=== PATIENT | female | born 1960 | race Caucasian/White ===

== ENCOUNTER 2020-07-10 06:33 | Outpatient (CLI) | payer BC, OTHER, SELFPAY ==
--- NOTE | ~2020-07-10 | XR_ITS ---
EXAMINATION: XR chest 2V EXAM DATE: 07/10/2020 06:50 INDICATION: Persistent cough, COPD. TECHNIQUE: Frontal and lateral projections of the chest obtained and reviewed. Comparison is made to prior examination from 07/09/2019. FINDINGS: The lungs are clear. There are no pleural effusions. The cardiomediastinal silhouette is upper limits of normal in size. There is no pneumothorax suspected. Old right rib fractures. There is mild hyperinflation. IMPRESSION: Mild hyperinflation. Reviewed, dictated and finalized at location A. IMPRESSION: Mild hyperinflation.
== END 2020-07-10 06:34 | disposition home or self-care (01) ==
LOC: ANHIMG 06:38
PROVIDERS: PCP Family Medicine; Visit Provider Physician Assistant Medical
DX: R05 Cough (principal); R91.8 Other nonspecific abnormal finding of lung field
CPT/HCPCS: 71046

== ENCOUNTER 2021-05-28 23:08 | Inpatient (IN) | payer BC, OTHER, SELFPAY ==
--- NOTE | ~2021-05-28 | XR_ITS ---
XR hip RT 2V w AP pelvis, XR hip LT 1V 05/29/2021 00:04 (accession [id number]), 05/29/2021 07:31 (accession [id number]) Indication: Right hip pain after fall Procedure: AP pelvis and 2 views right hip. Portable view of the left hip performed for comparison. Comparison: No prior studies for comparison. Findings: Pelvic rings are intact. Sacral foramen are symmetric. There is a displaced right femoral n dave fracture with varus angulation. Sacral foramen are symmetric. Impression: 1: Displaced right femoral neck fracture with varus angulation. Reviewed, dictated and finalized at location A. Impression: 1: Displaced right femoral neck fracture with varus angulation. Impression: 1: Displaced right femoral neck fracture with varus angulation.
--- NOTE | ~2021-05-28 | XR_ITS ---
EXAMINATION: XR chest 2V EXAM DATE: 06/03/2021 14:11 INDICATION: Hypoxia. TECHNIQUE: Frontal and lateral projections of the chest obtained and reviewed. Comparison is made to prior examination from 05/28/2021. FINDINGS: Interval development of small to moderate left, small right pleural effusions and left per ihilar edema or pneumonia. There is cardiomegaly. No pneumothorax. There are no osseous abnormalities identified. IMPRESSION: 1. Interval development of small to moderate left, small right pleural effusions. 2. Left perihilar edema or pneumonia. Reviewed, dictated and finalized at location A. IMPRESSION: 1. Interval development of small to moderate left, small right pleural effusio ns. 2. Left perihilar edema or pneumonia.
--- NOTE | ~2021-05-28 | XR_ITS ---
EXAMINATION: XR chest 1V portable 05/29/2021 00:04 INDICATION: Status post fall. PROCEDURE: AP portable chest COMPARISON: Comparison to multiple prior studies sequentially, with oldest reviewed study date2017. FINDINGS: The lungs are clear. The cardiomediastinal silhouette is within normal limits. There are no pleural effusions. There is no pneumothorax suspected. IMPRESSION: 1: NO ACUTE CARDIOPULMONARY DISEASE. Reviewed, dictated and finalized at location A.
--- NOTE | ~2021-05-28 | CT_ITS ---
EXAMINATION: CT cervical spine wo con DATE: 05/28/2021 23:53 INDICATION: Neck pain after fall TECHNIQUE: Computed tomography (CT) of the cervical spine was performed without intravenous contrast. The dose-length product was 296 mGy-cm. Automated exposure control and iterative reconstruction tech nique were employed. COMPARISON: None FINDINGS: There is emphysema. There is straightening of cervical lordosis. There is degenerative disc disease at C4-5 and C5-6. There is degenerative anterolisthesis at C3-4 and C4-5. Odontoid process w ithin normal limits. No evidence for perched facet. Craniovertebral junction within normal limits. Th ere are facet degenerative changes primarily at C3-4 and C4-5. There are mild uncinate degenerative c hanges. No acute fracture or traumatic malalignment. IMPRESSION: 1. No acute abnormality of the cervical spine. 2: Moderate cervical spondylosis. Reviewed, dictated and finalized at location A.
--- NOTE | ~2021-05-28 | XR_ITS ---
EXAMINATION: XR surgery orthopedic DATE: 05/29/2021 16:08 INDICATION: Intraoperative evaluation during right hip arthroplasty TECHNIQUE: Frontal view of the right hip was obtained. COMPARISON: None. FINDINGS: Intraoperative image during a right hip arthroplasty demonstrate initially placement of a femoral bro ach with a lucent head component centered within the right acetabular. Was subsequently exchanged for the femoral component of the right hip hemiarthroplasty, still with lucent compartment. Hemostats li maisha external to the patient project over the proximal right thigh. Left hip joint space is normal. N o fractures identified. IMPRESSION: 1. Expected appearance during a bipolar type right hip hemiarthroplasty. Reviewed, dictated and finalized at location A.
--- NOTE | ~2021-05-28 | CT_ITS ---
EXAMINATION: CT brain wo con DATE: 05/28/2021 23:53 INDICATION: Head injury. Headache. TECHNIQUE: Computed tomography (CT) of the head was performed without intravenous contrast. The dose- length product was 605.33 mGy-cm. Automated exposure control and iterative reconstruction technique w ere employed. COMPARISON: CT dated 01/16/2024 FINDINGS: There is mild right anterior scalp swelling. Generalized atrophy. No acute intracranial hem orrhage, infarction, mass or mass effect. No ventriculomegaly or midline shift. Basilar cisterns are patent. Normal bowens-white differentiation. There is intracranial atherosclerosis. There are scattered mild periventricular and subcortical white matter changes, most likely related to small vessel ische angel disease (microangiopathy). The Paranasal sinuses are unremarkable. Mastoids are pneumatized. Smal l right mastoid effusion. There is an empty sella. IMPRESSION: 1. No acute intracranial abnormality. Reviewed, dictated and finalized at location A.
--- NOTE | ~2021-05-28 | US_ITS ---
US abdomen limited DATE: 06/01/2021 09:56 INDICATION: Elevated liver enzymes. TECHNIQUE: Real-time imaging of liver, pancreas, gallbladder areas COMPARISON: 04/08/2016 Limited abdominal ultrasound examination; gallbladder sludge was reported. FINDINGS: Hepatic surface nodularity suggests cirrhosis. No hepatic space-occupying mass lesion is ev ident. Normal hepatopedal portal venous flow direction. The common bile duct measures 4.3 mm, normal. No gallstones or gallbladder wall thickening or pericholecystic fluid collection. Negative sonographi c Rodriguez's sign. The pancreas is not well demonstrated. IMPRESSION: Hepatic surface nodularity, suggesting cirrhosis The pancreas is not well demonstrated Reviewed, dictated and finalized at Location A. Reviewed, dictated and finalized at location A.
--- NOTE | ~2021-05-28 | XR_ITS ---
XR hip RT 1V w AP pelvis DATE: 05/29/2021 16:30 INDICATION: Right bipolar hip replacement for right subcapital femoral neck fracture TECHNIQUE: Portable AP pelvis. Portable AP right hip. COMPARISON: 05/28/2021 right hip FINDINGS: There is resection of the right femoral head there is surgical drain and mild subcutaneous emphysema at the right hip area. And placement of a bipolar hip prosthesis which appears normally sea afsaneh in the right acetabular fossa. The pubic symphysis and sacroiliac joints are intact. No pelvic fracture or bone destruction is evide nt. Radiopaque bowel sutures overlie the mid lower abdomen. IMPRESSION: Right bipolar hip replacement Reviewed, dictated and finalized at location A.
[2021-05-28 23:13] VITALS: BP 138/70; PULSE 64; RESP 16; TEMP 36.3; O2SAT 97
[2021-05-28] MEDS: HYDROmorphone HCL INJ (*CRX) 1 MG/ML SYR IV PUSH (23:34)
[2021-05-28] MEDS: ONDANSETRON INJ 4 MG/2 ML VIAL IV PUSH (23:34)
[2021-05-28] MEDS: SODIUM CHLORIDE 0.9% IV 1,000 ML 999 ML IV CONT (23:36)
[2021-05-29] VITALS (22 sets, daily range): BP systolic 101–177; BP diastolic 50–90; PULSE 59–89; RESP 13–22; TEMP 36.2–37.2; O2SAT 90–100; BMI 23.8
--- NOTE | 2021-05-29 | ECHO_ITS ---
Patient Info Name: Marialuisa Huggins Age: 60 years : 1960 Gender: Female Ht: 66 in Wt: 147 lbs BSA: 1.77 m2 HR: 62 bpm BP: 138 / 90 mmHg Heart Rhythm: Sinus Rhythm Technical Quality: Good Exam Date: 05/29/2021 12:20 PM Exam Location: [facility] Room: [facility] Patient Status: Inpatient Admit Date: 05/29/2021 Staff Ordering Physician: Maxim Feliciano MD [employer] Teacher: Jeni Benavidez RDCS Attending Provider: Sarah Houston PA-C Referring Physician: Jodie JACKSON; Exam Type: CA echo doppler color flow Study Info Indications - chf afib Complete two-dimensional, color flow and Doppler transthoracic echocardiogram is performed. Summary 1. Complete two-dimensional, color flow and Doppler transthoracic echocardiogram is performed. 2. Left ventricular chamber size, wall thickness, systolic are normal with no regional wall motion abnormalities with an estimated ejection fraction of 55-60%. Grade 2 diastolic dysfunction is present. 3. Left atrial chamber dimension is moderately enlarged. 4. There is mild mitral valve regurgitation. 5. There is mild tricuspid valve regurgitation. 6. Mild pulmonary hypertension, estimated pulmonary arterial systolic pressure is 41 mmHg. 7. Normal sinus rhythm. Left Ventricle Left ventricular chamber size, wall thickness, systolic are normal with no regional wall motion abnormalities with an estimated ejection fraction of 55-60%. Grade 2 diastolic dysfunction is present. Left ventricular systolic function is normal, estimated at 55-60%. The left ventricular diastolic function is grade II diastolic dysfunction. Left Atria Left atrial chamber dimension is moderately enlarged. Mitral Valve There is mild mitral valve regurgitation. Tricuspid Valve There is mild tricuspid valve regurgitation. Mild pulmonary hypertension, estimated pulmonary arterial systolic pressure is 41 mmHg. Left Ventricular Outflow Tract Name Value Normal LVOT 2D LVOT Diameter 2.0 cm LVOT Doppler LVOT Peak Gradient 5 mmHg LVOT Mean Gradient 3 mmHg LVOT VTI 24 cm LVOT VTI/AV VTI Ratio 0.8 LVOT Stroke Volume 79 ml LVOT CO 15.8 l/min LVOT CI 8.9 l/min/m2 Pulmonic Valve Name Value Normal PV Doppler PV Peak Gradient 2 mmHg Mitral Valve Name Value Normal MV Doppler MV Decel [place] 239 cm/s2 MV PHT 78 ms MV
--- NOTE | 2021-05-29 | ECG_ITS ---
Measurements Intervals [place] Rate: 59 P: 76 OK: 174 QRS: 62 QRSD: 105 T: 108 QT: 456 QTc: 455 Interpretive Statements SINUS BRADYCARDIA BORDERLINE ST-T WAVE ABNORMALITY- DIFFUSE LEADS BASELINE ARTIFACT- I, II, III, AVR, AVL, AVF, V1 BORDERLINE ECG Electronically Signed On 05-29-2021 6:32:33 CDT by Abdulaziz Anderson D.O.
[2021-05-29] MEDS: HYDROmorphone HCL INJ (*CRX) 1 MG/ML SYR IV PUSH ×5 (00:45→20:45)
[2021-05-29 01:52] LABS: Basophils Percent Auto 0.3 % (0.2-1.2); Eosinophils Percent Auto 0.1 % (0-4.4); Hematocrit 32.9 % (37.0-47.0); Hemoglobin 11.3 g/dL (12.0-15.0); Immature Granulocyte Absolute 0.04 K/mm3 (0.00-0.031); Immature Granulocyte Percent A 0.6 % (0-0.5); Lymphocytes Percent Auto 7.3 % (18.3-44.2); Mean Corpuscular HGB Conc 34.3 g/dl (32-36); Mean Corpuscular Hemoglobin 33.9 pg (26-34); Mean Corpuscular Volume 98.8 fl (80-100); Mean Platelet Volume 9.1 fl (7.4-10.4); Monocytes Absolute Auto 0.7 K/mm3 (0.1-0.6); Monocytes Percent Auto 9.5 % (2.6-8.5); Neutrophils Absolute Auto 5.6 K/mm3 (1.3-6.7); Neutrophils Percent Auto 82.2 % (45.5-73.1); Platelet Count Result 185 k/mm3 (150-375); Red Blood Count 3.33 M/mm3 (4.2-5.4); Red Cell Distribution Width 14.2 % (11.5-14.5); White Blood Count 6.9 K/mm3 (4.5-10.0)
[2021-05-29 01:57] LABS: INR 0.9; Prothrombin Time 12.4 Seconds (11.1-14.7)
[2021-05-29 01:57] LABS: Add Urine Microscopic? YES; Appearance Urine Cloudy (Clear); Bacteria Urine Trace /hpf; Bilirubin Urine Negative (Negative); Blood Urine Negative (Negative); Color Urine Yellow (Yellow); Glucose Urine UA Negative (Negative); Ketones Urine Negative (Negative); Leukocyte Esterase Ur 3+ LEU/UL (Negative); Mucus Urine Rare /lpf; Nitrate Urine Positive (Negative); Protein Urine Negative (Negative); RBC Urine 0-2 /hpf (0-2); Renal Epithelial Cells Urine Rare /hpf (None Seen); Specific Grav Ur 1.006 (1.001-1.035); Squamous Epithelial Cell Urine Rare /hpf (Few); Urobilinogen Urine Negative mg/dL (<2.0); WBC Urine >75 /hpf
[2021-05-29 01:58] LABS: Partial Thromboplastin Time 26.5 SECONDS (22.3-36.8)
[2021-05-29 02:00] LABS: Alanine Aminotransferase 28 U/L (4-35); Albumin Level 3.4 g/dL (3.5-5.1); Alkaline Phosphatase 161 U/L (38-126); Anion Gap 5 mmol/L (8-16); Aspartate Amino Transferase 60 U/L (14-36); Bilirubin,Total 0.9 mg/dL (0.2-1.3); Blood Urea Nitrogen 11 mg/dL (7-17); Calcium 8.6 mg/dL (8.4-10.2); Carbon Dioxide 28 mmol/L (22-30); Chloride 91 mmol/L (98-107); Estimated CRCL calculation 45 ml/min; Estimated Glomerular Filt Rate 51; Glucose 91 mg/dL (65-110); Sodium 124 mmol/L (137-145)
--- NOTE | 2021-05-29 02:10 | ED.GENADULT ---
HPI - General Adult General Chief complaint: Fall Stated complaint: rt hip pain Time Seen by Provider: 05/28/21 23:15 History of Present Illness HPI narrative: Patient 60-year-old female presents the emergency department with chief complaint of right hip pain. Patient reports she was walking on the carpet tripped and fell patient reports that her right leg is exquisitely painful in the hip area and reports that it shortened and externally rotated. Patient denies loss of consciousness reports that she did strike her head patient reports she has history of atrial fibrillation but is currently not on any blood thinners. Related Data Allergies Allergy/AdvReac Type Severity Reaction Status Date / Time codeine Allergy Unknown Unknown Verified 05/28/21 23:22 morphine Allergy Unknown Unknown Verified 05/28/21 23:22 guaifenesin AdvReac Mild SHAKY AND Verified 05/28/21 23:22 NAUSEOUS Review of Systems Review of Systems: A 10 system review of systems was completed on the patient and is negative except for what is stated in the HPI. Nursing and ancillary documentation was reviewed. PMFSH Family History Family History Other Hypertension Social History Social History Smoking status: Never smoker Alcohol intake: never Gender identity (if verbalized by the patient): Female Sexual Orientation (if Verbalized by the Patient): Straight or Heterosexual Exam Narrative: GENERAL: Well-appearing, well-nourished, and in no acute distress. HEAD: Normocephalic, atraumatic. EYES: PERRLA and EOMI. ENT: Nares clear, no rhinorrhea or epistaxis. Mucous membranes moist. NECK: Supple. CHEST: Clear to auscultation. No respiratory distress. HEART: Regular rate and rhythm. No murmur heard. Normal peripheral pulses. ABDOMEN: Soft, nontender, nondistended, normal active bowel sounds. EXTREMITIES: Normal range of motion. No edema. Right lower extremity is shortened and externally rotated there is tenderness to palpation in the right hip SKIN: Warm, dry, no rash. NEURO: No focal deficits. Alert and oriented x3. PSYCH: Normal mood and affect. Course Vital Signs Vital signs: Vital Signs Temperature 36.3 C L 05/28/21 23:13 Pulse Rate 64 05/28/21 23:13 Respiratory Rate 16 05/28/21 23:13 Blood Pressure 138/70 05/28/21 23:13 Pulse Oximetry 97 05/28/21 23:13 Temperature 36.3 C L 05/28/21 23:13 Pulse Rate 66 05/29/21 01:14 Respiratory Rate 16 05/29/21 01:14 Blood Pressure 135/72 05/29/21 01:14 Pulse Oximetry 100 05/29/21 01:14 Medical Decision Making Vital Signs Vital Signs: Vital Signs Temperature 36.3 C L 05/28/21 23:13 Pulse Rate 64 05/28/21 23:13 Respiratory Rate 16 05/28/21 23:13 Blood Pressure 138/70 05/28/21 23:13 Pulse Oximetry 97 05/28/21 23:13 Temperature 36.3 C L 05/28/21 23:13 Pulse Rate 66 05/29/21 01:14 Respiratory Rate 16 05/29/21 01:14 Blood Pressure 135/72 05/29/21 01:14 Pulse Oximetry 100 05/29/21 01:14 Lab Data Result diagrams: 05/29/21 01:40 05/29/21 01:40 Labs: Lab Results 05/29/21 05/29/21 05/29/21 Range/Units 01:39 01:40 01:40 WBC 6.9 (4.5-10.0) K/mm3 RBC 3.33 L (4.2-5.4) M/mm3 Hgb 11.3 L (12.0-15.0) g/dL Hct 32.9 L (37.0-47.0) % MCV 98.8 (80-100) fl MCH 33.9 (26-34) pg MCHC 34.3 (32-36) g/dl RDW 14.2 (11.5-14.5) % Plt Count 185 (150-375) k/mm3 MPV 9.1 (7.4-10.4) fl Immature Gran % (Auto) 0.6 H (0-0.5) % Neut % (Auto) 82.2 H (45.5-73.1) % Lymph % (Auto) 7.3 L (18.3-44.2) % [place] % (Auto) 9.5 H (2.6-8.5) % Eos % (Auto) 0.1 (0-4.4) % Baso % (Auto) 0.3 (0.2-1.2) % Lymph # (Auto) 0.50 L (0.9-3.2) K/mm3 [place] # (Auto) 0.7 H (0.1-0.6) K/mm3 Eos # (Auto) 0.0 (0-0.3) K/mm3 Baso # (Auto)
--- NOTE | 2021-05-29 02:34 | PM.IMHP ---
H&P: HPI History of Present Illness Date/Time: 05/29/21 02:34 Fall Chief Complaint: Fall Narrative: This is a 60-year-old female with past medical history significant for atrial fibrillation, COPD, hypothyroidism, remote history of tracheostomy and ventilator dependent respiratory failure. Patient comes in after she had a fall mechanical fall from her feet to the ground after tripping over carpet patient was unable to get up on her on she denies any loss of consciousness unable to bear weight on her right leg. Preliminary workup was significant for fracture of the right hip blood work was significant for sodium 124 a urinalysis was significant for 75 WBCs presenting urine. Patient states that she has been pretty much in her usual state of health she denies any nausea vomiting abdominal pain diarrhea cough sputum production fevers chills or rigors no leg swelling no PND or orthopnea. Review of Systems Review of Systems: Fall unable to bear weight on the right leg pain and limited range of motion Constitutional: Constitutional: Denies chills, Denies fever(s), Denies malaise and Denies weakness Eyes: Eyes: Denies change in vision ENT: Denies dysphagia, Denies vertigo, Denies dizziness, Denies nasal congestion, Denies nasal discharge, Denies nasal obstruction and Denies odynophagia Cardiovascular: Cardiovascular: Denies lightheadedness, Denies radiating jaw, neck or arm pain, Denies palpitations, Denies dyspnea and Denies orthopnea Respiratory: Respiratory: Denies cough and Denies dyspnea Gastrointestinal: Gastrointestinal: Denies abdominal pain, Denies diarrhea, Denies nausea and Denies vomiting Musculoskeletal: Musculoskeletal: Reports arthralgias Comments: Right lower extremity Integumentary/Breasts: Skin/Breast: Denies rash Neurologic: Denies focal weakness and Denies Sensory deficit (Neuro) Psychiatric: Psychiatric: Reports no additional psychiatric complaints Endocrine: Endocrine: Reports no additional endocrine complaints Hematologic/Lymphatic: Hematologic/Lymphatic: Reports no additional hematologic/lymphatic complaints Allergic/Immunologic: Allergic/Immunologic: Reports no additional allergic/immunologic complaints [facility] Family History Family History Other Hypertension Social History Social History Smoking status: Never smoker Alcohol intake: never Gender identity (if verbalized by the patient): Female Sexual Orientation (if Verbalized by the Patient): Straight or Heterosexual Meds Home Medications and Allergies Home Medications Medication Instructions Recorded Confirmed Type amiodarone 200 mg tablet 200 mg PO DAILY #60 tablet 05/14/20 05/14/20 Rx fluticasone propionate 50 2 spray INTRANASAL DAILY #48 gm 06/11/20 Rx mcg/actuation nasal spray,suspension ketoconazole 2 % topical cream 1 applic TOPICAL BID #15 gm 07/09/20 07/09/20 Rx benzonatate 100 mg capsule 100 mg PO TID PRN #30 cap 07/17/20 Rx budesonide-formoterol HFA 160 2 puff INHALATION Q12H #10.2 gm 08/17/20 Rx mcg-4.5 mcg/actuation aerosol inhaler azelastine 205.5 mcg (0.15 %) 1 spray NASAL BID #30 ml 01/02/21 Rx nasal spray levothyroxine 137 mcg tablet See Rx Instructions .ROUTE 03/14/21 Rx .COMPLEX #30 tablet albuterol sulfate 90 mcg/actuation 2 puff INHALATION Q4H PRN #18 g 04/03/21 Rx aerosol inhaler escitalopram oxalate 10 mg tablet See Rx Instructions .ROUTE 04/03/21 Rx .COMPLEX #90 tablet pravastatin 20 mg tablet 20 mg PO DAILY #90 tablet 04/03/21 Rx furosemide 20 mg tablet 20 mg PO QAM #90 tablet 04/12/21 Rx Allergies Allergy/AdvReac Type Severity Reaction Status Date / Time codeine Allergy Unknown Unknown Verified 05/28/21 23:22 morphine Allergy Unknown Unknown Verified 05/28/21 23:22 guaifenesin AdvReac Mild SHAKY AND Verified 05/28/21 23:22 NAUSEOUS Vi
[2021-05-29] MEDS: SODIUM CHLORIDE 0.9% IV 1,000 ML 125 ML IV CONT (05:35)
--- NOTE | 2021-05-29 05:43 | PC.NURSE ---
This patient, Marialuisa Huggins, was admitted to 3 [facility] Surg Room 302-01. Patient/family oriented to hospital policies and general routines including ID bracelet, bed and alarms, visiting hours, pain management, procedures, bathroom and other care routines, personal items, smoking policy, room service/diet, and visiting hours. Information on how to activate the Rapid Response Team has been discussed. Patient/Family are encouraged to report perceived risks to care and to ask questions if they do not understand what they are told or what they should do.
[2021-05-29] MEDS: LEVOTHYROXINE SODIUM 25 MCG TABLET PO (06:36)
[2021-05-29] MEDS: LEVOTHYROXINE SODIUM 112 MCG TABLET PO (06:36)
[2021-05-29] MEDS: PRAVASTATIN SODIUM 20 MG TABLET PO (08:05)
[2021-05-29] MEDS: AMIODARONE HCL 200 MG TABLET PO (08:06)
[2021-05-29] MEDS: ESCITALOPRAM OXALATE 10 MG TABLET BY MOUTH (08:06)
[2021-05-29] MEDS: AZELASTINE HCL NASAL 0.1% 137 MCG/SPR 30 ML BTL 1 SPRAY NASAL (08:08)
[2021-05-29] MEDS: FLUTICASONE PROPIONATE 0.05% NA SPR 16 GM BTL (*BKC) 2 SPRAY NASAL (08:08)
--- NOTE | 2021-05-29 08:40 | WPDANESEPPF ---
Anes - Initial Pre Proc Eval Procedure: Operation Date: 05/29/21 13:00 Proposed Procedures p Right Bipolar Hip Replacement(Right) - Maxim Feliciano MD Date/Time: 05/29/21 08:40 Surgeon: Sarah Houston PA-C Pre Op Diagnosis: R Femoral Neck Fracture Patient Data Age: 60 Gender: F Height: 1.68 m Weight: 66.9 kg Last Vital Signs Temp 36.6 C 05/29/21 05:58 Pulse 80 05/29/21 08:06 Resp 18 05/29/21 05:58 BP 138/90 05/29/21 05:58 Pulse Ox 91 05/29/21 08:12 Allergies Allergy/AdvReac Type Severity Reaction Status Date / Time codeine Allergy Unknown Unknown Verified 05/28/21 23:22 morphine Allergy Unknown Unknown Verified 05/28/21 23:22 guaifenesin AdvReac Mild SHAKY AND Verified 05/28/21 23:22 NAUSEOUS Home Medications Medication Instructions Recorded Confirmed Type amiodarone 200 mg tablet 200 mg PO DAILY #60 tablet 05/14/20 05/29/21 Rx fluticasone propionate 50 2 spray INTRANASAL DAILY #48 gm 06/11/20 05/29/21 Rx mcg/actuation nasal spray,suspension ketoconazole 2 % topical cream 1 applic TOPICAL BID #15 gm 07/09/20 07/09/20 Rx benzonatate 100 mg capsule 100 mg PO TID PRN #30 cap 07/17/20 Rx budesonide-formoterol HFA 160 2 puff INHALATION Q12H #10.2 gm 08/17/20 Rx mcg-4.5 mcg/actuation aerosol inhaler azelastine 205.5 mcg (0.15 %) 1 spray NASAL BID #30 ml 01/02/21 05/29/21 Rx nasal spray levothyroxine 137 mcg tablet See Rx Instructions .ROUTE 03/14/21 05/29/21 Rx .COMPLEX #30 tablet albuterol sulfate 90 mcg/actuation 2 puff INHALATION Q4H PRN #18 g 04/03/21 05/29/21 Rx aerosol inhaler escitalopram oxalate 10 mg tablet See Rx Instructions .ROUTE 04/03/21 05/29/21 Rx .COMPLEX #90 tablet pravastatin 20 mg tablet 20 mg PO DAILY #90 tablet 04/03/21 05/29/21 Rx furosemide 20 mg tablet 20 mg PO QAM #90 tablet 04/12/21 05/29/21 Rx Laboratory Tests 05/29/21 05/29/21 05/29/21 01:39 01:40 01:40 WBC 6.9 K/mm3 K/mm3 (4.5-10.0) RBC 3.33 M/mm3 L M/mm3 (4.2-5.4) Hgb 11.3 g/dL L g/dL (12.0-15.0) Hct 32.9 % L % (37.0-47.0) MCV 98.8 fl fl (80-100) MCH 33.9 pg pg (26-34) MCHC 34.3 g/dl g/dl (32-36) RDW 14.2 % % (11.5-14.5) Plt Count 185 k/mm3 k/mm3 (150-375) MPV 9.1 fl fl (7.4-10.4) Immature Gran % (Auto) 0.6 % H % (0-0.5) Neut % (Auto) 82.2 % H % (45.5-73.1) Lymph % (Auto) 7.3 % L % (18.3-44.2) [place] % (Auto) 9.5 % H % (2.6-8.5) Eos % (Auto) 0.1 % % (0-4.4) Baso % (Auto) 0.3 % % (0.2-1.2) Lymph # (Auto) 0.50 K/mm3 L K/mm3 (0.9-3.2) [place] # (Auto) 0.7 K/mm3 H K/mm3 (0.1-0.6) Eos # (Auto) 0.0 K/mm3 K/mm3 (0-0.3) Baso # (Auto) 0.0 K/mm3 K/mm3 (0.0-0.1) Abs Immat Gran (auto) 0.04 K/mm3 H K/mm3 (0.00-0.031) Absolute Neuts (auto) 5.6 K/mm3 K/mm3 (1.3-6.7) Absolute Nucleated RBC 0.0 K/mm3 K/mm3 (0.0-0.012) Nucleated RBC % 0.0 % % (0.0-0.2) PT 12.4 Seconds Seconds (11.1-14.7) INR 0.9 APTT 26.5 SECONDS SECONDS (22.3-36.8) Sodium Potassium Chloride Carbon Dioxide Anion Gap BUN Creatinine Estim Creat Clear Calc Estimated GFR Glucose Calcium Total Bilirubin AST ALT Alkaline Phosphatase Total Protein Albumin Vitamin D 25-Hydroxy Urine Color Yellow (Yellow) Urine Appearance Cloudy H (Clear) Urine pH 7.0 (5.0-9.0) Ur Specific [place] 1.006 (1.001-1.035) Urine Protein Negative mg/dL mg/dL (Negative) Urine Glucose (UA) Negative mg/dL mg/dL (Negative) Urine Ketones N
[2021-05-29 09:35] LABS: Vitamin D 25 Hydroxy 71.1 ng/mL
--- NOTE | 2021-05-29 09:42 | PM.CNCAR ---
Assessment and Plan Assessment and plan (1) Closed fracture of neck of right femur: Qualifiers: Encounter type: initial encounter Qualified Code(s): S72.001A - Fracture of unspecified part of neck of right femur, initial encounter for closed fracture Code(s): S72.001A - Fracture of unspecified part of neck of right femur, initial encounter for closed fracture Status: Acute Assessment and Plan: Cleared for OR with a low anticipated risk of cardiovascular complications. (2) Paroxysmal atrial fibrillation: Code(s): I48.0 - Paroxysmal atrial fibrillation Status: Acute Assessment and Plan: History of paroxysmal atrial fibrillation, quiescent on amiodarone, maintaining NSR. Not anticoagulated. Stable. (3) Essential hypertension: Code(s): I10 - Essential (primary) hypertension Status: Acute Assessment and Plan: Reasonably well controlled. (4) History of CHF (congestive heart failure): Code(s): Z86.79 - Personal history of other diseases of the circulatory system Status: Acute Assessment and Plan: Has had diastolic CHF in the past. Currently euvolemic, stable, no evidence of CHF or ischemic heart disease. (5) Alcohol use: Code(s): Z72.89 - Other problems related to lifestyle Status: Acute Assessment and Plan: History of heavy alcohol use, currently drinking 3 beers a day. Follow for any signs or symptoms of alcohol withdrawal (6) Hx of falling: Code(s): Z91.81 - History of falling Status: Acute Assessment and Plan: History of balance problems. ?This is not my 1st fall. History of Present Illness History of Present Illness Consult date/time: 05/29/21 09:42 Requesting physician: Maxim Feliciano MD Consult reason: Other (Preoperative evaluation) Reason For Visit: R Femoral Neck Fracture Narrative: Sondra Huggins is a 60-year-old white female whom I was asked to see at the request of Dr. Feliciano for my advice and opinion regarding her perioperative cardiovascular risk. She M had a mechanical fall and has a right hip fracture and may have a repair today. The patient is followed by Dr. Blas for her paroxysmal atrial fibrillation. She has been on amiodarone for the last couple years after failing sotalol and her AFib has been well controlled as of her last visit with him in May 2020. She has been doing well, with no recurrent atrial fibrillation at home. She has had no chest pain, shortness of breath or swelling. She does get dizzy after she takes her medications, and has had some balance problems with other falls. She does have a history of diastolic CHF, hypertension, hyperlipidemia, hyponatremia, heavy alcohol use (down to 3 beers per day), and chronic kidney disease. Review of Systems Constitutional: Constitutional: Denies weakness Eyes: Eyes: Denies blurry vision ENT: Denies epistaxis Cardiovascular: Cardiovascular: Denies chest pain, Denies pedal edema, Reports lightheadedness and Denies palpitations Comments: Dizzy after taking her medications in the morning Respiratory: Respiratory: Denies chest congestion, Denies cough, Denies dyspnea and Denies dyspnea on exertion Gastrointestinal: Gastrointestinal: Denies abdominal pain, Denies hematochezia and Denies constipation Genitourinary: Genitourinary: Denies hematuria Musculoskeletal: Musculoskeletal: Reports arthralgias Integumentary/Breasts: Skin/Breast: Denies rash Neurologic: Comments: Balance problems, history of falls Psychiatric: Psychiatric: Reports anxiety and Reports depression [facility] Past Medical History Medical History (Updated 05/29/21 @ 10:18 by Loly Dacosta MD) Acute congestive
[2021-05-29] MEDS: diphenhydrAMINE HCl INJ 50 MG/ML VIAL 25 MG IV PUSH ×3 (11:40→22:25)
--- NOTE | 2021-05-29 12:30 | PM.IMPN ---
Progress Note: A&P Assessment and Plan (1) Closed fracture of neck of right femur: Qualifiers: Encounter type: initial encounter Qualified Code(s): S72.001A - Fracture of unspecified part of neck of right femur, initial encounter for closed fracture Code(s): S72.001A - Fracture of unspecified part of neck of right femur, initial encounter for closed fracture Status: Acute Assessment and Plan: Plan for surgery later today -patient has been seen by Cardiology and myself. She is a low risk for surgery -continue pain medication, DVT prophylaxis and PT and OT per surgery -Miller catheter placed. Plan to discontinue in 1-2 days after surgery (2) Atrial fibrillation: Code(s): I48.91 - Unspecified atrial fibrillation Status: Acute Assessment and Plan: Rhythm and rate control -not anticoagulated. She sees Dr. Blas and he told her that she did not need any anticoagulation. Likely due to fall risk -continue amiodarone (3) Essential hypertension: Code(s): I10 - Essential (primary) hypertension Status: Acute Assessment and Plan: Patient's last blood pressure was 138/90 -could be elevated due to pain -I do not see any home medications for this, will verify (she is on 20 mg of Lasix daily) (4) Hypothyroidism: Code(s): E03.9 - Hypothyroidism, unspecified Status: Acute Assessment and Plan: Continue levothyroxine (5) Hyponatremia: Code(s): E87.1 - Hypo-osmolality and hyponatremia Status: Acute Assessment and Plan: Likely secondary to pain and furosemide -she is on lexapro as well -hold Lasix -will check urine sodium and creatinine. Depending on when her last dose of furosemide was, may need FeUrea (6) Other emphysema: Code(s): J43.8 - Other emphysema Status: Acute Assessment and Plan: Chronic and controlled -continue symbicort (7) Alcohol use: Code(s): Z72.89 - Other problems related to lifestyle Status: Acute Assessment and Plan: Drinks about 3 drinks a day -no signs of alcohol withdraw at this time -will monitor for withdraw symptoms (8) UTI (urinary tract infection): Code(s): N39.0 - Urinary tract infection, site not specified Status: Acute Assessment and Plan: UA suspicious for UTI -continue ceftriaxone and monitor culture Time Spent With Patient Time with patient: 25 - 35 minutes Subjective Date/time seen: 05/29/21 12:30 Interval history: Pt is a 60-year-old female here for hip fracture. Patient was seen today and states her pain is a 7/10 currently. She denies numbness or tingling to the area. She said the pain medication helps but does make her itchy a little bit. She usually takes Benadryl every day without issue. She denies nausea, vomiting, fevers, chills, chest pain or shortness of breath. She has no recent history of dyspnea on exertion or chest pain. She falls occasionally. Review of Systems Review of Systems: All systems reviewed & are unremarkable except as noted in HPI and below Exam Narrative: General: Well developed well nourished patient in NAD HEENT: normocephalic Neck: supple Neuro: Alert and oriented x4 CV:RRR Resp:CTA Abd: Soft, non distended. No pain to palpation. Positive bowel sounds. Well-healed scars on her abdomen. Extremities: No swelling, erythema, or pain to palpation. Objective Data Vital Signs Vital Signs: Vital Signs - 24 hr 05/28/21 23:13 05/29/21 00:02 05/29/21 00:15 Temperature 97.3 F L Pulse Rate 64 62 61 Respiratory Rate 16 22 H 14 Blood Pressure 138/70 Pulse Oximetry 97 05/29/21 00:30 05/29/21 00:45 05/29/21 01:00 Temperature Pulse Rate 59 L 62 60 Respiratory Rate 22 H 16 19 Blood Pressure Pulse Oximetry 05/29/21 01:14 05/29/21 05:58 05/29/21 08:06 Temperature 97.8 F Pulse Rate 66 69 80 Respiratory Rate 16 1
[2021-05-29] MEDS: LACTATED RINGERS 1,000 ML 30 ML IV CONT ×2 (12:42→16:14)
--- NOTE | 2021-05-29 12:45 | P.PNAN_ITS ---
Anes - Eval Final PreProcedure Day of Procedure 05/29/21 12:45 Patient weight: normal Heart: regular rate and rhythm Lungs: clear to auscultation Airway: Mallampati scale class III Neurological: alert and oriented Last oral intake: >/= 8 hours ASA classification: IV Emergent: no Anesthetic plan: proceed Anesthesia type and monitoring: general ETT and standard monitoring Informed Consent: The patient's anesthetic plan and its attendant risks and b enefits were discussed with the patient/family/POA. Questions were solicited and answers provided to the satisfaction of the patient/family/POA.
[2021-05-29] MEDS: TRANEXAMIC ACID 1,000MG/ISO100 1,000 MG/100 ML BAG 200 MG IVPB (12:55)
[2021-05-29 12:56] LABS: Creatinine Urine 80.5 mg/dL
[2021-05-29 12:57] LABS: Sodium Urine Random 19 meq/L
--- NOTE | 2021-05-29 12:57 | WPDHPUPDATE1 ---
History and Physical Update Update Date/Time: 05/29/21 12:57 History and Physical has been reviewed, including an updated exam of the patient. There are NO changes in the patient's condition. Risks, benefits, and alternatives have been discussed and questions answered. Patient agrees to proceed with procedure.
--- NOTE | 2021-05-29 13:00 | WPDHPUPDATE1 ---
History and Physical Update Update Date/Time: 05/29/21 13:00 History and Physical has been reviewed, including an updated exam of the patient. There are NO changes in the patient's condition. Risks, benefits, and alternatives have been discussed and questions answered. Patient agrees to proceed with procedure.
--- NOTE | 2021-05-29 13:01 | PM.IMHP ---
H&P: HPI History of Present Illness Date/Time: 05/29/21 13:01 Chief Complaint: I right femoral neck fracture displaced PMFSH Past Medical History Medical History (Updated 05/29/21 @ 12:46 by Sarah Houston PA-C) Acute congestive heart failure Alcohol use Anemia Anxiety Agoraphobia, rarely leaves the house. Depression and PTSD. Atrial fibrillation Closed fracture of neck of right femur COPD (chronic obstructive pulmonary disease) Essential hypertension History of CHF (congestive heart failure) Hx of falling Hyperlipidemia Hyponatremia Hypothyroidism Nerve plexus disorder Right-sided Other emphysema Paroxysmal atrial fibrillation Respiratory failure Admitted 2013 with respiratory failure, DTs, and acute renal failure requiring dialysis and tracheostomy. Surgical History Surgical History (Updated 05/29/21 @ 10:04 by Loly Dacosta MD) H/O tubal ligation H/O: hysterectomy History of tracheostomy 2013, for respiratory failure Hx of appendectomy Family History Family History (Updated 05/29/21 @ 10:07 by Loly Dacosta MD) Mother Patient killed Son No problems noted. Father Family estrangement Other Hypertension Social History Social History (Updated 05/29/21 @ 10:06 by Loly Dacosta MD) Social History: Lives with her . Her only son but she is close to her sister and nephew. History of heavy alcohol intake but now down to 3 beers a day. Smoking packs per day: 1.5 Smoking cigarettes per day: 30.0 Years smoked: 51 Smoking pack-years: 76.50 Smoking status: Current every day smoker Tobacco type: cigarettes and e-cigarettes/vaping Second hand tobacco smoke exposure: Yes Additional smoking assessment comments: Patient stopped smoking cigarrettes in 2010 and started to smoke e-cigarett Alcohol intake: current Drinks per week: 21 Substance use: never Gender identity (if verbalized by the patient): Female Sexual Orientation (if Verbalized by the Patient): Straight or Heterosexual Spiritual care concerns: No Meds Home Medications and Allergies Home Medications Medication Instructions Recorded Confirmed Type amiodarone 200 mg tablet 200 mg PO DAILY #60 tablet 05/14/20 05/29/21 Rx fluticasone propionate 50 2 spray INTRANASAL DAILY #48 gm 06/11/20 05/29/21 Rx mcg/actuation nasal spray,suspension ketoconazole 2 % topical cream 1 applic TOPICAL BID #15 gm 07/09/20 07/09/20 Rx benzonatate 100 mg capsule 100 mg PO TID PRN #30 cap 07/17/20 Rx budesonide-formoterol HFA 160 2 puff INHALATION Q12H #10.2 gm 08/17/20 Rx mcg-4.5 mcg/actuation aerosol inhaler azelastine 205.5 mcg (0.15 %) 1 spray NASAL BID #30 ml 01/02/21 05/29/21 Rx nasal spray levothyroxine 137 mcg tablet See Rx Instructions .ROUTE 03/14/21 05/29/21 Rx .COMPLEX #30 tablet albuterol sulfate 90 mcg/actuation 2 puff INHALATION Q4H PRN #18 g 04/03/21 05/29/21 Rx aerosol inhaler escitalopram oxalate 10 mg tablet See Rx Instructions .ROUTE 04/03/21 05/29/21 Rx .COMPLEX #90 tablet pravastatin 20 mg tablet 20 mg PO DAILY #90 tablet 04/03/21 05/29/21 Rx furosemide 20 mg tablet 20 mg PO QAM #90 tablet 04/12/21 05/29/21 Rx Allergies Allergy/AdvReac Type Severity Reaction Status Date / Time codeine Allergy Unknown Unknown Verified 05/28/21 23:22 morphine Allergy Unknown Unknown Verified 05/28/21 23:22 guaifenesin AdvReac Mild SHAKY AND Verified 05/28/21 23:22 NAUSEOUS Vital Signs Vital Signs - 24 hr 05/28/21 23:13 05/29/21 00:02 05/29/21 00:15 Temperature 36.3 C L Pulse Rate 64 62 61 Respiratory Rate 16 22 H 14 Blood Pressure 138/70 Pulse Oximetry 97 05/29/21 00:30 05/29/21 00:45 05/29/21 01:00 Temperature Pulse Rate 59 L 62 60 Respiratory Rate 22 H 16 19 Blood Pressure Pulse Oximetry 05/29/21 01:14 05/29/21 05:58 05/29/21 08:06 Temperature 36.6 C Pulse Rate 66 69 80 Respiratory R
[2021-05-29] MEDS: ceFAZolin SODIUM 1 GM VIAL 2 GM IV PUSH (13:06)
[2021-05-29] MEDS: ceFAZolin SODIUM 1 GM VIAL 3 GM IRRIGATION (14:05)
[2021-05-29] MEDS: ceFAZolin SODIUM 1 GM VIAL IV PUSH (15:03)
--- NOTE | 2021-05-29 15:55 | W.PM.PROC2 ---
Procedure Note - Detailed Date of Procedure 05/29/21 Pre-op Diagnosis R Femoral Neck Fracture Post-op Diagnosis same Procedure Performed In growth bipolar hemiarthroplasty right hip Surgeon Maxim Feliciano MD Records Management Associate Damaris Anesthesia general Indications Displaced femoral neck fracture Description of Procedure Patient was brought to the operating room general anesthesia was administered she was placed in the lateral decubitus position and hip carefully scrubbed with a chlorhexidine cloth. Hip rests were placed to maintain lateral decubitus position the arm secured well-padded by Anesthesia. The right hip was prepped draped usual fashion. She received 2 g of Ancef weight based vancomycin 1 g tranexamic acid preoperatively. A 6 in longitudinal incision was made over lateral aspect of the hip in the fascia incised along the incision. Anterior 50% gluteus medius and gluteus minimus were elevated off the greater trochanter. Capsule was incised superiorly and elevated off the anterior femur. Provisional femoral neck osteotomy made. The femoral head was removed without difficulty. It measured 43.5 mm in thickness in the 44 mm head was chosen. It fit well in the acetabulum. The femur was broached up to a size 3 which seemed appropriate size initially and we trialed and to the level of the broach we had equal leg lengths and there was appropriate stability intraoperative x-ray was obtained which confirmed equal leg lengths. Looking back at the broach we could see that there was some wiggle still in the 3 broach. I calcar planed I countersunk the broach another few mm with there was still rotational instability of the 3. We broached up to a size 4 which was a very tight fit. We could easily broach to about a mm above the calcar plane neck cut but it took extended gentle approach tapping to the get the broach to countersink 2 mm below the neck cut which was then calcar planed to compensate for the slightly increased offset and length of the 4 over the 3. With this accomplished we calcar planed again and the bone for the calcar was in good condition there were no cracks or chips from that. The size 4 Actis stem standard offset was placed and fully seated. We trialed and with again with a 1.5 mm neck trial we had appropriate stability range of motion and leg lengths appeared equal. The size 1.5 head was assembled to the 44 bipolar head and this was assembled to the knee and dried trunnion impacted securely the wound irrigated again with antibiotic solution thoroughly hip reduced stability reconfirmed. The capsule was repaired with 2. Ethibond the abductors repaired back to bone with 5. Ethibond 2. Ethibond. The fascia jessie closed with interrupted 2. Vicryl and running 1 unidirectional barbed Stratafix suture. Skin closed with 2 subcutaneous Vicryl over a drain deep in the subcu layer and 3-0 subcuticular Monocryl and glue. EBL was 200 cc. 3rd g Ancef given time of wound closure. There were no complications. I noted that the intramedullary a cancellous bone was very soft. We noted that the articular cartilage on the femoral head acetabulum look perfect as did the labrum. Implants [employer] Estimated Blood Loss 200 Drains Yes Packing No Pathology yes Complications No immediate complications Condition stable Disposition PACU
--- NOTE | 2021-05-29 16:59 | SUR.PHASEI ---
8600 sbar faxed floor notified
[2021-05-29] MEDS: SENNA/DOCUSATE SODIUM TABLET 2 TAB PO (17:59)
[2021-05-29] MEDS: SODIUM CHLORIDE 0.9% IV 1,000 ML 80 ML IV CONT (17:59)
[2021-05-30] VITALS (14 sets, daily range): BP systolic 86–111; BP diastolic 51–60; PULSE 68–82; RESP 18–22; TEMP 36.7–37.3; O2SAT 90–97
[2021-05-30] MEDS: SODIUM CHLORIDE 0.9% IV 1,000 ML 80 ML IV CONT (00:25)
[2021-05-30] MEDS: traMADol HCL (*CRX) 50 MG TABLET PO ×2 (01:16→05:27)
[2021-05-30] MEDS: ONDANSETRON INJ 4 MG/2 ML VIAL IV PUSH ×2 (03:13→09:11)
--- NOTE | 2021-05-30 04:33 | PC.NURSE ---
pt complained of extreme itching after receiving Dilaudid at 2100, gave Benadryl when I could, itching has since subsided, pt has no hives, redness, raised areas etc, just dry skin.. which I got lotion for.
[2021-05-30] MEDS: LEVOTHYROXINE SODIUM 112 MCG TABLET PO (05:28)
[2021-05-30] MEDS: LEVOTHYROXINE SODIUM 25 MCG TABLET PO (05:28)
[2021-05-30 07:14] LABS: Basophils Percent Auto 0.3 % (0.2-1.2); Eosinophils Percent Auto 0.1 % (0-4.4); Hematocrit 29.4 % (37.0-47.0); Hemoglobin 9.7 g/dL (12.0-15.0); Immature Granulocyte Absolute 0.04 K/mm3 (0.00-0.031); Immature Granulocyte Percent A 0.4 % (0-0.5); Lymphocytes Absolute Auto 0.19 K/mm3 (0.9-3.2); Mean Corpuscular Volume 103.2 fl (80-100); Mean Platelet Volume 9.8 fl (7.4-10.4); Monocytes Absolute Auto 0.6 K/mm3 (0.1-0.6); Monocytes Percent Auto 6.8 % (2.6-8.5); Neutrophils Absolute Auto 8.5 K/mm3 (1.3-6.7); Neutrophils Percent Auto 90.4 % (45.5-73.1); Platelet Count Result 170 k/mm3 (150-375); Red Blood Count 2.85 M/mm3 (4.2-5.4); Red Cell Distribution Width 14.6 % (11.5-14.5); White Blood Count 9.4 K/mm3 (4.5-10.0)
[2021-05-30 07:32] LABS: Alanine Aminotransferase 22 U/L (4-35); Albumin Level 2.9 g/dL (3.5-5.1); Alkaline Phosphatase 125 U/L (38-126); Anion Gap 4 mmol/L (8-16); Aspartate Amino Transferase 53 U/L (14-36); Bilirubin,Total 0.5 mg/dL (0.2-1.3); Blood Urea Nitrogen 8 mg/dL (7-17); Calcium 8.2 mg/dL (8.4-10.2); Carbon Dioxide 26 mmol/L (22-30); Chloride 90 mmol/L (98-107); Estimated CRCL calculation 49 ml/min; Estimated Glomerular Filt Rate 57; Glucose 101 mg/dL (65-110); Potassium 3.6 mmol/L (3.4-5.0); Sodium 120 mmol/L (137-145)
--- NOTE | 2021-05-30 07:36 | PM.PNORT ---
Progress Note: A&P Additional Plan Postop day 1 patient is alert. She is a very difficult time with pain control. The IV Dilaudid is not helping is also making her itch thoroughly and therefore has been stopped. Tramadol is not improving her pain. She is also very anxious. She is a heavy drinker and may be having a little bit anxiety due to no alcohol intake. She is also has not eaten since she has been here. I discussed with her her allergies to codeine and she says that it makes her nauseous, therefore we will try low-dose oxycodone I am also going to give her some Flexeril hopefully this will decrease her overall pain. I did talk with the hospitalist if her anxiety is still an issue after these measures tried they may want to utilize a low-dose benzo. Sodium was 120 this morning and the hospitalist is aware of that. When she was admitted her sodium was low. She is asymptomatic from this at this point. Her Miller will be removed this morning. Drain is out. Dressing is dry. We will see how the patient progresses over the next day or 2 she may need to go to a rehab facility if she continues to have problems with physical therapy and unable take care of herself. Subjective Subjective Date/Time Seen: 05/30/21 07:36 Objective Data Vital Signs Vital Signs: Vital Signs - 24 hr 05/29/21 08:06 05/29/21 08:12 05/29/21 12:49 Temperature 36.2 C L Pulse Rate 80 63 Respiratory Rate 20 Blood Pressure 125/69 Pulse Oximetry 91 94 05/29/21 16:20 05/29/21 16:40 05/29/21 16:55 Temperature 37.2 C Pulse Rate 73 66 73 Respiratory Rate 13 16 13 Blood Pressure 177/79 H 146/60 H 115/68 Pulse Oximetry 98 95 94 05/29/21 17:11 05/29/21 17:30 05/29/21 17:45 Temperature 36.6 C 36.7 C Pulse Rate 62 63 63 Respiratory Rate 20 16 16 Blood Pressure 122/64 131/64 124/77 Pulse Oximetry 93 91 91 05/29/21 18:15 05/29/21 19:15 05/29/21 20:00 Temperature 36.6 C 36.6 C Pulse Rate 63 66 64 Respiratory Rate 16 16 Blood Pressure 121/50 L 112/53 L Pulse Oximetry 94 96 05/29/21 20:03 05/29/21 20:04 05/29/21 23:06 Temperature 36.7 C Pulse Rate 89 89 64 Respiratory Rate 18 18 18 Blood Pressure 101/51 L Pulse Oximetry 93 94 05/30/21 00:00 05/30/21 03:09 05/30/21 04:00 Temperature 36.7 C Pulse Rate 68 73 73 Respiratory Rate 18 Blood Pressure 111/59 L Pulse Oximetry 94 Intake/Output Intake/Output: Intake & Output 05/27/21 05/28/21 05/29/21 05/30/21 23:59 23:59 23:59 23:59 Intake Total 3025 3530 Output Total 500 750 Balance 2528 9850 Meds/Results Medications: Active Medications Generic Name Dose Route Start Last Admin Trade Name Freq PRN Reason Stop Dose Admin Albuterol 2 puff 05/29/21 02:30 Albuterol Sulfate (*Sp) Aerosol 1 Puff INHALATION Q4H PRN shortness of breath or wheezing Amiodarone HCl 200 mg 05/29/21 08:00 05/29/21 08:06 Amiodarone Hcl 200 Mg Tablet PO 200 mg DAILY@0800 GIOVANNA Administration Apixaban 2.5 mg 05/30/21 09:00 Apixaban 2.5 Mg Tablet PO Q12HR [facility] Azelastine HCl 1 spray 05/29/21 09:00 05/29/21 18:03 Azelastine Hcl Nasal 0.1% 137 Mcg/Spr 30 Ml Btl NASAL Not Given BID [facility] Budesonide/Formoterol Fumarate 2 puff 05/29/21 08:00 05/29/21 20:03 Budesonide/Form 160-4.5 Mcg (*Sp) INHALATION 2 puff Q12HRT GIOVANNA Administration Diphenhydramine HCl 25 mg 05/29/21 10:30 05/29/21 22:25 Diphenhydramine Hcl Inj 50 Mg/Ml Vial IV PUSH 25 mg Q4H PRN Administration Itching Doxycycline Hyclate 100 mg 05/30/21 09:00 Doxycycline Hyclate 100 Mg Tablet PO 06/11/21 09:01 Q12HR [facility] Escitalopram Oxalate 10 mg 05/29/21 09:00 05/29/21 08:06 Escitalopram Oxalate 10 Mg Tablet BY MOUTH 10 mg DAILY GIOVANNA Administration Fluticasone Propionate 2 spray 05/29/21 09:00 05/29/21 08:08 Fluticasone Propionate 0.05% Na Spr 16 Gm Btl (*Bkc) NASAL 2 spray DAILY GIOVANNA Administration Furosemide 20 m
--- NOTE | 2021-05-30 07:39 | PCOTNOTE ---
Attempted OT evaluation, per RN hold for several hours. Will follow and attempt later this AM.
[2021-05-30] MEDS: oxyCODONE HCL (*CRX) 2.5 MG TAB IR PO ×4 (08:53→16:28)
[2021-05-30] MEDS: FLUTICASONE PROPIONATE 0.05% NA SPR 16 GM BTL (*BKC) 2 SPRAY NASAL (08:55)
[2021-05-30] MEDS: AZELASTINE HCL NASAL 0.1% 137 MCG/SPR 30 ML BTL 1 SPRAY NASAL (08:55)
[2021-05-30] MEDS: PRAVASTATIN SODIUM 20 MG TABLET PO (09:01)
[2021-05-30] MEDS: ESCITALOPRAM OXALATE 10 MG TABLET BY MOUTH (09:01)
[2021-05-30] MEDS: DOXYCYCLINE HYCLATE 100 MG TABLET PO ×2 (09:01→22:24)
[2021-05-30] MEDS: AMIODARONE HCL 200 MG TABLET PO (09:01)
[2021-05-30] MEDS: SENNA/DOCUSATE SODIUM TABLET 2 TAB PO ×2 (09:01→18:58)
[2021-05-30] MEDS: FUROSEMIDE 20 MG TABLET PO (09:01)
[2021-05-30] MEDS: APIXABAN 2.5 MG TABLET PO ×2 (09:01→22:24)
[2021-05-30] MEDS: polyethylene glycoL 3350 17 GM POWD.PACK PO (09:02)
[2021-05-30] MEDS: CYCLOBENZAPRINE HCL 10 MG TABLET PO (09:14)
--- NOTE | 2021-05-30 09:19 | WPDANESPN ---
Anes - Prog Note Post-Op Date/Time: 05/30/21 09:19 Cardiovascular status: normal Respiratory status: normal Airway patency: baseline Mental status: baseline Post-Op hydration status: normal Vital Signs: Last Vital Signs Temp 36.7 C 05/30/21 03:09 Pulse 76 05/30/21 09:01 Resp 18 05/30/21 03:09 BP 111/59 L 05/30/21 03:09 Pulse Ox 94 05/30/21 03:09 Pain Score (VAS): 4 I/O: Intake & Output 05/29/21 05/30/21 05/30/21 23:59 07:59 15:59 Intake Total 1525 3530 Output Total 500 750 Balance 1025 2780 Laboratory Tests 05/30/21 06:26 05/30/21 06:26 05/29/21 05/29/21 05/29/21 08:16 11:44 12:06 WBC RBC Hgb Hct MCV MCH MCHC RDW Plt Count MPV Immature Gran % (Auto) Neut % (Auto) Lymph % (Auto) [place] % (Auto) Eos % (Auto) Baso % (Auto) Lymph # (Auto) [place] # (Auto) Eos # (Auto) Baso # (Auto) Abs Immat Gran (auto) Absolute Neuts (auto) Absolute Nucleated RBC Nucleated RBC % Sodium Potassium Chloride Carbon Dioxide Anion Gap BUN Creatinine Estim Creat Clear Calc Estimated GFR Glucose Calcium Total Bilirubin Direct Bilirubin AST ALT Alkaline Phosphatase Total Protein Albumin Vitamin D 25-Hydroxy 71.1 Ur Random Sodium 19 Urine Creatinine 80.5 Blood Type O Positive Antibody Screen Negative 05/30/21 05/30/21 06:26 06:26 WBC 9.4 RBC 2.85 L Hgb 9.7 L Hct 29.4 L MCV 103.2 H MCH 34.0 MCHC 33.0 RDW 14.6 H Plt Count 170 MPV 9.8 Immature Gran % (Auto) 0.4 Neut % (Auto) 90.4 H Lymph % (Auto) 2.0 L [place] % (Auto) 6.8 Eos % (Auto) 0.1 Baso % (Auto) 0.3 Lymph # (Auto) 0.19 L [place] # (Auto) 0.6 Eos # (Auto) 0.0 Baso # (Auto) 0.0 Abs Immat Gran (auto) 0.04 H Absolute Neuts (auto) 8.5 H Absolute Nucleated RBC 0.0 Nucleated RBC % 0.0 Sodium 120 L Potassium 3.6 Chloride 90 L Carbon Dioxide 26 Anion Gap 4 L BUN 8 Creatinine 1.00 Estim Creat Clear Calc 49 Estimated GFR 57 L Glucose 101 Calcium 8.2 L Total Bilirubin 0.5 Direct Bilirubin 0.0 AST 53 H ALT 22 Alkaline Phosphatase 125 Total Protein 6.0 L Albumin 2.9 L Vitamin D 25-Hydroxy Ur Random Sodium Urine Creatinine Blood Type Antibody Screen Post-procedural complaints: none Patient Feedback: Patient satisfied with anesthetic care.
--- NOTE | 2021-05-30 12:04 | PM.IMPN ---
Progress Note: A&P Assessment and Plan (1) Closed fracture of neck of right femur: Qualifiers: Encounter type: initial encounter Qualified Code(s): S72.001A - Fracture of unspecified part of neck of right femur, initial encounter for closed fracture Code(s): S72.001A - Fracture of unspecified part of neck of right femur, initial encounter for closed fracture Status: Acute Assessment and Plan: Status post bipolar hemiarthroplasty to the right hip postop day 1 -patient is doing well although had some problems with uncontrolled pain earlier. Pain medications were adjusted per surgery -continue pain medication, DVT prophylaxis (Eliquis 2.5 b.i.d.) and PT and OT per surgery -Miller catheter placed. Plan to discontinue in 1-2 days after surgery once she is more mobile. (2) Atrial fibrillation: Code(s): I48.91 - Unspecified atrial fibrillation Status: Acute Assessment and Plan: Rhythm and rate control -not anticoagulated. She sees Dr. Blas and he told her that she did not need any anticoagulation. Likely due to fall risk -continue amiodarone -EKG shows inverted T-waves on the anterior septal leads which were not there in 2019. Spoke with Cardiology. Patient has absolutely no chest pain whatsoever. 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 no signs of heart failure. (3) Essential hypertension: Code(s): I10 - Essential (primary) hypertension Status: Acute Assessment and Plan: Patient's last blood pressure was 102/60 -I do not see any home medications for this, will verify (she is on 20 mg of Lasix daily) (4) Hypothyroidism: Code(s): E03.9 - Hypothyroidism, unspecified Status: Acute Assessment and Plan: Continue levothyroxine (5) Hyponatremia: Code(s): E87.1 - Hypo-osmolality and hyponatremia Status: Acute Assessment and Plan: Likey due to excessive h20 consumption as the patient states she drinks a lot of water and has been told in the past to not drink so much water -pain and furosemide likely worsening it -she is on a low dose of lexapro but states she really needs this medication, will keep that going for the time being. If her sodium does not improve, may need to adjust it -urine sodium low, stop fluids and start fluid restriction. 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 Patient was seen today and states her pain is uncontrolled 05/21. She says the pain radiates from her hip down to her knee. No numbness or tingling. We reviewed her alcohol consumption and she states she drinks 3 regular size lashonda lights a day and usually drinks 2-3 glasses of wine as well. She has had a history of alcohol withdrawal which include shakiness and anxiety but no seizures. She denies chest pain, dyspnea on exertion, or shortness of breath. She says that her mouth is dry and that she usually drinks a lot of water but was told in 2013 she shouldn't. Exam Narrative: General: Well developed well nourished patient in NAD HEENT: normocephalic Neck: supple Neuro: Alert and oriented x
[2021-05-30 13:24] LABS: Sodium 121 mmol/L (137-145)
--- NOTE | 2021-05-30 17:19 | WPDCN ---
Assessment and Plan Assessment and plan (1) UTI (urinary tract infection): Code(s): N39.0 - Urinary tract infection, site not specified Status: Acute Assessment and Plan: doxycycline (2) History of CHF (congestive heart failure): Code(s): Z86.79 - Personal history of other diseases of the circulatory system Status: Acute Assessment and Plan: lasix, monitor (3) Hx of falling: Code(s): Z91.81 - History of falling Status: Acute Assessment and Plan: PT OT Fall prevention program (4) Paroxysmal atrial fibrillation: Code(s): I48.0 - Paroxysmal atrial fibrillation Status: Acute Assessment and Plan: monitor had been on amiodorone (5) Alcohol use: Code(s): Z72.89 - Other problems related to lifestyle Status: Acute Assessment and Plan: Monitor for DTs (6) Anemia: Code(s): D64.9 - Anemia, unspecified Status: Acute Assessment and Plan: monitor (7) Hypothyroidism: Code(s): E03.9 - Hypothyroidism, unspecified Status: Acute Assessment and Plan: Synthroid 25mcg (8) Other emphysema: Code(s): J43.8 - Other emphysema Status: Acute Assessment and Plan: Monitor (9) Closed fracture of neck of right femur: Qualifiers: Encounter type: initial encounter Qualified Code(s): S72.001A - Fracture of unspecified part of neck of right femur, initial encounter for closed fracture Code(s): S72.001A - Fracture of unspecified part of neck of right femur, initial encounter for closed fracture Status: Acute Assessment and Plan: Dr. Maxim Feliciano placed a bipolar hemiarthroplasty . PWB PT OT needed (10) Trigger ring finger of left hand: Code(s): M65.342 - Trigger finger, left ring finger Status: Acute Assessment and Plan: monitor (11) Hyponatremia: Code(s): E87.1 - Hypo-osmolality and hyponatremia Status: Acute Assessment and Plan: fluid restriction Additional Plan REHAB: Patient was seen during physical therapy and occupational therapy. Patient is at moderate assistance of 2 with bed mobility. Patient took 4 steps with moderate assistance of 2. Patient required max verbal encouragement to actively participate. Patient was extremely fearful in any movement of the right lower extremity. Barriers: Anticipation of pain, severe anxiety, postop pain, hyponatremia, RUE weakness and sensory loss, endurance. Patient will require ongoing physical therapy and occupational therapy. is present to assist at home. From a medical standpoint, patient has significant hyponatremia and is on fluid restrictions, and ongoing monitoring for alcohol withdrawal noted. Patient will need to meet acute rehab criteria of 3 hours of therapy. I will continue to follow patient's progress to determine the next best level of care over the next few days.Thank you for allowing me to participate in the care of your patient. HPI Data of Consult Date/Time: 05/30/21 17:19 Requesting Physician: Sarah Houston PA-C Primary Care Provider: Rai Hillman MD Consult Narrative Narrative: Marialuisa Huggins is a 60 year old female who was admitted to [facility] after sustaining a right femoral neck fracture after tripping over carpeting. Patient did strike her right temporal area but denies any loss of consciousness. Bruising is noted. Hospital course: patient underwent a bipolar hemiarthroplasty by Dr. Maxim Feliciano on 05/29/2021. Patient is partial weight-bearing. Hospital course is significant for acute postop pain, anxiety, significant hyponatremia (120), with close monitoring of alcoholic withdrawal symptoms, UTI. Patient is currently not on anticoagulation per Cardiology(Wan) for A fib. Patient has a history of atrial fib on amiodarone . Patient is on Eliquis 2.5 mg Q 12 hours for DVT PPX Of note, patient was admitted in
--- NOTE | 2021-05-30 19:56 | PM.PNCARD ---
Progress Note: A&P Assessment and Plan (1) Paroxysmal atrial fibrillation: Code(s): I48.0 - Paroxysmal atrial fibrillation Status: Acute Assessment and Plan: STable, no a fib (2) Essential hypertension: Code(s): I10 - Essential (primary) hypertension Status: Acute Assessment and Plan: BP controlled (3) Closed fracture of neck of right femur: Qualifiers: Encounter type: initial encounter Qualified Code(s): S72.001A - Fracture of unspecified part of neck of right femur, initial encounter for closed fracture Code(s): S72.001A - Fracture of unspecified part of neck of right femur, initial encounter for closed fracture Status: Acute Assessment and Plan: Doing well. Additional Plan Will sign off, please call if further assistance needed. MARCOS w/ DR. Blas after recovery for ongoing cardiac care. Subjective Date/time seen: 05/30/21 19:56 Interval history: Follow-up for paroxysmal atrial fibrillation, hypertension. History of diastolic CHF in the past as well as heavy alcohol use. Date of service 05/30/2021: The patient underwent ORIF of her right hip fracture yesterday with no particular problems. Has had problems with pain control and anxiety postop, but now better. Walked w/ walker and up in chair earlier. Heart rate and blood pressure are controlled. Not requiring any supplemental oxygen. Review of Systems Constitutional: Constitutional: Reports difficulty sleeping Eyes: Eyes: Reports no additional eye complaints ENT: Denies epistaxis Cardiovascular: Cardiovascular: Denies chest pain, Denies leg edema, Denies lightheadedness and Denies palpitations Respiratory: Respiratory: Denies cough and Denies dyspnea Gastrointestinal: Gastrointestinal: Reports abdominal pain and Reports nausea (too many pills, empty stomach) Genitourinary: Genitourinary: Denies hematuria Musculoskeletal: Musculoskeletal: Reports arthralgias Integumentary/Breasts: Skin/Breast: Denies rash Neurologic: Denies headache(s) Psychiatric: Psychiatric: Denies confusion Objective Data Vital Signs Vital Signs: Vital Signs - 24 hr 05/29/21 20:00 05/29/21 20:03 05/29/21 20:04 Temperature Pulse Rate 64 89 89 Respiratory Rate 18 18 Blood Pressure Pulse Oximetry 93 05/29/21 23:06 05/30/21 00:00 05/30/21 03:09 Temperature 98.0 F 98.1 F Pulse Rate 64 68 73 Respiratory Rate 18 18 Blood Pressure 101/51 L 111/59 L Pulse Oximetry 94 94 05/30/21 04:00 05/30/21 07:09 05/30/21 08:00 Temperature 98.9 F Pulse Rate 73 78 76 Respiratory Rate 22 H Blood Pressure 102/60 Pulse Oximetry 95 05/30/21 09:01 05/30/21 11:09 05/30/21 15:09 Temperature 98.8 F 99.1 F Pulse Rate 76 82 77 Respiratory Rate 20 18 Blood Pressure 100/59 L 105/59 L Pulse Oximetry 97 95 Intake/Output Intake/Output: Intake & Output 05/27/21 05/28/21 05/29/21 05/30/21 23:59 23:59 23:59 23:59 Intake Total 3025 4660 Output Total 500 1900 Balance 2525 6370 Meds/Results Medications: Active Medications Generic Name Dose Route Start Last Admin Trade Name Freq PRN Reason Stop Dose Admin Albuterol 2 puff 05/29/21 02:30 Albuterol Sulfate (*Sp) Aerosol 1 Puff INHALATION Q4H PRN shortness of breath or wheezing Amiodarone HCl 200 mg 05/29/21 08:00 05/30/21 09:01 Amiodarone Hcl 200 Mg Tablet PO 200 mg DAILY@0800 GIOVANNA Administration Apixaban 2.5 mg 05/30/21 09:00 05/30/21 09:01 Apixaban 2.5 Mg Tablet PO 2.5 mg Q12HR GIOVANNA Administration Azelastine HCl 1 spray 05/29/21 09:00 05/30/21 17:44 Azelastine Hcl Nasal 0.1% 137 Mcg/Spr 30 Ml Btl NASAL Not Given BID GIOVANNA Budesonide/Formoterol Fumarate 2 puff 05/29/21 08:00 05/30/21 07:48 Budesonide/Form 160-4.5 Mcg (*Sp) INHALATION 2 puff Q12HRT GIOVANNA Administration Cyclobenzaprine HCl 10 mg 05/30/21 07:42 05/30/21 09:14 Cyclobenzaprine Hcl 10 Mg Tablet
[2021-05-30] MEDS: SODIUM CHLORIDE 0.9% IV 500 ML IV CONT (23:39)
[2021-05-31] VITALS (7 sets, daily range): BP systolic 95–112; BP diastolic 50–76; PULSE 77–92; RESP 18–20; TEMP 36.6–36.7; O2SAT 90–92
[2021-05-31] MEDS: LEVOTHYROXINE SODIUM 25 MCG TABLET PO (06:06)
[2021-05-31] MEDS: LEVOTHYROXINE SODIUM 112 MCG TABLET PO (06:06)
[2021-05-31 06:23] LABS: Hematocrit 26.4 % (37.0-47.0); Hemoglobin 8.7 g/dL (12.0-15.0); Mean Corpuscular Hemoglobin 33.7 pg (26-34); Mean Corpuscular Volume 102.3 fl (80-100); Platelet Count Result 158 k/mm3 (150-375); Red Blood Count 2.58 M/mm3 (4.2-5.4); Red Cell Distribution Width 14.6 % (11.5-14.5); White Blood Count 7.6 K/mm3 (4.5-10.0)
--- NOTE | 2021-05-31 06:26 | PC.NURSE ---
did not do Roxicodone q 4hr overnight or flexaril due to recommendation of Carrie Manjarrez after calling her about patients blood pressure. Patient has not once complained of pain, q6 tylenol was given as ordered.
--- NOTE | 2021-05-31 07:23 | PM.PNORT ---
Progress Note: A&P Additional Plan POD 2 alert avss, pt is doing much better today, pain is well controlled, now, much less anxious, dressing is dry, was up working with PT yesterday, SS working on rehab placement. hgb8.9, mild to mod thigh swelling, no LE swelling, Na-was 121 yesterday,morning BMP-pending, pt is asymtomatic from this, pt is ready to go to rehab when accepted <BRYCE Magallon - Last Filed: 05/31/21 07:26> Subjective Subjective Date/Time Seen: 05/31/21 07:23 <BRYCE Magallon - Last Filed: 05/31/21 07:26> Objective Data Vital Signs Vital Signs: Vital Signs - 24 hr 05/30/21 08:00 05/30/21 09:01 05/30/21 11:09 Temperature 37.1 C Pulse Rate 76 76 82 Pulse Rate [Right Pedal (Dorsalis Pedis)] Respiratory Rate 20 Blood Pressure 100/59 L Pulse Oximetry 97 05/30/21 12:00 05/30/21 15:09 05/30/21 16:00 Temperature 37.3 C Pulse Rate 77 77 76 Pulse Rate [Right Pedal (Dorsalis Pedis)] Respiratory Rate 18 Blood Pressure 105/59 L Pulse Oximetry 95 05/30/21 20:00 05/30/21 20:12 05/30/21 21:20 Temperature 36.9 C Pulse Rate 79 75 Pulse Rate [Right Pedal (Dorsalis Pedis)] 70 Respiratory Rate 18 18 Blood Pressure Pulse Oximetry 96 90 05/30/21 21:53 05/31/21 00:39 05/31/21 05:51 Temperature 36.6 C Pulse Rate 77 Pulse Rate [Right Pedal (Dorsalis Pedis)] Respiratory Rate 18 Blood Pressure 86/51 L 105/55 L 95/55 L Pulse Oximetry 90 <BRYCE Magallon Last Filed: 05/31/21 07:26> Intake/Output Intake/Output: Intake & Output 05/28/21 05/29/21 05/30/21 05/31/21 23:59 23:59 23:59 23:59 Intake Total 3025 4660 780 Output Total 500 2570 700 Balance 2525 9360 80 <BRYCE Magallon - Last Filed: 05/31/21 07:26> Meds/Results Medications: Active Medications Generic Name Dose Route Start Last Admin Trade Name Freq PRN Reason Stop Dose Admin Albuterol 2 puff 05/29/21 02:30 Albuterol Sulfate (*Sp) Aerosol 1 Puff INHALATION Q4H PRN shortness of breath or wheezing Amiodarone HCl 200 mg 05/29/21 08:00 05/30/21 09:01 Amiodarone Hcl 200 Mg Tablet PO 200 mg DAILY@0800 GIOVANNA Administration Apixaban 2.5 mg 05/30/21 09:00 05/30/21 22:24 Apixaban 2.5 Mg Tablet PO 2.5 mg Q12HR GIOVANNA Administration Azelastine HCl 1 spray 05/29/21 09:00 05/30/21 17:44 Azelastine Hcl Nasal 0.1% 137 Mcg/Spr 30 Ml Btl NASAL Not Given BID GIOVANNA Budesonide/Formoterol Fumarate 2 puff 05/29/21 08:00 05/30/21 20:08 Budesonide/Form 160-4.5 Mcg (*Sp) INHALATION 2 puff Q12HRT GIOVANNA Administration Cyclobenzaprine HCl 10 mg 05/30/21 07:42 05/30/21 09:14 Cyclobenzaprine Hcl 10 Mg Tablet PO 10 mg Q8H PRN Administration Muscle Spasm Diphenhydramine HCl 25 mg 05/29/21 10:30 05/29/21 22:25 Diphenhydramine Hcl Inj 50 Mg/Ml Vial IV PUSH 25 mg Q4H PRN Administration Itching Doxycycline Hyclate 100 mg 05/30/21 09:00 05/30/21 22:24 Doxycycline Hyclate 100 Mg Tablet PO 06/11/21 09:01 100 mg Q12HR GIOVANNA Administration Escitalopram Oxalate 10 mg 05/29/21 09:00 05/30/21 09:01 Escitalopram Oxalate 10 Mg Tablet BY MOUTH 10 mg DAILY GIOVANNA Administration Fluticasone Propionate 2 spray 05/29/21 09:00 05/30/21 08:55 Fluticasone Propionate 0.05% Na Spr 16 Gm Btl (*Bkc) NASAL 2 spray DAILY GIOVANNA Administration Furosemide 20 mg 05/30/21 09:00 05/30/21 09:01 Furosemide 20 Mg Tablet PO 20 mg QAM GIOVANNA Administration Ceftriaxone Sodium/Dextrose 1 gm in 50 mls @ 100 mls/hr 05/30/21 04:00 05/31/21 05:45 Rocephin 1 Gm/D5w 50 Ml IVPB Infused Q24H GIOVANNA Infusion Acetaminophen 650 mg in 65 mls @ 260 mls/hr 05/29/21 18:00 05/31/21 06:26 Ofirmev 650 Mg Ivpb IVPB 05/31/21 12:14 Infused Q6HR GIOVANNA Infusion Levothyroxine Sodium 112 mcg 05/29/21 06:30 05/31/21 06:06 Levothyroxine Sodium 112 Mcg Tablet PO 112 mcg DAILY@0630 [facility] Administra
[2021-05-31 08:37] LABS: Alanine Aminotransferase 23 U/L (4-35); Albumin Level 2.6 g/dL (3.5-5.1); Alkaline Phosphatase 120 U/L (38-126); Anion Gap 5 mmol/L (8-16); Aspartate Amino Transferase 78 U/L (14-36); Bilirubin,Total 0.6 mg/dL (0.2-1.3); Blood Urea Nitrogen 10 mg/dL (7-17); Calcium 8.5 mg/dL (8.4-10.2); Carbon Dioxide 24 mmol/L (22-30); Chloride 94 mmol/L (98-107); Estimated CRCL calculation 49 ml/min; Estimated Glomerular Filt Rate 57; Glucose 96 mg/dL (65-110); Potassium 3.5 mmol/L (3.4-5.0); Sodium 123 mmol/L (137-145)
--- NOTE | 2021-05-31 08:48 | PCPTNOTE ---
The patient treatment was not able to be completed on 05/30/2021 in [facility] Will plan to continue treatment per plan of care.
[2021-05-31] MEDS: PRAVASTATIN SODIUM 20 MG TABLET PO (09:46)
[2021-05-31] MEDS: AMIODARONE HCL 200 MG TABLET PO (09:46)
[2021-05-31] MEDS: APIXABAN 2.5 MG TABLET PO ×2 (09:46→20:58)
[2021-05-31] MEDS: DOXYCYCLINE HYCLATE 100 MG TABLET PO (09:46)
[2021-05-31] MEDS: AZELASTINE HCL NASAL 0.1% 137 MCG/SPR 30 ML BTL 1 SPRAY NASAL ×2 (09:47→18:03)
[2021-05-31] MEDS: FLUTICASONE PROPIONATE 0.05% NA SPR 16 GM BTL (*BKC) 2 SPRAY NASAL (09:48)
[2021-05-31] MEDS: ESCITALOPRAM OXALATE 10 MG TABLET BY MOUTH (09:48)
[2021-05-31] MEDS: SENNA/DOCUSATE SODIUM TABLET 2 TAB PO ×2 (09:48→18:03)
[2021-05-31] MEDS: SODIUM CHLORIDE 0.9% IV 1,000 ML 100 ML IV CONT ×2 (12:24→23:03)
--- NOTE | 2021-05-31 14:06 | WPDREHPN ---
Subjective Date/time seen: 05/31/21 14:06 Interval history: Follow-up for Rehab: 05/31/21 Patient admits to decreased pain. is available to assist once discharged from rehab. Transfers were at min assist. Patient able to perform 3 hours of therapy. Patient was at min assist. Anxiety was decreased. Patient's goal is to return home with assisting. REC REHAB. WILL SEEK AUTHORIZATION. Review of Systems Review of Systems: All systems reviewed & are unremarkable except as noted in HPI and below Exam Narrative: patient is highly anxious and anticipates pain during therapy session. Patient needed much encouragement to continue with therapy. Patient was able to participate in both OT and PT. Head is normocephalic. Bruising is noted to the right frontal area. Extraocular muscles are intact. Neck is supple. Speech is fluent. Cognition appears grossly intact. Heart rate and rhythm is regular. Lungs are clear. Abdomen is soft mild distention is noted with positive bowel sounds. Bilateral upper extremity strength are 4/5. Trigger finger noted to L hand. Left lower extremity strength is 4/5. Right lower extremity strength Proximal hip strength is 1/5 knee 2 of 5 ankle 3/5. Incision was covered with dressings. Transfers were min assistance Objective Data Vital Signs Vital Signs: Vital Signs - 24 hr 05/30/21 15:09 05/30/21 16:00 05/30/21 20:00 Temperature 37.3 C Pulse Rate 77 76 Pulse Rate [Right Pedal (Dorsalis Pedis)] 70 Respiratory Rate 18 Blood Pressure 105/59 L Pulse Oximetry 95 05/30/21 20:12 05/30/21 21:20 05/30/21 21:53 Temperature 36.9 C Pulse Rate 79 75 Pulse Rate [Right Pedal (Dorsalis Pedis)] Respiratory Rate 18 18 Blood Pressure 86/51 L Pulse Oximetry 96 90 05/31/21 00:39 05/31/21 05:51 05/31/21 08:39 Temperature 36.6 C Pulse Rate 77 Pulse Rate [Right Pedal (Dorsalis Pedis)] Respiratory Rate 18 Blood Pressure 105/55 L 95/55 L Pulse Oximetry 90 92 05/31/21 09:46 Temperature Pulse Rate 81 Pulse Rate [Right Pedal (Dorsalis Pedis)] Respiratory Rate Blood Pressure Pulse Oximetry Intake/Output Intake/Output: Intake & Output 05/28/21 05/29/21 05/30/21 05/31/21 23:59 23:59 23:59 23:59 Intake Total 3025 4660 900 Output Total 500 2570 700 Balance 2525 2090 200 Meds/Results Medications: Active Medications Generic Name Dose Route Start Last Admin Trade Name Freq PRN Reason Stop Dose Admin Albuterol 2 puff 05/29/21 02:30 Albuterol Sulfate (*Sp) Aerosol 1 Puff INHALATION Q4H PRN shortness of breath or wheezing Amiodarone HCl 200 mg 05/29/21 08:00 05/31/21 09:46 Amiodarone Hcl 200 Mg Tablet PO 200 mg DAILY@0800 GIOVANNA Administration Apixaban 2.5 mg 05/30/21 09:00 05/31/21 09:46 Apixaban 2.5 Mg Tablet PO 2.5 mg Q12HR GIOVANNA Administration Azelastine HCl 1 spray 05/29/21 09:00 05/31/21 09:47 Azelastine Hcl Nasal 0.1% 137 Mcg/Spr 30 Ml Btl NASAL 1 spray BID GIOVANNA Administration Budesonide/Formoterol Fumarate 2 puff 05/29/21 08:00 05/31/21 08:39 Budesonide/Form 160-4.5 Mcg (*Sp) INHALATION 2 puff Q12HRT GIOVANNA Administration Cyclobenzaprine HCl 10 mg 05/30/21 07:42 05/30/21 09:14 Cyclobenzaprine Hcl 10 Mg Tablet PO 10 mg Q8H PRN Administration Muscle Spasm Diphenhydramine HCl 25 mg 05/29/21 10:30 05/29/21 22:25 Diphenhydramine Hcl Inj 50 Mg/Ml Vial IV PUSH 25 mg Q4H PRN Administration Itching Doxycycline Hyclate 100 mg 05/30/21 09:00 05/31/21 09:46 Doxycycline Hyclate 100 Mg Tablet PO 06/11/21 09:01 100 mg Q12HR GIOVANNA Administration Escitalopram Oxalate 10 mg 05/29/21 09:00 05/31/21 09:48 Escitalopram Oxalate 10 Mg Tablet BY MOUTH 10 mg DAILY GIOVANNA Administration Fluticasone Propionate 2 spray 05/29/21 09:00 05/31/21 09:48 Fluticasone Propionate 0.05% Na Spr 16 Gm Btl (*Bkc) NASAL 2 spray DAILY GIOVANNA Administration Furose
--- NOTE | 2021-05-31 16:07 | PM.IMPN ---
Progress Note: A&P Assessment and Plan (1) Closed fracture of neck of right femur: Qualifiers: Encounter type: initial encounter Qualified Code(s): S72.001A - Fracture of unspecified part of neck of right femur, initial encounter for closed fracture Code(s): S72.001A - Fracture of unspecified part of neck of right femur, initial encounter for closed fracture Status: Acute Assessment and Plan: Status post bipolar hemiarthroplasty to the right hip postop day 2 -patient is doing well and pain is controlled -continue pain medication, DVT prophylaxis (Eliquis 2.5 b.i.d.) and PT and OT per surgery -Miller catheter removed (2) Atrial fibrillation: Code(s): I48.91 - Unspecified atrial fibrillation Status: Acute Assessment and Plan: Rhythm and rate control -not anticoagulated. She sees Dr. Blas and he told her that she did not need any anticoagulation. Likely due to fall risk -continue amiodarone -EKG shows inverted T-waves on the anterior septal leads which were not there in 2019. Spoke with Cardiology. Patient has absolutely no chest pain whatsoever. I would recommend following up routinely with her electric cell tender for additional monitoring for this. no signs of heart failure. (3) Essential hypertension: Code(s): I10 - Essential (primary) hypertension Status: Acute Assessment and Plan: Patient's last blood pressure was 112/76 was much lower earlier in the stay -continue IV fluids (4) Hypothyroidism: Code(s): E03.9 - Hypothyroidism, unspecified Status: Acute Assessment and Plan: Continue levothyroxine (5) Hyponatremia: Code(s): E87.1 - Hypo-osmolality and hyponatremia Status: Acute Assessment and Plan: Patient became hypotensive, could be due to dehydration although urine sodium is low -pain and furosemide likely worsening it -she is on a low dose of lexapro but states she really needs this medication, will keep that going for the time being. If her sodium does not improve, may need to adjust it -will get urine urea since patient has had furosemide. -IV fluids started this morning due to hypotension, will redraw sodium this afternoon (6) Other emphysema: Code(s): J43.8 - Other emphysema Status: Acute Assessment and Plan: Chronic and controlled -continue symbicort (7) Alcohol use: Code(s): Z72.89 - Other problems related to lifestyle Status: Acute Assessment and Plan: Drinks about 6 drinks a day on further questioning -She has a slight tremor on exam and has a hx of alcohol withdraw but no seizures -continue CIWA -monitor for withdraw symptoms -ativan PRN (8) UTI (urinary tract infection): Code(s): N39.0 - Urinary tract infection, site not specified Status: Acute Assessment and Plan: Urine culture growing greater than 100,000 E coli. Antibiotics changed to Keflex which will cover postop coverage as well per Subjective Date/time seen: 05/31/21 16:07 Interval history: Pt is a 60-year-old female here for hip fracture. Patient was seen today and states her pain is much better. She says she has minimal pain while at rest. She had some nausea and vomiting earlier today after physical therapy but doing okay. She has her normal tremors but denies hallucinations. She denies lightheadedness, dysuria, chest pain or shortness of breath. Exam Narrative: General: Well developed well nourished patient in NAD HEENT: normocephalic Neck: supple Neuro: Alert and oriented x4. Mild tremor on exam CV:RRR. Resp:CTA Abd: Soft, non distended. No pain to palpation. Positive bowel sounds. Well-healed scars on her abdomen. Extremities: Right hip with drain intact draining well. Bandage over the wound without any dehiscence, excessive bleeding or discharge. Pulses intact Objective Data Vital Signs Vital Signs: Jackie
[2021-05-31 19:04] LABS: Sodium 124 mmol/L (137-145)
[2021-05-31] MEDS: oxyCODONE HCL (*CRX) 2.5 MG TAB IR PO (20:58)
[2021-05-31] MEDS: CEPHALEXIN 500 MG CAPSULE PO (21:04)
[2021-05-31 22:55] LABS: Urea Random Urine 271 MG/DL
[2021-06-01] VITALS (8 sets, daily range): BP systolic 96–130; BP diastolic 54–74; PULSE 82–92; RESP 20; TEMP 36.7–36.9; O2SAT 74–97
[2021-06-01] MEDS: oxyCODONE HCL (*CRX) 2.5 MG TAB IR PO ×6 (02:53→22:02)
[2021-06-01] MEDS: LEVOTHYROXINE SODIUM 25 MCG TABLET PO (06:06)
[2021-06-01] MEDS: LEVOTHYROXINE SODIUM 112 MCG TABLET PO (06:07)
[2021-06-01 07:23] LABS: Hematocrit 25.9 % (37.0-47.0); Hemoglobin 8.3 g/dL (12.0-15.0)
[2021-06-01 07:33] LABS: Alanine Aminotransferase 21 U/L (4-35); Albumin Level 2.5 g/dL (3.5-5.1); Alkaline Phosphatase 143 U/L (38-126); Anion Gap 5 mmol/L (8-16); Aspartate Amino Transferase 58 U/L (14-36); Bilirubin,Total 0.8 mg/dL (0.2-1.3); Blood Urea Nitrogen 9 mg/dL (7-17); Calcium 8.2 mg/dL (8.4-10.2); Carbon Dioxide 24 mmol/L (22-30); Chloride 98 mmol/L (98-107); Estimated CRCL calculation 49 ml/min; Estimated Glomerular Filt Rate 57; Glucose 104 mg/dL (65-110); Potassium 3.2 mmol/L (3.4-5.0); Sodium 127 mmol/L (137-145)
--- NOTE | 2021-06-01 08:14 | PM.IMPN ---
Progress Note: A&P Assessment and Plan (1) Closed fracture of neck of right femur: Qualifiers: Encounter type: initial encounter Qualified Code(s): S72.001A - Fracture of unspecified part of neck of right femur, initial encounter for closed fracture Code(s): S72.001A - Fracture of unspecified part of neck of right femur, initial encounter for closed fracture Status: Acute Assessment and Plan: Status post bipolar hemiarthroplasty to the right hip postop day 3 -patient is doing well and pain is controlled -continue pain medication, DVT prophylaxis (Eliquis 2.5 b.i.d.) and PT and OT per surgery -Miller catheter removed -plan for SNF or Acute rehab in the next 1-2 days (2) Atrial fibrillation: Code(s): I48.91 - Unspecified atrial fibrillation Status: Acute Assessment and Plan: Rhythm and rate control -not anticoagulated. She sees Dr. Blas and he told her that she did not need any anticoagulation. Likely due to fall risk -continue amiodarone (obtain RUQ u/s due to increased liver enzymes) -EKG shows inverted T-waves on the anterior septal leads which were not there in 2019. Spoke with Cardiology. Patient has absolutely no chest pain whatsoever. I would recommend following up routinely with her combustion engineer for additional monitoring for this. no signs of heart failure. (3) Essential hypertension: Code(s): I10 - Essential (primary) hypertension Status: Acute Assessment and Plan: Patient's last blood pressure was 96/54 -pt appears to run low with no symptoms of low bp or signs of infection -hgb stable -continue IV fluids (4) Hypothyroidism: Code(s): E03.9 - Hypothyroidism, unspecified Status: Acute Assessment and Plan: Continue levothyroxine (5) Hyponatremia: Code(s): E87.1 - Hypo-osmolality and hyponatremia Status: Acute Assessment and Plan: Last sodium 127, improved from 120 -continue IV fluids -pain and furosemide likely worsening it -pt has a hx of alcohol abuse -she is on a low dose of lexapro but states she really needs this medication, will keep that going for the time being. If her sodium does not improve, may need to adjust it (6) Other emphysema: Code(s): J43.8 - Other emphysema Status: Acute Assessment and Plan: Chronic and controlled -continue symbicort (7) Alcohol use: Code(s): Z72.89 - Other problems related to lifestyle Status: Acute Assessment and Plan: Drinks about 6 drinks a day on further questioning -She has a slight tremor on exam and has a hx of alcohol withdraw but no seizures -CIWA has been okay -monitor for withdraw symptoms -ativan PRN (8) UTI (urinary tract infection): Code(s): N39.0 - Urinary tract infection, site not specified Status: Acute Assessment and Plan: Urine culture growing greater than 100,000 E coli. Antibiotics changed to Keflex which will cover postop coverage as well per Subjective Date/time seen: 06/01/21 08:14 Interval history: Pt is a 60-year-old female here for hip fracture. Patient was seen today and states her pain is controlled at rest and is currently a 4/10 but when she gets up and moves it is around a 7/10. She has been up to the commode and had a bowel movement today. She is eating and drinking well. She has no lightheadedness, dizziness, chest pain or shortness of breath. She says her mouth still feels dry. She denies hallucinations or etoh withdraw Exam Narrative: General: Well developed well nourished patient in NAD HEENT: normocephalic Neck: supple Neuro: Alert and oriented x4. No tremor on exam today CV:RRR. Resp:CTA Abd: Soft, non distended. No pain to palpation. Positive bowel sounds. Well-healed scars on her abdomen. Extremities: Right hip with bandage over the wound without any dehiscence, excessive bleeding or discharge. P
[2021-06-01 08:39] LABS: Folic Acid 3.3 ng/mL (2.76->20)
--- NOTE | 2021-06-01 09:53 | PM.PNORT ---
Progress Note: A&P Additional Plan Patient is postop day number 3 after bipolar hemiarthroplasty right hip. She does not feel that she has an appetite. She is NPO and just had a abdominal ultrasound performed to assess for cirrhosis. She has admitted that she drinks 6 alcoholic beverages every day. Her hemoglobin is 8.3 down from 8.7 yesterday. Her preop hemoglobin was in the 11 range and I would say she has the expected acute blood loss anemia following partial hip replacement. Her wound is dry the dressing looks fine. There is no blood on the dressing she has no swelling in the hip her thigh or leg. Her blood pressure has been running low intermittently. I would like to have the fisher spear see her again and review her heart medications and verify that there is nothing that needs to be changed. Her sodium was up to 127. Platelets are normal at 158,000 hundred fifty eight thousand. White count is normal at 7.6 1000. Her albumin is very low at 2.5. I have ordered a nutritional supplement Ensure compact every 8 hours to hopefully help with that. Subjective Subjective Date/Time Seen: 06/01/21 09:53 Objective Data Vital Signs Vital Signs: Vital Signs - 24 hr 05/31/21 14:00 05/31/21 20:00 05/31/21 22:00 Temperature 36.7 C 36.6 C Pulse Rate 92 88 Pulse Rate [Right Pedal (Dorsalis Pedis)] 88 Respiratory Rate 18 20 Blood Pressure 112/76 109/50 L Pulse Oximetry 90 90 06/01/21 00:00 06/01/21 06:00 Temperature 36.7 C Pulse Rate 87 Pulse Rate [Right Pedal (Dorsalis Pedis)] 82 Respiratory Rate 20 Blood Pressure 96/54 L Pulse Oximetry 90 Intake/Output Intake/Output: Intake & Output 05/29/21 05/30/21 05/31/21 06/01/21 23:59 23:59 23:59 23:59 Intake Total 3025 4660 2445 350 Output Total 500 2570 700 300 Balance 2525 2090 1745 50 Meds/Results Medications: Active Medications Generic Name Dose Route Start Last Admin Trade Name Freq PRN Reason Stop Dose Admin Acetaminophen 650 mg 05/31/21 18:56 Acetaminophen 325 Mg Tablet PO Q6H PRN Mild Pain (1-3) or Fever Albuterol 2 puff 05/29/21 02:30 Albuterol Sulfate (*Sp) Aerosol 1 Puff INHALATION Q4H PRN shortness of breath or wheezing Amiodarone HCl 200 mg 05/29/21 08:00 05/31/21 09:46 Amiodarone Hcl 200 Mg Tablet PO 200 mg DAILY@0800 GIOVANNA Administration Apixaban 2.5 mg 05/30/21 09:00 05/31/21 20:58 Apixaban 2.5 Mg Tablet PO 2.5 mg Q12HR GIOVANNA Administration Azelastine HCl 1 spray 05/29/21 09:00 05/31/21 18:03 Azelastine Hcl Nasal 0.1% 137 Mcg/Spr 30 Ml Btl NASAL 1 spray BID GIOVANNA Administration Budesonide/Formoterol Fumarate 2 puff 05/29/21 08:00 06/01/21 08:13 Budesonide/Form 160-4.5 Mcg (*Sp) INHALATION Not Given Q12HRT GIOVANNA Cephalexin HCl 500 mg 05/31/21 21:00 05/31/21 21:04 Cephalexin 500 Mg Capsule PO 500 mg Q12HR GIOVANNA Administration Cyclobenzaprine HCl 10 mg 05/30/21 07:42 05/30/21 09:14 Cyclobenzaprine Hcl 10 Mg Tablet PO 10 mg Q8H PRN Administration Muscle Spasm Escitalopram Oxalate 10 mg 05/29/21 09:00 05/31/21 09:48 Escitalopram Oxalate 10 Mg Tablet BY MOUTH 10 mg DAILY GIOVANNA Administration Fluticasone Propionate 2 spray 05/29/21 09:00 05/31/21 09:48 Fluticasone Propionate 0.05% Na Spr 16 Gm Btl (*Bkc) NASAL 2 spray DAILY GIOVANNA Administration Furosemide 20 mg 05/30/21 09:00 05/30/21 09:01 Furosemide 20 Mg Tablet PO 20 mg QAM GIOVANNA Administration Sodium Chloride 1,000 mls @ 100 mls/hr 05/31/21 11:35 05/31/21 23:03 Normal Saline Iv IV CONT 100 mls/hr .Q10H GIOVANNA Administration Levothyroxine Sodium 112 mcg 05/29/21 06:30 06/01/21 06:07 Levothyroxine Sodium 112 Mcg Tablet PO 112 mcg DAILY@0630 GIOVANNA Administration Levothyroxine Sodium 25 mcg 05/29/21 06:30 06/01/21 06:06 Levothyroxine Sodium 25 Mcg Tablet PO 25 mcg DAILY@0630 GIOVANNA Administration Lorazepam 0.5 mg 05/30/21 11:57 L
[2021-06-01] MEDS: PRAVASTATIN SODIUM 20 MG TABLET PO (10:14)
[2021-06-01] MEDS: POTASSIUM CHLORIDE 20 MEQ TABLET 40 MEQ PO (10:14)
[2021-06-01] MEDS: AZELASTINE HCL NASAL 0.1% 137 MCG/SPR 30 ML BTL 1 SPRAY NASAL (10:15)
[2021-06-01] MEDS: AMIODARONE HCL 200 MG TABLET PO (10:15)
[2021-06-01] MEDS: APIXABAN 2.5 MG TABLET PO ×2 (10:15→22:02)
[2021-06-01] MEDS: FLUTICASONE PROPIONATE 0.05% NA SPR 16 GM BTL (*BKC) 2 SPRAY NASAL (10:15)
[2021-06-01] MEDS: polyethylene glycoL 3350 17 GM POWD.PACK PO (10:15)
[2021-06-01] MEDS: SENNA/DOCUSATE SODIUM TABLET 2 TAB PO (10:16)
[2021-06-01] MEDS: CEPHALEXIN 500 MG CAPSULE PO ×2 (10:17→22:02)
[2021-06-01] MEDS: ESCITALOPRAM OXALATE 10 MG TABLET BY MOUTH (10:18)
[2021-06-01] MEDS: SODIUM CHLORIDE 0.9% IV 1,000 ML 100 ML IV CONT ×2 (10:25→22:02)
--- NOTE | 2021-06-01 13:10 | PCOTNOTE ---
Attempted to see pt 2x today. At first attempt in the morning pt was eating breakfast, at 2nd attempt during the PM pt refused therapy stating frustration, not feeling good, and recently throwing up. Will continue per POC duration and frequency tomorrow.
[2021-06-02] MEDS: oxyCODONE HCL (*CRX) 2.5 MG TAB IR PO ×5 (01:00→17:16)
[2021-06-02] MEDS: LEVOTHYROXINE SODIUM 112 MCG TABLET PO (05:47)
[2021-06-02] MEDS: LEVOTHYROXINE SODIUM 25 MCG TABLET PO (05:47)
[2021-06-02 06:00] VITALS: BP 131/75; PULSE 74; RESP 20; TEMP 36.8; O2SAT 100
[2021-06-02 07:43] LABS: Hematocrit 23.7 % (37.0-47.0); Hemoglobin 7.9 g/dL (12.0-15.0)
[2021-06-02 08:00] VITALS: PULSE 72; RESP 20; O2SAT 93
[2021-06-02] MEDS: PRAVASTATIN SODIUM 20 MG TABLET PO (08:39)
[2021-06-02 08:40] VITALS: PULSE 72
[2021-06-02] MEDS: ESCITALOPRAM OXALATE 10 MG TABLET BY MOUTH (08:40)
[2021-06-02] MEDS: CEPHALEXIN 500 MG CAPSULE PO ×2 (08:40→21:48)
[2021-06-02] MEDS: APIXABAN 2.5 MG TABLET PO ×2 (08:40→21:48)
[2021-06-02] MEDS: AMIODARONE HCL 200 MG TABLET PO (08:40)
[2021-06-02] MEDS: SODIUM CHLORIDE 0.9% IV 1,000 ML 100 ML IV CONT ×2 (08:41→23:31)
[2021-06-02 08:57] VITALS: O2SAT 93
[2021-06-02 09:21] LABS: Anion Gap 3 mmol/L (8-16); Blood Urea Nitrogen 11 mg/dL (7-17); Calcium 8.4 mg/dL (8.4-10.2); Carbon Dioxide 22 mmol/L (22-30); Chloride 104 mmol/L (98-107); Estimated CRCL calculation 45 ml/min; Estimated Glomerular Filt Rate 51; Glucose 92 mg/dL (65-110); Potassium 4.7 mmol/L (3.4-5.0); Sodium 129 mmol/L (137-145)
--- NOTE | 2021-06-02 12:32 | PM.PNORT ---
Progress Note: A&P Time Spent With Patient Time: Postop day 4. After bipolar hemiarthroplasty right hip. Wound looks fine dry no drainage on the dressing. No swelling to the hip. Hemoglobin has creeped down a little more to 7.9. Platelets 333158 white count 7.6. Her BMP is stable. Creatinine 1.1. Creatinine clearance 48. Sodium 129. Abdominal ultrasound showed nodularity of the liver consistent with cirrhosis which we suspected clinically. She states she sat in a chair 3 hours today and is somewhat exhausted. She feels her hip is doing well but she is fatigued is and that is the chief complaint. Her oxygen saturations have been fairly stable at sub for 1 decreased saturation last evening. Today it is ranging 91 100%. Her blood pressure has been stable last 24 hours. Continue present care. Subjective Subjective Date/Time Seen: 06/02/21 12:32 Objective Data Vital Signs Vital Signs: Vital Signs - 24 hr 06/01/21 14:00 06/01/21 21:42 06/01/21 21:43 Temperature 36.9 C Pulse Rate 91 Respiratory Rate 20 Blood Pressure 121/66 Pulse Oximetry 91 74 L 90 06/01/21 22:00 06/02/21 06:00 06/02/21 08:00 Temperature 36.8 C 36.8 C Pulse Rate 86 74 72 Respiratory Rate 20 20 20 Blood Pressure 130/74 131/75 Pulse Oximetry 97 100 93 06/02/21 08:40 06/02/21 08:57 Temperature Pulse Rate 72 Respiratory Rate Blood Pressure Pulse Oximetry 93 Intake/Output Intake/Output: Intake & Output 05/30/21 05/31/21 06/01/21 06/02/21 23:59 23:59 23:59 23:59 Intake Total 4660 2445 3070 1690 Output Total 2570 700 300 Balance 2090 1745 2770 1690 Meds/Results Medications: Active Medications Generic Name Dose Route Start Last Admin Trade Name Freq PRN Reason Stop Dose Admin Acetaminophen 650 mg 05/31/21 18:56 Acetaminophen 325 Mg Tablet PO Q6H PRN Mild Pain (1-3) or Fever Albuterol 2 puff 05/29/21 02:30 Albuterol Sulfate (*Sp) Aerosol 1 Puff INHALATION Q4H PRN shortness of breath or wheezing Amiodarone HCl 200 mg 05/29/21 08:00 06/02/21 08:40 Amiodarone Hcl 200 Mg Tablet PO 200 mg DAILY@0800 GIOVANNA Administration Apixaban 2.5 mg 05/30/21 09:00 06/02/21 08:40 Apixaban 2.5 Mg Tablet PO 2.5 mg Q12HR GIOVANNA Administration Azelastine HCl 1 spray 05/29/21 09:00 06/02/21 08:41 Azelastine Hcl Nasal 0.1% 137 Mcg/Spr 30 Ml Btl NASAL Not Given BID [facility] Budesonide/Formoterol Fumarate 2 puff 05/29/21 08:00 06/02/21 08:58 Budesonide/Form 160-4.5 Mcg (*Sp) INHALATION Not Given Q12HRT [facility] Cephalexin HCl 500 mg 05/31/21 21:00 06/02/21 08:40 Cephalexin 500 Mg Capsule PO 500 mg Q12HR GIOVANNA Administration Cyclobenzaprine HCl 10 mg 05/30/21 07:42 05/30/21 09:14 Cyclobenzaprine Hcl 10 Mg Tablet PO 10 mg Q8H PRN Administration Muscle Spasm Escitalopram Oxalate 10 mg 05/29/21 09:00 06/02/21 08:40 Escitalopram Oxalate 10 Mg Tablet BY MOUTH 10 mg DAILY GIOVANNA Administration Fluticasone Propionate 2 spray 05/29/21 09:00 06/02/21 08:42 Fluticasone Propionate 0.05% Na Spr 16 Gm Btl (*Bkc) NASAL Not Given DAILY [facility] Furosemide 20 mg 05/30/21 09:00 05/30/21 09:01 Furosemide 20 Mg Tablet PO 20 mg QAM GIOVANNA Administration Sodium Chloride 1,000 mls @ 100 mls/hr 05/31/21 11:35 06/02/21 08:41 Normal Saline Iv IV CONT 100 mls/hr .Q10H GIOVANNA Administration Levothyroxine Sodium 112 mcg 05/29/21 06:30 06/02/21 05:47 Levothyroxine Sodium 112 Mcg Tablet PO 112 mcg DAILY@0630 GIOVANNA Administration Levothyroxine Sodium 25 mcg 05/29/21 06:30 06/02/21 05:47 Levothyroxine Sodium 25 Mcg Tablet PO 25 mcg DAILY@0630 GIOVANNA Administration Lorazepam 0.5 mg 05/30/21 11:57 Lorazepam Inj (*Crx) 2 Mg/Ml Vial IV PUSH Q6H PRN CIWA >8 Naloxone HCl 0.1 mg 05/29/21 17:24 Naloxone Hcl 0.4 Mg/Ml Vial IV PUSH Q2M PRN Opiate Reversal Ondansetron HCl 4 mg 05/29/21 02:11 0
--- NOTE | 2021-06-02 13:11 | PM.IMPN ---
Progress Note: A&P Assessment and Plan (1) Closed fracture of neck of right femur: Qualifiers: Encounter type: initial encounter Qualified Code(s): S72.001A - Fracture of unspecified part of neck of right femur, initial encounter for closed fracture Code(s): S72.001A - Fracture of unspecified part of neck of right femur, initial encounter for closed fracture Status: Acute Assessment and Plan: Status post bipolar hemiarthroplasty to the right hip postop day 4 -patient is doing well and pain is controlled -continue pain medication, DVT prophylaxis (Eliquis 2.5 b.i.d.) and PT and OT per surgery -Miller catheter removed -plan for SNF or Acute rehab in the next 1-2 days (2) Atrial fibrillation: Code(s): I48.91 - Unspecified atrial fibrillation Status: Acute Assessment and Plan: Rhythm and rate control -not anticoagulated. She sees Dr. Blas and he told her that she did not need any anticoagulation. Likely due to fall risk -continue amiodarone -EKG shows inverted T-waves on the anterior septal leads which were not there in 2019. Spoke with Cardiology. Patient has absolutely no chest pain whatsoever. 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 no signs of heart failure. (3) Essential hypertension: Code(s): I10 - Essential (primary) hypertension Status: Acute Assessment and Plan: Patient's last blood pressure was 131/75 -pt appears to run low with no symptoms of low bp or signs of infection -continue IV fluids (4) Hypothyroidism: Code(s): E03.9 - Hypothyroidism, unspecified Status: Acute Assessment and Plan: Continue levothyroxine (5) Hyponatremia: Code(s): E87.1 - Hypo-osmolality and hyponatremia Status: Acute Assessment and Plan: Last sodium 129, improved from 120 -continue IV fluids -Likely due to pain and furosemide likely worsening it -pt has a hx of alcohol abuse -she is on a low dose of lexapro but states she really needs this medication, will keep that going for the time being. If her sodium does not improve, may need to adjust it -baseline 128-132 (6) Other emphysema: Code(s): J43.8 - Other emphysema Status: Acute Assessment and Plan: Chronic and controlled -continue symbicort (7) Alcohol use: Code(s): Z72.89 - Other problems related to lifestyle Status: Acute Assessment and Plan: Drinks about 6 drinks a day on further questioning -She has a slight tremor on exam and has a hx of alcohol withdraw but no seizures -no signs of withdraw -monitor for withdraw symptoms -ativan PRN (8) UTI (urinary tract infection): Code(s): N39.0 - Urinary tract infection, site not specified Status: Acute Assessment and Plan: Urine culture growing greater than 100,000 E coli. Antibiotics changed to Keflex which will cover postop coverage as well per Subjective Date/time seen: 06/02/21 13:11 Interval history: Pt is a 60-year-old female here for hip fracture. Patient was seen today and states her pain is better controlled today. She had some nausea earlier but that has resolved and she is eating and drinking fine. She has had bms today that are brown in color. She denies lightheadedness, CP, SOB or dizziness. She denies hallucinations or etoh withdraw. She says her last colonoscopy was in 2009 which showed diverticulosis. Exam Narrative: General: Well developed well nourished patient in NAD HEENT: normocephalic Neck: supple Neuro: Alert and oriented x4. No tremor on exam today CV:RRR. Resp:CTA Abd: Soft, non distended. No pain to palpation. Positive bowel sounds. Well-healed scars on her abdomen. Extremities: Right hip with bandage over the wound without any dehiscence, excessive bleeding or discharge. Some bruising to the hip to be expected. Pulses intac
--- NOTE | 2021-06-02 13:48 | WPDREHPN ---
Subjective Date/time seen: 06/02/21 13:48 Interval history: 06/02/21 Awaiting insurance authorization for acute rehab. Patient is less anxious. She is participating in all therapies. Pain is less. Patient is at min assist with transfers and gait. Review of Systems Review of Systems: All systems reviewed & are unremarkable except as noted in HPI and below Exam Narrative: Patient was able to participate in both OT and PT. Head is normocephalic. Bruising is noted to the right frontal area. Extraocular muscles are intact. Neck is supple. Speech is fluent. Heart rate and rhythm is regular. Lungs are clear. Bilateral upper extremity strength are 4/5. Trigger finger noted to L hand. Left lower extremity strength is 4/5. Right lower extremity strength Proximal hip strength is 2/5 knee 3 of 5 ankle 4/5. Incision was covered with dressings. Transfers were min assistance. Gait min assist 15 feet. Objective Data Vital Signs Vital Signs: Vital Signs - 24 hr 06/01/21 14:00 06/01/21 21:42 06/01/21 21:43 Temperature 36.9 C Pulse Rate 91 Respiratory Rate 20 Blood Pressure 121/66 Pulse Oximetry 91 74 L 90 06/01/21 22:00 06/02/21 06:00 06/02/21 08:00 Temperature 36.8 C 36.8 C Pulse Rate 86 74 72 Respiratory Rate 20 20 20 Blood Pressure 130/74 131/75 Pulse Oximetry 97 100 93 06/02/21 08:40 06/02/21 08:57 Temperature Pulse Rate 72 Respiratory Rate Blood Pressure Pulse Oximetry 93 Intake/Output Intake/Output: Intake & Output 05/30/21 05/31/21 06/01/21 06/02/21 23:59 23:59 23:59 23:59 Intake Total 4660 2445 3070 1690 Output Total 2570 700 300 Balance 2090 4335 2770 1690 Meds/Results Medications: Active Medications Generic Name Dose Route Start Last Admin Trade Name Freq PRN Reason Stop Dose Admin Acetaminophen 650 mg 05/31/21 18:56 Acetaminophen 325 Mg Tablet PO Q6H PRN Mild Pain (1-3) or Fever Albuterol 2 puff 05/29/21 02:30 Albuterol Sulfate (*Sp) Aerosol 1 Puff INHALATION Q4H PRN shortness of breath or wheezing Amiodarone HCl 200 mg 05/29/21 08:00 06/02/21 08:40 Amiodarone Hcl 200 Mg Tablet PO 200 mg DAILY@0800 GIOVANNA Administration Apixaban 2.5 mg 05/30/21 09:00 06/02/21 08:40 Apixaban 2.5 Mg Tablet PO 2.5 mg Q12HR GIOVANNA Administration Azelastine HCl 1 spray 05/29/21 09:00 06/02/21 08:41 Azelastine Hcl Nasal 0.1% 137 Mcg/Spr 30 Ml Btl NASAL Not Given BID [facility] Budesonide/Formoterol Fumarate 2 puff 05/29/21 08:00 06/02/21 08:58 Budesonide/Form 160-4.5 Mcg (*Sp) INHALATION Not Given Q12HRT [facility] Cephalexin HCl 500 mg 05/31/21 21:00 06/02/21 08:40 Cephalexin 500 Mg Capsule PO 500 mg Q12HR GIOVANNA Administration Cyclobenzaprine HCl 10 mg 05/30/21 07:42 05/30/21 09:14 Cyclobenzaprine Hcl 10 Mg Tablet PO 10 mg Q8H PRN Administration Muscle Spasm Escitalopram Oxalate 10 mg 05/29/21 09:00 06/02/21 08:40 Escitalopram Oxalate 10 Mg Tablet BY MOUTH 10 mg DAILY GIOVANNA Administration Fluticasone Propionate 2 spray 05/29/21 09:00 06/02/21 08:42 Fluticasone Propionate 0.05% Na Spr 16 Gm Btl (*Bkc) NASAL Not Given DAILY [facility] Furosemide 20 mg 05/30/21 09:00 05/30/21 09:01 Furosemide 20 Mg Tablet PO 20 mg QAM GIOVANNA Administration Sodium Chloride 1,000 mls @ 75 mls/hr 05/31/21 11:35 06/02/21 08:41 Normal Saline Iv IV CONT 100 mls/hr .[id number] GIOVANNA Administration Levothyroxine Sodium 112 mcg 05/29/21 06:30 06/02/21 05:47 Levothyroxine Sodium 112 Mcg Tablet PO 112 mcg DAILY@0630 GIOVANNA Administration Levothyroxine Sodium 25 mcg 05/29/21 06:30 06/02/21 05:47 Levothyroxine Sodium 25 Mcg Tablet PO 25 mcg DAILY@0630 GIOVANNA Administration Lorazepam 0.5 mg 05/30/21 11:57 Lorazepam Inj (*Crx) 2 Mg/Ml Vial IV PUSH Q6H PRN CIWA >8 Naloxone HCl 0.1 mg 05/29/21 17:24 Naloxone Hcl 0.4 Mg/Ml Vial IV PUSH Q2M PRN Opiate R
[2021-06-02 14:00] VITALS: BP 109/60; PULSE 88; RESP 18; TEMP 36.9; O2SAT 96
[2021-06-02 14:13] LABS: Hematocrit 27.4 % (37.0-47.0); Hemoglobin 8.8 g/dL (12.0-15.0)
[2021-06-02] MEDS: PANTOPRAZOLE SODIUM IV 40 MG VIAL IV PUSH ×2 (15:00→21:48)
[2021-06-02 21:47] VITALS: BP 109/75; PULSE 91; RESP 18; TEMP 36.6; O2SAT 94
[2021-06-03] VITALS (11 sets, daily range): BP systolic 109–129; BP diastolic 63–81; PULSE 76–83; RESP 16–19; TEMP 36.1–37.3; O2SAT 80–100
[2021-06-03] MEDS: LEVOTHYROXINE SODIUM 25 MCG TABLET PO (06:19)
[2021-06-03] MEDS: LEVOTHYROXINE SODIUM 112 MCG TABLET PO (06:19)
[2021-06-03 07:01] LABS: Hematocrit 23.5 % (37.0-47.0); Hemoglobin 7.5 g/dL (12.0-15.0)
[2021-06-03 07:15] LABS: Anion Gap 6 mmol/L (8-16); Blood Urea Nitrogen 12 mg/dL (7-17); Calcium 8.4 mg/dL (8.4-10.2); Carbon Dioxide 21 mmol/L (22-30); Chloride 100 mmol/L (98-107); Estimated CRCL calculation 42 ml/min; Estimated Glomerular Filt Rate 46; Glucose 93 mg/dL (65-110); Sodium 127 mmol/L (137-145)
[2021-06-03] MEDS: APIXABAN 2.5 MG TABLET PO ×2 (08:48→21:18)
[2021-06-03] MEDS: oxyCODONE HCL (*CRX) 2.5 MG TAB IR PO ×3 (08:48→17:32)
[2021-06-03] MEDS: PRAVASTATIN SODIUM 20 MG TABLET PO (08:48)
[2021-06-03] MEDS: AMIODARONE HCL 200 MG TABLET PO (08:48)
[2021-06-03] MEDS: SENNA/DOCUSATE SODIUM TABLET 2 TAB PO (08:49)
[2021-06-03] MEDS: CEPHALEXIN 500 MG CAPSULE PO ×2 (08:49→21:18)
[2021-06-03] MEDS: PANTOPRAZOLE SODIUM IV 40 MG VIAL IV PUSH ×2 (08:50→21:19)
--- NOTE | 2021-06-03 10:01 | PM.IMPN ---
Progress Note: A&P Assessment and Plan (1) Anemia: Code(s): D64.9 - Anemia, unspecified Status: Acute Assessment and Plan: Hemoglobin 7.5, down from 11.3 on admission -it has been slowly trending down which was thought to be due to surgery but continues to worsen which is worrisome -patient has a history of cirrhosis with alcohol use. Ppi has been started and GI has been consulted. May consider EGD if Ifob is positive -ortho has ordered 1 unit of PRBC -she continues to be on Eliquis, may consider stopping this. Will await recommendations from Ortho -anemia labs ordered (2) Closed fracture of neck of right femur: Qualifiers: Encounter type: initial encounter Qualified Code(s): S72.001A - Fracture of unspecified part of neck of right femur, initial encounter for closed fracture Code(s): S72.001A - Fracture of unspecified part of neck of right femur, initial encounter for closed fracture Status: Acute Assessment and Plan: Status post bipolar hemiarthroplasty to the right hip postop day 5 -patient is doing well and pain is controlled -continue pain medication, DVT prophylaxis (Eliquis 2.5 b.i.d.) and PT and OT per surgery -plan for SNF or Acute rehab in the next 1-2 days (3) Atrial fibrillation: Code(s): I48.91 - Unspecified atrial fibrillation Status: Acute Assessment and Plan: Rhythm and rate control -not fully anticoagulated for AFib. She sees Dr. Blas and he told her that she did not need any anticoagulation. Likely due to fall risk -continue amiodarone -EKG shows inverted T-waves on the anterior septal leads which were not there in 2019. Spoke with Cardiology. Patient has absolutely no chest pain whatsoever. 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 no signs of heart failure. (4) Essential hypertension: Code(s): I10 - Essential (primary) hypertension Status: Acute Assessment and Plan: Patient's last blood pressure was 112/68 -monitor (5) Hypothyroidism: Code(s): E03.9 - Hypothyroidism, unspecified Status: Acute Assessment and Plan: Continue levothyroxine (6) Hyponatremia: Code(s): E87.1 - Hypo-osmolality and hyponatremia Status: Acute Assessment and Plan: Last sodium 127, improved from 120 but worsened yesterday -stop IV fluids, continue fluid restriction -repeat urine sodium and creatinine and calculate FeNa -pt has a hx of alcohol abuse -hold Lexapro -baseline 128-132 (7) Other emphysema: Code(s): J43.8 - Other emphysema Status: Acute Assessment and Plan: Chronic and controlled -continue symbicort (8) Alcohol use: Code(s): Z72.89 - Other problems related to lifestyle Status: Acute Assessment and Plan: Drinks about 6 drinks a day on further questioning -She has a slight tremor on exam and has a hx of alcohol withdraw but no seizures -no signs of withdraw -monitor for withdraw symptoms -ativan PRN (9) UTI (urinary tract infection): Code(s): N39.0 - Urinary tract infection, site not specified Status: Acute Assessment and Plan: Urine culture growing greater than 100,000 E coli. Antibiotics changed to Keflex which will cover postop coverage as well per (10) Acute respiratory failure with hypoxia: Code(s): J96.01 - Acute respiratory failure with hypoxia Status: Acute Assessment and Plan: Patient started requiring oxygen this morning when she was found to be hypoxic. She feels slightly short of breath but has no cough -obtain chest x-ray -wean oxygen as tolerated -no wheezing, no suspicion for COPD exacerbation Subjective Date/time seen: 06/03/21 10:01 Interval history: Pt is a 60-year-old female here for hip fracture. Patient was seen today and not feeling very great. She has had
[2021-06-03 10:45] LABS: Magnesium 1.5 mg/dL (1.6-2.3)
[2021-06-03 10:53] LABS: Transferrin 89 mg/dL (206-381)
[2021-06-03 11:06] LABS: Iron 22 ug/dL (37-170)
[2021-06-03 11:16] LABS: Percent Iron Saturation 16 % (20-50)
[2021-06-03] MEDS: SODIUM CHLORIDE 0.9% IV 250 ML 30 ML IV CONT (11:30)
--- NOTE | 2021-06-03 12:59 | PM.PNORT ---
Subjective Subjective Date/Time Seen: 06/03/21 12:59 POD 5 Hgb done this am, 1 unit of blood ordered ,pt was feeling dizzy and very fatigued,BP was soft this am, wd-dry, would not recommend stopping eliquis, i think pt is at high risk for DVT due to inactivity, if GI bleed is found than may need to hold eliquis, will wait on GI eval and testing, pain overall is controlled, CBC in am, SS is working on rehab placement Objective Data Vital Signs Vital Signs: Vital Signs - 24 hr 06/02/21 14:00 06/02/21 21:47 06/03/21 05:42 Temperature 36.9 C 36.6 C 36.1 C L Pulse Rate 88 91 79 Respiratory Rate 18 18 18 Blood Pressure 109/60 109/75 112/68 Pulse Oximetry 96 94 93 06/03/21 08:00 06/03/21 08:48 06/03/21 09:03 Temperature Pulse Rate 82 82 Respiratory Rate 18 Blood Pressure Pulse Oximetry 98 80 L 06/03/21 09:05 06/03/21 10:43 06/03/21 11:01 Temperature 36.6 C 36.7 C Pulse Rate 78 78 Respiratory Rate 18 16 Blood Pressure 129/71 109/69 Pulse Oximetry 98 100 100 Intake/Output Intake/Output: Intake & Output 05/31/21 06/01/21 06/02/21 06/03/21 23:59 23:59 23:59 23:59 Intake Total 2445 3070 3530 420 Output Total 700 300 600 Balance 1745 2770 3530 -180 Meds/Results Medications: Active Medications Generic Name Dose Route Start Last Admin Trade Name Freq PRN Reason Stop Dose Admin Acetaminophen 650 mg 05/31/21 18:56 Acetaminophen 325 Mg Tablet PO Q6H PRN Mild Pain (1-3) or Fever Albuterol 2 puff 05/29/21 02:30 Albuterol Sulfate (*Sp) Aerosol 1 Puff INHALATION Q4H PRN shortness of breath or wheezing Amiodarone HCl 200 mg 05/29/21 08:00 06/03/21 08:48 Amiodarone Hcl 200 Mg Tablet PO 200 mg DAILY@0800 GIOVANNA Administration Apixaban 2.5 mg 05/30/21 09:00 06/03/21 08:48 Apixaban 2.5 Mg Tablet PO 2.5 mg Q12HR GIOVANNA Administration Azelastine HCl 1 spray 05/29/21 09:00 06/03/21 08:49 Azelastine Hcl Nasal 0.1% 137 Mcg/Spr 30 Ml Btl NASAL Not Given BID GIOVANNA Budesonide/Formoterol Fumarate 2 puff 05/29/21 08:00 06/03/21 09:00 Budesonide/Form 160-4.5 Mcg (*Sp) INHALATION 2 puff Q12HRT GIOVANNA Administration Cephalexin HCl 500 mg 05/31/21 21:00 06/03/21 08:49 Cephalexin 500 Mg Capsule PO 500 mg Q12HR GIOVANNA Administration Cyclobenzaprine HCl 10 mg 05/30/21 07:42 05/30/21 09:14 Cyclobenzaprine Hcl 10 Mg Tablet PO 10 mg Q8H PRN Administration Muscle Spasm Fluticasone Propionate 2 spray 05/29/21 09:00 06/03/21 08:49 Fluticasone Propionate 0.05% Na Spr 16 Gm Btl (*Bkc) NASAL Not Given DAILY GIOVANNA Furosemide 20 mg 05/30/21 09:00 05/30/21 09:01 Furosemide 20 Mg Tablet PO 20 mg QAM GIOVANNA Administration Sodium Chloride 250 mls @ 30 mls/hr 06/03/21 07:51 Normal Saline Iv IV CONT 06/03/21 16:10 .Q8H20M STA Levothyroxine Sodium 112 mcg 05/29/21 06:30 06/03/21 06:19 Levothyroxine Sodium 112 Mcg Tablet PO 112 mcg DAILY@0630 GIOVANNA Administration Levothyroxine Sodium 25 mcg 05/29/21 06:30 06/03/21 06:19 Levothyroxine Sodium 25 Mcg Tablet PO 25 mcg DAILY@0630 GIOVANNA Administration Lorazepam 0.5 mg 05/30/21 11:57 Lorazepam Inj (*Crx) 2 Mg/Ml Vial IV PUSH Q6H PRN CIWA >8 Naloxone HCl 0.1 mg 05/29/21 17:24 Naloxone Hcl 0.4 Mg/Ml Vial IV PUSH Q2M PRN Opiate Reversal Ondansetron HCl 4 mg 05/29/21 02:11 05/30/21 09:11 Ondansetron Inj 4 Mg/2 Ml Vial IV PUSH 4 mg Q4H PRN Administration Nausea Oxycodone HCl 2.5 mg 05/30/21 08:00 06/03/21 08:48 Oxycodone Hcl (*Crx) 2.5 Mg Tab Ir PO 2.5 mg Q4H GIOVANNA Administration Oxycodone HCl 2.5 mg 05/30/21 07:42 05/30/21 14:08 Oxycodone Hcl (*Crx) 2.5 Mg Tab Ir PO 2.5 mg Q4H PRN Administration Pain Rated 7-10 Pantoprazole Sodium 40 mg 06/02/21 13:15 06/03/21 08:50 Pantoprazole Sodium Iv 40 Mg Vial IV PUSH 40 mg Q12HR GIOVANNA Administration Polyethylene Glycol 17 gm
--- NOTE | 2021-06-03 13:06 | WPDREHPN ---
Subjective Date/time seen: 06/03/21 13:06 Interval history: 06/02/21 Awaiting insurance authorization for acute rehab. Patient is less anxious. She is participating in all therapies. Pain is less. Patient is at min assist with transfers and gait. 06/03/21 Patient is participating and progressing well. Anxiety is less. Authorization for insurance is pending for [facility]. This process may be prolonged. CM is aware of this and may need to seek out other options. Review of Systems Review of Systems: All systems reviewed & are unremarkable except as noted in HPI and below Exam Narrative: Patient was able to participate in both OT and PT. Head is normocephalic. Bruising is noted to the right frontal area. Extraocular muscles are intact. Neck is supple. Speech is fluent. Heart rate and rhythm is regular. Lungs are clear. Bilateral upper extremity strength are 4/5. Trigger finger noted to L hand. Left lower extremity strength is 4/5. Right lower extremity strength Proximal hip strength is 3/5 knee and ankle 4/5. Incision was covered with dressings. Transfers were min assistance. Gait min assist 15 feet. Endurance is improving. BM positive Objective Data Vital Signs Vital Signs: Vital Signs - 24 hr 06/02/21 14:00 06/02/21 21:47 06/03/21 05:42 Temperature 36.9 C 36.6 C 36.1 C L Pulse Rate 88 91 79 Respiratory Rate 18 18 18 Blood Pressure 109/60 109/75 112/68 Pulse Oximetry 96 94 93 06/03/21 08:00 06/03/21 08:48 06/03/21 09:03 Temperature Pulse Rate 82 82 Respiratory Rate 18 Blood Pressure Pulse Oximetry 98 80 L 06/03/21 09:05 06/03/21 10:43 06/03/21 11:01 Temperature 36.6 C 36.7 C Pulse Rate 78 78 Respiratory Rate 18 16 Blood Pressure 129/71 109/69 Pulse Oximetry 98 100 100 06/03/21 12:01 Temperature 37.0 C Pulse Rate 79 Respiratory Rate 19 Blood Pressure 110/70 Pulse Oximetry 92 Intake/Output Intake/Output: Intake & Output 05/31/21 06/01/21 06/02/21 06/03/21 23:59 23:59 23:59 23:59 Intake Total 2445 3070 3530 420 Output Total 700 300 600 Balance 1745 2770 3530 -180 Meds/Results Medications: Active Medications Generic Name Dose Route Start Last Admin Trade Name Freq PRN Reason Stop Dose Admin Acetaminophen 650 mg 05/31/21 18:56 Acetaminophen 325 Mg Tablet PO Q6H PRN Mild Pain (1-3) or Fever Albuterol 2 puff 05/29/21 02:30 Albuterol Sulfate (*Sp) Aerosol 1 Puff INHALATION Q4H PRN shortness of breath or wheezing Amiodarone HCl 200 mg 05/29/21 08:00 06/03/21 08:48 Amiodarone Hcl 200 Mg Tablet PO 200 mg DAILY@0800 GIOVANNA Administration Apixaban 2.5 mg 05/30/21 09:00 06/03/21 08:48 Apixaban 2.5 Mg Tablet PO 2.5 mg Q12HR GIOVANNA Administration Azelastine HCl 1 spray 05/29/21 09:00 06/03/21 08:49 Azelastine Hcl Nasal 0.1% 137 Mcg/Spr 30 Ml Btl NASAL Not Given BID GIOVANNA Budesonide/Formoterol Fumarate 2 puff 05/29/21 08:00 06/03/21 09:00 Budesonide/Form 160-4.5 Mcg (*Sp) INHALATION 2 puff Q12HRT GIOVANNA Administration Cephalexin HCl 500 mg 05/31/21 21:00 06/03/21 08:49 Cephalexin 500 Mg Capsule PO 500 mg Q12HR GIOVANNA Administration Cyclobenzaprine HCl 10 mg 05/30/21 07:42 05/30/21 09:14 Cyclobenzaprine Hcl 10 Mg Tablet PO 10 mg Q8H PRN Administration Muscle Spasm Fluticasone Propionate 2 spray 05/29/21 09:00 06/03/21 08:49 Fluticasone Propionate 0.05% Na Spr 16 Gm Btl (*Bkc) NASAL Not Given DAILY GIOVANNA Furosemide 20 mg 05/30/21 09:00 05/30/21 09:01 Furosemide 20 Mg Tablet PO 20 mg QAM GIOVANNA Administration Sodium Chloride 250 mls @ 30 mls/hr 06/03/21 07:51 Normal Saline Iv IV CONT 06/03/21 16:10 .Q8H20M STA Levothyroxine Sodium 112 mcg 05/29/21 06:30 06/03/21 06:19 Levothyroxine Sodium 112 Mcg Tablet PO 112 mcg DAILY@0630 GIOVANNA Administration Levothyroxine Sodium 25 mcg 05/29/21 06:30 06/03/21 06:19 Levothyroxine Sodium 25
--- NOTE | 2021-06-03 15:58 | WPDGICN ---
Assessment and Plan Assessment and plan (1) Cirrhosis, alcoholic: Code(s): K70.30 - Alcoholic cirrhosis of liver without ascites Status: Acute Assessment and Plan: new diagnosis, most likely alcohol related, we can check also for chronic hepatitis she will need to stop drinking because history of cirrhosis she will need to have EGD to check for varices, PHG, etc (we can do it inpatient is + FOBT) or outpatient if hb stable and no signs of gib (2) Acute on chronic blood loss anemia: Code(s): D62 - Acute posthemorrhagic anemia Status: Acute Assessment and Plan: most likely related to recent surgery continue to monitor if obvious GIB then we can do EGD while she is here but denies melena and her hb was at baseline prior her surgery (3) Hip fracture: Code(s): S72.009A - Fracture of unspecified part of neck of unspecified femur, initial encounter for closed fracture Status: Acute Assessment and Plan: s/p surgery, getting therapy (4) Alcohol abuse: Code(s): F10.10 - Alcohol abuse, uncomplicated Status: Acute Assessment and Plan: thiamine, mvi stop drinking (5) Hyponatremia: Code(s): E87.1 - Hypo-osmolality and hyponatremia Status: Acute (6) Paroxysmal atrial fibrillation: Code(s): I48.0 - Paroxysmal atrial fibrillation Status: Acute (7) Colon cancer screening: Code(s): Z12.11 - Encounter for screening for malignant neoplasm of colon Status: Acute Assessment and Plan: she is due to have a colonoscopy, we can schedule in 3 months or so after fully recovered from recent surgery GI Consult Note Consult date/time: 06/03/21 15:58 Reason for consult: cirrhosis HPI: Marialuisa Huggins is a 60 year old female with history of paroxysmal atrial fibrillation on amiodarone after failing sotalol (seeing cardiology), diastolic CHF, hypertension, hyponatremia and heavy alcohol for years currently drinking 3 beers and 3 glasses of wine per day (she was told in the past that had liver disease but never cirrhosis). Also remote history of tracheostomy and ventilator dependent respiratory failure in 2013 after severe viral infection. She was admitted to the hospital few days ago after she fell from her feet to the ground after tripping over carpet. Hb on admission prior surgery was 11.3 (near baseline from 1 year ago). XR reviewed and showed right Femoral Neck Fracture, underwent in growth bipolar hemiarthroplasty right hip. Patient denies melena or GIB, never had EGD. Abdominal ultrasound also showed cirrhosis, hb trending down to 7.5. She had colonoscopy 10 years ago when had diverticulitis and required partial colectomy. Review of Systems Constitutional: Constitutional: Denies lethargy Eyes: Eyes: Denies blurry vision ENT: Reports Normal hearing present Cardiovascular: Cardiovascular: Denies chest pain Respiratory: Respiratory: Denies dyspnea Gastrointestinal: Gastrointestinal: Denies abdominal pain and Denies nausea Genitourinary: Genitourinary: Denies hematuria Musculoskeletal: Musculoskeletal: Reports arthralgias Integumentary/Breasts: Skin/Breast: Denies dry skin Neurologic: Reports system reviewed and no additional complaints, except as documented Psychiatric: Psychiatric: Reports no additional psychiatric complaints [facility] Past Medical History Medical History (Updated 06/03/21 @ 16:06 by Jose Pitt MD) Acute congestive heart failure Acute on chronic blood loss anemia Alcohol abuse Alcohol use Anemia Anxiety Agoraphobia, rarely leaves the house. Depression and PTSD. Atrial fibrillation Cirrhosis, alcoholic Closed fracture of neck of right femur Colon cancer screening COPD (chronic obstructive pulmonary disease) Essential hypertension History of CHF (congestive heart failure) Hx of falling Hyperlipidemia Hyponatremia Hypothyroidism Nerve plexus disorder Right-sided Other emphysema Paro
[2021-06-03 16:14] LABS: Hematocrit 27.5 % (37.0-47.0); Hemoglobin 9.2 g/dL (12.0-15.0)
[2021-06-03] MEDS: MAGNESIUM OXIDE 200 MG TABLET PO ×2 (17:32→21:19)
[2021-06-03] MEDS: DIPHENHYDRAMINE 1%/ZINC 0.1% CREAM 30 GM TUBE 1 APPLIC TOPICAL (17:35)
[2021-06-03] MEDS: FUROSEMIDE INJ 40 MG/4 ML VIAL 20 MG IV PUSH (17:35)
[2021-06-04 05:29] VITALS: BP 120/69; PULSE 84; RESP 18; TEMP 36.6; O2SAT 91
[2021-06-04] MEDS: LEVOTHYROXINE SODIUM 25 MCG TABLET PO (05:43)
[2021-06-04] MEDS: LEVOTHYROXINE SODIUM 112 MCG TABLET PO (05:43)
[2021-06-04 06:47] LABS: Hematocrit 27.2 % (37.0-47.0); Hemoglobin 8.9 g/dL (12.0-15.0); Mean Corpuscular HGB Conc 32.7 g/dl (32-36); Mean Corpuscular Hemoglobin 33.6 pg (26-34); Mean Corpuscular Volume 102.6 fl (80-100); Mean Platelet Volume 9.6 fl (7.4-10.4); Platelet Count Result 158 k/mm3 (150-375); Red Blood Count 2.65 M/mm3 (4.2-5.4); Red Cell Distribution Width 16.1 % (11.5-14.5)
--- NOTE | 2021-06-04 06:48 | PM.PNORT ---
Subjective Subjective Date/Time Seen: 06/04/21 06:48POD6 avss GI saw pt yesterday upper endoscopy needed , hgb-9.2 today pain continues to be well controlled, will cont to follow .wd-dry Objective Data Vital Signs Vital Signs: Vital Signs - 24 hr 06/03/21 08:00 06/03/21 08:48 06/03/21 09:03 Temperature Pulse Rate 82 82 Respiratory Rate 18 Blood Pressure Pulse Oximetry 98 80 L 06/03/21 09:05 06/03/21 10:43 06/03/21 11:01 Temperature 36.6 C 36.7 C Pulse Rate 78 78 Respiratory Rate 18 16 Blood Pressure 129/71 109/69 Pulse Oximetry 98 100 100 06/03/21 12:01 06/03/21 13:01 06/03/21 14:00 Temperature 37.0 C 37.3 C 36.7 C Pulse Rate 79 76 78 Respiratory Rate 19 16 18 Blood Pressure 110/70 110/63 115/81 Pulse Oximetry 92 95 96 06/03/21 21:56 06/04/21 05:29 Temperature 36.8 C 36.6 C Pulse Rate 83 84 Respiratory Rate 18 18 Blood Pressure 109/69 120/69 Pulse Oximetry 91 91 Intake/Output Intake/Output: Intake & Output 06/01/21 06/02/21 06/03/21 06/04/21 23:59 23:59 23:59 23:59 Intake Total 3070 3530 1370 Output Total 300 600 Balance 2770 3530 770 Meds/Results Medications: Active Medications Generic Name Dose Route Start Last Admin Trade Name Freq PRN Reason Stop Dose Admin Acetaminophen 650 mg 05/31/21 18:56 Acetaminophen 325 Mg Tablet PO Q6H PRN Mild Pain (1-3) or Fever Albuterol 2 puff 05/29/21 02:30 Albuterol Sulfate (*Sp) Aerosol 1 Puff INHALATION Q4H PRN shortness of breath or wheezing Amiodarone HCl 200 mg 05/29/21 08:00 06/03/21 08:48 Amiodarone Hcl 200 Mg Tablet PO 200 mg DAILY@0800 GIOVANNA Administration Apixaban 2.5 mg 05/30/21 09:00 06/03/21 21:18 Apixaban 2.5 Mg Tablet PO 2.5 mg Q12HR GIOVANNA Administration Azelastine HCl 1 spray 05/29/21 09:00 06/03/21 17:32 Azelastine Hcl Nasal 0.1% 137 Mcg/Spr 30 Ml Btl NASAL Not Given BID GIOVANNA Budesonide/Formoterol Fumarate 2 puff 05/29/21 08:00 06/03/21 21:56 Budesonide/Form 160-4.5 Mcg (*Sp) INHALATION 2 puff Q12HRT GIOVANNA Administration Cephalexin HCl 500 mg 05/31/21 21:00 06/03/21 21:18 Cephalexin 500 Mg Capsule PO 500 mg Q12HR GIOVANNA Administration Cyclobenzaprine HCl 10 mg 05/30/21 07:42 05/30/21 09:14 Cyclobenzaprine Hcl 10 Mg Tablet PO 10 mg Q8H PRN Administration Muscle Spasm Fluticasone Propionate 2 spray 05/29/21 09:00 06/03/21 08:49 Fluticasone Propionate 0.05% Na Spr 16 Gm Btl (*Bkc) NASAL Not Given DAILY GIOVANNA Furosemide 20 mg 05/30/21 09:00 05/30/21 09:01 Furosemide 20 Mg Tablet PO 20 mg QAM GIOVANNA Administration Levothyroxine Sodium 112 mcg 05/29/21 06:30 06/04/21 05:43 Levothyroxine Sodium 112 Mcg Tablet PO 112 mcg DAILY@0630 GIOVANNA Administration Levothyroxine Sodium 25 mcg 05/29/21 06:30 06/04/21 05:43 Levothyroxine Sodium 25 Mcg Tablet PO 25 mcg DAILY@0630 GIOVANNA Administration Lorazepam 0.5 mg 05/30/21 11:57 Lorazepam Inj (*Crx) 2 Mg/Ml Vial IV PUSH Q6H PRN CIWA >8 Magnesium Oxide 200 mg 06/03/21 13:30 06/03/21 21:19 Magnesium Oxide 200 Mg Tablet PO 200 mg Q12HR GIOVANNA Administration Naloxone HCl 0.1 mg 05/29/21 17:24 Naloxone Hcl 0.4 Mg/Ml Vial IV PUSH Q2M PRN Opiate Reversal Ondansetron HCl 4 mg 05/29/21 02:11 05/30/21 09:11 Ondansetron Inj 4 Mg/2 Ml Vial IV PUSH 4 mg Q4H PRN Administration Nausea Oxycodone HCl 2.5 mg 05/30/21 08:00 06/04/21 04:12 Oxycodone Hcl (*Crx) 2.5 Mg Tab Ir PO Not Given Q4H GIOVANNA Oxycodone HCl 2.5 mg 05/30/21 07:42 05/30/21 14:08 Oxycodone Hcl (*Crx) 2.5 Mg Tab Ir PO 2.5 mg Q4H PRN Administration Pain Rated 7-10 Pantoprazole Sodium 40 mg 06/02/21 13:15 06/03/21 21:19 Pantoprazole Sodium Iv 40 Mg Vial IV PUSH 40 mg Q12HR GIOVANNA Administration Polyethylene Glycol 17 gm 05/30/21 09:00 06/03/21 08:49 Polyethylene Glycol 3350 17 Gm Powd.Pack PO Not Gi
[2021-06-04 07:07] LABS: Alanine Aminotransferase 20 U/L (4-35); Albumin Level 2.6 g/dL (3.5-5.1); Alkaline Phosphatase 204 U/L (38-126); Anion Gap 4 mmol/L (8-16); Aspartate Amino Transferase 45 U/L (14-36); Bilirubin,Total 0.8 mg/dL (0.2-1.3); Blood Urea Nitrogen 10 mg/dL (7-17); Calcium 8.8 mg/dL (8.4-10.2); Carbon Dioxide 27 mmol/L (22-30); Chloride 98 mmol/L (98-107); Estimated CRCL calculation 42 ml/min; Estimated Glomerular Filt Rate 46; Glucose 93 mg/dL (65-110); Magnesium 1.7 mg/dL (1.6-2.3); Potassium 3.4 mmol/L (3.4-5.0); Sodium 129 mmol/L (137-145)
[2021-06-04 07:46] LABS: Hepatitis B Surface Antigen Negative (Negative)
[2021-06-04 07:52] LABS: HAV RESULT Negative (Negative); Hepatitis B Core IgM Result Negative (Negative)
[2021-06-04 08:04] LABS: Hepatitis C Virus Antibody Negative (Negative)
[2021-06-04 08:59] VITALS: PULSE 84
[2021-06-04] MEDS: AMIODARONE HCL 200 MG TABLET PO (08:59)
[2021-06-04] MEDS: CEPHALEXIN 500 MG CAPSULE PO ×2 (09:00→21:10)
[2021-06-04] MEDS: AZELASTINE HCL NASAL 0.1% 137 MCG/SPR 30 ML BTL 1 SPRAY NASAL ×2 (09:00→16:40)
[2021-06-04] MEDS: FLUTICASONE PROPIONATE 0.05% NA SPR 16 GM BTL (*BKC) 2 SPRAY NASAL (09:00)
[2021-06-04] MEDS: APIXABAN 2.5 MG TABLET PO ×2 (09:00→21:10)
[2021-06-04] MEDS: PRAVASTATIN SODIUM 20 MG TABLET PO (09:00)
[2021-06-04] MEDS: oxyCODONE HCL (*CRX) 2.5 MG TAB IR PO ×3 (09:00→16:40)
[2021-06-04] MEDS: PANTOPRAZOLE SODIUM IV 40 MG VIAL IV PUSH ×2 (09:01→21:10)
--- NOTE | 2021-06-04 09:26 | PM.IMPN ---
Progress Note: A&P Assessment and Plan (1) Cirrhosis, alcoholic: Code(s): K70.30 - Alcoholic cirrhosis of liver without ascites Status: Acute Assessment and Plan: new diagnosis, most likely alcohol related, we can check also for chronic hepatitis (-) she will need to stop drinking because history of cirrhosis she will need to have EGD to check for varices, PHG, etc (we can do it inpatient is + FOBT)on an outpatient basis if hb stable and no signs of gib (2) Acute on chronic blood loss anemia: Code(s): D62 - Acute posthemorrhagic anemia Status: Acute Assessment and Plan: most likely related to recent surgery continue to monitor GI feels she can have EGD outpatient as H/H stable since transfusion occult stool pending a BM. (3) Hip fracture: Code(s): S72.009A - Fracture of unspecified part of neck of unspecified femur, initial encounter for closed fracture Status: Acute Assessment and Plan: s/p surgery, incision without redness, some swelling and firmness remain, encourage patient to use ice pack but stated that she didn't like them. getting PT/OT therapy (4) Alcohol abuse: Code(s): F10.10 - Alcohol abuse, uncomplicated Status: Acute Assessment and Plan: thiamine, multivitamin stop drinking (5) Hyponatremia: Code(s): E87.1 - Hypo-osmolality and hyponatremia Status: Acute Assessment and Plan: Sodium improved today from 127 to 129. continue to encourage better oral intake (6) Paroxysmal atrial fibrillation: Code(s): I48.0 - Paroxysmal atrial fibrillation Status: Acute Assessment and Plan: no concerns at this time, no palpitations, no chest pain or pressure or SOB. continue AMIOdarone (7) Colon cancer screening: Code(s): Z12.11 - Encounter for screening for malignant neoplasm of colon Status: Acute Assessment and Plan: she is due to have a colonoscopy, ordered occult blood of stool if she has a BM. schedule colonoscopy in 3 months (8) UTI (urinary tract infection): Code(s): N39.0 - Urinary tract infection, site not specified Status: Acute Assessment and Plan: Incontinent of Urine today. needs bladder training and more PT/OT. 05/29 Urine culture + for E.Coli UTI. On 05/31 started on Keflex oral. needs PT/OT Additional Plan Barriers: Anticipation of pain, severe anxiety, postop pain, hyponatremia, RUE weakness and sensory loss, endurance. Subjective Date/time seen: 06/04/21 09:26 Interval history: 06/02/21 Postop day 5 and awaiting insurance authorization for acute rehab after right hip surgery/fracture repair. Patient is less anxious. She is participating in all therapies. Pain is less. Patient is at min assist with transfers and gait. Hgb/Hct = 7.9/23.9 06/03/21 Patient is participating and progressing well. Anxiety is less. Authorization for insurance is pending for [facility]. This process may be prolonged. Care management is aware of this and may need to seek out other options.Received RBC transfusion. GI wants to do EGD, and a Colonoscopy in 3 months. 06/04/2021 Marialuisa is up in a chair when I went to see her today. Patient is able to stand with walker, and transfer with hands on 1 person assist. Her anemia is improving, continue her daily Iron BID as her iron panel was still low. Hgb/Hct now 8.9/27.2. Low sodium levels (from alcohol abuse/cirrhosis) improved from 127 to 129 today. GI recommending anemia most likely alcohol related, checked hepatitis panel (negative), encouraged her to stop drinking alcohol, because history of cirrhosis she will need to have EGD to check for varices, GI decided EGD can be done outpatient if H/H stable. No s/s of withdrawal at this time. Will see if tolerating oral meals well. Incontinent of Urine today. 05/29 Urine culture + for E.Coli UTI. On 05/31 started on Keflex oral. Review of Systems Review of Syste
[2021-06-04] MEDS: MAGNESIUM OXIDE 200 MG TABLET PO ×2 (12:04→21:10)
[2021-06-04 14:00] VITALS: BP 103/61; PULSE 71; RESP 12; TEMP 36.8; O2SAT 96
[2021-06-04] MEDS: POLYSACCHARIDE IRON COMPLEX 150 MG CAPSULE PO (16:40)
[2021-06-04 17:10] LABS: Creatinine Urine 123.4 mg/dL; Sodium Urine Random 17 meq/L
--- NOTE | 2021-06-04 17:40 | WPDGIPROGNO ---
Progress Note: A&P Assessment and Plan (1) Cirrhosis, alcoholic: Code(s): K70.30 - Alcoholic cirrhosis of liver without ascites Status: Acute Assessment and Plan: new diagnosis, stable we can do EGD as outpatient to assess for varices, phg, etc [place], call if questions (2) Acute on chronic blood loss anemia: Code(s): D62 - Acute posthemorrhagic anemia Status: Acute Assessment and Plan: hb low but stable, probably related to recent hip surgery denies overt gib (3) Alcohol abuse: Code(s): F10.10 - Alcohol abuse, uncomplicated Status: Acute (4) Hip fracture: Code(s): S72.009A - Fracture of unspecified part of neck of unspecified femur, initial encounter for closed fracture Status: Acute Assessment and Plan: s/p surgery, stable (5) Colon cancer screening: Code(s): Z12.11 - Encounter for screening for malignant neoplasm of colon Status: Acute Assessment and Plan: due to have another colonoscopy will schedule after fully recovered in ~ 3 months (6) Atrial fibrillation: Code(s): I48.91 - Unspecified atrial fibrillation Status: Acute Subjective Date/time seen: 06/04/21 17:40 Interval history: no new issues, denies gib Review of Systems Review of Systems: All systems reviewed & are unremarkable except as noted in HPI and below Exam Const: General: comfortable and no acute distress HENMT: General nose exam: Normal nares present Eyes: Sclera: sclerae normal Neck: Neck: supple Resp: Auscultation: clear to auscultation bilaterally Cardio: Rate: regular rate GI: GI Palp: Yes Soft to palpation, No Tenderness to palpation present (GI) and No Guarding due to palpation present (GI) Auscultation: normal bowel sounds Skin: General skin exam: normal color Neuro: Speech: normal speech Motor exam (neuro): Normal motor muscle tone present throughout Extrem: Other: s/p rt hip surgery Psych: Affect: normal affect Objective Data Vital Signs Vital Signs: Vital Signs - 24 hr 06/03/21 21:56 06/04/21 05:29 06/04/21 08:59 Temperature 98.3 F 97.8 F Pulse Rate 83 84 84 Respiratory Rate 18 18 Blood Pressure 109/69 120/69 Pulse Oximetry 91 91 06/04/21 14:00 Temperature 98.2 F Pulse Rate 71 Respiratory Rate 12 Blood Pressure 103/61 Pulse Oximetry 96 Intake/Output Intake/Output: Intake & Output 06/01/21 06/02/21 06/03/21 06/04/21 23:59 23:59 23:59 23:59 Intake Total 3070 3530 1370 462 Output Total 300 600 Balance 2770 3530 770 462 Meds/Results Medications: Active Medications Generic Name Dose Route Start Last Admin Trade Name Freq PRN Reason Stop Dose Admin Acetaminophen 650 mg 05/31/21 18:56 Acetaminophen 325 Mg Tablet PO Q6H PRN Mild Pain (1-3) or Fever Albuterol 2 puff 05/29/21 02:30 Albuterol Sulfate (*Sp) Aerosol 1 Puff INHALATION Q4H PRN shortness of breath or wheezing Amiodarone HCl 200 mg 05/29/21 08:00 06/04/21 08:59 Amiodarone Hcl 200 Mg Tablet PO 200 mg DAILY@0800 GIOVANNA Administration Apixaban 2.5 mg 05/30/21 09:00 06/04/21 09:00 Apixaban 2.5 Mg Tablet PO 2.5 mg Q12HR GIOVANNA Administration Azelastine HCl 1 spray 05/29/21 09:00 06/04/21 16:40 Azelastine Hcl Nasal 0.1% 137 Mcg/Spr 30 Ml Btl NASAL 1 spray BID GIOVANNA Administration Budesonide/Formoterol Fumarate 2 puff 05/29/21 08:00 06/04/21 08:27 Budesonide/Form 160-4.5 Mcg (*Sp) INHALATION 2 puff Q12HRT GIOVANNA Administration Cephalexin HCl 500 mg 05/31/21 21:00 06/04/21 09:00 Cephalexin 500 Mg Capsule PO 500 mg Q12HR GIOVANNA Administration Cyclobenzaprine HCl 10 mg 05/30/21 07:42 05/30/21 09:14 Cyclobenzaprine Hcl 10 Mg Tablet PO 10 mg Q8H PRN Administration Muscle Spasm Fluticasone Propionate 2 spray 05/29/21 09:00 06/04/21 09:00 Fluticasone Propionate 0.05% Na Spr 16 Gm Btl (*Bkc) NASAL 2 spray AYALA
[2021-06-04 19:41] VITALS: PULSE 72
[2021-06-04 19:45] VITALS: PULSE 72; O2SAT 91
[2021-06-04 22:00] VITALS: BP 97/58; PULSE 75; RESP 18; TEMP 36.7; O2SAT 90
[2021-06-05] MEDS: LEVOTHYROXINE SODIUM 112 MCG TABLET PO (05:26)
[2021-06-05] MEDS: LEVOTHYROXINE SODIUM 25 MCG TABLET PO (05:26)
[2021-06-05 06:00] VITALS: BP 144/72; PULSE 69; RESP 18; TEMP 36.4; O2SAT 92
[2021-06-05] MEDS: oxyCODONE HCL (*CRX) 2.5 MG TAB IR PO ×4 (07:57→21:14)
[2021-06-05] MEDS: POLYSACCHARIDE IRON COMPLEX 150 MG CAPSULE PO ×2 (07:57→16:49)
[2021-06-05 07:58] VITALS: PULSE 84
[2021-06-05] MEDS: CEPHALEXIN 500 MG CAPSULE PO ×2 (07:58→21:14)
[2021-06-05] MEDS: MAGNESIUM OXIDE 200 MG TABLET PO ×2 (07:58→21:14)
[2021-06-05] MEDS: PRAVASTATIN SODIUM 20 MG TABLET PO (07:58)
[2021-06-05] MEDS: AMIODARONE HCL 200 MG TABLET PO (07:58)
[2021-06-05] MEDS: FLUTICASONE PROPIONATE 0.05% NA SPR 16 GM BTL (*BKC) 2 SPRAY NASAL (07:59)
[2021-06-05] MEDS: APIXABAN 2.5 MG TABLET PO ×2 (07:59→21:14)
[2021-06-05] MEDS: AZELASTINE HCL NASAL 0.1% 137 MCG/SPR 30 ML BTL 1 SPRAY NASAL ×2 (07:59→16:49)
[2021-06-05] MEDS: PANTOPRAZOLE SODIUM IV 40 MG VIAL IV PUSH ×2 (08:00→21:14)
[2021-06-05 08:40] LABS: Hematocrit 28.6 % (37.0-47.0); Hemoglobin 9.4 g/dL (12.0-15.0); Mean Corpuscular HGB Conc 32.9 g/dl (32-36); Mean Corpuscular Hemoglobin 33.8 pg (26-34); Mean Corpuscular Volume 102.9 fl (80-100); Mean Platelet Volume 9.4 fl (7.4-10.4); Platelet Count Result 193 k/mm3 (150-375); Red Blood Count 2.78 M/mm3 (4.2-5.4); Red Cell Distribution Width 16.5 % (11.5-14.5); White Blood Count 5.3 K/mm3 (4.5-10.0)
[2021-06-05 08:42] LABS: Anion Gap 3 mmol/L (8-16); Blood Urea Nitrogen 8 mg/dL (7-17); Calcium 8.5 mg/dL (8.4-10.2); Carbon Dioxide 27 mmol/L (22-30); Chloride 102 mmol/L (98-107); Estimated CRCL calculation 49 ml/min; Estimated Glomerular Filt Rate 57; Glucose 118 mg/dL (65-110); Potassium 3.3 mmol/L (3.4-5.0); Sodium 132 mmol/L (137-145)
[2021-06-05] MEDS: POTASSIUM CHLORIDE 20 MEQ TABLET 40 MEQ PO (10:16)
--- NOTE | 2021-06-05 11:05 | PCNWS ---
Weekly nutritional screen. Patient is tolerating current diet with adequate intake. No weight loss reported. No nutritional needs at this time.
[2021-06-05 14:00] VITALS: BP 120/68; PULSE 69; RESP 18; TEMP 37; O2SAT 95
--- NOTE | 2021-06-05 16:17 | PM.IMPN ---
Progress Note: A&P Assessment and Plan (1) Discharge planning issues: Code(s): Z02.9 - Encounter for administrative examinations, unspecified Status: Acute Assessment and Plan: Awaiting SNF authorization (2) Anemia: Code(s): D64.9 - Anemia, unspecified Status: Acute Assessment and Plan: Hgb 9.4 but was down to 7.5 -Transfused 1PRBC 06/03 and has remained stable -it has been slowly trending down which was thought to be due to surgery -patient has a history of cirrhosis with alcohol use. Ppi has been started and GI has been consulted. EGD and colonoscopy recommended outpt -she continues to be on Eliquis, may consider stopping this. Will await recommendations from Ortho -anemia labs ordered (3) Closed fracture of neck of right femur: Qualifiers: Encounter type: initial encounter Qualified Code(s): S72.001A - Fracture of unspecified part of neck of right femur, initial encounter for closed fracture Code(s): S72.001A - Fracture of unspecified part of neck of right femur, initial encounter for closed fracture Status: Acute Assessment and Plan: Status post bipolar hemiarthroplasty to the right hip postop day 7 -patient is doing well and pain is controlled -continue pain medication, DVT prophylaxis (Eliquis 2.5 b.i.d.) and PT and OT per surgery -plan for SNF tomorrow (4) Atrial fibrillation: Code(s): I48.91 - Unspecified atrial fibrillation Status: Acute Assessment and Plan: Rhythm and rate control -not fully anticoagulated for AFib. She sees Dr. Blas and he told her that she did not need any anticoagulation. Likely due to fall risk -continue amiodarone -EKG shows inverted T-waves on the anterior septal leads which were not there in 2019. Spoke with Cardiology. Patient has absolutely no chest pain whatsoever. 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 no signs of heart failure. (5) Essential hypertension: Code(s): I10 - Essential (primary) hypertension Status: Acute Assessment and Plan: Patient's last blood pressure was 120/68 -monitor (6) Hypothyroidism: Code(s): E03.9 - Hypothyroidism, unspecified Status: Acute Assessment and Plan: Continue levothyroxine (7) Hyponatremia: Code(s): E87.1 - Hypo-osmolality and hyponatremia Status: Acute Assessment and Plan: Last sodium 132, improved from 120 -pt has a hx of alcohol abuse -hold Lexapro -baseline 128-132 (8) Other emphysema: Code(s): J43.8 - Other emphysema Status: Acute Assessment and Plan: Chronic and controlled -continue symbicort (9) Alcohol use: Code(s): Z72.89 - Other problems related to lifestyle Status: Acute Assessment and Plan: Drinks about 6 drinks a day on further questioning -She has a slight tremor on exam and has a hx of alcohol withdraw but no seizures -no signs of withdraw -monitor for withdraw symptoms -ativan PRN (10) UTI (urinary tract infection): Code(s): N39.0 - Urinary tract infection, site not specified Status: Acute Assessment and Plan: Urine culture growing greater than 100,000 E coli. Antibiotics changed to Keflex which will cover postop coverage as well per (11) Acute respiratory failure with hypoxia: Code(s): J96.01 - Acute respiratory failure with hypoxia Status: Acute Assessment and Plan: Resolved -could have been due to anemia or slight fluid overload -back to baseline (12) Cirrhosis, alcoholic: Code(s): K70.30 - Alcoholic cirrhosis of liver without ascites Status: Acute Assessment and Plan: f/u with GI outpt -explained the importance of avoiding Etoh. She agrees. Subjective Date/time seen: 06/05/21 16:17 Interval history: Patient is a 60-year-old f
--- NOTE | 2021-06-05 17:44 | PM.PNORT ---
Subjective Subjective Date/Time Seen: 06/05/21 17:44 POD 6 alert hgb-stable dressing is dry , GI will follow up outpt, pain is well controlled, pt is on iron supplement, social work is working on d/c plans Objective Data Vital Signs Vital Signs: Vital Signs - 24 hr 06/04/21 19:41 06/04/21 19:45 06/04/21 22:00 Temperature 36.7 C Pulse Rate 72 72 75 Respiratory Rate 18 Blood Pressure 97/58 L Pulse Oximetry 91 90 06/05/21 06:00 06/05/21 07:58 06/05/21 14:00 Temperature 36.4 C 37.0 C Pulse Rate 69 84 69 Respiratory Rate 18 18 Blood Pressure 144/72 H 120/68 Pulse Oximetry 92 95 Intake/Output Intake/Output: Intake & Output 06/02/21 06/03/21 06/04/21 06/05/21 23:59 23:59 23:59 23:59 Intake Total 3530 3543 155 2549 Output Total 600 200 Balance 3530 157 768 7924 Meds/Results Medications: Active Medications Generic Name Dose Route Start Last Admin Trade Name Freq PRN Reason Stop Dose Admin Acetaminophen 650 mg 05/31/21 18:56 Acetaminophen 325 Mg Tablet PO Q6H PRN Mild Pain (1-3) or Fever Albuterol 2 puff 05/29/21 02:30 Albuterol Sulfate (*Sp) Aerosol 1 Puff INHALATION Q4H PRN shortness of breath or wheezing Amiodarone HCl 200 mg 05/29/21 08:00 06/05/21 07:58 Amiodarone Hcl 200 Mg Tablet PO 200 mg DAILY@0800 GIOVANNA Administration Apixaban 2.5 mg 05/30/21 09:00 06/05/21 07:59 Apixaban 2.5 Mg Tablet PO 2.5 mg Q12HR GIOVANNA Administration Azelastine HCl 1 spray 05/29/21 09:00 06/05/21 16:49 Azelastine Hcl Nasal 0.1% 137 Mcg/Spr 30 Ml Btl NASAL 1 spray BID GIOAVNNA Administration Budesonide/Formoterol Fumarate 2 puff 05/29/21 08:00 06/05/21 09:45 Budesonide/Form 160-4.5 Mcg (*Sp) INHALATION 2 puff Q12HRT GIOVANNA Administration Cephalexin HCl 500 mg 05/31/21 21:00 06/05/21 07:58 Cephalexin 500 Mg Capsule PO 500 mg Q12HR GIOVANNA Administration Cyclobenzaprine HCl 10 mg 05/30/21 07:42 05/30/21 09:14 Cyclobenzaprine Hcl 10 Mg Tablet PO 10 mg Q8H PRN Administration Muscle Spasm Fluticasone Propionate 2 spray 05/29/21 09:00 06/05/21 07:59 Fluticasone Propionate 0.05% Na Spr 16 Gm Btl (*Bkc) NASAL 2 spray DAILY GIOVANNA Administration Furosemide 20 mg 05/30/21 09:00 05/30/21 09:01 Furosemide 20 Mg Tablet PO 20 mg QAM GIOVANNA Administration Levothyroxine Sodium 112 mcg 05/29/21 06:30 06/05/21 05:26 Levothyroxine Sodium 112 Mcg Tablet PO 112 mcg DAILY@0630 GIOVANNA Administration Levothyroxine Sodium 25 mcg 05/29/21 06:30 06/05/21 05:26 Levothyroxine Sodium 25 Mcg Tablet PO 25 mcg DAILY@0630 GIOVANNA Administration Lorazepam 0.5 mg 05/30/21 11:57 Lorazepam Inj (*Crx) 2 Mg/Ml Vial IV PUSH Q6H PRN CIWA >8 Magnesium Oxide 200 mg 06/03/21 13:30 06/05/21 07:58 Magnesium Oxide 200 Mg Tablet PO 200 mg Q12HR GIOVANNA Administration Naloxone HCl 0.1 mg 05/29/21 17:24 Naloxone Hcl 0.4 Mg/Ml Vial IV PUSH Q2M PRN Opiate Reversal Ondansetron HCl 4 mg 05/29/21 02:11 05/30/21 09:11 Ondansetron Inj 4 Mg/2 Ml Vial IV PUSH 4 mg Q4H PRN Administration Nausea Oxycodone HCl 2.5 mg 05/30/21 08:00 06/05/21 15:53 Oxycodone Hcl (*Crx) 2.5 Mg Tab Ir PO 2.5 mg Q4H GIOVANNA Administration Oxycodone HCl 2.5 mg 05/30/21 07:42 05/30/21 14:08 Oxycodone Hcl (*Crx) 2.5 Mg Tab Ir PO 2.5 mg Q4H PRN Administration Pain Rated 7-10 Pantoprazole Sodium 40 mg 06/02/21 13:15 06/05/21 08:00 Pantoprazole Sodium Iv 40 Mg Vial IV PUSH 40 mg Q12HR GIOVANNA Administration Polyethylene Glycol 17 gm 05/30/21 09:00 06/05/21 08:00 Polyethylene Glycol 3350 17 Gm Powd.Pack PO Not Given QAM GIOVANNA Polysaccharide Iron Complex 150 mg 06/04/21 17:00 06/05/21 16:49 Polysaccharide Iron Complex 150 Mg Capsule PO 150 mg BIDWM GIOVANNA Administration Pravastatin Sodium 20 mg 05/29/21 09:00 06/05/21 07:58 Pravastatin Sodium 20 Mg Tablet PO 20 m
[2021-06-05 21:54] VITALS: BP 107/64; PULSE 69; RESP 18; TEMP 36.6; O2SAT 93
[2021-06-06 05:35] VITALS: BP 122/70; PULSE 62; RESP 18; TEMP 36.9; O2SAT 94
[2021-06-06] MEDS: LEVOTHYROXINE SODIUM 25 MCG TABLET PO (05:42)
[2021-06-06] MEDS: LEVOTHYROXINE SODIUM 112 MCG TABLET PO (05:42)
[2021-06-06 06:39] LABS: Anion Gap 3 mmol/L (8-16); Blood Urea Nitrogen 8 mg/dL (7-17); Calcium 8.5 mg/dL (8.4-10.2); Carbon Dioxide 28 mmol/L (22-30); Chloride 99 mmol/L (98-107); Estimated CRCL calculation 49 ml/min; Estimated Glomerular Filt Rate 57; Glucose 85 mg/dL (65-110); Magnesium 1.7 mg/dL (1.6-2.3); Potassium 3.7 mmol/L (3.4-5.0); Sodium 130 mmol/L (137-145)
[2021-06-06] MEDS: oxyCODONE HCL (*CRX) 2.5 MG TAB IR PO ×2 (09:43→15:56)
[2021-06-06] MEDS: SENNA/DOCUSATE SODIUM TABLET 2 TAB PO (09:43)
[2021-06-06 09:44] VITALS: PULSE 64
[2021-06-06] MEDS: AMIODARONE HCL 200 MG TABLET PO (09:44)
[2021-06-06] MEDS: FLUTICASONE PROPIONATE 0.05% NA SPR 16 GM BTL (*BKC) 2 SPRAY NASAL (09:44)
[2021-06-06] MEDS: APIXABAN 2.5 MG TABLET PO (09:44)
[2021-06-06] MEDS: MAGNESIUM OXIDE 200 MG TABLET PO (09:44)
[2021-06-06] MEDS: PRAVASTATIN SODIUM 20 MG TABLET PO (09:44)
[2021-06-06] MEDS: POLYSACCHARIDE IRON COMPLEX 150 MG CAPSULE PO (09:45)
[2021-06-06] MEDS: AZELASTINE HCL NASAL 0.1% 137 MCG/SPR 30 ML BTL 1 SPRAY NASAL (09:45)
[2021-06-06] MEDS: CEPHALEXIN 500 MG CAPSULE PO (09:45)
[2021-06-06] MEDS: PANTOPRAZOLE SODIUM IV 40 MG VIAL IV PUSH (09:47)
--- NOTE | 2021-06-06 12:46 | PM.DS ---
DS: Admitting Diagnosis Admitting Diagnosis Hip fracture DS: Discharge Diagnosis Discharge Diagnosis (1) Anemia: Code(s): D64.9 - Anemia, unspecified Status: Acute Assessment and Plan: Hgb 9.4 but was down to 7.5 at one point but 9.4 at d/c -Transfused 1PRBC 06/03 and has remained stable -it has been slowly trending down which was thought to be due to surgery -patient has a history of cirrhosis with alcohol use. Ppi has been started and GI has been consulted. EGD and colonoscopy recommended outpt (2) Closed fracture of neck of right femur: Qualifiers: Encounter type: initial encounter Qualified Code(s): S72.001A - Fracture of unspecified part of neck of right femur, initial encounter for closed fracture Code(s): S72.001A - Fracture of unspecified part of neck of right femur, initial encounter for closed fracture Status: Acute Assessment and Plan: Status post bipolar hemiarthroplasty to the right hip and doing well -patient is doing well and pain is controlled -continue pain medication, DVT prophylaxis (Eliquis 2.5 b.i.d.) and PT and OT at SNF (3) Atrial fibrillation: Code(s): I48.91 - Unspecified atrial fibrillation Status: Acute Assessment and Plan: Rhythm and rate control -not fully anticoagulated for AFib. She sees Dr. Blas and he told her that she did not need any anticoagulation. Likely due to fall risk -continue amiodarone -EKG shows inverted T-waves on the anterior septal leads which were not there in 2019. Spoke with Cardiology. Patient has absolutely no chest pain whatsoever. 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 no signs of heart failure. (4) Essential hypertension: Code(s): I10 - Essential (primary) hypertension Status: Acute Assessment and Plan: Patient's last blood pressure was 127/74 (5) Hypothyroidism: Code(s): E03.9 - Hypothyroidism, unspecified Status: Acute Assessment and Plan: Continue levothyroxine (6) Hyponatremia: Code(s): E87.1 - Hypo-osmolality and hyponatremia Status: Acute Assessment and Plan: Last sodium 130, improved from 120 -pt has a hx of alcohol abuse -baseline 128-132 (7) Other emphysema: Code(s): J43.8 - Other emphysema Status: Acute Assessment and Plan: Chronic and controlled -continue symbicort (8) Alcohol use: Code(s): Z72.89 - Other problems related to lifestyle Status: Acute Assessment and Plan: Drinks about 6 drinks a day on further questioning -no etoh withdraw while hospitalized (9) UTI (urinary tract infection): Code(s): N39.0 - Urinary tract infection, site not specified Status: Acute Assessment and Plan: Urine culture growing greater than 100,000 E coli. Antibiotics changed to Keflex which will cover postop coverage as well per (10) Acute respiratory failure with hypoxia: Code(s): J96.01 - Acute respiratory failure with hypoxia Status: Acute Assessment and Plan: Resolved -could have been due to anemia or slight fluid overload -back to baseline (11) Cirrhosis, alcoholic: Code(s): K70.30 - Alcoholic cirrhosis of liver without ascites Status: Acute Assessment and Plan: f/u with GI outpt -explained the importance of avoiding Etoh. She agrees. DS: Summary Hospital Course Hospital Course: Date of service June 06, 2021 Patient is a 60-year-old female who presented emergency room on May 29, 2021 for a fall with right hip pain found have a right hip fracture. Vitals in the ER were stable. Initial sodium 120, hemoglobin 11.3, hematocrit 32.9. Hip x-ray showed displaced right femoral neck fracture with varus angulation. Head CT and cervical spine CT did not show any acute pathology. Patient was admit
[2021-06-06 14:00] VITALS: BP 127/74; PULSE 71; RESP 18; TEMP 37.1; O2SAT 96
[2021-06-06 15:24] LABS: EDCOVIDSCREEN Negative (Negative)
== END 2021-06-06 16:45 | DRG 521 ==
LOC: ANHED 05-29 02:11 → ANH3MEDSUR 05-29 06:33
PROVIDERS: Internal Medicine Gastroenterology; Orthopaedic Surgery; Physician Assistant; Admitting Provider Internal Medicine; Emergency Provider Emergency Medicine; PCP Family Medicine; Visit Provider Internal Medicine
PROC: 0SRR0JZ Replacement of Right Hip Joint, Femoral Surface with Synthetic Substitute, Open Approach (ICD-10-PCS; CPT 27125; principal; 2021-05-29 13:00)
DX: S72.011A Unspecified intracapsular fracture of right femur, initial encounter for closed fracture (principal); J96.01 Acute respiratory failure with hypoxia; E87.1 Hypo-osmolality and hyponatremia; N39.0 Urinary tract infection, site not specified; I50.32 Chronic diastolic (congestive) heart failure; D64.9 Anemia, unspecified; I11.0 Hypertensive heart disease with heart failure; B96.20 Unspecified Escherichia coli [E. coli] as the cause of diseases classified elsewhere; I48.91 Unspecified atrial fibrillation; J43.8 Other emphysema; Z20.822 Contact with and (suspected) exposure to COVID-19; W01.0XXA Fall on same level from slipping, tripping and stumbling without subsequent striking against object, initial encounter; K70.30 Alcoholic cirrhosis of liver without ascites; F10.10 Alcohol abuse, uncomplicated; F17.290 Nicotine dependence, other tobacco product, uncomplicated; M65.342 Trigger finger, left ring finger; E03.9 Hypothyroidism, unspecified; E78.5 Hyperlipidemia, unspecified; F40.00 Agoraphobia, unspecified; F32.9 Major depressive disorder, single episode, unspecified; F43.10 Post-traumatic stress disorder, unspecified; Z79.899 Other long term (current) drug therapy; Z91.81 History of falling
CPT/HCPCS: 36415; 36430; 70450; 71045; 71046; 72125; 73501; 73502; 76705; 80048; 80053; 80074; 80076; 81001; 82306; 82570; 82607; 82728; 82746; 83540; 83550; 83735; 84295; 84300; 84466; 84540; 85014; 85018; 85025; 85027; 85610; 85730; 86850; 86900; 86901; 86920; 87077; 87086; 87088; 87186; 87426; 88307; 88311; 93005; 93306; 94640; 96361; 96374; 96375; 97110; 97116; 97161; 97165; 97530; 97535; 99285; A9270; C9113; C9803; J0131; J0171; J0690; J0696; J1100; J1170; J1200; J1940; J2405; J2704; J2795; J3010; J3370; J7030; J7040; J7050; J7120; P9016

== ENCOUNTER 2021-07-26 06:36 | Outpatient (CLI) | payer BC, OTHER, SELFPAY ==
[2021-07-26 07:17] LABS: Basophils Absolute Auto 0.1 K/mm3 (0.0-0.1); Basophils Percent Auto 0.7 % (0.2-1.2); Eosinophils Percent Auto 0.5 % (0-4.4); Hematocrit 35.9 % (37.0-47.0); Hemoglobin 12.4 g/dL (12.0-15.0); Immature Granulocyte Absolute 0.05 K/mm3 (0.00-0.031); Immature Granulocyte Percent A 0.6 % (0-0.5); Lymphocytes Absolute Auto 1.13 K/mm3 (0.9-3.2); Lymphocytes Percent Auto 13.1 % (18.3-44.2); Mean Corpuscular HGB Conc 34.5 g/dl (32-36); Mean Corpuscular Hemoglobin 34.5 pg (26-34); Mean Platelet Volume 8.6 fl (7.4-10.4); Monocytes Absolute Auto 0.9 K/mm3 (0.1-0.6); Monocytes Percent Auto 9.8 % (2.6-8.5); Neutrophils Absolute Auto 6.5 K/mm3 (1.3-6.7); Neutrophils Percent Auto 75.3 % (45.5-73.1); Platelet Count Result 368 k/mm3 (150-375); Red Blood Count 3.59 M/mm3 (4.2-5.4); Red Cell Distribution Width 14.2 % (11.5-14.5); White Blood Count 8.7 K/mm3 (4.5-10.0)
[2021-07-26 07:31] LABS: Ammonia < 9 umol/L (9-30)
[2021-07-26 07:35] LABS: Alanine Aminotransferase 42 U/L (4-35); Albumin Level 3.9 g/dL (3.5-5.1); Alkaline Phosphatase 151 U/L (38-126); Anion Gap 5 mmol/L (8-16); Aspartate Amino Transferase 91 U/L (14-36); Bilirubin,Total 0.6 mg/dL (0.2-1.3); Blood Urea Nitrogen 14 mg/dL (7-17); Calcium 9.3 mg/dL (8.4-10.2); Carbon Dioxide 33 mmol/L (22-30); Chloride 91 mmol/L (98-107); Cholesterol 182 mg/dL (0-200); Estimated Glomerular Filt Rate 46; Glucose 96 mg/dL (65-110); HDL Direct 100 mg/dL; Potassium 3.9 mmol/L (3.4-5.0); Sodium 129 mmol/L (137-145); Triglycerides 64 mg/dL (<150)
[2021-07-26 07:46] LABS: LDL Cholesterol Direct 63 mg/dL
[2021-07-26 08:31] LABS: Iron 69 ug/dL (37-170)
[2021-07-26 08:40] LABS: Percent Iron Saturation 37 % (20-50)
[2021-07-26 08:48] LABS: Free T4 Free Thyroxine 2.95 ng/mL (0.78-2.19)
[2021-07-29 19:40] LABS: GGT 25 U/L (3-65)
== END 2021-07-26 06:37 | disposition home or self-care (01) ==
PROVIDERS: PCP Family Medicine; Visit Provider Family Medicine
DX: K70.30 Alcoholic cirrhosis of liver without ascites (principal); D64.9 Anemia, unspecified; I10 Essential (primary) hypertension; E03.9 Hypothyroidism, unspecified; E78.2 Mixed hyperlipidemia; Z13.220 Encounter for screening for lipoid disorders
CPT/HCPCS: 36415; 80048; 80061; 80076; 82140; 82977; 83540; 83550; 84439; 84443; 85025

== ENCOUNTER 2022-02-11 11:04 | Emergency (ER) | payer BC, OTHER, SELFPAY ==
--- NOTE | ~2022-02-11 | CT_ITS ---
EXAMINATION: CT abdomen pelvis w con INDICATION: Lower abdominal pain TECHNIQUE: Computed tomographic images of the abdomen and pelvis were obtained after the administrati on of 100 cc of Omnipaque 350 intravenous contrast. The dose-length product (DLP) was 298.31 mGy-cm. Automated exposure control and iterative reconstruction technique were employed. COMPARISON: None available FINDINGS: The lung bases are clear. The heart size is normal. The liver, spleen, pancreas, gallbladde r, and adrenal glands are normal. The kidneys are unremarkable. No pathologically enlarged abdominal or pelvic lymph nodes are identified. There are multiple dilated loops of small bowel in the midabdom en which appear to continue to the level of a transition in the right pelvis. No free intraperitoneal gas is identified. There is a surgical anastomosis at the rectosigmoid junction. There was liquid st ool in the proximal colon. Right hip hemiarthroplasty are noted. There is severe lumbar spondylosis. IMPRESSION: 1. Small bowel obstruction possible transition point in the right pelvis. Reviewed, dictated and finalized at location A.
[2022-02-11 11:10] VITALS: BP 122/74; PULSE 86; RESP 16; TEMP 36.3; O2SAT 99
[2022-02-11 11:33] LABS: Basophils Absolute Auto 0.1 K/mm3 (0.0-0.1); Basophils Percent Auto 0.6 % (0.2-1.2); Eosinophils Percent Auto 0.1 % (0-4.4); Hematocrit 35.6 % (37.0-47.0); Hemoglobin 12.7 g/dL (12.0-15.0); Immature Granulocyte Absolute 0.02 K/mm3 (0.00-0.031); Immature Granulocyte Percent A 0.2 % (0-0.5); Lymphocytes Absolute Auto 1.27 K/mm3 (0.9-3.2); Lymphocytes Percent Auto 14.1 % (18.3-44.2); Mean Corpuscular HGB Conc 35.7 g/dl (32-36); Mean Corpuscular Hemoglobin 33.9 pg (26-34); Mean Corpuscular Volume 94.9 fl (80-100); Monocytes Percent Auto 11.1 % (2.6-8.5); Neutrophils Absolute Auto 6.6 K/mm3 (1.3-6.7); Neutrophils Percent Auto 73.9 % (45.5-73.1); Platelet Count Result 297 k/mm3 (150-375); Red Blood Count 3.75 M/mm3 (4.2-5.4); Red Cell Distribution Width 13.5 % (11.5-14.5)
[2022-02-11 11:42] LABS: Alanine Aminotransferase 63 U/L (4-35); Albumin Level 3.8 g/dL (3.5-5.1); Alkaline Phosphatase 239 U/L (38-126); Anion Gap 7 mmol/L (8-16); Aspartate Amino Transferase 149 U/L (14-36); Bilirubin,Total 0.7 mg/dL (0.2-1.3); Blood Urea Nitrogen 10 mg/dL (7-17); Calcium 8.9 mg/dL (8.4-10.2); Carbon Dioxide 26 mmol/L (22-30); Chloride 92 mmol/L (98-107); Estimated CRCL calculation 37 ml/min; Estimated Glomerular Filt Rate 42; Glucose 137 mg/dL (65-110); Lipase 47 U/L (23-300); Potassium 3.8 mmol/L (3.4-5.0); Sodium 125 mmol/L (137-145)
--- NOTE | 2022-02-11 12:01 | PC.NURSE ---
Pt asked to provide urine sample. Pt states she is unable to void at this time and is unwilling to try.
[2022-02-11] MEDS: SODIUM CHLORIDE 0.9% IV 1,000 ML 999 ML IV CONT (12:12)
--- NOTE | 2022-02-11 12:14 | PC.NURSE ---
Pt refused zofran and states she is not nauseated. Pt requesting pain medication.
--- NOTE | 2022-02-11 12:16 | PC.NURSE ---
Patient unable to provide urine sample. engarfield tech
--- NOTE | 2022-02-11 12:21 | PC.NURSE ---
Dr. Sánchez at bedside for pt assessment.
[2022-02-11] MEDS: KETOROLAC 15 MG/ML VIAL (*BKC) IV PUSH (12:25)
--- NOTE | 2022-02-11 12:31 | ED.ABDPAIN ---
HPI - Abdominal Pain General Chief Complaint: Abdominal Pain Stated Complaint: abdominal pain Time Seen by Provider: 02/11/22 11:58 Source: patient History of Present Illness HPI narrative: Patient presents with lower abdominal pain. For she has had pain that started this morning is achy, constant, worse with laying on her back localizes to her lower abdomen, pain does not radiate. Denies any nausea vomiting or diarrhea she denies any urinary symptoms or vaginal discharge. Patient does report a history of diverticulitis hemicolectomy appendectomy. Denies any fevers. Related Data Allergies Allergy/AdvReac Type Severity Reaction Status Date / Time nitrofurantoin Allergy Intermediate GI upset Verified 02/11/22 11:13 [From Macrobid] codeine Allergy Unknown Unknown Verified 02/11/22 11:13 morphine Allergy Unknown Unknown Verified 02/11/22 12:16 guaifenesin AdvReac Mild SHAKY AND Verified 02/11/22 11:13 NAUSEOUS Review of Systems Review of Systems: CONSTITUTIONAL: Denies fever, chills, or sweats. EYES: Denies visual changes, redness, or discharge. ENT: Denies rhinorrhea, congestion, sore throat, or otalgia. CARDIOVASCULAR: Denies chest pain, palpitations, or edema. RESPIRATORY: Denies cough or dyspnea. GASTROINTESTINAL: Denies nausea, vomiting, or diarrhea. GENITOURINARY: Denies dysuria or hematuria. SKIN: Denies rash or itching. MUSCULOSKELETAL: Denies back pain, joint pain, or myalgia. NEUROLOGIC: Denies headache, numbness, dizziness, or weakness. PSYCHIATRIC: Denies anxiety or depression. All systems reviewed & are unremarkable except as noted in HPI and below PMFSH Past Medical History Medical History Acute congestive heart failure Acute on chronic blood loss anemia Alcohol abuse Alcohol use Anemia Anxiety Agoraphobia, rarely leaves the house. Depression and PTSD. Atrial fibrillation Cirrhosis, alcoholic Closed fracture of neck of right femur Colon cancer screening COPD (chronic obstructive pulmonary disease) Essential hypertension History of CHF (congestive heart failure) Hx of falling Hyperlipidemia Hyponatremia Hypothyroidism Nerve plexus disorder Right-sided Other emphysema Paroxysmal atrial fibrillation Respiratory failure Admitted 2013 with respiratory failure, DTs, and acute renal failure requiring dialysis and tracheostomy. Surgical History Surgical History H/O tubal ligation H/O: hysterectomy History of tracheostomy 2013, for respiratory failure Hx of appendectomy Family History Family History Mother Patient killed Son No problems noted. Father Family estrangement Other Hypertension Social History Social History Social History: Lives with her . Her only son but she is close to her sister and nephew. History of heavy alcohol intake but now down to 3 beers a day. Smoking packs per day: 1.5 Smoking cigarettes per day: 30.0 Years smoked: 51 Smoking pack-years: 76.50 Tobacco type: cigarettes and e-cigarettes/vaping Second hand tobacco smoke exposure: Yes Additional smoking assessment comments: Patient stopped smoking cigarrettes in 2010 and started to smoke e-cigarett Alcohol intake: current Drinks per week: 21 Substance use: never Gender identity (if verbalized by the patient): Female Sexual Orientation (if Verbalized by the Patient): Straight or Heterosexual Spiritual care concerns: No Exam Narrative: GENERAL: Well-appearing, well-nourished, and in no acute distress. HEAD: Normocephalic, atraumatic. EYES: PERRLA and EOMI. ENT: Nares clear, no rhinorrhea or epistaxis. Mucous membranes moist. NECK: Supple. No masses. No JVD CHEST: Clear to auscultation. No respiratory distress. No wheez
--- NOTE | 2022-02-11 12:48 | PC.NURSE ---
Pt to CT.
--- NOTE | 2022-02-11 12:50 | PC.NURSE ---
Pt states toradol did not help her pain and requesting something else. ERP made aware.
[2022-02-11] MEDS: DICYCLOMINE HCL 10 MG CAPSULE 20 MG PO (13:21)
--- NOTE | 2022-02-11 13:26 | PC.NURSE ---
Pt ambulatory to restroom to provide urine sample. Pt reports abdominal pain has resolved completely.
--- NOTE | 2022-02-11 14:57 | PC.NURSE ---
Pt resting on stretcher. Spouse at bedside. Awaiting further orders or disposition.
--- NOTE | 2022-02-11 15:20 | PC.NURSE ---
Dr. Sánchez at bedside for assessment.
[2022-02-11 15:41] VITALS: BP 125/98; PULSE 63; RESP 16; O2SAT 100
== END 2022-02-11 15:42 | disposition home or self-care (01) ==
PROVIDERS: Emergency Medicine; Emergency Provider Emergency Medicine; PCP Family Medicine
DX: K56.609 Unspecified intestinal obstruction, unspecified as to partial versus complete obstruction (principal); I11.0 Hypertensive heart disease with heart failure; I50.9 Heart failure, unspecified; J43.9 Emphysema, unspecified; D64.9 Anemia, unspecified; I48.0 Paroxysmal atrial fibrillation; E78.5 Hyperlipidemia, unspecified; E03.9 Hypothyroidism, unspecified; F10.10 Alcohol abuse, uncomplicated; K70.30 Alcoholic cirrhosis of liver without ascites; F32.A Depression, unspecified; F40.00 Agoraphobia, unspecified; F43.10 Post-traumatic stress disorder, unspecified; Z90.49 Acquired absence of other specified parts of digestive tract; Z87.19 Personal history of other diseases of the digestive system; F17.210 Nicotine dependence, cigarettes, uncomplicated; F17.290 Nicotine dependence, other tobacco product, uncomplicated
CPT/HCPCS: 36415; 74177; 80053; 83690; 85025; 96361; 96374; 99284; A9270; J1885; J7030; Q9967

== ENCOUNTER 2022-04-09 07:52 | Emergency (ER) | payer BC, OTHER, SELFPAY ==
--- NOTE | ~2022-04-09 | CT_ITS ---
EXAMINATION: CT brain wo con DATE: 04/09/2022 08:11 INDICATION: Generalized headache and posterior head pain post fall TECHNIQUE: Computed tomography (CT) of the head was performed without intravenous contrast. Sagittal and coronal reconstructions were performed. The mA was adjusted according to patient size. Iterative reconstruction technique was employed. The dose-length product was 605.33 mGy-cm. COMPARISON: head CT dated 05/28/2021 FINDINGS: Posterior left parietal scalp hematoma. No fracture. There are small subarachnoid hematomas in the ri ght ambient cistern and smaller focus measuring approximately 6 mm maximal diameter at the left sylvi an fissure. There is mild scattered white matter hypoattenuation consistent with chronic small vessel ischemic disease. No acute infarction. Symmetric prominence of the sulci consistent with mild age-a ppropriate diffuse cerebral volume loss. Ventricles are normal and symmetric. No midline shift or mas s/mass effect. Tiny right mastoid effusion. The orbitsand paranasal sinuses are normal. IMPRESSION: 1. Small subarachnoid hemorrhages at the right ambient cistern and left sylvian fissure. Dr. Li discussed these findings with Dr. Sánchez at 8:19 AM. Reviewed, dictated and finalized at location A.
--- NOTE | ~2022-04-09 | XR_ITS ---
XR knee LT 3V 04/09/2022 08:19 Indication: Left knee pain after fall Procedure: 3 views left knee Comparison: No prior studies for comparison. Findings: Osteopenia. No fracture, subluxation or dislocation. Moderate joint effusion. No foreign jose dy. Impression: 1: No acute fracture. 2: Moderate joint effusion. Reviewed, dictated and finalized at location A. Impression: 1: No acute fracture. 2: Moderate joint effusion.
[2022-04-09 07:53] VITALS: BP 125/85; PULSE 64; RESP 19; TEMP 36.6; O2SAT 100
--- NOTE | 2022-04-09 07:57 | ECG_ITS ---
Measurements Intervals [facility] Rate: 64 P: 73 NC: 168 QRS: 60 QRSD: 92 T: 91 QT: 430 QTc: 444 Interpretive Statements SINUS RHYTHM ST DEVIATION AND MODERATE T-WAVE ABNORMALITY, CONSIDER ANTEROLATERAL ISCHEMIA [-0.1+ mV T WAVE IN V3-V6], NO CHANGE COMPARED TO THE PRIOR TRACING COMPARED TO ECG 05/29/2021 00:19:36 THE PATIENT IS NO LONGER BRADYCARDIC. Electronically Signed On 04-09-2022 12:43:14 CDT by Loly Dacosta M.D.
--- NOTE | 2022-04-09 07:58 | ED.FALL ---
HPI - Fall General Chief Complaint: Fall Stated Complaint: Left Knee Pain Time Seen by Provider: 04/09/22 07:56 Source: patient History of Present Illness HPI Narrative: Patient presents with left knee pain. Patient reports she fell yesterday she is unsure the area surrounding circumstances. Reports she was walking in the kitchen and then collapsed. She is unsure if she tripped on anything she is unsure if she had any lightheadedness dizziness chest pain shortness prior to the event. Reports her sister was with her and said she was unconscious. Patient reports she remembers the event. She wanted to monitor her symptoms at home however this morning she was unable to get out of bed due to left knee pain. Her pain is achy, constant, worse with bending the knee or putting pressure on the knee. Reports 5 out of pain at baseline 10 out of 10 when attempting to walk. She also reports a mild headache. Denies any blurry vision or changes in vision she denies any focal numbness or weakness denies any active chest pain shortness of breath lightheadedness dizziness. Been feeling well recently denies any fevers, congestion, nausea, vomiting. Related Data Home Medications Medication Instructions Recorded Confirmed amiodarone 200 mg tablet tablet 04/09/22 Allergies Allergy/AdvReac Type Severity Reaction Status Date / Time nitrofurantoin Allergy Intermediate GI upset Verified 04/09/22 08:34 [From Macrobid] codeine Allergy Unknown Unknown Verified 04/09/22 08:34 morphine Allergy Unknown Unknown Verified 04/09/22 08:34 guaifenesin AdvReac Mild SHAKY AND Verified 04/09/22 08:34 NAUSEOUS Review of Systems Review of Systems: CONSTITUTIONAL: Denies fever, chills, or sweats. EYES: Denies visual changes, redness, or discharge. ENT: Denies rhinorrhea, congestion, sore throat, or otalgia. CARDIOVASCULAR: Denies chest pain, palpitations, or edema. RESPIRATORY: Denies cough or dyspnea. GASTROINTESTINAL: Denies abdominal pain, nausea, vomiting, or diarrhea. GENITOURINARY: Denies dysuria or hematuria. SKIN: Denies rash or itching. MUSCULOSKELETAL: Denies back pain, or myalgia. NEUROLOGIC: Denies numbness, dizziness, or weakness. PSYCHIATRIC: Denies anxiety or depression. All systems reviewed & are unremarkable except as noted in HPI and below PMFSH Past Medical History Medical History Acute congestive heart failure Acute on chronic blood loss anemia Alcohol abuse Alcohol use Anemia Anxiety Agoraphobia, rarely leaves the house. Depression and PTSD. Atrial fibrillation Cirrhosis, alcoholic Closed fracture of neck of right femur Colon cancer screening COPD (chronic obstructive pulmonary disease) Essential hypertension History of CHF (congestive heart failure) Hx of falling Hyperlipidemia Hyponatremia Hypothyroidism Nerve plexus disorder Right-sided Other emphysema Paroxysmal atrial fibrillation Respiratory failure Admitted 2013 with respiratory failure, DTs, and acute renal failure requiring dialysis and tracheostomy. Surgical History Surgical History H/O tubal ligation H/O: hysterectomy History of tracheostomy 2013, for respiratory failure Hx of appendectomy Family History Family History Mother Patient killed Son No problems noted. Father Family estrangement Other Hypertension Social History Social History Social History: Lives with her . Her only son but she is close to her sister and nephew. History of heavy alcohol intake but now down to 3 beers a day. Smoking packs per day: 1.5 Smoking cigarettes per day: 30.0 Years smoked: 51 Smoking pack-years: 76.50 Tobacco type: cigarettes and e-cigarettes/vaping Second hand tobacco smoke exposur
[2022-04-09] MEDS: ACETAMINOPHEN 500 MG TABLET 1000 MG PO (08:21)
[2022-04-09] MEDS: SODIUM CHLORIDE 0.9% IV 500 ML 999 ML IV CONT (08:23)
[2022-04-09 08:36] LABS: Basophils Percent Auto 0.2 % (0.2-1.2); Hematocrit 33.4 % (37.0-47.0); Hemoglobin 11.7 g/dL (12.0-15.0); Immature Granulocyte Absolute 0.02 K/mm3 (0.00-0.031); Immature Granulocyte Percent A 0.3 % (0-0.5); Lymphocytes Absolute Auto 0.55 K/mm3 (0.9-3.2); Lymphocytes Percent Auto 9.6 % (18.3-44.2); Mean Corpuscular Hemoglobin 33.6 pg (26-34); Mean Platelet Volume 9.5 fl (7.4-10.4); Monocytes Absolute Auto 0.6 K/mm3 (0.1-0.6); Monocytes Percent Auto 10.3 % (2.6-8.5); Neutrophils Absolute Auto 4.6 K/mm3 (1.3-6.7); Neutrophils Percent Auto 79.6 % (45.5-73.1); Platelet Count Result 160 k/mm3 (150-375); Red Blood Count 3.48 M/mm3 (4.2-5.4); Red Cell Distribution Width 13.2 % (11.5-14.5); White Blood Count 5.8 K/mm3 (4.5-10.0)
[2022-04-09 08:44] LABS: Glucose Point of Care 77 mg/dl (65-105)
[2022-04-09 08:47] LABS: Partial Thromboplastin Time 28.2 SECONDS (22.3-36.8); Prothrombin Time 12.9 Seconds (11.1-14.7)
--- NOTE | 2022-04-09 08:50 | PC.NURSE ---
report given to liane Denise
[2022-04-09 08:51] LABS: Appearance Urine Slightly Cloudy (Clear); Bilirubin Urine Negative (Negative); Blood Urine Trace-lysed (Negative); Color Urine Yellow (Yellow); Glucose Urine UA Negative (Negative); Ketones Urine Negative (Negative); Leukocyte Esterase Ur 3+ LEU/UL (Negative); Nitrate Urine Positive (Negative); Protein Urine 1+ mg/dL (Negative); Urobilinogen Urine 0.2 mg/dL (<2.0)
[2022-04-09 08:53] LABS: Alanine Aminotransferase 72 U/L (6-35); Albumin Level 3.2 g/dL (3.5-5.1); Alkaline Phosphatase 202 U/L (38-126); Anion Gap 4 mmol/L (8-16); Aspartate Amino Transferase 149 U/L (14-36); Bilirubin,Total 0.8 mg/dL (0.2-1.3); Blood Urea Nitrogen 7 mg/dL (7-17); Calcium 8.4 mg/dL (8.4-10.2); Carbon Dioxide 29 mmol/L (22-30); Chloride 93 mmol/L (98-107); Estimated CRCL calculation 48 ml/min; Estimated Glomerular Filt Rate 56; Glucose 98 mg/dL (65-110); Potassium 3.8 mmol/L (3.4-5.0); Sodium 126 mmol/L (137-145)
[2022-04-09 08:58] LABS: Bacteria Urine 4+ /hpf; Squamous Epithelial Cell Urine Rare /hpf (Few); WBC Clumps Urine Present /HPF; WBC Urine >75 /hpf
[2022-04-09 09:00] LABS: Add Urine Microscopic? YES
[2022-04-09 09:08] VITALS: BP 138/77; PULSE 69; RESP 22; O2SAT 100
[2022-04-09 09:36] VITALS: BP 138/78; PULSE 69; RESP 18; O2SAT 100
== END 2022-04-09 09:36 | disposition short-term general hospital (02) ==
PROVIDERS: Emergency Provider Emergency Medicine; PCP Family Medicine
DX: I60.9 Nontraumatic subarachnoid hemorrhage, unspecified (principal); N39.0 Urinary tract infection, site not specified; R51.9 Headache, unspecified; M25.462 Effusion, left knee; W19.XXXA Unspecified fall, initial encounter; I11.0 Hypertensive heart disease with heart failure; I50.9 Heart failure, unspecified; D62 Acute posthemorrhagic anemia; F41.9 Anxiety disorder, unspecified; I48.91 Unspecified atrial fibrillation; J44.9 Chronic obstructive pulmonary disease, unspecified; E78.5 Hyperlipidemia, unspecified; E03.9 Hypothyroidism, unspecified
CPT/HCPCS: 36415; 51701; 70450; 73562; 80053; 81001; 82948; 85025; 85610; 85730; 87077; 87086; 87186; 93005; 96361; 96374; 99285; A9270; J0696; J7040

== ENCOUNTER 2022-05-19 06:34 | Outpatient (CLI) | payer BC, OTHER, SELFPAY ==
[2022-05-19 07:23] LABS: Basophils Percent Auto 0.4 % (0.2-1.2); Eosinophils Percent Auto 0.2 % (0-4.4); Hematocrit 33.7 % (37.0-47.0); Hemoglobin 11.4 g/dL (12.0-15.0); Immature Granulocyte Absolute 0.02 K/mm3 (0.00-0.031); Immature Granulocyte Percent A 0.4 % (0-0.5); Lymphocytes Absolute Auto 0.63 K/mm3 (0.9-3.2); Lymphocytes Percent Auto 13.3 % (18.3-44.2); Mean Corpuscular HGB Conc 33.8 g/dl (32-36); Mean Corpuscular Hemoglobin 32.9 pg (26-34); Mean Corpuscular Volume 97.1 fl (80-100); Monocytes Absolute Auto 0.6 K/mm3 (0.1-0.6); Monocytes Percent Auto 11.8 % (2.6-8.5); Neutrophils Absolute Auto 3.5 K/mm3 (1.3-6.7); Neutrophils Percent Auto 73.9 % (45.5-73.1); Platelet Count Result 230 k/mm3 (150-375); Red Blood Count 3.47 M/mm3 (4.2-5.4); Red Cell Distribution Width 13.6 % (11.5-14.5); White Blood Count 4.8 K/mm3 (4.5-10.0)
[2022-05-19 07:39] LABS: Alanine Aminotransferase 57 U/L (6-35); Albumin Level 3.4 g/dL (3.5-5.1); Alkaline Phosphatase 201 U/L (38-126); Anion Gap 7 mmol/L (8-16); Aspartate Amino Transferase 126 U/L (14-36); Bilirubin,Total 0.6 mg/dL (0.2-1.3); Blood Urea Nitrogen 7 mg/dL (7-17); Calcium 8.7 mg/dL (8.4-10.2); Carbon Dioxide 29 mmol/L (22-30); Chloride 88 mmol/L (98-107); Estimated Glomerular Filt Rate 50; Glucose 95 mg/dL (65-110); Sodium 124 mmol/L (137-145)
[2022-05-19 08:09] LABS: Thyroid Stimulating Hormone < 0.015 uIU/mL (0.465-4.680)
[2022-05-19 12:09] LABS: Appearance Urine Slightly Cloudy (Clear); Bilirubin Urine Negative (Negative); Blood Urine Trace-lysed (Negative); Color Urine Yellow (Yellow); Glucose Urine UA Negative (Negative); Ketones Urine Negative (Negative); Leukocyte Esterase Ur 3+ LEU/UL (NEGATIVE); Nitrate Urine Negative (Negative); Protein Urine Negative (Negative); Specific Grav Ur <= 1.005 (1.001-1.035); Urobilinogen Urine 0.2 mg/dL (<2.0); pH Urine 5.5 (5.0-9.0)
[2022-05-19 12:13] LABS: Mucus Urine Rare /lpf; RBC Urine 0-2 /hpf (0-2); Squamous Epithelial Cell Urine Rare /hpf (Few); WBC Clumps Urine Present /HPF; WBC Urine 21-30 /hpf (0-3)
[2022-05-19 12:15] LABS: Add Urine Microscopic? YES
== END 2022-05-19 06:35 | disposition home or self-care (01) ==
LOC: ANHLAB 06:38
PROVIDERS: PCP Family Medicine; Visit Provider Physician Assistant Medical
DX: N39.0 Urinary tract infection, site not specified (principal); E03.9 Hypothyroidism, unspecified; R79.89 Other specified abnormal findings of blood chemistry; K70.30 Alcoholic cirrhosis of liver without ascites; D64.9 Anemia, unspecified
CPT/HCPCS: 36415; 80053; 81001; 84443; 85025

== ENCOUNTER 2022-09-17 13:41 | Emergency (ER) | payer BC, OTHER, SELFPAY ==
[2022-09-17] VITALS (19 sets, daily range): BP systolic 93–145; BP diastolic 47–96; PULSE 69–84; RESP 14–26; TEMP 36.4–36.7; O2SAT 95–100
--- NOTE | ~2022-09-17 | XR_ITS ---
EXAM: XR shoulder LT min 2V DATE: 09/17/2022 14:34 HISTORY: fall with shoulder pain . COMPARISON: None available. FINDINGS: Normal mineralization. Oblique nondisplaced left posterior third rib fracture. Comminuted fracture of the distal left clavicle. Slight elevation of the distal left clavicle with respect to th e acromion. Cortical irregularity along the mid acromion, scapular body, and region of the coracoid. No lytic or blastic lesion. Joint spaces are maintained. No erosion or periosteal change. Soft tissue s within normal limits. IMPRESSION: Nondisplaced left third posterior rib fracture. Mildly comminuted and displaced distal le ft clavicle fracture. Possible low-grade acromioclavicular joint injury. Possible mid scapular fractu re, consider dedicated scapular radiographs for further evaluation. Reviewed, dictated and finalized at [facility] K. TENDER IMPRESSION: Nondisplaced left third posterior rib fracture. Mildly comminuted a nd displaced distal left clavicle fracture. Possible low-grade acromioclavicula r joint injury. Possible mid scapular fracture, consider dedicated scapular rad iographs for further evaluation.
--- NOTE | ~2022-09-17 | CT_ITS ---
EXAMINATION: CT brain wo con DATE: 09/17/2022 16:36 INDICATION: Head injury. TECHNIQUE: Computed tomography (CT) of the head was performed without intravenous contrast. The dose- length product was 605.33 mGy-cm. Automated exposure control and iterative reconstruction technique w ere employed. COMPARISON: CT dated 04/09/2022 FINDINGS: There is a small subdural hemorrhage along the anterior hemispheric fissure on the right me asuring 3 mm thickness. No significant mass effect. Generalized atrophy. There are scattered mild per iventricular and subcortical white matter changes, most likely related to small vessel ischemic disea se (microangiopathy). Paranasal sinuses and mastoids are pneumatized. No depressed skull fractures. M idline sagittal images demonstrate a normal corpus callosum and craniovertebral junction. Interval re solution of subarachnoid hemorrhage of the right ambient and left sylvian fissure. IMPRESSION: 1. Small subdural hemorrhage along the right side of the interhemispheric fissure measuring [address] Zeferino Acosta discussed with Dr. Niki Lee at 09/17/2022 16:44 RESP THERAPIST. Reviewed, dictated and finalized at location A. THERAPIST IMPRESSION: 1. Small subdural hemorrhage along the right side of the interhemispheric fissu re measuring [address] Zeferino Acosta discussed with Dr. Niki Lee at 09/17/2022 16:44 RESP THERAPIST.
--- NOTE | ~2022-09-17 | XR_ITS ---
XR pelvis 1-2V DATE: 09/17/2022 17:41 INDICATION: Fall. Pelvic injury. TECHNIQUE: AP pelvis COMPARISON: None FINDINGS: Prominent degenerative disc disease at L3-4, L4-5 and L5-S1. Normal alignment at the pubic symphysis and sacroiliac joints. No pelvic fracture or bone destruction is evident. Status post bipolar right hip replacement. No fracture or dislocation of either hip is noted. Radiopaque bowel sutures overlie the pelvis. IMPRESSION: Multilevel degenerative disc disease of lumbar and lumbosacral spine Status post right bipolar hip replacement No pelvic fracture or fracture or dislocation is evident Reviewed, dictated and finalized at location B. LEY CAR MECHANIC IMPRESSION: Multilevel degenerative disc disease of lumbar and lumbosacral spin e Status post right bipolar hip replacement No pelvic fracture or fracture or dislocation is evident
--- NOTE | ~2022-09-17 | CT_ITS ---
EXAMINATION: CT cervical spine wo con DATE: 09/17/2022 16:39 INDICATION: Head injury after fall yesterday TECHNIQUE: Computed tomography (CT) of the cervical spine was performed without intravenous contrast. Automated exposure control and iterative reconstruction technique were employed. Exam dose: 296.04 mGy-cm total exam DLP. COMPARISON: 05/28/2021 CT cervical spine FINDINGS: There is reversal cervical curvature which may be due to positioning and/or muscle spasm. C1 and C2 are normally aligned and the odontoid process is intact. There is fusion of the apophyseal joints on the right at C3-4 and degenerative change at the remainin g apophyseal joints, especially on the left at C2-3 and C3-4. There is minimal anterolisthesis at C3-4 and C4-5. Mild degenerative disc disease at C3-4. Moderately severe degenerative disc disease at C4-5 and C5-6. Moderate degenerative disc disease at C 6-7. Uncovertebral joint degenerative spurring, most prominent at C5-6 and on the left at C4-5. No fracture or dislocation or locked facet or prevertebral soft tissue swelling is detected. Noble this changes are noted in the upper lung zones. IMPRESSION: Reversal cervical curvature which may be due to muscle spasm Cervical spondylosis No fracture or dislocation or locked facet Reviewed, dictated and finalized at Location [facility]. Reviewed, dictated and finalized at location B. PROGRAMMER ANALYST
--- NOTE | ~2022-09-17 | XR_ITS ---
XR chest 1V portable DATE: 09/17/2022 17:41 INDICATION: Fall. TECHNIQUE: Portable supine AP chest on 09/17/2022 at 1730 hours COMPARISON: 06/03/2021 AP and lateral chest FINDINGS: Heart size appears normal. No hilar or mediastinal enlargement. No pulmonary infiltrate or consolidation, pleural effusion or pulmonary vascular congestion or pneumothorax. Osteopenia. Old posterior right fourth and fifth rib fractures. Probable old healed anterolateral right fifth rib fracture. IMPRESSION: No active cardiac pulmonary disease Old healed right rib fractures Osteopenia Reviewed, dictated and finalized at location B. ROUGHER
--- NOTE | 2022-09-17 16:21 | ECG_ITS ---
Measurements Intervals [place] Rate: 75 P: 86 MD: 181 QRS: 55 QRSD: 107 T: 120 QT: 425 QTc: 476 Interpretive Statements SINUS RHYTHM BASELINE ARTIFACT ST DEVIATION AND MODERATE T-WAVE ABNORMALITY, CONSIDER ANTEROLATERAL ISCHEMIA ABNORMAL ECG COMPARED TO ECG 04/09/2022 08:27:09 NO SIGNIFICANT CHANGES Electronically Signed On 09-17-2022 17:43:42 FREIGHT MANAGER by Yon Gutierres M.D.
--- NOTE | 2022-09-17 16:22 | WC.ED.TRAUMA ---
HPI - Trauma General Chief Complaint: Extremity Injury, Upper <LORNA Villafuerte Last Filed: 09/17/22 19:24> Stated Complaint: fall, left shoulder pain <LORNA Villafuerte Last Filed: 09/17/22 19:24> Time Seen by Provider: 09/17/22 15:49 <LORNA Villafuerte Last Filed: 09/17/22 19:24> Source: patient <LORNA Villafuerte Last Filed: 09/17/22 19:24> Mode of arrival: ambulatory <LORNA Villafuerte Last Filed: 09/17/22 19:24> Limitations: no limitations <LORNA Villafuerte Last Filed: 09/17/22 19:24> History of Present Illness HPI narrative: This is a 62-year-old female that presents to the emergency department after a ground-level fall yesterday with left shoulder injury. Reports she gets dizzy at times and falls. Reports she did hit her head yesterday. She did not lose consciousness. Reports she landed on her left shoulder. Reports she has had difficulty walking due to the pain in her left shoulder. She has history of alcohol abuse, her last drink was this morning. Does report some nausea and vomiting. Denies vision changes, chest pain, shortness of breath, palpitations, or abdominal pain. <LORNA Villafuerte Last Filed: 09/17/22 19:24> Related Data Home Medications: Home Medications Medication Instructions Recorded Confirmed amiodarone 200 mg tablet tablet 04/09/22 06/04/22 <LORNA Villafuerte Last Filed: 09/17/22 19:24> Allergies/Adverse Reactions: Allergies Allergy/AdvReac Type Severity Reaction Status Date / Time nitrofurantoin Allergy Intermediate GI upset Verified 09/17/22 15:52 [From Macrobid] codeine Allergy Unknown Unknown Verified 09/17/22 15:52 morphine Allergy Unknown Unknown Verified 09/17/22 15:52 guaifenesin AdvReac Mild SHAKY AND Verified 09/17/22 15:52 NAUSEOUS <LORNA Villafuerte Last Filed: 09/17/22 19:24> Review of Systems Review of Systems: CONSTITUTIONAL: Denies fever EYES: Denies visual changes CARDIOVASCULAR: Denies chest pain, palpitations, or edema. RESPIRATORY: Denies dyspnea. GASTROINTESTINAL: Reports nausea and vomiting. Denies abdominal pain MUSCULOSKELETAL: Reports joint pain and myalgia. Denies back pain NEUROLOGIC: Denies numbness, or weakness. <Niki Lee PA-C - Last Filed: 09/17/22 19:24> All systems reviewed & are unremarkable except as noted in HPI and below <Niki Lee PA-C - Last Filed: 09/17/22 19:24> [facility] Past Medical History Medical History: Medical History Acute congestive heart failure Acute on chronic blood loss anemia Alcohol abuse Alcohol use Anemia Anxiety Agoraphobia, rarely leaves the house. Depression and PTSD. Atrial fibrillation BMI 20.0-20.9, adult Cirrhosis, alcoholic Closed fracture of neck of right femur Colon cancer screening COPD (chronic obstructive pulmonary disease) Essential hypertension History of CHF (congestive heart failure) Hx of falling Hyperlipidemia Hyponatremia Hypothyroidism Nerve plexus disorder Right-sided Other emphysema Paroxysmal atrial fibrillation Respiratory failure Admitted 2013 with respiratory failure, DTs, and acute renal failure requiring dialysis and tracheostomy. <Niki Lee PA-C - Last Filed: 09/17/22 19:24> Surgical History Surgical History: Surgical History H/O tubal ligation H/O: hysterectomy History of hip replacement History of tracheostomy 2013, for respiratory failure Hx of appendectomy <LORNA Villafuerte Last Filed: 09/17/22 19:24> Family History Family History: Family History Mother Patient killed Alcoholic Son No problems noted. Father Family estrangement Sibling No problems noted. Other Hypertension <Niki Danielson
[2022-09-17 17:26] LABS: Basophils Percent Auto 0.3 % (0.2-1.2); Hemoglobin 11.1 g/dL (12.0-15.0); Immature Granulocyte Absolute 0.02 K/mm3 (0.00-0.031); Immature Granulocyte Percent A 0.3 % (0-0.5); Lymphocytes Absolute Auto 0.73 K/mm3 (0.9-3.2); Mean Corpuscular HGB Conc 35.8 g/dl (32-36); Mean Corpuscular Volume 89.3 fl (80-100); Mean Platelet Volume 8.6 fl (7.4-10.4); Monocytes Absolute Auto 0.7 K/mm3 (0.1-0.6); Monocytes Percent Auto 9.5 % (2.6-8.5); Neutrophils Absolute Auto 5.9 K/mm3 (1.3-6.7); Neutrophils Percent Auto 79.9 % (45.5-73.1); Platelet Count Result 212 k/mm3 (150-375); Red Blood Count 3.47 M/mm3 (4.2-5.4); Red Cell Distribution Width 13.5 % (11.5-14.5); White Blood Count 7.3 K/mm3 (4.5-10.0)
--- NOTE | 2022-09-17 17:38 | PC.NURSE ---
[facility] accepted als transfer to [facility] er eta 20min trip# [id number]
[2022-09-17 17:39] LABS: Ethanol 29 mg/dL (<10)
--- NOTE | 2022-09-17 17:44 | PC.NURSE ---
Report called to MARYLU Cassidy at [facility] ER
[2022-09-17 17:47] LABS: Alanine Aminotransferase 60 U/L (6-35); Albumin Level 3.1 g/dL (3.5-5.1); Alkaline Phosphatase 171 U/L (38-126); Anion Gap 12 mmol/L (8-16); Aspartate Amino Transferase 128 U/L (14-36); Blood Urea Nitrogen 6 mg/dL (7-17); Carbon Dioxide 21 mmol/L (22-30); Chloride 84 mmol/L (98-107); Estimated CRCL calculation 43 ml/min; Estimated Glomerular Filt Rate 56; Glucose 70 mg/dL (65-110); Potassium 4.4 mmol/L (3.4-5.0); Sodium 117 mmol/L (137-145)
[2022-09-17 17:52] LABS: Prothrombin Time 12.7 Seconds (11.1-14.7)
[2022-09-17 17:53] LABS: Partial Thromboplastin Time 30.2 SECONDS (22.3-36.8)
[2022-09-17] MEDS: SODIUM CHLORIDE 0.9% IV 500 ML 999 ML IV CONT (18:00)
--- NOTE | 2022-09-17 18:06 | PC.NURSE ---
Called and spoke with , Jorge Luis, with the permission of the patient ([phone]). Gave update that patient will be transferred to [facility] ER for brain bleed and broken bones. Pts to call sister in law, ham, who also called for update.
--- NOTE | 2022-09-17 18:09 | PC.NURSE ---
Pt admits to 4 beers this morning at 7 AM. BRYCE Prince aware.
--- NOTE | 2022-09-17 18:48 | PC.NURSE ---
updated eta for lights / sirens to [facility] er 191 trip [phone]
--- NOTE | 2022-09-17 19:26 | PC.NURSE ---
EMS at bedside. Pt now states she has to urinate.
== END 2022-09-17 19:35 | disposition short-term general hospital (02) ==
PROVIDERS: Physician Assistant; Emergency Provider Emergency Medicine; PCP Family Medicine
DX: S06.5X0A Traumatic subdural hemorrhage without loss of consciousness, initial encounter (principal); S22.32XA Fracture of one rib, left side, initial encounter for closed fracture; S42.032A Displaced fracture of lateral end of left clavicle, initial encounter for closed fracture; S43.102A Unspecified dislocation of left acromioclavicular joint, initial encounter; E87.1 Hypo-osmolality and hyponatremia; F10.10 Alcohol abuse, uncomplicated; I50.9 Heart failure, unspecified; I11.0 Hypertensive heart disease with heart failure; I48.0 Paroxysmal atrial fibrillation; E78.5 Hyperlipidemia, unspecified; E03.9 Hypothyroidism, unspecified; J43.8 Other emphysema; K74.60 Unspecified cirrhosis of liver; D50.0 Iron deficiency anemia secondary to blood loss (chronic); G54.9 Nerve root and plexus disorder, unspecified; Y90.1 Blood alcohol level of 20-39 mg/100 ml; Z90.710 Acquired absence of both cervix and uterus; F17.290 Nicotine dependence, other tobacco product, uncomplicated; Z96.641 Presence of right artificial hip joint; M51.36 Other intervertebral disc degeneration, lumbar region; M51.37 Other intervertebral disc degeneration, lumbosacral region; M47.812 Spondylosis without myelopathy or radiculopathy, cervical region; M85.88 Other specified disorders of bone density and structure, other site; R94.31 Abnormal electrocardiogram [ECG] [EKG]; F41.9 Anxiety disorder, unspecified; F32.A Depression, unspecified; F43.10 Post-traumatic stress disorder, unspecified; F40.00 Agoraphobia, unspecified; W18.30XA Fall on same level, unspecified, initial encounter
CPT/HCPCS: 36415; 70450; 71045; 72125; 72170; 73030; 80053; 80307; 85025; 85610; 85730; 93005; 96361; 96374; 99285; A4565; J0131; J7040

== ENCOUNTER 2023-02-02 08:32 | Emergency (ER) | payer BC, OTHER, SELFPAY ==
--- NOTE | ~2023-02-02 | XR_ITS ---
EXAMINATION: XR shoulder LT min 2V, XR humerus LT DATE: 02/02/2023 09:14 INDICATION: Bruising and limited range of motion at the left shoulder post trauma TECHNIQUE: 1. AP internally and externally rotated and transscapular Y views of the left shoulder were obtained. 2. AP and lateral views of the left humerus were obtained. COMPARISON: None FINDINGS: Acute mildly comminuted proximal left humeral fracture. This includes an oblique fracture across the surgical neck with approximately 30 degree medial angulation and 2 cm proximal migration. There is al so a minimally displaced fracture plane involving the greater tuberosity. Interval healing of a mildl y displaced fracture of the posterior left third and fourth ribs. Increased callus formation surround ing a healing fracture of the lateral left clavicle which remains in near-anatomic alignment. There i s residual lucency along the fracture plane suggesting this may remain ununited. Normal alignment of the acromioclavicular and glenohumeral joints. Soft tissue swelling about the left shoulder. Visualiz ed portions of the lungs are clear. IMPRESSION: 1. Acute comminuted two-part fracture the proximal left humerus. 2. Healing fractures of the left second and third ribs and of the lateral left clavicle, the latter w hich may still be ununited. Reviewed, dictated and finalized at location A. IMPRESSION: 1. Acute comminuted two-part fracture the proximal left humerus. 2. Healing fractures of the left second and third ribs and of the lateral left clavicle, the latter which may still be ununited.
[2023-02-02 08:39] VITALS: BP 114/68; PULSE 78; RESP 18; TEMP 36.4; O2SAT 98
[2023-02-02] MEDS: HYDROcodone/acetaminophen (*CRX) 5-325 MG TABLET 1 TAB PO (08:54)
--- NOTE | 2023-02-02 09:36 | ED.UPPEXIN ---
HPI - Extremity Injury (Upper) General Chief Complaint: Extremity Injury, Upper Stated Complaint: fell 2 days ago - left arm pain Time Seen by Provider: 02/02/23 08:36 History of Present Illness HPI narrative: Patient is a 62-year-old female who presents to the ER with left shoulder pain. Patient 2 days ago was walking when she tripped over a dog bone falling on her left side. She struck her shoulder on the ground. She did not hit her head or lose consciousness. She is not on any blood thinners. She has been unable to perform range of motion at the shoulder since falling due to pain. She has contusion over the entirety of the humerus until the elbow. She has no numbness or tingling. No fevers or chills or sweats. No additional concerns Related Data Home Medications Medication Instructions Recorded Confirmed amiodarone 200 mg tablet tablet 04/09/22 01/20/23 cholecalciferol (vitamin D3) 50 50 mcg PO DAILY 01/20/23 01/20/23 mcg (2,000 unit) capsule Allergies Allergy/AdvReac Type Severity Reaction Status Date / Time nitrofurantoin Allergy Intermediate GI upset Verified 02/02/23 08:47 [From Macrobid] codeine Allergy Unknown Unknown Verified 02/02/23 08:47 morphine Allergy Unknown Unknown Verified 02/02/23 08:47 guaifenesin AdvReac Mild SHAKY AND Verified 02/02/23 08:47 NAUSEOUS Review of Systems Review of Systems: All systems reviewed & are unremarkable except as noted in HPI and below Constitutional: Constitutional: Denies chills, Denies fatigue and Denies fever(s) ENT: Denies nasal congestion and Denies sore throat Cardiovascular: Cardiovascular: Denies chest pain, Denies radiating jaw, neck or arm pain and Denies slow heart rate Gastrointestinal: Gastrointestinal: Denies abdominal pain, Denies nausea and Denies vomiting Musculoskeletal: Musculoskeletal: Denies myalgias, Reports arthralgias and Reports joint swelling Integumentary/Breasts: Skin/Breast: Denies erythema and Denies rash Comments: Left arm bruising Neurologic: Denies syncope, Denies headache(s), Denies focal weakness and Denies numbness PMFSH Past Medical History Medical History (Updated 02/02/23 @ 09:54 by Juan Antonio Lira MD) Acute congestive heart failure Acute on chronic blood loss anemia Alcohol abuse Alcohol use Anemia Anxiety Agoraphobia, rarely leaves the house. Depression and PTSD. Atrial fibrillation BMI 20.0-20.9, adult Cirrhosis, alcoholic Closed fracture of neck of right femur Colon cancer screening COPD (chronic obstructive pulmonary disease) Essential hypertension History of CHF (congestive heart failure) Hx of falling Hyperlipidemia Hyponatremia Hypothyroidism Irritation of right eye Nerve plexus disorder Right-sided Other emphysema Paroxysmal atrial fibrillation Respiratory failure Admitted 2013 with respiratory failure, DTs, and acute renal failure requiring dialysis and tracheostomy. Surgical History Surgical History H/O tubal ligation H/O: hysterectomy History of hip replacement History of tracheostomy 2013, for respiratory failure Hx of appendectomy Family History Family History Mother Patient killed Alcoholic Son No problems noted. Father Family estrangement Sibling No problems noted. Other Hypertension Social History Social History Social History: Lives with her . Her only son but she is close to her sister and nephew. History of heavy alcohol intake but now down to 3 beers a day. Smoking packs per day: 1.5 Smoking cigarettes per day: 30.0 Years smoked: 51 Smoking pack-years: 76.50 Smoking status: Former smoker Tobacco type: cigarettes and e-cigarettes/vaping Second hand tobacco smoke exposure: Yes Additional smoking assessment comments: Wendi
[2023-02-02 10:16] VITALS: BP 125/73; PULSE 75; RESP 18; O2SAT 100
== END 2023-02-02 10:24 | disposition home or self-care (01) ==
PROVIDERS: Emergency Provider Emergency Medicine; PCP Family Medicine
DX: S42.202A Unspecified fracture of upper end of left humerus, initial encounter for closed fracture (principal); I11.0 Hypertensive heart disease with heart failure; I50.9 Heart failure, unspecified; I48.91 Unspecified atrial fibrillation; J44.9 Chronic obstructive pulmonary disease, unspecified; E03.9 Hypothyroidism, unspecified; E78.5 Hyperlipidemia, unspecified; W01.0XXA Fall on same level from slipping, tripping and stumbling without subsequent striking against object, initial encounter
CPT/HCPCS: 73030; 73060; 99284; A4565; A9270

== ENCOUNTER 2023-03-26 18:20 | Observation (INO) | payer BC, OTHER, SELFPAY ==
[2023-03-26] VITALS (8 sets, daily range): BP systolic 99–142; BP diastolic 39–78; PULSE 76–87; RESP 16–20; TEMP 36.6–36.7; O2SAT 94–100; BMI 20.5
--- NOTE | ~2023-03-26 | CT_ITS ---
EXAMINATION: CT brain wo con INDICATION: Left frontal subarachnoid hemorrhage follow-up COMPARISON: 03/26/2023 TECHNIQUE: Standard unenhanced head CT. The dose-length product (DLP) was 1816.00 mGy-cm. The mA was adjusted according to patient size. Iterative reconstruction technique was employed. FINDINGS: There is a left frontal scalp hematoma. Punctate hyperdense foci in the underlying left fro ntal lobe are unchanged. No evidence of mass lesion. No evidence of acute infarction. There are small chronic bifrontal infarcts. There is mild periventricular and subcortical hypodensity probably relat ed to small vessel ischemic disease. There is mild prominence of the sulci and ventricles related to cerebral atrophy. Intracranial calcified cerebral atherosclerosis is noted. There are no extra-axial collections. There is no mass effect or midline shift. The orbits and soft tissues are unremarkable. The visualized sinuses and mastoid air cells are well aerated. IMPRESSION: 1. Stable punctate hyperdense foci in the left frontal lobe with an adjacent left frontal scalp hemat prisca, likely stable punctate subarachnoid hemorrhage. 2. Age related findings. Reviewed, dictated and finalized at location A. IMPRESSION: 1. Stable punctate hyperdense foci in the left frontal lobe with an adjacent le ft frontal scalp hematoma, likely stable punctate subarachnoid hemorrhage. 2. Age related findings.
--- NOTE | ~2023-03-26 | CT_ITS ---
EXAMINATION: CT cervical spine wo con DATE: 03/26/2023 19:26 INDICATION: fall TECHNIQUE: Computed tomography (CT) of the cervical spine was performed without intravenous contrast. Automated exposure control and iterative reconstruction technique were employed. The dose-length pro duct was 178.21 mGy-cm. COMPARISON: 09/17/2022. FINDINGS: Vertebral Body Alignment: Intact. Stable grade 1 listheses at multiple levels. Stable reversal of the normal cervical lordosis, as can occur with muscle spasm and positioning. Craniocervical and atlantoaxial alignment: Moderate degenerative change. Alignment intact. Osseous structures/fracture: No evidence of a lytic or blastic process in the visualized spine. No e vidence of acute fracture. . Cervical soft tissues: The paraspinal soft tissues planes are maintained. Emphysematous changes in th e lungs. Degenerative changes: Degenerative changes, without severe neural foraminal or central canal narrowin g. IMPRESSION: No acute fracture or traumatic malalignment in the cervical spine. Reviewed, dictated and finalized at location K.
--- NOTE | ~2023-03-26 | CT_ITS ---
EXAMINATION: CT brain wo con DATE: 03/26/2023 19:26 INDICATION: fall . TECHNIQUE: Computed tomography (CT) of the head was performed without intravenous contrast. The mA wa s adjusted according to patient size. Iterative reconstruction technique was employed. The dose-lengt h product was 681.00 mGy-cm. COMPARISON: 09/17/2022. FINDINGS: Multifocal punctate hyperdensities overlying the left frontal lobe gyri likely representing small vol ume subarachnoid hemorrhage. No hydrocephalus, mass, or herniation. No acute ischemic infarct. Unremarkable dural venous sinus attenuation. No acute osseous abnormality. Left frontal scalp contusion. Trace right mastoid fluid, the remaining aerated spaces are clear. Moderate atrophy and chronic white matter change. Atherosclerotic intracranial calcification. Bilater al lens replacements. Focal encephalomalacia in the left medial frontal lobe. IMPRESSION: Very small volume subarachnoid hemorrhage overlying several left frontal lobe gyri. No other acute in tracranial process detected. Results reported telephonically to Dr. Lr by Dr. Ricardo at 7:32 PM on 03/26/2023. Reviewed, dictated and finalized at location K. IMPRESSION: Very small volume subarachnoid hemorrhage overlying several left frontal lobe g yri. No other acute intracranial process detected. Results reported telephonically to Dr. Lr by Dr. Ricardo at 7:32 PM on 2022.
--- NOTE | 2023-03-26 19:05 | ECG_ITS ---
Measurements Intervals [place] Rate: 74 P: 82 MI: 185 QRS: 52 QRSD: 106 T: 62 QT: 393 QTc: 439 Interpretive Statements SINUS RHYTHM NONSPECIFIC T-WAVE ABNORMALITY ABNORMAL ECG COMPARED TO ECG 09/17/2022 17:08:14 ST SEGMENT DEPRESSION IS IMPROVED Electronically Signed On 03-27-2023 13:17:53 CDT by Sukhdev Blas M.D.
--- NOTE | 2023-03-26 19:50 | PC.NURSE ---
Pt observed to be slurring her words. This RN asked pt if she's been drinking today. Pt admits to drinking 6 beers and two cups of 's. Pt states she drinks this every day. Dr. Lr notified.
--- NOTE | 2023-03-26 20:00 | PC.NURSE ---
Attempted to contact pt's but the number is disconnected. Attempted to contact pt's sister Paulette but there was no answer and unable to leave a message.
[2023-03-26 20:12] LABS: Basophils Absolute Auto 0.1 K/mm3 (0.0-0.1); Eosinophils Absolute Auto 0.1 K/mm3 (0-0.3); Eosinophils Percent Auto 1.5 % (0-4.4); Hemoglobin 10.3 g/dL (12.0-15.0); Immature Granulocyte Absolute 0.03 K/mm3 (0.00-0.031); Immature Granulocyte Percent A 0.5 % (0-0.5); Lymphocytes Absolute Auto 1.49 K/mm3 (0.9-3.2); Lymphocytes Percent Auto 24.3 % (18.3-44.2); Mean Corpuscular HGB Conc 33.2 g/dl (32-36); Mean Corpuscular Hemoglobin 32.7 pg (26-34); Mean Corpuscular Volume 98.4 fl (80-100); Mean Platelet Volume 8.4 fl (7.4-10.4); Monocytes Absolute Auto 0.7 K/mm3 (0.1-0.6); Monocytes Percent Auto 10.6 % (2.6-8.5); Neutrophils Absolute Auto 3.8 K/mm3 (1.3-6.7); Neutrophils Percent Auto 62.1 % (45.5-73.1); Platelet Count Result 216 k/mm3 (150-375); Red Blood Count 3.15 M/mm3 (4.2-5.4); Red Cell Distribution Width 14.6 % (11.5-14.5); White Blood Count 6.1 K/mm3 (4.5-10.0)
[2023-03-26 20:19] LABS: Alanine Aminotransferase 15 U/L (6-35); Albumin Level 3.1 g/dL (3.5-5.1); Alkaline Phosphatase 299 U/L (38-126); Anion Gap 8 mmol/L (8-16); Aspartate Amino Transferase 38 U/L (14-36); Bilirubin,Total 0.3 mg/dL (0.2-1.3); Blood Urea Nitrogen 8 mg/dL (7-17); Calcium 7.6 mg/dL (8.4-10.2); Carbon Dioxide 25 mmol/L (22-30); Chloride 92 mmol/L (98-107); Estimated CRCL calculation 59 ml/min; Estimated Glomerular Filt Rate > 60; Glucose 90 mg/dL (65-110); Potassium 3.7 mmol/L (3.4-5.0); Prothrombin Time 13.7 Seconds (11.1-14.7); Sodium 125 mmol/L (137-145)
[2023-03-26 20:20] LABS: Partial Thromboplastin Time 29.3 SECONDS (22.3-36.8)
--- NOTE | 2023-03-26 20:20 | PM.IMHP ---
H&P: HPI History of Present Illness Date/Time: 03/26/23 20:20 Chief Complaint: Fall Narrative: This is a 62-year-old female with past medical history significant for alcohol dependence patient drinks 6 beers a daily along with to 's drinks, hyponatremia, hepatic cirrhosis, COPD, atrial fibrillation, generalized anxiety disorder, hypertension, congestive heart failure. Patient presents to the emergency room after she had a fall at ground level with no loss of consciousness with a blunt trauma to the face and hematoma. Preliminary workup was significant for CT of the brain that showed subarachnoid hemorrhage. Patient also found to have a sodium of 126. No need for intervention at this time according to discussion with neurosurgeon. Patient is being placed in observation. EXAMINATION: CT brain wo con DATE: 03/26/2023 19:26 INDICATION: fall . TECHNIQUE: Computed tomography (CT) of the head was performed without intravenous contrast. The mA was adjusted according to patient size. Iterative reconstruction technique was employed. The dose-length product was 681.00 mGy-cm. COMPARISON: 09/17/2022. FINDINGS: Multifocal punctate hyperdensities overlying the left frontal lobe gyri likely representing small volume subarachnoid hemorrhage. No hydrocephalus, mass, or herniation. No acute ischemic infarct. Unremarkable dural venous sinus attenuation. No acute osseous abnormality. Left frontal scalp contusion. Trace right mastoid fluid, the remaining aerated spaces are clear. Moderate atrophy and chronic white matter change. Atherosclerotic intracranial calcification. Bilateral lens replacements. Focal encephalomalacia in the left medial frontal lobe. IMPRESSION:? Very small volume subarachnoid hemorrhage overlying several left frontal lobe gyri. No other acute intracranial process detected. EXAMINATION: CT cervical spine wo con DATE: 03/26/2023 19:26 INDICATION: fall TECHNIQUE: Computed tomography (CT) of the cervical spine was performed without intravenous contrast. Automated exposure control and iterative reconstruction technique were employed. The dose-length product was 178.21 mGy-cm. COMPARISON: 09/17/2022. FINDINGS: Vertebral Body Alignment: Intact. Stable grade 1 listheses at multiple levels. Stable reversal of the normal cervical lordosis, as can occur with muscle spasm and positioning. Craniocervical and atlantoaxial alignment: Moderate degenerative change. Alignment intact. Osseous structures/fracture: No evidence of a lytic or blastic process in the visualized spine.? No evidence of acute fracture. . Cervical soft tissues: The paraspinal soft tissues planes are maintained. Emphysematous changes in the lungs. Degenerative changes: Degenerative changes, without severe neural foraminal or central canal narrowing. IMPRESSION:? No acute fracture or traumatic malalignment in the cervical spine. Review of Systems Review of Systems: Fall, forehead hematoma. Constitutional: Constitutional: Denies chills, Denies fatigue, Denies fever(s), Denies malaise and Denies weakness Eyes: Eyes: Denies change in vision ENT: Denies dysphagia, Denies vertigo, Denies dizziness and Denies odynophagia Cardiovascular: Cardiovascular: Denies chest pain, Denies leg edema, Denies radiating jaw, neck or arm pain and Denies palpitations Respiratory: Respiratory: Denies chest congestion, Denies cough, Denies excessive phlegm production, Denies pain on inspiration and Denies dyspnea Gastrointestinal: Gastrointestinal: Denies abdominal pain, Denies dyspepsia, Denies heartburn, Denies diarrhea, Denies nausea and Denies vomiting Genitourinary: Genitourinary: Denies dysuria and Denies flank pain Musculoskeletal: Musculoskeletal: Denies myalgias, Denies deformity, Denies arthralgias, Denies joint swelling and Denies limited range of motion Integumentary/Breasts: Skin/Breast: Denies rash Neurologic: Denies abnormal
--- NOTE | 2023-03-26 21:10 | ADMGEN ---
This patient, Marialuisa Huggins, was admitted to IMU Room 232-01. Patient/family oriented to hospital policies and general routines including ID bracelet, bed and alarms, visiting hours, pain management, procedures, bathroom and other care routines, personal items, smoking policy, room service/diet, and visiting hours. Information on how to activate the Rapid Response Team has been discussed. Patient/Family are encouraged to report perceived risks to care and to ask questions if they do not understand what they are told or what they should do.
[2023-03-26 21:17] LABS: Ethanol 152 mg/dL (<10)
--- NOTE | 2023-03-26 22:28 | ED.FALL ---
HPI - Fall General Chief Complaint: Fall Stated Complaint: GLF struck head Time Seen by Provider: 03/26/23 18:48 History of Present Illness HPI Narrative: Patient is a 62-year-old female with a history of prior traumatic subdural hematoma, alcohol use disorder presenting after a fall. Patient states that she has been drinking today and she tripped while walking to her kitchen. She struck the left side of her head. She denies any complaints at this time. Denies headache or neck pain. No vision changes or speech changes, no numbness or weakness. Denies further complaints. Related Data Home Medications Medication Instructions Recorded Confirmed amiodarone 200 mg tablet 200 tablet PO DAILY 04/09/22 03/26/23 cholecalciferol (vitamin D3) 50 50 mcg PO DAILY 01/20/23 03/26/23 mcg (2,000 unit) capsule escitalopram oxalate 10 mg tablet 10 mg PO DAILY 03/26/23 03/26/23 levothyroxine 137 mcg tablet 137 mcg PO DAILY 03/26/23 03/26/23 Allergies Allergy/AdvReac Type Severity Reaction Status Date / Time nitrofurantoin Allergy Intermediate GI upset Verified 02/02/23 08:47 [From Macrobid] codeine Allergy Unknown Unknown Verified 02/02/23 08:47 morphine Allergy Unknown Unknown Verified 02/02/23 08:47 guaifenesin AdvReac Mild SHAKY AND Verified 02/02/23 08:47 NAUSEOUS Review of Systems Review of Systems: All systems reviewed & are unremarkable except as noted in HPI and below PMFSH Past Medical History Medical History Acute congestive heart failure Acute on chronic blood loss anemia Alcohol abuse Alcohol use Anemia Anxiety Agoraphobia, rarely leaves the house. Depression and PTSD. Atrial fibrillation BMI 20.0-20.9, adult Cirrhosis, alcoholic Closed fracture of neck of right femur Colon cancer screening COPD (chronic obstructive pulmonary disease) Essential hypertension History of CHF (congestive heart failure) Hx of falling Hyperlipidemia Hyponatremia Hypothyroidism Irritation of right eye Nerve plexus disorder Right-sided Other emphysema Paroxysmal atrial fibrillation Respiratory failure Admitted 2013 with respiratory failure, DTs, and acute renal failure requiring dialysis and tracheostomy. Surgical History Surgical History H/O tubal ligation H/O: hysterectomy History of hip replacement History of tracheostomy 2013, for respiratory failure Hx of appendectomy Family History Family History Mother Patient killed Alcoholic Son No problems noted. Father Family estrangement Sibling No problems noted. Other Hypertension Social History Social History Social History: Lives with her . Her only son but she is close to her sister and nephew. History of heavy alcohol intake but now down to 3 beers a day. Smoking packs per day: 2 Smoking cigarettes per day: 40.0 Years smoked: 51 Smoking pack-years: 102.00 Smoking status: Current every day smoker Tobacco type: e-cigarettes/vaping Second hand tobacco smoke exposure: Yes Additional smoking assessment comments: Quit smoking cigarettes in 2011. 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
[2023-03-26] MEDS: ACETAMINOPHEN 500 MG TABLET 1000 MG PO (23:59)
[2023-03-27] VITALS (8 sets, daily range): BP systolic 115–140; BP diastolic 65–82; PULSE 66–85; RESP 16–20; TEMP 36.3–36.5; O2SAT 93–99
[2023-03-27] MEDS: LIDOCAINE 5% PATCH 1 PATCH TRANSDERM
[2023-03-27 04:58] LABS: Anion Gap 2 mmol/L (8-16); Blood Urea Nitrogen 8 mg/dL (7-17); Calcium 8.2 mg/dL (8.4-10.2); Carbon Dioxide 30 mmol/L (22-30); Chloride 96 mmol/L (98-107); Estimated CRCL calculation 58 ml/min; Estimated Glomerular Filt Rate > 60; Glucose 90 mg/dL (65-110); Potassium 4.3 mmol/L (3.4-5.0); Sodium 128 mmol/L (137-145)
[2023-03-27] MEDS: LEVOTHYROXINE SODIUM 25 MCG TABLET PO (06:01)
[2023-03-27] MEDS: ACETAMINOPHEN 500 MG TABLET 1000 MG PO (06:01)
[2023-03-27] MEDS: LEVOTHYROXINE SODIUM 112 MCG TABLET PO (06:01)
--- NOTE | 2023-03-27 08:32 | WPDNEUROSGCN ---
Assessment and Plan Assessment and plan (1) Subarachnoid bleed: Code(s): I60.9 - Nontraumatic subarachnoid hemorrhage, unspecified Status: Inactive Plan Mrs. Marialuisa Huggins is 62 y/o F with EtOH abuse with fall and evidence of small left frontal traumatic punctate SAH - CT Head shows stable very small traumatic punctate SAH - Please inform patient to stay off ASA, ibuprofen, aleve for the next 2-3 weeks - Tylenol only for pain - THe patient may have postconcussive symptoms like HERRERA, nausea, irritability, difficultly concentrating - Ok for D/c per Neurosurgery as look at Gen Med is ok - No surgical intervention indicated - No f/u needed due to very small SAH in the setting of trauma Consult date: 03/27/23 Reason for consult: Left Punctate SAH after fall HPI: Marialuisa Huggins is a 62 year old female with history of EtOH abuse who presented to the ED last night after falling after drinking. Patient had similar episode back in September 2022 where she had small interhemispheric SDH. The patient had a left forehead contusion, but neurologically intact. She is on no blood thinners. CT Head on 03/26/2023 showed evidence of a very small, tiny left frontal punctate SAH bleed most likely traumatic in nature. I talked to the ED physician last night and reviewed the CT scan. The bleed was so tiny, but to be safe, she was admitted for overnight observation and a repeat scan this AM. CT Head this AM again shows very small, punctate traumatic SAH that is very small and stable in size. Per the notes, the patient remains stable and neurologically intact. [facility] Past Medical History Medical History Acute congestive heart failure Acute on chronic blood loss anemia Alcohol abuse Alcohol use Anemia Anxiety Agoraphobia, rarely leaves the house. Depression and PTSD. Atrial fibrillation BMI 20.0-20.9, adult Cirrhosis, alcoholic Closed fracture of neck of right femur Colon cancer screening COPD (chronic obstructive pulmonary disease) Essential hypertension History of CHF (congestive heart failure) Hx of falling Hyperlipidemia Hyponatremia Hypothyroidism Irritation of right eye Nerve plexus disorder Right-sided Other emphysema Paroxysmal atrial fibrillation Respiratory failure Admitted 2013 with respiratory failure, DTs, and acute renal failure requiring dialysis and tracheostomy. Surgical History Surgical History H/O tubal ligation H/O: hysterectomy History of hip replacement History of tracheostomy 2013, for respiratory failure Hx of appendectomy Family History Family History Mother Patient killed Alcoholic Son No problems noted. Father Family estrangement Sibling No problems noted. Other Hypertension Social History Social History Social History: Lives with her . Her only son but she is close to her sister and nephew. History of heavy alcohol intake but now down to 3 beers a day. Smoking packs per day: 2 Smoking cigarettes per day: 40.0 Years smoked: 51 Smoking pack-years: 102.00 Smoking status: Current every day smoker Tobacco type: e-cigarettes/vaping Second hand tobacco smoke exposure: Yes Additional smoking assessment comments: Quit smoking cigarettes in 2011. Now uses an e-cigarette Alcohol intake: current Drinks per week: 56 Substance use: never Substance use type: does not use Lack of Transportation: No Lack of Food: Sometimes True Current Housing: I Have Housing Concerned About Future Housing: No Difficulty Paying Gas/Electric Bills: No Difficulty Paying for Meds: No Currently Unemployed: No Education: Decline to Answer Difficulty w/ Childcare or Family Care: No Living arrangem
[2023-03-27] MEDS: CHOLECALCIFEROL 1,000 UNITS TABLET 2000 UNITS PO (08:54)
[2023-03-27] MEDS: PRAVASTATIN SODIUM 20 MG TABLET PO (08:54)
[2023-03-27] MEDS: AMIODARONE HCL 200 MG TABLET PO (08:54)
--- NOTE | 2023-03-27 13:29 | PM.DS ---
DS: Admitting Diagnosis Discharge Date 03/27/2023 Admitting Diagnosis Fall DS: Discharge Diagnosis Discharge Diagnosis (1) Subarachnoid bleed: Code(s): I60.9 - Nontraumatic subarachnoid hemorrhage, unspecified Status: Inactive (2) Cirrhosis, alcoholic: Qualifiers: Ascites presence: without ascites Qualified Code(s): K70.30 - Alcoholic cirrhosis of liver without ascites Code(s): K70.30 - Alcoholic cirrhosis of liver without ascites Status: Acute (3) Atrial fibrillation: Code(s): I48.91 - Unspecified atrial fibrillation Status: Acute (4) Alcohol dependence: Code(s): F10.20 - Alcohol dependence, uncomplicated Status: Acute (5) Hyponatremia: Code(s): E87.1 - Hypo-osmolality and hyponatremia Status: Acute DS: Summary Hospital Course Hospital Course: Is a 62-year-old female with history of prior traumatic subdural hematoma alcohol use disorder presents after a fall. Patient has been drinking and she tripped while walking to her kitchen struck her left side of the head. No loss of consciousness vision changes or speech changes. She was evaluated in the ED for this mechanical fall. She had left forehead hematoma and ecchymosis. CT head was done which showed very small volume subarachnoid hemorrhage in the left frontal gyri. Neurosurgery was consulted. Requested [address] head in the morning to ensure no interval worsening. She takes antiplatelet aspirin for atrial fibrillation which was discontinued. No NSAIDs such as ibuprofen or naproxen suggested. Repeat CT head was done in the morning which showed evidence of very small punctated traumatic SAH which is very small in stable in size. Neurologically intact ambulating well. She is cleared by Neurosurgery to discharge. Discussed alcohol use and suggested/recommended abstinence from alcohol. No NSAIDs aspirin Tylenol only for pain. Her vitals remained stable throughout the hospital stay. She had mild hyponatremia which remains stable and does have history of chronic hyponatremia likely secondary to beer potomania. Time Spent with Patient Time attestation: Total time spent providing and/or coordinating discharge services: 30 minutes Exam Narrative: GENERAL: lying in bed in no acute distress HEAD: Normocephalic, hematoma and ecchymosis left forehead EYES: PERRLA and EOMI. ENT: Nares clear, no rhinorrhea or epistaxis.? Mucous membranes moist. NECK: Supple.? No midline tenderness CHEST: Clear to auscultation.? No respiratory distress. HEART: Regular rate and rhythm.? No murmur heard.? Normal peripheral pulses. ABDOMEN: Soft, nontender, nondistended EXTREMITIES: Normal range of motion.? No edema. SKIN: Warm, dry, no rash. NEURO: No focal deficits.? Alert and oriented x3.? Neurologically intact PSYCH: Normal mood and affect. DS: Data Data Completed and Pending Labs on day of discharge: Labs from last 24 hours 03/27/23 03/26/23 03/26/23 04:44 20:02 19:47 WBC 6.1 RBC 3.15 L Hgb 10.3 L Hct 31.0 L MCV 98.4 MCH 32.7 MCHC 33.2 RDW 14.6 H Plt Count 216 MPV 8.4 Immature Gran % (Auto) 0.5 Neut % (Auto) 62.1 Lymph % (Auto) 24.3 Grady % (Auto) 10.6 H Eos % (Auto) 1.5 Baso % (Auto) 1.0 Lymph # (Auto) 1.49 Grady # (Auto) 0.7 H Eos # (Auto) 0.1 Baso # (Auto) 0.1 Abs Immat Gran (auto) 0.03 Absolute Neuts (auto) 3.8 Absolute Nucleated RBC 0.0 Nucleated RBC % 0.0 PT 13.7 INR 1.0 APTT 29.3 Sodium 128 L 125 L Potassium 4.3 3.7 Chloride 96 L 92 L Carbon Dioxide 30 25 Anion Gap 2 L 8 BUN 8 8 Creatinine 0.80 0.80 Estim Creat Clear Calc 58 59 Estimated GFR > 60 > 60 Glucose 90 90 Calcium 8.2 L 7.6 L Total Bilirubin 0.3 AST 38 H ALT 15 Alkaline Phosphatase 299 H Total Protein 7.0 Albumin 3.1 L Ethyl Alcohol 152 Imaging Radiolog
== END 2023-03-27 14:33 | disposition home or self-care (01) ==
LOC: ANHED 18:54 → ANHIMU 21:01
PROVIDERS: Admitting Provider Internal Medicine; Emergency Provider Emergency Medicine; PCP Family Medicine; Visit Provider Internal Medicine
DX: S06.6X9A Traumatic subarachnoid hemorrhage with loss of consciousness of unspecified duration, initial encounter (principal); S00.03XA Contusion of scalp, initial encounter; W18.30XA Fall on same level, unspecified, initial encounter; R29.6 Repeated falls; Z91.81 History of falling; K70.30 Alcoholic cirrhosis of liver without ascites; I48.91 Unspecified atrial fibrillation; F10.20 Alcohol dependence, uncomplicated; Y90.6 Blood alcohol level of 120-199 mg/100 ml; F41.9 Anxiety disorder, unspecified; F40.00 Agoraphobia, unspecified; F32.A Depression, unspecified; F43.10 Post-traumatic stress disorder, unspecified; J44.9 Chronic obstructive pulmonary disease, unspecified; E87.1 Hypo-osmolality and hyponatremia; I11.0 Hypertensive heart disease with heart failure; I50.9 Heart failure, unspecified; E78.5 Hyperlipidemia, unspecified; E03.9 Hypothyroidism, unspecified; G58.8 Other specified mononeuropathies; R94.31 Abnormal electrocardiogram [ECG] [EKG]; J96.90 Respiratory failure, unspecified, unspecified whether with hypoxia or hypercapnia; F17.290 Nicotine dependence, other tobacco product, uncomplicated; Z79.82 Long term (current) use of aspirin; Z79.899 Other long term (current) drug therapy
CPT/HCPCS: 36415; 70450; 72125; 80048; 80053; 80307; 85025; 85610; 85730; 93005; 96374; 99285; A9270; G0378; J3411; J3475; J7030

== ENCOUNTER 2023-06-25 11:52 | Inpatient (IN) | payer BC, OTHER, SELFPAY ==
[2023-06-25] VITALS (35 sets, daily range): BP systolic 50–110; BP diastolic 31–91; PULSE 56–77; RESP 12–28; TEMP 36.1–36.8; O2SAT 91–100; BMI 22.7
--- NOTE | ~2023-06-25 | XR_ITS ---
EXAMINATION: XR chest ET placement INDICATION: Endotracheal tube placement TECHNIQUE: Portable AP chest at 0803 hours COMPARISON: 0521 hours FINDINGS: The endotracheal tube ends approximately 4.7 cm above the dariusz. The nasogastric tube is i n the stomach. There are small pleural effusions. Diffuse interstitial opacities persist without sign ificant change. The cardiomediastinal silhouette is stable. There is chronic deformity of the proxima l left humerus due to prior fracture. IMPRESSION: 1. Endotracheal tube approximately 4.7 cm above the dariusz. 2. Diffuse lung disease, consistent with pulmonary edema versus pneumonia. 3. Small pleural effusions. Reviewed, dictated and finalized at location B.
--- NOTE | ~2023-06-25 | XR_ITS ---
XR chest 1V portable DATE: 06/27/2023 05:45 INDICATION: Respiratory failure TECHNIQUE: Portable AP chest on 06/27/2023 at 0532 hours COMPARISON: 06/26/2023 portable AP chest at 1124 hours FINDINGS: ET and NG tubes in satisfactory position. No central lines. Cardiomegaly. Small right pleural effusion. Mild infiltrate or atelectasis in the lower lung zones, r ight greater than left. IMPRESSION: No significant change since 06/26/2023 Reviewed, dictated and finalized at location A.
--- NOTE | ~2023-06-25 | XR_ITS ---
Portable chest x-ray Comparison: 06/29/2023 Clinical History: Respiratory failure Findings: Small bilateral pleural effusions are present with probable moderate pulmonary edema ila rajan. Endotracheal tube and NG tube are in satisfactory positions. Cardiomediastinal silhouette is sta ble. Bones and soft tissues are unremarkable. Impression: Moderate presumed pulmonary edema pattern with small bilateral pleural effusions. Correlate clinicall y for pneumonia. Support tubes, as above. Reviewed, dictated and finalized at location M. Impression: Moderate presumed pulmonary edema pattern with small bilateral pleural effusion s. Correlate clinically for pneumonia. Support tubes, as above.
--- NOTE | ~2023-06-25 | XR_ITS ---
XR chest 1V portable DATE: 06/28/2023 06:17 INDICATION: Respiratory failure TECHNIQUE: Portable AP chest on 06/28/2023 at 0556 hours COMPARISON: 06/27/2022 portable AP chest at 0532 hours FINDINGS: ET tube in satisfactory position 3.6 cm above dariusz. NG tube in upper body of stomach, the proximal side port situated at the diaphragmatic hiatus. Advancement is recommended. There is mild elevation of the left leaf of the diaphragm. There is pulmonary vascular congestion and redistribution and prominence of the minor fissure, consis tent with congestive changes including subpleural edema. Stas B-lines are noted consistent with pul monary interstitial edema as well. Mild infiltrate or atelectasis in the lower lung zones. IMPRESSION: Congestive changes since 06/27/2023 Persistent infiltrate or atelectasis in the lower lung zones Recommend advancement of the NG tube Reviewed, dictated and finalized at location A.
--- NOTE | ~2023-06-25 | CT_ITS ---
EXAMINATION: CT brain wo con INDICATION: Altered mental status COMPARISON: Head CT from today TECHNIQUE: Standard unenhanced head CT. The dose-length product (DLP) was 1210.67 mGy-cm. The mA was adjusted according to patient size. Iterative reconstruction technique was employed. FINDINGS: Motion artifact limits the examination. No acute intraparenchymal hemorrhage. No evidence o f mass lesion. No evidence of acute infarction. Chronic bifrontal infarcts are noted. There is mild p eriventricular and subcortical hypodensity probably related to small vessel ischemic disease. There i s mild prominence of the sulci and ventricles related to cerebral atrophy. Intracranial calcified cer ebral atherosclerosis is noted. No extra-axial collections. No mass effect or midline shift. The orbi ts and soft tissues are unremarkable. The visualized sinuses and mastoid air cells are well aerated. IMPRESSION: 1. Areas of prior infarction without acute intracranial abnormality. 2. Age related findings. Reviewed, dictated and finalized at location F.
--- NOTE | ~2023-06-25 | XR_ITS ---
Portable chest x-ray Comparison: 06/28/2023 Clinical History: Respiratory failure Findings: Endotracheal tube and NG tube are in satisfactory positions. Extensive hazy pulmonary dise ase is present bilaterally. Small right pleural effusion present. Cardiomediastinal silhouette is st able. Fracture of the proximal left humerus is unchanged. Impression: Mild to moderate probable pulmonary edema pattern with small right pleural effusion. Correlate clinic ally for pneumonia. Support tubes, as above. Reviewed, dictated and finalized at location . Impression: Mild to moderate probable pulmonary edema pattern with small right pleural effu hawa. Correlate clinically for pneumonia. Support tubes, as above.
--- NOTE | ~2023-06-25 | XR_ITS ---
XR_[id number]_CR INDICATION: Evaluate NG tube position. TECHNIQUE: Limited KUB perform for evaluating NG tube . COMPARISON: No prior studies for comparison. FINDINGS: NG tube tip in the stomach. Visualized bowel gas pattern is unremarkable. IMPRESSION: 1: NG tube tip in the stomach. Reviewed, dictated and finalized at location B.
--- NOTE | ~2023-06-25 | XR_ITS ---
Portable chest x-ray Comparison: 06/30/2023 Clinical History: Respiratory failure Findings: Endotracheal tube and NG tube are in satisfactory positions. Small bilateral pleural effus ions are present. There is hazy and interstitial pulmonary disease. Cardiomediastinal silhouette is stable. Bones and soft tissues are unremarkable. Impression: Small bilateral pleural effusions. Hazy and interstitial pulmonary disease. Correlate for pulmonary edema, infection, and/or chronic int erstitial disease. Support tubes, as above. Reviewed, dictated and finalized at location . Impression: Small bilateral pleural effusions. Hazy and interstitial pulmonary disease. Correlate for pulmonary edema, infecti on, and/or chronic interstitial disease. Support tubes, as above.
--- NOTE | ~2023-06-25 | XR_ITS ---
XR abdomen/kub 1V DATE: 06/28/2023 09:03 INDICATION: Orogastric tube advancement/placement TECHNIQUE: Single anteroposterior exposure of the abdomen on 06/28/2023 at 0857 hours COMPARISON: None FINDINGS: A nasogastric tube is present with the distal tip overlying the gastric antrum. Gaseous distention of some small bowel loops overlie the midabdomen. Right femoral catheter is noted, the distal tip overlying the right common iliac vessels. IMPRESSION: NG tube in satisfactory position, distal tip overlying gastric antrum Reviewed, dictated and finalized at Location A. Reviewed, dictated and finalized at location A. IMPRESSION: NG tube in satisfactory position, distal tip overlying gastric antr um
--- NOTE | ~2023-06-25 | XR_ITS ---
Portable chest x-ray Comparison: 07/01/2023 Clinical History: Respiratory failure Findings: Endotracheal tube and NG tube are in satisfactory positions. There are small bilateral ple ural effusions with moderate pulmonary edema pattern. Cardiomediastinal silhouette is stable. Bones and soft tissues are unremarkable. Impression: Small bilateral pleural effusions with moderate pulmonary edema. Correlate clinically for infection. Support tubes, as above. Reviewed, dictated and finalized at location . Impression: Small bilateral pleural effusions with moderate pulmonary edema. Correlate clin ically for infection. Support tubes, as above.
--- NOTE | ~2023-06-25 | CT_ITS ---
EXAMINATION: CT chest abdomen pelvis wo con DATE: 06/25/2023 17:48 INDICATION: Sepsis TECHNIQUE: Transaxial computed tomographic images of the chest, abdomen, and pelvis were obtained wit hout intravenous contrast. The dose-length product (DLP) was 672.18 mGy-cm. Automated exposure contro l and iterative reconstruction technique were employed. COMPARISON: 02/11/2022 FINDINGS: CHEST CT: There are small pleural effusions. No pneumothorax. Cardiomegaly is noted. There is mild emphysema. T here are areas of smooth interlobular septal thickening. Patchy airspace opacities are present in the right upper lobe and lingula. There are no pathologically enlarged thoracic lymph nodes. An endotrac heal tube is 3.3 cm above the dariusz. There is moderate thoracic spondylosis. There is a compression fracture of T5. There is a fracture of the proximal left humerus with nonunion. ABDOMEN/PELVIS CT: The nasogastric tube ends with this tip at the gastroesophageal junction. The liver, spleen, pancreas , and adrenal glands are normal. There is hyperattenuating material in the gallbladder of unclear abbie ology. There appears to be mild wall thickening of the gallbladder. No pathologically enlarged abdomi nal or pelvic lymph nodes are identified. No free intraperitoneal gas or evidence of bowel obstructio n. There is calcified atherosclerosis of the aorta and many of the other arteries. There are changes of right hip arthroplasty. Severe lumbar spondylosis is noted. The bladder is decompressed by Miller c atheter. There is a left lower quadrant spigelian hernia containing fat. IMPRESSION: 1. Cardiomegaly with mild pulmonary edema. 2. Patchy airspace opacities in the right upper lobe and lingula are consistent with mild pulmonary e hernán versus pneumonia. 3. Endotracheal tube with its tip at the gastroesophageal junction. Recommend advancing 4 to 5 cm. 4. Mild wall thickening of the gallbladder of unclear significance. Reviewed, dictated and finalized at location F. IMPRESSION: 1. Cardiomegaly with mild pulmonary edema. 2. Patchy airspace opacities in the right upper lobe and lingula are consistent with mild pulmonary edema versus pneumonia. 3. Endotracheal tube with its tip at the gastroesophageal junction. Recommend a dvancing 4 to 5 cm. 4. Mild wall thickening of the gallbladder of unclear significance.
--- NOTE | ~2023-06-25 | CT_ITS ---
EXAMINATION: CT brain wo con DATE: 06/25/2023 13:10 INDICATION: Altered mental status. TECHNIQUE: Computed tomography (CT) of the head was performed without intravenous contrast. The mA wa s adjusted according to patient size. Iterative reconstruction technique was employed. The dose-lengt h product was 1362.00 mGy-cm. COMPARISON: Head CT 03/27/2023 FINDINGS: Motion artifact is noted. There are scattered areas of low attenuation in the cerebral whit e matter. There are old infarcts in the frontal lobes. There is no intracranial hemorrhage, acute inf arction, or abnormal intracranial mass lesion. The ventricles are normal in size. The paranasal sinus es are clear. The orbits are normal. There is a small right mastoid effusion. IMPRESSION: 1. Old infarcts in the frontal lobes. 2. Stable moderate nonspecific cerebral white matter disease, which likely represents chronic small v essel ischemic disease. Reviewed, dictated and finalized at location A. IMPRESSION: 1. Old infarcts in the frontal lobes. 2. Stable moderate nonspecific cerebral white matter disease, which likely repr esents chronic small vessel ischemic disease.
--- NOTE | ~2023-06-25 | XR_ITS ---
XR chest 1V 06/25/2023 13:15 Indication: Transient alteration of awareness Procedure: AP view of the chest Comparison: Comparison to multiple prior studies sequentially, with oldest reviewed study dated 07/10. Findings: There is prominence of the left hilar soft tissues, suspicious for lymphadenopathy. There i s an old healed left clavicular fracture distally. Cardiomegaly. No focal pneumonia, edema, pleural e ffusion or pneumothorax. Impression: 1: Prominent left hilum, suspicious for lymphadenopathy. Correlation with contrast-enhanced CT chest recommended. Reviewed, dictated and finalized at location L. Impression: 1: Prominent left hilum, suspicious for lymphadenopathy. Correlation with contr ast-enhanced CT chest recommended.
--- NOTE | ~2023-06-25 | XR_ITS ---
Portable chest x-ray Comparison: 06/25/2023 Clinical History: Respiratory failure Findings: Endotracheal tube and NG tube are in satisfactory positions. Small right pleural effusion present. There is minimal bibasilar haziness. Cardiomediastinal silhouette is stable. Fracture of th e proximal left humerus again noted. Impression: Small right pleural effusion with probable minimal bibasilar pulmonary edema. Support tubes, as above. Fracture of the surgical neck of the left humerus, somewhat age indeterminate, but new since 2. Fracture is probably comminuted. Consider orthopedic consultation and/or dedicated imaging of the shoulder. Reviewed, dictated and finalized at location . Impression: Small right pleural effusion with probable minimal bibasilar pulmonary edema. Support tubes, as above. Fracture of the surgical neck of the left humerus, somewhat age indeterminate, but new since 09/17/2022. Fracture is probably comminuted. Consider orthopedic c onsultation and/or dedicated imaging of the shoulder.
--- NOTE | ~2023-06-25 | XR_ITS ---
EXAMINATION: XR abdomen obstructive series DATE: 06/30/2023 08:47 INDICATION: Abdominal distention TECHNIQUE: Frontal supine and upright views of the abdomen were obtained. COMPARISON: None. FINDINGS: Nasogastric tube tip in proximal side port in the body of the stomach. Nonspecific nonobstructive bow el gas pattern. No free intraperitoneal gas. Right femoral vein central venous catheter with distal tip at the right common iliac vein. Elevation the left hemidiaphragm. Small right pleural effusion. IMPRESSION: 1. Nonspecific bowel gas pattern with no free intraperitoneal gas or dilated gas-filled loops of otoniel l to suggest obstruction. 2. Small right pleural effusion. Reviewed, dictated and finalized at location A. IMPRESSION: 1. Nonspecific bowel gas pattern with no free intraperitoneal gas or dilated ga s-filled loops of bowel to suggest obstruction. 2. Small right pleural effusion.
--- NOTE | 2023-06-25 11:59 | ECG_ITS ---
Measurements Intervals Thelma Rate: 76 P: -84 ID: 150 QRS: 93 QRSD: 125 T: 104 QT: 462 QTc: 521 Interpretive Statements SINUS RHYTHM RIGHT AXIS DEVIATION INTRAVENTRICULAR CONDUCTION DELAY ST-T WAVE ABNORMALITY IN LATERAL LEADS- CONSIDER ISCHEMIA BASELINE ARTIFACT- I, II, III, AVL, AVF ABNORMAL ECG COMPARED TO ECG 03/26/2023 19:11:20 INTRAVENTRICULAR CONDUCTION DELAY NOW PRESENT ST-T WAVE ABNORMALITY NOW PRESENT Electronically Signed On 06-25-2023 12:59:26 CDT by Abdulaziz Anderson D.O.
[2023-06-25] MEDS: DEXTROSE 50% 25 GM/50 ML SYRINGE IV PUSH (12:05)
[2023-06-25 12:31] LABS: Glucose Point of Care < 20 mg/dl (65-105)
[2023-06-25 12:31] LABS: Glucose Point of Care 82 mg/dl (65-105)
[2023-06-25 12:31] LABS: Glucose Point of Care 84 mg/dl (65-105)
[2023-06-25 13:37] LABS: Glucose Point of Care 109 mg/dl (65-105)
--- NOTE | 2023-06-25 13:40 | ED.GENADULT ---
HPI - General Adult General Chief complaint: Recheck/Abnormal Lab/Rx Stated complaint: low blood sugar Time Seen by Provider: 06/25/23 11:53 History of Present Illness HPI narrative: Patient is a 62-year-old female who presents ER with altered mental status. Patient found poorly responsive at home. Accu-Chek less than 20. Received IM glucagon and oral glucagon. Patient oriented x1 upon arrival here. Once IV established patient given D50. Patient has no complaints however she is too altered to provide any sort of history. Chart review shows she was seen by her PCP yesterday and only had a cough. Related Data Home Medications Medication Instructions Recorded Confirmed amiodarone 200 mg tablet 200 tablet PO DAILY 04/09/22 06/24/23 cholecalciferol (vitamin D3) 50 50 mcg PO DAILY 01/20/23 06/24/23 mcg (2,000 unit) capsule escitalopram oxalate 10 mg tablet 10 mg PO DAILY 03/26/23 06/24/23 levothyroxine 137 mcg tablet 137 mcg PO DAILY 03/26/23 06/24/23 Allergies Allergy/AdvReac Type Severity Reaction Status Date / Time nitrofurantoin Allergy Intermediate GI upset Verified 06/24/23 08:47 [From Macrobid] codeine Allergy Unknown Unknown Verified 06/24/23 08:47 morphine Allergy Unknown Unknown Verified 06/24/23 08:47 guaifenesin AdvReac Mild SHAKY AND Verified 06/24/23 08:47 NAUSEOUS Review of Systems Review of Systems: ROS unobtainable: Yes unobtainable due to mental status PMFSH Past Medical History Medical History Acute congestive heart failure Acute on chronic blood loss anemia Alcohol abuse Alcohol use Anemia Anxiety Agoraphobia, rarely leaves the house. Depression and PTSD. Atrial fibrillation Cirrhosis, alcoholic Closed fracture of neck of right femur Colon cancer screening COPD (chronic obstructive pulmonary disease) Essential hypertension Hip fracture History of CHF (congestive heart failure) Hx of falling Hyperlipidemia Hyponatremia Hypothyroidism Irritation of right eye Nerve plexus disorder Right-sided Other emphysema Paroxysmal atrial fibrillation Respiratory failure Admitted 2013 with respiratory failure, DTs, and acute renal failure requiring dialysis and tracheostomy. Surgical History Surgical History H/O tubal ligation H/O: hysterectomy History of hip replacement History of tracheostomy 2013, for respiratory failure Hx of appendectomy Family History Family History Mother Patient killed Alcoholic Son No problems noted. Father Family estrangement Sibling No problems noted. Other Hypertension Social History Social History Social History: Lives with her . Her only son but she is close to her sister and nephew. History of heavy alcohol intake but now down to 3 beers a day. Smoking packs per day: 2 Smoking cigarettes per day: 40.0 Years smoked: 51 Smoking pack-years: 102.00 Smoking status: Current every day smoker Tobacco type: e-cigarettes/vaping Second hand tobacco smoke exposure: Yes Additional smoking assessment comments: Quit smoking cigarettes in 2011. 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
[2023-06-25 14:40] LABS: Basophils Percent Auto 0.2 % (0.2-1.2); Eosinophils Percent Auto 0.1 % (0-4.4); Hematocrit 33.7 % (37.0-47.0); Hemoglobin 11.6 g/dL (12.0-15.0); Immature Granulocyte Absolute 0.12 K/mm3 (0.00-0.031); Lymphocytes Absolute Auto 1.85 K/mm3 (0.9-3.2); Mean Corpuscular HGB Conc 34.4 g/dl (32-36); Mean Corpuscular Hemoglobin 34.6 pg (26-34); Mean Corpuscular Volume 100.6 fl (80-100); Mean Platelet Volume 9.5 fl (7.4-10.4); Monocytes Absolute Auto 0.4 K/mm3 (0.1-0.6); Monocytes Percent Auto 3.3 % (2.6-8.5); Neutrophils Absolute Auto 9.9 K/mm3 (1.3-6.7); Neutrophils Percent Auto 80.4 % (45.5-73.1); Nucleated Red Blood Cells Perc 0.2 % (0.0-0.2); Platelet Count Result 318 k/mm3 (150-375); Red Blood Count 3.35 M/mm3 (4.2-5.4); Red Cell Distribution Width 13.8 % (11.5-14.5); White Blood Count 12.3 K/mm3 (4.5-10.0)
[2023-06-25 15:02] LABS: Troponin I 0.021 ng/mL (0.000-0.034)
[2023-06-25 15:20] LABS: Alanine Aminotransferase 60 U/L (6-35); Alkaline Phosphatase 113 U/L (38-126); Anion Gap 18 mmol/L (8-16); Aspartate Amino Transferase 228 U/L (14-36); Bilirubin,Total 2.2 mg/dL (0.2-1.3); Blood Urea Nitrogen 12 mg/dL (7-17); Calcium 7.9 mg/dL (8.4-10.2); Carbon Dioxide 12 mmol/L (22-30); Chloride 84 mmol/L (98-107); Estimated CRCL calculation 25 ml/min; Estimated Glomerular Filt Rate 27; Glucose 106 mg/dL (65-110); Sodium 114 mmol/L (137-145)
[2023-06-25] MEDS: ETOMIDATE 20 MG/10 ML AMPUL 30 MG IV PUSH (15:43)
[2023-06-25] MEDS: SUCCINYLCHOLINE CHLORIDE 20 MG/ML 10 ML VIAL 100 MG IV PUSH (15:44)
[2023-06-25 16:02] LABS: Glucose Point of Care 77 mg/dl (65-105)
[2023-06-25] MEDS: NOREPINEPHRINE 8 MG/D5W 250 ML 8 MG/250 ML BAG 9.38 MG IV CONT (16:14)
--- NOTE | 2023-06-25 16:15 | PC.NURSE ---
Norepi started, ERP at bedside placing femoral line
--- NOTE | 2023-06-25 16:16 | PC.NURSE ---
Pt has been responsive then ERP walked into room and found pt not responding. Crash cart brought to room and pt intubated by ERP. ETT 7.5 placed and 24 at lip. OG placed 50 at the lip.
[2023-06-25 17:08] LABS: Lactic Acid Reflex 11.4 mmol/L (0.7-2.0)
[2023-06-25 17:10] LABS: INR 2.4; Prothrombin Time 27.5 Seconds (11.1-14.7)
[2023-06-25 17:11] LABS: Partial Thromboplastin Time 42.1 SECONDS (22.3-36.8)
[2023-06-25 17:12] LABS: Alveolar/Arterial O2 Gradient 254.2 mmHg; Base Excess ABG -20.5 mEq/l (+/-2.0); Carboxyhemoglobin 0.3 % THb (0-2.0); Fractional Inspired Oxygen 100 %; HCO3 ABG 7.2 mEq/l (22.0-26.0); Methemoglobin ABG 0.4 %THb (0-1.5); Oxygen Content ABG 18.2 %vol (16.0-22.0); Oxygen Saturation ABG 99.8 % (95.0-100.0); Oxyhemoglobin 98.7 % THb (90.0-100.0); PO2 ABG 435.8 mmHg (80.0-100.0); PO2 FiO2 Ratio Arterial Blood 4.36 %; Reduced Hemoglobin 0.6 %THb (0-5.0); Total Hemoglobin 12.3 g/dL (12.0-18.0)
[2023-06-25 17:14] LABS: pH ABG 7.116 (7.350-7.450)
[2023-06-25 17:15] LABS: Device VENTILATOR; Site Drawn RIGHT BRACHIAL
[2023-06-25 17:16] LABS: Arterial Blood Gas PEEP 5 cmH2O; Arterial Blood Gas Tidal Volume 400 ml; Arterial Blood Gas Vent Mode CMV; Arterial Blood Gas Ventilator rate 16 /MIN
[2023-06-25 17:28] LABS: Appearance Urine Clear (Clear); Bacteria Urine None Seen /hpf; Bilirubin Urine Negative (Negative); Blood Urine Negative (Negative); Color Urine Dark Yellow (Yellow); Glucose Urine UA Negative (Negative); Ketones Urine Negative (Negative); Leukocyte Esterase Ur Trace LEU/UL (Negative); Need Manual Microscopic Reviewed; Nitrate Urine Negative (Negative); Non Pathogenic Casts 0-2; Protein Urine Negative (Negative); RBC Urine 0-2 /hpf (0-2); Specific Grav Ur 1.014 (1.001-1.035); Squamous Epithelial Cell Urine None seen /hpf (Few); WBC Urine 0-5 /hpf; pH Urine 5.5 (5.0-9.0)
[2023-06-25 17:32] LABS: Amphetamine Screen Urine Negative (Negative); Barbiturate Screen Urine Negative (Negative); Benzodiazepines Screen Urine Negative (Negative); Cannabinoid Screen Urine Negative (Negative); Cocaine Screen Urine Negative (Negative); Methadone Screen Urine Negative (Negative); Opiate Screen Urine Negative (Negative); Phencyclidine Screen Urine Negative (Negative)
[2023-06-25 17:32] LABS: Add Urine Microscopic? YES
[2023-06-25] MEDS: FENTANYL 2,500MCG/NS250ML(*CRX 2,500 MCG/250 ML BAG IV CONT ×2 (18:00→20:09)
[2023-06-25] MEDS: CEFEPIME 1 GM/NS 50 ML 1 GM/50 ML BAG IVPB ×2 (18:56→22:07)
--- NOTE | 2023-06-25 19:28 | PC.NURSE ---
WAN inserted 5cm into stomach per Dr. jj
[2023-06-25 19:51] LABS: Reflex Lactic Acid Yes or No Add Lactic
[2023-06-25] MEDS: MIDAZOLAM 100MG/NS 100ML(*CRX) 100 MG/100 ML BAG IV CONT (20:09)
--- NOTE | 2023-06-25 21:10 | ADMGEN ---
This patient, Marialuisa Huggins, was admitted to Intensive Care Unit-9. Patient/family oriented to hospital policies and general routines including ID bracelet, bed and alarms, visiting hours, pain management, procedures, bathroom and other care routines, personal items, smoking policy, room service/diet, and visiting hours. Information on how to activate the Rapid Response Team has been discussed. Patient/Family are encouraged to report perceived risks to care and to ask questions if they do not understand what they are told or what they should do.
[2023-06-25 22:13] LABS: Ammonia 11 umol/L (9-30)
[2023-06-25 22:20] LABS: Albumin Level 2.6 g/dL (3.5-5.1); Alkaline Phosphatase 107 U/L (38-126); Anion Gap 22 mmol/L (8-16); Bilirubin,Total 2.9 mg/dL (0.2-1.3); Blood Urea Nitrogen 14 mg/dL (7-17); Calcium 7.5 mg/dL (8.4-10.2); Carbon Dioxide 10 mmol/L (22-30); Chloride 86 mmol/L (98-107); Estimated CRCL calculation 21 ml/min; Estimated Glomerular Filt Rate 20; Glucose 135 mg/dL (65-110); Potassium 4.2 mmol/L (3.4-5.0); Sodium 118 mmol/L (137-145)
[2023-06-25 22:22] LABS: Lactic Acid Reflex 9.9 mmol/L (0.7-2.0)
[2023-06-25 22:27] LABS: Alanine Aminotransferase 90 U/L (6-35); Aspartate Amino Transferase 593 U/L (14-36)
[2023-06-25 23:05] LABS: Alveolar/Arterial O2 Gradient 205.7 mmHg; Base Excess ABG -14.6 mEq/l (+/-2.0); HCO3 ABG 11.9 mEq/l (22.0-26.0); Oxygen Saturation ABG 97.6 % (95.0-100.0); PO2 ABG 117.1 mmHg (80.0-100.0); Total Hemoglobin 11.3 g/dL (12.0-18.0); pH ABG 7.216 (7.350-7.450)
[2023-06-25 23:06] LABS: Device VENTILATOR; Fractional Inspired Oxygen 50 %; Modified Allen's Test Pass; Oxygen Content ABG 15.4 %vol (16.0-22.0); PO2 FiO2 Ratio Arterial Blood 2.34 %; Site Drawn RIGHT RADIAL
[2023-06-25] MEDS: MINERAL OIL/WHITE PETROLATUM OINTMENT 1 APPLIC EACH EYE (23:06)
[2023-06-25 23:07] LABS: Arterial Blood Gas PEEP 5 cmH2O; Arterial Blood Gas Tidal Volume 400 ml; Arterial Blood Gas Vent Mode CMV; Arterial Blood Gas Ventilator rate 16 /MIN
[2023-06-25 23:32] LABS: Glucose Point of Care 208 mg/dl (65-105)
[2023-06-26] VITALS (37 sets, daily range): BP systolic 76–127; BP diastolic 40–106; PULSE 72–94; RESP 13–27; TEMP 36.7–37.4; O2SAT 80–100; BMI 22.8
--- NOTE | 2023-06-26 | ECHO_ITS ---
Patient Info Name: Marialuisa Huggins Age: 62 years : 1960 Gender: Female Ht: 66 in Wt: 141 lbs BSA: 1.73 m2 HR: 87 bpm BP: 81 / 40 mmHg Heart Rhythm: Sinus Rhythm Technical Quality: Poor Exam Date: 06/26/2023 10:44 AM Exam Location: [facility] Pulmonary Exam Room: ICU9 Patient Status: Inpatient Admit Date: 06/25/2023 Staff Ordering Physician: Jimmie Lawson MD Instrumental Teacher: Jeni Benavidez RDCS Attending Provider: Shawn Quintana MD Exam Type: CA echo dop color flow w con Study Info Indications - SHOCK Complete two-dimensional, color flow and Doppler transthoracic echocardiogram is performed with contrast to opacify the left ventricle and to improve the deliniation of the left ventricle endocardial borders. Contrast/Agitated Saline Contrast/Ag. Saline: Definity Amount: 1.00 ml Administered By: Jeni Benavidez [facility] Existing IV Access: Yes IV Access Condition: patent with no signs of infiltration Reason for Poor Study: patient body habitus Summary 1. Mild LV enlargement with mildly depressed systolic function ejection fraction 40-45%. 2. RV enlargement with RV systolic dysfunction. 3. Moderate biatrial enlargement. 4. Mild mitral and tricuspid valve regurgitation. Left Ventricle Left ventricular chamber dimension is mildly enlarged. Left ventricular systolic function is mildly reduced, estimated at 40-45%. Right Ventricle Right ventricular chamber dimension is mildly enlarged. Right ventricular systolic function is reduced. Left Atria Left atrial chamber dimension is moderately enlarged. Right Atria Right atrial chamber dimension is moderately enlarged. Aortic Valve The aortic valve is trileaflet. There is mild aortic valve sclerosis. Pulmonic Valve The pulmonic valve is not well visualized. Mitral Valve The mitral valve has normal leaflets. There is mild mitral valve regurgitation. Tricuspid Valve The tricuspid valve leaflets are normal. There is mild tricuspid valve regurgitation. Mild pulmonary hypertension, estimated pulmonary arterial systolic pressure is 45 mmHg. Pericardium/Pleural The pericardium appears normal. Aorta The aortic root size at the sinus of Valsalva is normal. Left Ventricular Outflow Tract Name Value Normal LVOT 2D LVOT Diameter 2.04 cm LVOT Doppler LVOT Peak Gradient 5 mmHg LVOT Mean Gradient 3 mmHg LVOT VTI 18.40 cm LVOT VTI/AV VTI Ratio 0.82 LVOT Stroke Volume 59.89 ml LVOT CO 17.01 l/min LVOT CI 9.84 L/min/m2 Pulmonic Valve Name Value Normal PV Doppler PV Peak Gradient 2 mmHg Mitral Valve Name Value Normal
--- NOTE | 2023-06-26 00:27 | PM.IMHP ---
H&P: HPI History of Present Illness Date/Time: 06/26/23 00:27 Chief Complaint: AMS Narrative: 62 y/o F presents here with AMS, found to have glucose of 21 at EMS arrival with PMH of CHF, ETOH abuse, anxiety, anemia, a-fib, cirrhosis, COPD, HTN, HLD, hyponatremia, hypothyroidism,and respiratory failure (Admitted 2013 with respiratory failure, DTs, and acute renal failure requiring dialysis and tracheostomy). patient presented here with acute altered mental status. Found poorly responsive at home, initial blood sugar was 20. Given glucagon IM and orally. Arrived A&Ox1 - limited history given by patient and now currently intubated. Per chart review, patient seen at PCP yesterday for cough. initial concern for sepsis, 2 L of NS given. Shortly after, patient decompensated and became unarousable to sternal rub. Currently responding to sound and can track with eyes briefly. [facility] Past Medical History Medical History Acute congestive heart failure Acute on chronic blood loss anemia Alcohol abuse Alcohol use Anemia Anxiety Agoraphobia, rarely leaves the house. Depression and PTSD. Atrial fibrillation Cirrhosis, alcoholic Closed fracture of neck of right femur Colon cancer screening COPD (chronic obstructive pulmonary disease) Essential hypertension Hip fracture History of CHF (congestive heart failure) Hx of falling Hyperlipidemia Hyponatremia Hypothyroidism Irritation of right eye Nerve plexus disorder Right-sided Other emphysema Paroxysmal atrial fibrillation Respiratory failure Admitted 2013 with respiratory failure, DTs, and acute renal failure requiring dialysis and tracheostomy. Surgical History Surgical History H/O tubal ligation H/O: hysterectomy History of hip replacement History of tracheostomy 2013, for respiratory failure Hx of appendectomy Family History Family History Mother Patient killed Alcoholic Son No problems noted. Father Family estrangement Sibling No problems noted. Other Hypertension Social History Social History Social History: Lives with her . Her only son but she is close to her sister and nephew. History of heavy alcohol intake but now down to 3 beers a day. Smoking packs per day: 2 Smoking cigarettes per day: 40.0 Years smoked: 51 Smoking pack-years: 102.00 Smoking status: Current every day smoker Tobacco type: e-cigarettes/vaping Second hand tobacco smoke exposure: Yes Additional smoking assessment comments: Quit smoking cigarettes in 2011. 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
[2023-06-26] MEDS: THIAMINE 500 MG/NS 100 ML 500 MG/100 ML BAG 200 MG IVPB (01:05)
[2023-06-26 05:31] LABS: Hematocrit 30.1 % (37.0-47.0); Hemoglobin 10.7 g/dL (12.0-15.0); Mean Corpuscular HGB Conc 35.5 g/dl (32-36); Mean Corpuscular Hemoglobin 34.7 pg (26-34); Mean Corpuscular Volume 97.7 fl (80-100); Mean Platelet Volume 9.3 fl (7.4-10.4); Platelet Count Result 239 k/mm3 (150-375); Red Blood Count 3.08 M/mm3 (4.2-5.4); Red Cell Distribution Width 13.6 % (11.5-14.5); White Blood Count 9.9 K/mm3 (4.5-10.0)
[2023-06-26 05:50] LABS: Alanine Aminotransferase 221 U/L (6-35); Albumin Level 2.3 g/dL (3.5-5.1); Alkaline Phosphatase 106 U/L (38-126); Anion Gap 6 mmol/L (8-16); Bilirubin,Total 2.2 mg/dL (0.2-1.3); Blood Urea Nitrogen 19 mg/dL (7-17); Calcium 6.8 mg/dL (8.4-10.2); Carbon Dioxide 21 mmol/L (22-30); Chloride 88 mmol/L (98-107); Estimated CRCL calculation 23 ml/min; Estimated Glomerular Filt Rate 23; Glucose 112 mg/dL (65-110); Magnesium 1.5 mg/dL (1.6-2.3); Potassium 2.9 mmol/L (3.4-5.0); Sodium 115 mmol/L (137-145)
[2023-06-26 05:53] LABS: Aspartate Amino Transferase 1405 U/L (14-36)
--- NOTE | 2023-06-26 06:14 | PCRCNOTE ---
RT was unable to obtain abg
[2023-06-26] MEDS: CALCIUM GLUC 2,000 MG/NS 100ML 2,000 MG/100 ML BAG 100 MG IVPB (06:18)
[2023-06-26] MEDS: ALBUMIN HUMAN 5% 250 ML IV CONT (06:20)
[2023-06-26] MEDS: LEVOTHYROXINE SODIUM 112 MCG TABLET PO (06:22)
[2023-06-26] MEDS: LEVOTHYROXINE SODIUM 25 MCG TABLET PO (06:22)
[2023-06-26 06:52] LABS: Folic Acid 5.9 ng/mL (2.76->20)
[2023-06-26] MEDS: SODIUM BICARBONATE 8.4% 50 MEQ/50 ML SYRINGE IV PUSH (06:55)
[2023-06-26] MEDS: NOREPINEPHRINE 8 MG/D5W 250 ML 8 MG/250 ML BAG 35.63 MG IV CONT (06:57)
[2023-06-26] MEDS: HYDROCORTISONE SODIUM SUCCINATE 100 MG/2 ML VIAL IV PUSH ×3 (06:58→21:15)
[2023-06-26] MEDS: KCL 20 MEQ/SW 100 ML 100 ML 50 MEQ IVPB (07:02)
[2023-06-26] MEDS: VASOPRESSIN INJ 100 UNITS in DEXTROSE 5% 95 ML IV CONT (07:02)
[2023-06-26] MEDS: MAGNESIUM SULF 2 GM/WATER 50ML 2 GM/50 ML BAG IVPB (09:14)
[2023-06-26] MEDS: AMIODARONE HCL 200 MG TABLET PO (09:14)
[2023-06-26] MEDS: MINERAL OIL/WHITE PETROLATUM OINTMENT 1 APPLIC EACH EYE ×2 (09:15→20:48)
[2023-06-26] MEDS: PANTOPRAZOLE SODIUM IV 40 MG VIAL IV PUSH (09:15)
[2023-06-26] MEDS: CHOLECALCIFEROL 1,000 UNITS TABLET 2000 UNITS PO (09:15)
[2023-06-26] MEDS: PHYTONADIONE ADULT INJ 10 MG in DEXTROSE 5% IN WATER 50 ML 100 MG IVPB (09:15)
[2023-06-26] MEDS: MEROPENEM 500 MG in SODIUM CHLORIDE 0.9% IV 100 ML 200 ML IVPB ×2 (09:15→21:15)
--- NOTE | 2023-06-26 09:27 | PM.IMPN ---
Progress Note: A&P Assessment and Plan (1) Severe sepsis: Code(s): A41.9 - Sepsis, unspecified organism; R65.20 - Severe sepsis without septic shock Status: Acute Assessment and Plan: Patient found down at home with severe hypoglycemia. Patient initially had improvement with correction of her hypoglycemia but acutely decompensated in the ED requiring intubation. CT concerning for patchy airspace opacity to the right upper lobe, consistent with mild pulmonary edema versus pneumonia. Cardiomegaly with mild pulmonary edema seen. Mild wall thickening of gallbladder, unclear significance. UA not consistent with UTI elevated white count - 12.3 lactate 11.4, now 9.9 currently intubated due to decompensation in ED - midazolam and fentanyl for sedation on hold Trend ABGs Hypotensive in ED so NE started -- currently on 21mcg/min and ARCHITECT MANAGER 0.04. Solu-Cortef also added. Antibiotic started 06/25; continue vancomycin, cefepime BCx pending. MRSA screening Wean NE as tolerated (2) Acute respiratory failure: Code(s): J96.00 - Acute respiratory failure, unspecified whether with hypoxia or hypercapnia Status: Acute Assessment and Plan: As above. Last ABG 7./117 on MV yesterday. Mostly metabolic acidosis. Related to being down. Total CK elevated so has rhabdomyolysis. Continue mechanical ventilation support. Monitor mental status. Wean off Levophed as tolerated. Discussed with search director. She will need diuresis given her fluid overload. (3) Shock: Code(s): R57.9 - Shock, unspecified Status: Acute Assessment and Plan: As above. Wean Levophed for pressure tolerates. (4) Acute hyponatremia: Code(s): E87.1 - Hypo-osmolality and hyponatremia Status: Acute Assessment and Plan: Baseline hyponatremia, 128 on 03/2023. Initial 114. Continue D5 with bicarb. Monitor sodium closely with serial sodium checks. TSH is pending. Nephrology has been consulted. (5) Hypoglycemia: Code(s): E16.2 - Hypoglycemia, unspecified Status: Acute Assessment and Plan: Patient found to have glucose of less than 20 in the field. She was treated appropriately. Glucose improved with some initial improvement of her mental status. Continue serial glucose checks. Continue dextrose. Hypoglycemia protocol in place (6) Pneumonia: Code(s): J18.9 - Pneumonia, unspecified organism Status: Acute Assessment and Plan: CT as mentioned above. Cultures have been collected. Continue IV antibiotics. (7) MOHAN (acute kidney injury): Code(s): N17.9 - Acute kidney failure, unspecified Status: Acute Assessment and Plan: Most recent Cr baseline 0.8 - 1.0. Initially 1.0, repeat 2.4. Possibly related to rhabdomyolysis. Nephrology consulted. Creatinine slightly better today. Continue to follow-up (8) Elevated liver function tests: Code(s): R79.89 - Other specified abnormal findings of blood chemistry Status: Acute Assessment and Plan: AST and ALT elevated and trending upward. Baseline variable. She does have underlying cirrhosis. His elevated liver enzymes also related to rhabdomyolysis. Follow. (9) Alcohol dependence: Code(s): F10.20 - Alcohol dependence, uncomplicated Status: Acute Assessment and Plan: As above. Add thiamine and folate. (10) Metabolic acidosis: Code(s): E87.20 - Acidosis, unspecified Status: Acute Assessment and Plan: Related to lactic acid. As above (11) Rhabdomyolysis: Code(s): M62.82 - Rhabdomyolysis Status: Acute Assessment and Plan: Related to being down. Also on statin. As above Plan Diet - NPO Code status - Full Code Subjective Date/time seen: 06/26/23 09:27 Interval history: 62yo female with CHF, alcoholism, COPD, AFib, and cirrhosis here for being found unresponsive with h
--- NOTE | 2023-06-26 09:45 | P.CONNP_ITS ---
Assessment and Plan Assessment and plan (1) MOHAN (acute kidney injury): Code(s): N17.9 - Acute kidney failure, unspecified Status: Acute Assessment and Plan: * suspect ATN with multifactorial etiology * hemodynamic instability/shock * rhabdomyolysis * infection/sepsis * prerenal factors (less likely since appears volume overloaded now) * CPK mildly elevated -- follow trend * CT scan without evidence of obstruction * follow-up on urine studies * remains at risk for NEWS PRODUCTION SUPERVISOR/dialysis * follow trend of repeat labs and UOP (2) Hyponatremia: Code(s): E87.1 - Hypo-osmolality and hyponatremia Status: Acute Assessment and Plan: * acute on chronic * baseline sodium runs 124 - 130mmol/L since 2019 * risk factors for low sodium: * history of CHF * history of liver disease * thyroid disease * COPD * SSRI use (lexapro) * suspect MOHAN/ARF in conjunction with volume overload to blame for acute decline in sodium * ok to continue current IVFs for now at low dose * follow-up TSH, cortisol, SPEP, UPEP, and serum/urine osmolality * start normal saline tube flushes * given her need for multiple IV drips/medications...suspect some difficulty controling sodium level * would try to avoid 3% saline if possible (since fluid overloaded) * consider diuresis but hemodynamics not likely to tolerated * follow trend of repeat sodium levels (3) Septic shock: Code(s): A41.9 - Sepsis, unspecified organism; R65.21 - Severe sepsis with septic shock Status: Acute Assessment and Plan: * source not clear * follow culture data * empiric antibiotics * vasopressor therapy to maitain MAP * stress dose steroids added * follow-up on echo (4) Acute respiratory failure: Code(s): J96.00 - Acute respiratory failure, unspecified whether with hypoxia or hypercapnia Status: Acute Assessment and Plan: * due to altered mental status, low blood sugar, septic shock, and pulmonary edema * intubated and on mechanical ventilation * agree with diuresis when better hemodynamics -- suspect this intervention will help hyponatremia as well * continue supportive care. (5) Metabolic acidosis: Code(s): E87.20 - Acidosis, unspecified Status: Acute Assessment and Plan: * secondary to septic shock and acute kidney injury * on IV fluids with bicarb and acidosis improving * follow ABGs and CO2 levels (6) Congestive heart failure: Code(s): I50.9 - Heart failure, unspecified Status: Acute Assessment and Plan: * limiting IVFs as tolerated * BNP as well as imaging c/w this/volume overload * follow-up on echo (7) Rhabdomyolysis: Code(s): M62.82 - Rhabdomyolysis Status: Acute Assessment and Plan: * possibly contributing to MOHAN/ARF * follow trend of CPK levels * on gentle IVFs with bicarbonate Discussed case with Dr. Lawson. Greater than 20 minutes was spent in detailed review of her electronic medical records, discussion with the ER physician yesterday evening, as well as discussion with the physicians and nurses involved in his care at the current time. The patient remains critically ill and his requiring 2 vasopressor agents to maintain her mean arterial pressure. Given the trend of her renal function, there is a possibility that she may require renal replacement therapy/dialysis as well. I will continue to follow patient with you while she remains hospitalized and make further recommendations as needed. Thank
--- NOTE | 2023-06-26 09:45 | PM.CNNEP ---
Assessment and Plan Assessment and plan (1) MOHAN (acute kidney injury): Code(s): N17.9 - Acute kidney failure, unspecified Status: Acute Assessment and Plan: suspect ATN with multifactorial etiology hemodynamic instability/shock rhabdomyolysis infection/sepsis prerenal factors (less likely since appears volume overloaded now) CPK mildly elevated -- follow trend CT scan without evidence of obstruction follow-up on urine studies remains at risk for SYSTEMS ADMIN/dialysis follow trend of repeat labs and UOP (2) Hyponatremia: Code(s): E87.1 - Hypo-osmolality and hyponatremia Status: Acute Assessment and Plan: acute on chronic baseline sodium runs 124 - 130mmol/L since 2019 risk factors for low sodium: history of CHF history of liver disease thyroid disease COPD SSRI use (lexapro) suspect MOHAN/ARF in conjunction with volume overload to blame for acute decline in sodium ok to continue current IVFs for now at low dose follow-up TSH, cortisol, SPEP, UPEP, and serum/urine osmolality start normal saline tube flushes given her need for multiple IV drips/medications...suspect some difficulty controling sodium level would try to avoid 3% saline if possible (since fluid overloaded) consider diuresis but hemodynamics not likely to tolerated follow trend of repeat sodium levels (3) Septic shock: Code(s): A41.9 - Sepsis, unspecified organism; R65.21 - Severe sepsis with septic shock Status: Acute Assessment and Plan: source not clear follow culture data empiric antibiotics vasopressor therapy to maitain MAP stress dose steroids added follow-up on echo (4) Acute respiratory failure: Code(s): J96.00 - Acute respiratory failure, unspecified whether with hypoxia or hypercapnia Status: Acute Assessment and Plan: due to altered mental status, low blood sugar, septic shock, and pulmonary edema intubated and on mechanical ventilation agree with diuresis when better hemodynamics -- suspect this intervention will help hyponatremia as well continue supportive care. (5) Metabolic acidosis: Code(s): E87.20 - Acidosis, unspecified Status: Acute Assessment and Plan: secondary to septic shock and acute kidney injury on IV fluids with bicarb and acidosis improving follow ABGs and CO2 levels (6) Congestive heart failure: Code(s): I50.9 - Heart failure, unspecified Status: Acute Assessment and Plan: limiting IVFs as tolerated BNP as well as imaging c/w this/volume overload follow-up on echo (7) Rhabdomyolysis: Code(s): M62.82 - Rhabdomyolysis Status: Acute Assessment and Plan: possibly contributing to MOHAN/ARF follow trend of CPK levels on gentle IVFs with bicarbonate Discussed case with Dr. Lawson. Greater than 20 minutes was spent in detailed review of her electronic medical records, discussion with the ER physician yesterday evening, as well as discussion with the physicians and nurses involved in his care at the current time. The patient remains critically ill and his requiring 2 vasopressor agents to maintain her mean arterial pressure. Given the trend of her renal function, there is a possibility that she may require renal replacement therapy/dialysis as well. I will continue to follow patient with you while she remains hospitalized and make further recommendations as needed. Thank you for allowing me to participate in care of this patient. History of Present Illness Reason for Consult Consult date: 06/26/23 Reason for consult: acute renal failure and hyponatremia Chief Complaint Chief complaint: severe sepsis,mohan,ams,hyponatremia History of Present Illness Narrative: All the information I have obtained is from review of the electronic medical record as well as discussion with the physician/nurses involved in the patient's care as she is unable to provi
[2023-06-26 09:47] LABS: Fibrinogen 192 mg/dl (215-510)
[2023-06-26 09:49] LABS: Lactic Acid Reflex 2.2 mmol/L (0.7-2.0)
[2023-06-26 09:52] LABS: Anion Gap 6 mmol/L (8-16); Blood Urea Nitrogen 20 mg/dL (7-17); Calcium 7.3 mg/dL (8.4-10.2); Carbon Dioxide 23 mmol/L (22-30); Chloride 89 mmol/L (98-107); Estimated CRCL calculation 23 ml/min; Estimated Glomerular Filt Rate 23; Glucose 112 mg/dL (65-110); Potassium 3.5 mmol/L (3.4-5.0); Sodium 118 mmol/L (137-145)
[2023-06-26 09:59] LABS: NT Pro B Type Natriuretic Pept > 30000 pg/mL (19.9-100)
[2023-06-26 10:00] LABS: Creatine Kinase 2809 U/L (30-135)
[2023-06-26] MEDS: FOLIC ACID 1 MG/0.2 ML INJ IV PUSH (10:22)
[2023-06-26] MEDS: THIAMINE HCL 200 MG/2 ML VIAL 100 MG IV PUSH (10:23)
--- NOTE | 2023-06-26 10:59 | WPDCNINT ---
Assessment and Plan Assessment and plan (1) Acute respiratory failure: Code(s): J96.00 - Acute respiratory failure, unspecified whether with hypoxia or hypercapnia Status: Acute Assessment and Plan: Acute Respiratory failure secondary to encephalopathy hypoglycemia sepsis shock pneumonia and pulmonary edema Continue full mechanical ventilation support to prevent hypoxemia/hypercarbia and end organ damage. ABG and PCXR reviewed Currently on 5 of PEEP and 45% FiO2. Increase PEEP to 5 8 Will start diuresis once hemodynamics improved Low tidal volume ventilation strategy to prevent volutrauma Bronchodilators (2) Severe sepsis: Code(s): A41.9 - Sepsis, unspecified organism; R65.20 - Severe sepsis without septic shock Status: Acute Assessment and Plan: No obvious source of infection at this time She is afebrile UA not suggestive of UTI CT scan does show patchy airspace disease which could be edema pneumonia or combination Continue vancomycin. Change cefepime to meropenem as patient has a history of ESBL E coli in her urine Check procalcitonin (3) Shock: Code(s): R57.9 - Shock, unspecified Status: Acute Assessment and Plan: Multifactorial shock due to sepsis, with possible cardiogenic comfort Continue Levophed and vasopressin infusion Continue stress dose hydrocortisone Patient has received adequate amount IV fluids and appears to be volume overloaded now hence IV fluids have been decreased 25% albumin added Check echo (4) Hyponatremia: Code(s): E87.1 - Hypo-osmolality and hyponatremia Status: Acute Assessment and Plan: Patient has history of chronic hyponatremia with highest level 128 seen in March. Presented with sodium level of 114 Improved to 118 this morning. Nephrology following. Continue current IV fluids at 50 mL/hour and monitor sodium levels as per recommendation Further workup and management as per Nephrology Nephrology (5) MOHAN (acute kidney injury): Code(s): N17.9 - Acute kidney failure, unspecified Status: Acute Assessment and Plan: Presented with acute kidney injury which is likely multifactorial secondary to shock and rhabdomyolysis CT scan does not show any obstruction or hydronephrosis Nephrology consulted and following IV fluids Monitor CK level Check urine electrolytes (6) Rhabdomyolysis: Code(s): M62.82 - Rhabdomyolysis Status: Acute Assessment and Plan: CK level elevated at 2809 Continue gentle hydration due to hypoglycemia and acidosis. Limited IV fluids as patient is overall volume overloaded Monitor CK level (7) Metabolic acidosis: Code(s): E87.20 - Acidosis, unspecified Status: Acute Assessment and Plan: Secondary to sepsis and acute kidney injury Currently on IV fluids with bicarb and acidosis improving Monitor (8) Hypoglycemia: Code(s): E16.2 - Hypoglycemia, unspecified Status: Acute Assessment and Plan: Improved with D5 infusion. Will start tube feeds the trickle rate and wean off dextrose if possible (9) Electrolyte abnormality: Code(s): E87.8 - Other disorders of electrolyte and fluid balance, not elsewhere classified Status: Acute Assessment and Plan: Potassium replacement ordered (10) Congestive heart failure: Code(s): I50.9 - Heart failure, unspecified Status: Acute Assessment and Plan: Patient has BNP of more than 30,000. CT scan suggest congestive heart failure Patient also is in shock IV fluids have been decreased Echo is pending Plan DVT prophylaxis -Lovenox Stress ulcer prophylaxis -PPI Nutrition -start Tube Feeds Code Status - Full Code Total Critical Care Time -45 minutes Due to a high probability of clinically significant, life threatening deterioration, the patient required my highest level of preparedness to intervene emergently and I personally spent this critical care time d
[2023-06-26 11:12] LABS: Glucose Point of Care 100 mg/dl (65-105)
[2023-06-26] MEDS: KCL 40 MEQ/WATER 100 ML 100 ML 25 ML IVPB (11:14)
[2023-06-26] MEDS: ALBUMIN HUMAN 25% 25 GM/100 ML 100 ML IVPB ×2 (11:14→17:04)
[2023-06-26] MEDS: PERFLUTREN LIPID MICROSPHERES 1.5 ML VIAL DILUTED TO 10 ML TOTAL VOLUME IV PUSH (11:15)
[2023-06-26 11:30] LABS: Cortisol Random > 123.00 ug/dL
[2023-06-26 11:31] LABS: Free T4 Free Thyroxine Reflex 4.46 ng/dL (0.78-2.19)
[2023-06-26 12:31] LABS: Reflex Lactic Acid Yes or No Add Lactic
[2023-06-26 12:42] LABS: Procalcitonin 5.4 ng/mL
--- NOTE | 2023-06-26 13:13 | IVDEFINITY ---
Prior to administration of IV Definity the patient was educated on the risks and benefits of the imaging enhancing agent including potential adverse side effects. The patient verbalized understanding. Allergies were verified. No exclusion criteria were identified and at least one of the following inclusion criteria were met: 1) physician request, 2) patient technically difficult to image (per the [place] [employer] guidelines of two or more segments not discernable within the apical view), or 3) questionable left ventricular function. ?
[2023-06-26] MEDS: NOREPINEPHRINE 8 MG/D5W 250 ML 8 MG/250 ML BAG 22.5 MG IV CONT (13:15)
[2023-06-26] MEDS: CENTRAL LINE FLUSH 10 ML IV PUSH ×3 (13:17→21:16)
[2023-06-26 13:59] LABS: Creatinine Urine 134.4 mg/dL
[2023-06-26 14:00] LABS: Lactic Acid 2.1 mmol/L (0.7-2.0)
[2023-06-26 14:10] LABS: Sodium Urine Random 19 meq/L
[2023-06-26 17:12] LABS: Glucose Point of Care 108 mg/dl (65-105)
[2023-06-26 17:16] LABS: Anion Gap 9 mmol/L (8-16); Blood Urea Nitrogen 21 mg/dL (7-17); Calcium 7.1 mg/dL (8.4-10.2); Carbon Dioxide 19 mmol/L (22-30); Chloride 90 mmol/L (98-107); Estimated CRCL calculation 24 ml/min; Estimated Glomerular Filt Rate 24; Glucose 126 mg/dL (65-110); Potassium 4.3 mmol/L (3.4-5.0); Sodium 118 mmol/L (137-145)
[2023-06-26] MEDS: SODIUM CHLORIDE 3% 180 ML 60 ML IVPB (18:42)
[2023-06-26 18:45] LABS: Eosinophil Urine None Seen % (None Seen); Urine Eos QC 2nd Tech Confirmed
[2023-06-26 22:49] LABS: Anion Gap 10 mmol/L (8-16); Blood Urea Nitrogen 21 mg/dL (7-17); Calcium 7.2 mg/dL (8.4-10.2); Carbon Dioxide 20 mmol/L (22-30); Chloride 93 mmol/L (98-107); Estimated CRCL calculation 23 ml/min; Estimated Glomerular Filt Rate 23; Glucose 133 mg/dL (65-110); Potassium 4.2 mmol/L (3.4-5.0); Sodium 123 mmol/L (137-145)
[2023-06-27] VITALS (31 sets, daily range): BP systolic 90–120; BP diastolic 56–83; PULSE 74–89; RESP 16–20; TEMP 36.4–37.4; O2SAT 95–100
[2023-06-27] MEDS: ALBUMIN HUMAN 25% 25 GM/100 ML 100 ML IVPB ×4 (00:15→17:15)
[2023-06-27 00:33] LABS: Glucose Point of Care 146 mg/dl (65-105)
[2023-06-27 01:18] LABS: Hematocrit 26.8 % (37.0-47.0); Hemoglobin 9.5 g/dL (12.0-15.0); Mean Corpuscular HGB Conc 35.4 g/dl (32-36); Mean Corpuscular Hemoglobin 34.5 pg (26-34); Mean Corpuscular Volume 97.5 fl (80-100); Platelet Count Result 150 k/mm3 (150-375); Red Blood Count 2.75 M/mm3 (4.2-5.4); Red Cell Distribution Width 13.9 % (11.5-14.5); White Blood Count 13.2 K/mm3 (4.5-10.0)
[2023-06-27 05:11] LABS: Alveolar/Arterial O2 Gradient 85.9 mmHg; Base Excess ABG -5.2 mEq/l (+/-2.0); Fractional Inspired Oxygen 30 %; HCO3 ABG 18.6 mEq/l (22.0-26.0); Oxygen Content ABG 13.5 %vol (16.0-22.0); Oxygen Saturation ABG 97.2 % (95.0-100.0); Oxyhemoglobin 95.3 % THb (90.0-100.0); PCO2 ABG 30.2 mmHg (35.0-45.0); PO2 ABG 92.5 mmHg (80.0-100.0); PO2 FiO2 Ratio Arterial Blood 3.08 %; pH ABG 7.408 (7.350-7.450)
[2023-06-27 05:12] LABS: Arterial Blood Gas PEEP 8 cmH2O; Arterial Blood Gas Vent Mode CMV; Arterial Blood Gas Ventilator rate 16 /MIN; Device VENTILATOR; Site Drawn RIGHT BRACHIAL
[2023-06-27 05:13] LABS: Arterial Blood Gas Tidal Volume 400 ml
[2023-06-27] MEDS: LEVOTHYROXINE SODIUM 25 MCG TABLET PO (06:12)
[2023-06-27] MEDS: HYDROCORTISONE SODIUM SUCCINATE 100 MG/2 ML VIAL IV PUSH ×3 (06:12→21:45)
[2023-06-27] MEDS: VANCOMYCIN 1,000 MG/NS 250 ML 1,000 MG/250 ML BAG 250 MG IVPB (06:12)
[2023-06-27] MEDS: LEVOTHYROXINE SODIUM 112 MCG TABLET PO (06:12)
[2023-06-27] MEDS: CENTRAL LINE FLUSH 10 ML IV PUSH ×4 (06:13→20:25)
[2023-06-27 06:15] LABS: Hematocrit 24.5 % (37.0-47.0); Hemoglobin 8.8 g/dL (12.0-15.0); Mean Corpuscular HGB Conc 35.9 g/dl (32-36); Mean Corpuscular Hemoglobin 35.2 pg (26-34); Mean Platelet Volume 10.1 fl (7.4-10.4); Platelet Count Result 121 k/mm3 (150-375); Red Cell Distribution Width 14.1 % (11.5-14.5); White Blood Count 10.5 K/mm3 (4.5-10.0)
[2023-06-27 06:32] LABS: Alanine Aminotransferase 289 U/L (6-35); Alkaline Phosphatase 71 U/L (38-126); Anion Gap 9 mmol/L (8-16); Bilirubin,Total 2.4 mg/dL (0.2-1.3); Blood Urea Nitrogen 21 mg/dL (7-17); Calcium 7.3 mg/dL (8.4-10.2); Carbon Dioxide 21 mmol/L (22-30); Chloride 94 mmol/L (98-107); Estimated CRCL calculation 25 ml/min; Estimated Glomerular Filt Rate 25; Glucose 150 mg/dL (65-110); Potassium 3.9 mmol/L (3.4-5.0); Sodium 124 mmol/L (137-145)
[2023-06-27 06:33] LABS: Aspartate Amino Transferase 1398 U/L (14-36)
[2023-06-27 07:44] LABS: Band Neutrophils Percent 29 % (0-6); Eosinophils Percent Manual 1 % (0-4); Lymphocytes Absolute Manual 0.31 K/mm3 (1.1-4.5); Metamyelocytes Percent 2 %; Monocytes Percent Manual 1 % (3-9); Neutrophils Absolute Manual 9.76 K/mm3 (1.7-7.2); Neutrophils Percent Manual 64 % (46-73); Nucleated Red Blood Cells 3 %; Total Cells Counted 100
[2023-06-27 07:46] LABS: Schistocytes None Seen (NORMAL)
[2023-06-27 07:47] LABS: Burr Cells 2+ (NORMAL)
[2023-06-27] MEDS: THIAMINE HCL 200 MG/2 ML VIAL 100 MG IV PUSH (08:42)
[2023-06-27] MEDS: NOREPINEPHRINE 8 MG/D5W 250 ML 8 MG/250 ML BAG 7.5 MG IV CONT (08:42)
[2023-06-27] MEDS: CHOLECALCIFEROL 1,000 UNITS TABLET 2000 UNITS PO (08:42)
[2023-06-27] MEDS: PANTOPRAZOLE SODIUM IV 40 MG VIAL IV PUSH (08:43)
[2023-06-27] MEDS: AMIODARONE HCL 200 MG TABLET PO (08:43)
[2023-06-27] MEDS: MINERAL OIL/WHITE PETROLATUM OINTMENT 1 APPLIC EACH EYE ×2 (08:43→20:25)
[2023-06-27] MEDS: MEROPENEM 500 MG in SODIUM CHLORIDE 0.9% IV 100 ML 200 ML IVPB ×2 (08:45→20:28)
[2023-06-27] MEDS: FOLIC ACID 1 MG/0.2 ML INJ IV PUSH (08:45)
--- NOTE | 2023-06-27 09:55 | WPDINTPN ---
Progress Note: A&P Assessment and Plan (1) Acute respiratory failure: Code(s): J96.00 - Acute respiratory failure, unspecified whether with hypoxia or hypercapnia Status: Acute Assessment and Plan: Acute Respiratory failure secondary to encephalopathy hypoglycemia sepsis shock pneumonia and pulmonary edema Continue full mechanical ventilation support to prevent hypoxemia/hypercarbia and end organ damage. ABG and PCXR reviewed Currently on 5 of PEEP and 30 % FiO2. Will perform sedation holiday and evaluate for weaning trial Low tidal volume ventilation strategy to prevent volutrauma Bronchodilators (2) Severe sepsis: Code(s): A41.9 - Sepsis, unspecified organism; R65.20 - Severe sepsis without septic shock Status: Acute Assessment and Plan: She is now afebrile. WBC improved UA not suggestive of UTI CT scan does show patchy airspace disease which could be edema pneumonia or combination Continue vancomycin and meropenem as patient has a history of ESBL E coli in her urine procalcitonin elevated at 5.4 (3) Shock: Code(s): R57.9 - Shock, unspecified Status: Acute Assessment and Plan: Multifactorial shock due to sepsis and cardiogenic Continue Levophed and vasopressin infusion Continue stress dose hydrocortisone Patient has received adequate amount IV fluids and appears to be volume overloaded now hence IV fluids have been decreased Will hold further 25% albumin dosing Echo 06/26 (4) Hyponatremia: Code(s): E87.1 - Hypo-osmolality and hyponatremia Status: Acute Assessment and Plan: Patient has history of chronic hyponatremia with highest level 128 seen in March. Presented with sodium level of 114 Improved to 124 this morning. Nephrology following. Sodium is improving and is close to patient's baseline will now Hold further IV fluids Further workup and management as per Nephrology Nephrology (5) MOHAN (acute kidney injury): Code(s): N17.9 - Acute kidney failure, unspecified Status: Acute Assessment and Plan: Presented with acute kidney injury which is likely multifactorial secondary to shock and rhabdomyolysis CT scan does not show any obstruction or hydronephrosis Nephrology consulted and following Creatinine improved to 2.0 today Monitor CK level Check urine electrolytes (6) Rhabdomyolysis: Code(s): M62.82 - Rhabdomyolysis Status: Acute Assessment and Plan: CK level elevated at 2809 Patient has been receiving IV fluids Limited IV fluids as patient is overall volume overloaded Monitor CK level (7) Metabolic acidosis: Code(s): E87.20 - Acidosis, unspecified Status: Acute Assessment and Plan: Secondary to sepsis and acute kidney injury Improved with iV fluids with bicarb and acidosis improving Monitor (8) Hypoglycemia: Code(s): E16.2 - Hypoglycemia, unspecified Status: Acute Assessment and Plan: Improved. BC dextrose infusion. advance tube feeds (9) Electrolyte abnormality: Code(s): E87.8 - Other disorders of electrolyte and fluid balance, not elsewhere classified Status: Acute Assessment and Plan: Potassium improved after placement (10) Congestive heart failure: Code(s): I50.9 - Heart failure, unspecified Status: Acute Assessment and Plan: Patient has BNP of more than 30,000. CT scan suggest congestive heart failure Patient also is in shock IV fluids have been discontinue Echo 06/26 Summary ? 1. Mild LV enlargement with mildly depressed systolic function ejection fraction 40-45%. ? 2. RV enlargement with RV systolic dysfunction. ? 3. Moderate biatrial enlargement. ? 4. Mild mitral and tricuspid valve regurgitation. Plan DVT prophylaxis -Lovenox Stress ulcer prophylaxis -PPI Nutrition -Continue Tube Feeds Code Status - Full Code I spoke to patient's in detail about patient's current status including respiratory devin
--- NOTE | 2023-06-27 10:06 | PM.IMPN ---
Progress Note: A&P Assessment and Plan (1) Severe sepsis: Code(s): A41.9 - Sepsis, unspecified organism; R65.20 - Severe sepsis without septic shock Status: Acute Assessment and Plan: Patient found down at home with severe hypoglycemia. Patient initially had improvement with correction of her hypoglycemia but acutely decompensated in the ED requiring intubation. CT concerning for patchy airspace opacity to the right upper lobe, consistent with mild pulmonary edema versus pneumonia. Cardiomegaly. Mild wall thickening of gallbladder, unclear significance. UA not consistent with UTI elevated white count - 12.3 lactate 11.4, now 2.1 currently intubated due to decompensation in ED; on sedation Trend ABGs Hypotensive in ED so NE started -- CONFIGURATION SPECIALIST off. currently on 4mcg/min. Continue Solu-Cortef. Antibiotic started 06/25; continue vancomycin, meropenem BCx NGTD MRSA screening pending Wean NE as tolerated (2) Acute respiratory failure: Code(s): J96.00 - Acute respiratory failure, unspecified whether with hypoxia or hypercapnia Status: Acute Assessment and Plan: As above. ABG on admisison [id number]/03/[id number] on MV. Mostly metabolic acidosis. Related to being down for prolonged period. Total CK elevated so has rhabdomyolysis. Continue mechanical ventilation support. Monitor mental status. Wean off Levophed as tolerated. Discussed with robotic welder. (3) Shock: Code(s): R57.9 - Shock, unspecified Status: Acute Assessment and Plan: As above. Wean Levophed as blood pressure tolerates. (4) Acute hyponatremia: Code(s): E87.1 - Hypo-osmolality and hyponatremia Status: Acute Assessment and Plan: Baseline hyponatremia, 128 on 03/2023. Initial 114. Treated with IV fluids. 3% given with improvement. Monitor sodium closely with serial sodium checks. TSH 0.36 with elevated FT4. Cortisol >123 but on Solu-Cortef. Nephrology following and appreciate their input. Plan to repeat TSH and Cortisol once off steroids and more stable. (5) Hypoglycemia: Code(s): E16.2 - Hypoglycemia, unspecified Status: Acute Assessment and Plan: Patient found to have glucose of less than 20 in the field. She was treated appropriately. Glucose improved with some initial improvement of her mental status. Continue serial glucose checks. Hypoglycemia protocol in place (6) Pneumonia: Code(s): J18.9 - Pneumonia, unspecified organism Status: Acute Assessment and Plan: CT as mentioned above. Cultures have been collected. Continue IV antibiotics. (7) MOHAN (acute kidney injury): Code(s): N17.9 - Acute kidney failure, unspecified Status: Acute Assessment and Plan: Most recent Cr baseline 0.8 - 1.0. Creatinine 2.4. Possibly related to rhabdomyolysis. Nephrology consulted. Creatinine better today at 2 Continue to monitor (8) Elevated liver function tests: Code(s): R79.89 - Other specified abnormal findings of blood chemistry Status: Acute Assessment and Plan: AST and ALT markedly elevated. Baseline variable. She does have underlying cirrhosis. probably shock liver and relate to rhabdomyolysis. Levels better/stable Follow. (9) Alcohol dependence: Code(s): F10.20 - Alcohol dependence, uncomplicated Status: Acute Assessment and Plan: As above. Continue thiamine and folate. (10) Metabolic acidosis: Code(s): E87.20 - Acidosis, unspecified Status: Acute Assessment and Plan: Related to lactic acid. Acidosis better and AG closed As above (11) Rhabdomyolysis: Code(s): M62.82 - Rhabdomyolysis Status: Acute Assessment and Plan: Related to being down. Also on statin. Trend TCK As above Plan Diet - NPO Code status - Full Code Subjective Date/time seen: 06/27/23 10:06 Interval history: 62yo female
[2023-06-27 10:50] LABS: Creatine Kinase 1502 U/L (30-135)
--- NOTE | 2023-06-27 11:21 | P.PNNP_ITS ---
Progress Note: A&P Assessment and Plan (1) MOHAN (acute kidney injury): Code(s): N17.9 - Acute kidney failure, unspecified Status: Acute Assessment and Plan: * Acute kidney injury * CT scan shows no obstruction * Urine electrolytes are pre renal * Urinalysis is bland * CK is moderately high at 1502. this is better. Not likely to affect the kidneys but will recheck the level tomorrow. * suspect ATN with multifactorial etiology * hemodynamic instability/shock * rhabdomyolysis * infection/sepsis * prerenal factors (less likely since appears volume overloaded now). * follow-up on urine studies * remains at risk for ENVIRONMENTAL JOURNALIST/dialysis * follow trend of repeat labs and UOP (2) Hyponatremia: Code(s): E87.1 - Hypo-osmolality and hyponatremia Status: Acute Assessment and Plan: * acute on chronic * baseline sodium runs 124 - 130mmol/L since 2019 * risk factors for low sodium: * history of CHF * history of liver disease * thyroid disease * COPD * SSRI use (lexapro) * suspect MOHAN/ARF in conjunction with volume overload to blame for acute decline in sodium * Cortisol level okay. * TSH level is a little high but the free T4 is a little high as well. * SPEP is pending * Her sodium level was low and stay low so a little bit of 3% saline was given. * Today the sodium level sue a tiny bit too quickly. * Will give D5W to get the sodium level down. * She is not making a lot of urine so I do not think she is auto correcting. * Will check another sodium level in a few hours (3) Septic shock: Code(s): A41.9 - Sepsis, unspecified organism; R65.21 - Severe sepsis with septic shock Status: Acute Assessment and Plan: * source not clear * follow culture data * empiric antibiotics * On norepi and vasopressin. * stress dose steroids added * follow-up on echo (4) Acute respiratory failure: Code(s): J96.00 - Acute respiratory failure, unspecified whether with hypoxia or hypercapnia Status: Acute Assessment and Plan: * due to altered mental status, low blood sugar, septic shock, and pulmonary edema * intubated and on mechanical ventilation * agree with diuresis when better hemodynamics -- suspect this intervention will help hyponatremia as well * continue supportive care. (5) Metabolic acidosis: Code(s): E87.20 - Acidosis, unspecified Status: Acute Assessment and Plan: * secondary to septic shock and acute kidney injury * on IV fluids with bicarb and acidosis improving * Bicarbonate level up to 21 today. (6) Congestive heart failure: Code(s): I50.9 - Heart failure, unspecified Status: Acute Assessment and Plan: * limiting IVFs as tolerated * BNP as well as imaging c/w this/volume overload * follow-up on echo (7) Rhabdomyolysis: Code(s): M62.82 - Rhabdomyolysis Status: Acute Assessment and Plan: * possibly contributing to MOHAN/ARF * follow trend of CPK levels Discussed case with Dr. Lawson. Subjective Date/time seen: 06/27/23 11:21 Interval history: Patient is sedated. She cannot give a history. She is on the ventilator. Exam Narrative: WDWN female on the ventilator in NAD skin no rash head ncat lungs coarse bilaterally cor reg no rub abd BS+ nontender and soft ext no edema. Objective Data Vital Signs Vital Signs:
--- NOTE | 2023-06-27 11:21 | PM.PNNEP ---
Progress Note: A&P Assessment and Plan (1) MOHAN (acute kidney injury): Code(s): N17.9 - Acute kidney failure, unspecified Status: Acute Assessment and Plan: Acute kidney injury CT scan shows no obstruction Urine electrolytes are pre renal Urinalysis is bland CK is moderately high at 1502. this is better. Not likely to affect the kidneys but will recheck the level tomorrow. suspect ATN with multifactorial etiology hemodynamic instability/shock rhabdomyolysis infection/sepsis prerenal factors (less likely since appears volume overloaded now). follow-up on urine studies remains at risk for EXTRUSION OPERATOR/dialysis follow trend of repeat labs and UOP (2) Hyponatremia: Code(s): E87.1 - Hypo-osmolality and hyponatremia Status: Acute Assessment and Plan: acute on chronic baseline sodium runs 124 - 130mmol/L since 2019 risk factors for low sodium: history of CHF history of liver disease thyroid disease COPD SSRI use (lexapro) suspect MOHAN/ARF in conjunction with volume overload to blame for acute decline in sodium Cortisol level okay. TSH level is a little high but the free T4 is a little high as well. SPEP is pending Her sodium level was low and stay low so a little bit of 3% saline was given. Today the sodium level sue a tiny bit too quickly. Will give D5W to get the sodium level down. She is not making a lot of urine so I do not think she is auto correcting. Will check another sodium level in a few hours (3) Septic shock: Code(s): A41.9 - Sepsis, unspecified organism; R65.21 - Severe sepsis with septic shock Status: Acute Assessment and Plan: source not clear follow culture data empiric antibiotics On norepi and vasopressin. stress dose steroids added follow-up on echo (4) Acute respiratory failure: Code(s): J96.00 - Acute respiratory failure, unspecified whether with hypoxia or hypercapnia Status: Acute Assessment and Plan: due to altered mental status, low blood sugar, septic shock, and pulmonary edema intubated and on mechanical ventilation agree with diuresis when better hemodynamics -- suspect this intervention will help hyponatremia as well continue supportive care. (5) Metabolic acidosis: Code(s): E87.20 - Acidosis, unspecified Status: Acute Assessment and Plan: secondary to septic shock and acute kidney injury on IV fluids with bicarb and acidosis improving Bicarbonate level up to 21 today. (6) Congestive heart failure: Code(s): I50.9 - Heart failure, unspecified Status: Acute Assessment and Plan: limiting IVFs as tolerated BNP as well as imaging c/w this/volume overload follow-up on echo (7) Rhabdomyolysis: Code(s): M62.82 - Rhabdomyolysis Status: Acute Assessment and Plan: possibly contributing to MOHAN/ARF follow trend of CPK levels Discussed case with Dr. Lawson. Subjective Date/time seen: 06/27/23 11:21 Interval history: Patient is sedated. She cannot give a history. She is on the ventilator. Exam Narrative: WDWN female on the ventilator in NAD skin no rash head ncat lungs coarse bilaterally cor reg no rub abd BS+ nontender and soft ext no edema. Objective Data Vital Signs Vital Signs: Vital Signs - 24 hr 06/26/23 12:00 06/26/23 12:00 06/26/23 12:00 Temperature 98.6 F Pulse Rate 90 86 86 Respiratory Rate 15 15 Blood Pressure 116/65 Pulse Oximetry 97 97 Oxygen Delivery Mechanical Ventilation Fraction of Inspired Oxygen 06/26/23 13:15 06/26/23 14:55 06/26/23 14:00 Temperature Pulse Rate 81 72 76 Respiratory Rate Blood Pressure 121/101 H Pulse Oximetry 97 Oxygen Delivery Mechanical Ventilation Fraction of Inspired Oxygen 06/26/23 14:00 06/26/23 11:30 06/26/23 12:00 Temperature 98.5 F Pulse Rate 76 88 Respiratory Rate 18 Bloo
[2023-06-27 11:47] LABS: Glucose Point of Care 152 mg/dl (65-105)
[2023-06-27] MEDS: DEXTROSE 5% 1,000 ML 1,000 ML 180 ML IV CONT (11:53)
[2023-06-27 15:00] LABS: Sodium 125 mmol/L (137-145)
[2023-06-27] MEDS: DESMOPRESSIN ACETATE 4 MCG/ML AMP 2 MCG IV PUSH (16:37)
[2023-06-27 17:20] LABS: Glucose Point of Care 203 mg/dl (65-105)
[2023-06-27] MEDS: INSULIN ASPART (*BKC) 100 UNITS/ML SUB-Q (17:20)
[2023-06-27 18:09] LABS: Sodium 126 mmol/L (137-145)
[2023-06-27 21:58] LABS: Sodium 124 mmol/L (137-145)
[2023-06-27 23:22] LABS: Glucose Point of Care 116 mg/dl (65-105)
[2023-06-28] VITALS (36 sets, daily range): BP systolic 78–107; BP diastolic 57–73; PULSE 66–82; RESP 15–18; TEMP 35.3–36.2; O2SAT 92–99
[2023-06-28] MEDS: ALBUMIN HUMAN 25% 25 GM/100 ML 100 ML IVPB ×4 (00:44→17:28)
[2023-06-28] MEDS: ALTEPLASE 2 MG VIAL (CATHFLO) IV PUSH ×4 (04:02→18:29)
[2023-06-28 04:28] LABS: Basophils Absolute Auto 0.1 K/mm3 (0.0-0.1); Eosinophils Percent Auto 0.2 % (0-4.4); Hematocrit 21.8 % (37.0-47.0); Hemoglobin 7.6 g/dL (12.0-15.0); Immature Granulocyte Absolute 0.71 K/mm3 (0.00-0.031); Immature Granulocyte Percent A 11.5 % (0-0.5); Immature Platelet Fraction Pct 7.5 % (0.9-11.2); Lymphocytes Absolute Auto 0.52 K/mm3 (0.9-3.2); Lymphocytes Percent Auto 8.4 % (18.3-44.2); Mean Corpuscular HGB Conc 34.9 g/dl (32-36); Mean Corpuscular Hemoglobin 33.6 pg (26-34); Mean Corpuscular Volume 96.5 fl (80-100); Mean Platelet Volume 10.5 fl (7.4-10.4); Monocytes Absolute Auto 0.1 K/mm3 (0.1-0.6); Monocytes Percent Auto 1.8 % (2.6-8.5); Neutrophils Absolute Auto 4.8 K/mm3 (1.3-6.7); Neutrophils Percent Auto 77.1 % (45.5-73.1); Nucleated Red Blood Cells Absolute Auto 0.1 K/mm3 (0.0-0.012); Platelet Count Result 55 k/mm3 (150-375); Red Blood Count 2.26 M/mm3 (4.2-5.4); Red Cell Distribution Width 14.2 % (11.5-14.5); White Blood Count 6.2 K/mm3 (4.5-10.0)
[2023-06-28 04:45] LABS: Alanine Aminotransferase 186 U/L (6-35); Albumin Level 3.8 g/dL (3.5-5.1); Alkaline Phosphatase 60 U/L (38-126); Anion Gap 12 mmol/L (8-16); Aspartate Amino Transferase 635 U/L (14-36); Bilirubin,Total 2.5 mg/dL (0.2-1.3); Blood Urea Nitrogen 23 mg/dL (7-17); Calcium 8.4 mg/dL (8.4-10.2); Carbon Dioxide 21 mmol/L (22-30); Chloride 92 mmol/L (98-107); Estimated CRCL calculation 29 ml/min; Estimated Glomerular Filt Rate 30; Glucose 128 mg/dL (65-110); Phosphorus 2.4 mg/dL (2.5-4.5); Potassium 3.5 mmol/L (3.4-5.0); Sodium 125 mmol/L (137-145)
[2023-06-28 05:03] LABS: Platelet Estimate Decreased (Adequate)
[2023-06-28 05:04] LABS: Hypochromasia 1+ (NORMAL); Polychromasia 1+ (NORMAL); Schistocytes None Seen (NORMAL)
[2023-06-28 05:09] LABS: Creatine Kinase 1019 U/L (30-135)
[2023-06-28 05:44] LABS: Hematocrit 22.1 % (37.0-47.0); Hemoglobin 7.7 g/dL (12.0-15.0); Immature Platelet Fraction Pct 8.9 % (0.9-11.2); Mean Corpuscular HGB Conc 34.8 g/dl (32-36); Mean Corpuscular Hemoglobin 34.4 pg (26-34); Mean Corpuscular Volume 98.7 fl (80-100); Mean Platelet Volume 10.9 fl (7.4-10.4); Platelet Count Result 61 k/mm3 (150-375); Red Blood Count 2.24 M/mm3 (4.2-5.4); Red Cell Distribution Width 14.6 % (11.5-14.5); White Blood Count 7.8 K/mm3 (4.5-10.0)
[2023-06-28] MEDS: HYDROCORTISONE SODIUM SUCCINATE 100 MG/2 ML VIAL IV PUSH (06:20)
[2023-06-28] MEDS: LEVOTHYROXINE SODIUM 112 MCG TABLET PO (06:21)
[2023-06-28] MEDS: LEVOTHYROXINE SODIUM 25 MCG TABLET PO (06:21)
[2023-06-28 06:28] LABS: Band Neutrophils Percent 7 % (0-6); Lymphocytes Absolute Manual 0.31 K/mm3 (1.1-4.5); Metamyelocytes Percent 2 %; Monocytes Absolute Manual 0.62 K/mm3 (0.1-0.90); Monocytes Percent Manual 8 % (3-9); Neutrophils Percent Manual 79 % (46-73); Nucleated Red Blood Cells 1 %; Total Cells Counted 100
[2023-06-28 06:29] LABS: Anisocytosis 1+ (NORMAL); Burr Cells 3+ (NORMAL); Platelet Estimate Decreased (Adequate); Schistocytes Rare (NORMAL)
--- NOTE | 2023-06-28 08:32 | WPDINTPN ---
Progress Note: A&P Assessment and Plan (1) Acute respiratory failure: Code(s): J96.00 - Acute respiratory failure, unspecified whether with hypoxia or hypercapnia Status: Acute Assessment and Plan: Acute Respiratory failure secondary to encephalopathy hypoglycemia sepsis shock pneumonia and pulmonary edema Continue full mechanical ventilation support to prevent hypoxemia/hypercarbia and end organ damage. ABG and PCXR reviewed Currently on 5 of PEEP and 30 % FiO2. Will perform sedation holiday and evaluate for weaning trial Lasix IV x1 today Low tidal volume ventilation strategy to prevent volutrauma Bronchodilators (2) Severe sepsis: Code(s): A41.9 - Sepsis, unspecified organism; R65.20 - Severe sepsis without septic shock Status: Acute Assessment and Plan: She is now afebrile. WBC improved UA not suggestive of UTI CT scan does show patchy airspace disease which could be edema pneumonia or combination Continue vancomycin and meropenem as patient has a history of ESBL E coli in her urine procalcitonin elevated at 5.4 (3) Shock: Code(s): R57.9 - Shock, unspecified Status: Acute Assessment and Plan: Multifactorial shock due to sepsis and cardiogenic Continue Levophed but will discontinue vasopressin infusion DC stress dose hydrocortisone Patient has received adequate amount IV fluids and appears to be volume overloaded now hence IV fluids have been decreased Will hold further 25% albumin dosing Echo 06/26 (4) Hyponatremia: Code(s): E87.1 - Hypo-osmolality and hyponatremia Status: Acute Assessment and Plan: Patient has history of chronic hyponatremia with highest level 128 seen in March. Presented with sodium level of 114 Improved to 124 this morning. Nephrology following. Sodium is improving and is close to patient's baseline will now Hold further IV fluids Further workup and management as per Nephrology Nephrology (5) MOHAN (acute kidney injury): Code(s): N17.9 - Acute kidney failure, unspecified Status: Acute Assessment and Plan: Presented with acute kidney injury which is likely multifactorial secondary to shock and rhabdomyolysis CT scan does not show any obstruction or hydronephrosis Nephrology consulted and following Creatinine improved to 1.7 today Monitor CK level Check urine electrolytes (6) Rhabdomyolysis: Code(s): M62.82 - Rhabdomyolysis Status: Acute Assessment and Plan: CK level elevated at 2809 Patient initially received IV fluids Limited IV fluids as patient is overall volume overloaded Monitor CK level which is improved (7) Metabolic acidosis: Code(s): E87.20 - Acidosis, unspecified Status: Acute Assessment and Plan: Secondary to sepsis and acute kidney injury Improved with iV fluids with bicarb and acidosis improving Monitor (8) Hypoglycemia: Code(s): E16.2 - Hypoglycemia, unspecified Status: Acute Assessment and Plan: Improved. Off dextrose infusion now. advance tube feeds (9) Electrolyte abnormality: Code(s): E87.8 - Other disorders of electrolyte and fluid balance, not elsewhere classified Status: Acute Assessment and Plan: Potassium replacement ordered (10) Congestive heart failure: Code(s): I50.9 - Heart failure, unspecified Status: Acute Assessment and Plan: Patient has BNP of more than 30,000. CT scan suggest congestive heart failure Patient has been in shock IV fluids have been discontinue Will give Lasix Echo 06/26 Summary ? 1. Mild LV enlargement with mildly depressed systolic function ejection fraction 40-45%. ? 2. RV enlargement with RV systolic dysfunction. ? 3. Moderate biatrial enlargement. ? 4. Mild mitral and tricuspid valve regurgitation. Plan DVT prophylaxis -Lovenox Stress ulcer prophylaxis -PPI Nutrition -Continue Tube Feeds Code Status - Full Code 06/27 I spoke to patient's hu
[2023-06-28] MEDS: PANTOPRAZOLE SODIUM IV 40 MG VIAL IV PUSH (09:06)
[2023-06-28] MEDS: THIAMINE HCL 200 MG/2 ML VIAL 100 MG IV PUSH (09:06)
[2023-06-28] MEDS: FUROSEMIDE INJ 40 MG/4 ML VIAL IV PUSH ×2 (09:07→17:29)
[2023-06-28] MEDS: AMIODARONE HCL 200 MG TABLET PO (09:07)
[2023-06-28] MEDS: POTASSIUM BICARBONATE 25 MEQ TABEF 50 MEQ FEED TUBE (09:07)
[2023-06-28] MEDS: CHOLECALCIFEROL 1,000 UNITS TABLET 2000 UNITS PO (09:07)
[2023-06-28] MEDS: MEROPENEM 500 MG in SODIUM CHLORIDE 0.9% IV 100 ML 200 ML IVPB ×2 (09:07→21:03)
[2023-06-28] MEDS: MINERAL OIL/WHITE PETROLATUM OINTMENT 1 APPLIC EACH EYE ×2 (09:07→21:05)
[2023-06-28] MEDS: CENTRAL LINE FLUSH 10 ML IV PUSH ×4 (09:09→21:05)
[2023-06-28] MEDS: FOLIC ACID 1 MG/0.2 ML INJ IV PUSH (09:53)
--- NOTE | 2023-06-28 12:07 | P.PNNP_ITS ---
Progress Note: A&P Assessment and Plan (1) MOHAN (acute kidney injury): Code(s): N17.9 - Acute kidney failure, unspecified Status: Acute Assessment and Plan: * Acute kidney injury * CT scan shows no obstruction * Urine electrolytes are pre renal * Urinalysis is bland * CK is moderately high but decreasing. Current level is 1019 * suspect ATN with multifactorial etiology * hemodynamic instability/shock * rhabdomyolysis * infection/sepsis * prerenal factors * Things have improved. Shock is better. CK is down. She has received IV fluids. * In response her creatinine has improved (2) Hyponatremia: Code(s): E87.1 - Hypo-osmolality and hyponatremia Status: Acute Assessment and Plan: * acute on chronic * baseline sodium runs 124 - 130mmol/L since 2019 * risk factors for low sodium: * history of CHF * history of liver disease * thyroid disease * COPD * SSRI use (lexapro) * suspect MOHAN/ARF in conjunction with volume overload to blame for acute decline in sodium * Cortisol level okay. * TSH level is a little high but the free T4 is a little high as well. * SPEP is pending * Her sodium level sue a little bit too quickly so DDAVP and fluid were given to bring it down. Now the sodium is at a good level. * Volume status may be a little bit overloaded. She did receive some Lasix this morning. Will go ahead and give her Lasix plus salt tablets to get rid of the fluid but keep the sodium from dropping. * Will check another sodium level in a few hours (3) Septic shock: Code(s): A41.9 - Sepsis, unspecified organism; R65.21 - Severe sepsis with septic shock Status: Acute Assessment and Plan: * source not clear * follow culture data * empiric antibiotics * On norepi and vasopressin. * stress dose steroids added * follow-up on echo (4) Acute respiratory failure: Code(s): J96.00 - Acute respiratory failure, unspecified whether with hypoxia or hypercapnia Status: Acute Assessment and Plan: * due to altered mental status, low blood sugar, septic shock, and pulmonary edema * intubated and on mechanical ventilation * agree with diuresis when better hemodynamics -- suspect this intervention will help hyponatremia as well * continue supportive care. (5) Metabolic acidosis: Code(s): E87.20 - Acidosis, unspecified Status: Acute Assessment and Plan: * secondary to septic shock and acute kidney injury * on IV fluids with bicarb and acidosis improving * Bicarbonate level stable at 21 today. (6) Congestive heart failure: Code(s): I50.9 - Heart failure, unspecified Status: Acute Assessment and Plan: * limiting IVFs as tolerated * BNP as well as imaging c/w this/volume overload * follow-up on echo (7) Rhabdomyolysis: Code(s): M62.82 - Rhabdomyolysis Status: Acute Assessment and Plan: * possibly contributing to MOHAN/ARF * follow trend of CPK levels Subjective Date/time seen: 06/28/23 12:07 Interval history: Patient is sedated. She cannot give a history. She is on the ventilator. She looks comfortable. Exam Narrative: WDWN female on the ventilator in NAD skin no rash or subQ nodules head ncat lungs coarse bilaterally cor reg no rub or gallop abd BS+ nontender and soft ext 1+ bilateral presacral edema Objective Data Vital Signs Vital Signs:
--- NOTE | 2023-06-28 12:07 | PM.PNNEP ---
Progress Note: A&P Assessment and Plan (1) MOHAN (acute kidney injury): Code(s): N17.9 - Acute kidney failure, unspecified Status: Acute Assessment and Plan: Acute kidney injury CT scan shows no obstruction Urine electrolytes are pre renal Urinalysis is bland CK is moderately high but decreasing. Current level is 1019 suspect ATN with multifactorial etiology hemodynamic instability/shock rhabdomyolysis infection/sepsis prerenal factors Things have improved. Shock is better. CK is down. She has received IV fluids. In response her creatinine has improved (2) Hyponatremia: Code(s): E87.1 - Hypo-osmolality and hyponatremia Status: Acute Assessment and Plan: acute on chronic baseline sodium runs 124 - 130mmol/L since 2019 risk factors for low sodium: history of CHF history of liver disease thyroid disease COPD SSRI use (lexapro) suspect MOHAN/ARF in conjunction with volume overload to blame for acute decline in sodium Cortisol level okay. TSH level is a little high but the free T4 is a little high as well. SPEP is pending Her sodium level sue a little bit too quickly so DDAVP and fluid were given to bring it down. Now the sodium is at a good level. Volume status may be a little bit overloaded. She did receive some Lasix this morning. Will go ahead and give her Lasix plus salt tablets to get rid of the fluid but keep the sodium from dropping. Will check another sodium level in a few hours (3) Septic shock: Code(s): A41.9 - Sepsis, unspecified organism; R65.21 - Severe sepsis with septic shock Status: Acute Assessment and Plan: source not clear follow culture data empiric antibiotics On norepi and vasopressin. stress dose steroids added follow-up on echo (4) Acute respiratory failure: Code(s): J96.00 - Acute respiratory failure, unspecified whether with hypoxia or hypercapnia Status: Acute Assessment and Plan: due to altered mental status, low blood sugar, septic shock, and pulmonary edema intubated and on mechanical ventilation agree with diuresis when better hemodynamics -- suspect this intervention will help hyponatremia as well continue supportive care. (5) Metabolic acidosis: Code(s): E87.20 - Acidosis, unspecified Status: Acute Assessment and Plan: secondary to septic shock and acute kidney injury on IV fluids with bicarb and acidosis improving Bicarbonate level stable at 21 today. (6) Congestive heart failure: Code(s): I50.9 - Heart failure, unspecified Status: Acute Assessment and Plan: limiting IVFs as tolerated BNP as well as imaging c/w this/volume overload follow-up on echo (7) Rhabdomyolysis: Code(s): M62.82 - Rhabdomyolysis Status: Acute Assessment and Plan: possibly contributing to MOHAN/ARF follow trend of CPK levels Subjective Date/time seen: 06/28/23 12:07 Interval history: Patient is sedated. She cannot give a history. She is on the ventilator. She looks comfortable. Exam Narrative: WDWN female on the ventilator in NAD skin no rash or subQ nodules head ncat lungs coarse bilaterally cor reg no rub or gallop abd BS+ nontender and soft ext 1+ bilateral presacral edema Objective Data Vital Signs Vital Signs: Vital Signs - 24 hr 06/27/23 14:00 06/27/23 14:00 06/27/23 16:00 Temperature Pulse Rate 87 88 85 Respiratory Rate Blood Pressure Pulse Oximetry 100 Oxygen Delivery Mechanical Ventilation Fraction of Inspired Oxygen 30 06/27/23 14:00 06/27/23 16:00 06/27/23 16:47 Temperature 98.8 F 98.6 F Pulse Rate 87 83 83 Respiratory Rate 18 20 Blood Pressure 94/56 L 92/74 L Pulse Oximetry 100 100 100 Oxygen Delivery Mechanical Ventilation Fraction of Inspired Oxygen 30 06/27/23 16:00 06/27/23 16:00 06/27/23 18:00 Temperature Pulse Rate
[2023-06-28 12:39] LABS: Glucose Point of Care 154 mg/dl (65-105)
--- NOTE | 2023-06-28 16:30 | PM.IMPN ---
Progress Note: A&P Assessment and Plan (1) Severe sepsis: Code(s): A41.9 - Sepsis, unspecified organism; R65.20 - Severe sepsis without septic shock Status: Acute Assessment and Plan: Patient found down at home with severe hypoglycemia. Patient initially had improvement with correction of her hypoglycemia but acutely decompensated in the ED requiring intubation. CT concerning for patchy airspace opacity to the right upper lobe, consistent with mild pulmonary edema versus pneumonia. Cardiomegaly. Mild wall thickening of gallbladder, unclear significance. UA not consistent with UTI. Elevated white count to 12.3 and lactate to 11.4 -Currently intubated due to decompensation in ED; on sedation. Trend ABGs -Hypotensive in ED so NE and INFECTION PREVENTION SPECIALIST started; Pressors weaned off. Solu-Cortef weaned off as well Antibiotic started 06/25; continue vancomycin, meropenem -BCx 06/25 Staph haemolytics (1of2) with sensitivies pending -MRSA screening negative Contineu IV abx. (2) Acute respiratory failure: Code(s): J96.00 - Acute respiratory failure, unspecified whether with hypoxia or hypercapnia Status: Acute Assessment and Plan: As above. ABG on admisison 7.10/03/436 on MV. Mostly metabolic acidosis. Related to being down for prolonged period. Total CK elevated so has rhabdomyolysis. Continue mechanical ventilation support. Monitor mental status. Weaned off Levophed as tolerated. Discussed with gas regulator repairer. (3) Shock: Code(s): R57.9 - Shock, unspecified Status: Acute Assessment and Plan: As above. Weaned off pressors now. Follow (4) Acute hyponatremia: Code(s): E87.1 - Hypo-osmolality and hyponatremia Status: Acute Assessment and Plan: Baseline hyponatremia, 128 on 03/2023. Initial sodium was 114. Treated with IV fluids. 3% given with improvement. TSH 0.36 with elevated FT4. Cortisol >123 but was on Solu-Cortef. Sodium has climbed slowly to 125. Monitor sodium closely with serial sodium checks. Nephrology following and appreciate their input. Plan to repeat TSH and Cortisol once off steroids and more stable. (5) Hypoglycemia: Code(s): E16.2 - Hypoglycemia, unspecified Status: Acute Assessment and Plan: Patient found to have glucose of less than 20 in the field. She was treated appropriately. Glucose improved with some initial improvement of her mental status. Continue serial glucose checks. Hypoglycemia protocol in place (6) Pneumonia: Code(s): J18.9 - Pneumonia, unspecified organism Status: Acute Assessment and Plan: CT as mentioned above. Cultures have been collected. Continue IV antibiotics. (7) MOHAN (acute kidney injury): Code(s): N17.9 - Acute kidney failure, unspecified Status: Acute Assessment and Plan: Most recent Cr baseline 0.8 - 1.0. Creatinine 2.4. Possibly related to rhabdomyolysis. Nephrology consulted. Urine eos negative. Urine studies prerenal. Creatinine better today at 1.7 Continue to monitor (8) Elevated liver function tests: Code(s): R79.89 - Other specified abnormal findings of blood chemistry Status: Acute Assessment and Plan: AST and ALT markedly elevated. Baseline variable. She does have underlying cirrhosis. Related to shock liver and rhabdomyolysis. Levels trending down Follow. (9) Alcohol dependence: Code(s): F10.20 - Alcohol dependence, uncomplicated Status: Acute Assessment and Plan: As above. Continue thiamine and folate. (10) Metabolic acidosis: Code(s): E87.20 - Acidosis, unspecified Status: Acute Assessment and Plan: Related to lactic acid. Acidosis better and AG closed As above (11) Rhabdomyolysis: Code(s): M62.82 - Rhabdomyolysis Status: Acute Assessment and Plan: Related to being down. Also on statin. Trend TCK As above Plan A
[2023-06-28 17:25] LABS: Glucose Point of Care 141 mg/dl (65-105)
[2023-06-28] MEDS: SODIUM CHLORIDE 1 GM TABLET PO (17:28)
[2023-06-28 18:51] LABS: Sodium 128 mmol/L (137-145)
[2023-06-28] MEDS: VANCOMYCIN 1,000 MG/NS 250 ML 1,000 MG/250 ML BAG 250 MG IVPB (19:34)
[2023-06-29] VITALS (40 sets, daily range): BP systolic 87–118; BP diastolic 60–83; PULSE 70–88; RESP 16–19; TEMP 36.1–36.7; O2SAT 92–96
[2023-06-29] MEDS: ALBUMIN HUMAN 25% 25 GM/100 ML 100 ML IVPB ×4 (00:20→17:12)
[2023-06-29 01:57] LABS: Glucose Point of Care 136 mg/dl (65-105)
[2023-06-29 03:53] LABS: Mean Corpuscular HGB Conc 33.8 g/dl (32-36); Mean Corpuscular Hemoglobin 34.4 pg (26-34); Mean Corpuscular Volume 101.5 fl (80-100); Mean Platelet Volume 11.6 fl (7.4-10.4); Platelet Count Result 50 k/mm3 (150-375); Red Blood Count 1.95 M/mm3 (4.2-5.4); Red Cell Distribution Width 15.1 % (11.5-14.5); White Blood Count 11.1 K/mm3 (4.5-10.0)
[2023-06-29 04:01] LABS: Hematocrit 19.8 % (37.0-47.0); Hemoglobin 6.7 g/dL (12.0-15.0)
[2023-06-29 04:07] LABS: Alanine Aminotransferase 111 U/L (6-35); Albumin Level 4.2 g/dL (3.5-5.1); Alkaline Phosphatase 70 U/L (38-126); Anion Gap 12 mmol/L (8-16); Aspartate Amino Transferase 208 U/L (14-36); Bilirubin,Total 2.6 mg/dL (0.2-1.3); Blood Urea Nitrogen 34 mg/dL (7-17); Calcium 8.5 mg/dL (8.4-10.2); Carbon Dioxide 22 mmol/L (22-30); Chloride 94 mmol/L (98-107); Creatine Kinase 561 U/L (30-135); Estimated CRCL calculation 28 ml/min; Estimated Glomerular Filt Rate 29; Glucose 153 mg/dL (65-110); Magnesium 1.9 mg/dL (1.6-2.3); Phosphorus 2.5 mg/dL (2.5-4.5); Potassium 3.5 mmol/L (3.4-5.0); Sodium 128 mmol/L (137-145)
[2023-06-29 04:32] LABS: Band Neutrophils Percent 6 % (0-6); Eosinophils Absolute Manual 0.11 K/mm3 (0.02-0.5); Eosinophils Percent Manual 1 % (0-4); Metamyelocytes Percent 1 %; Monocytes Absolute Manual 0.55 K/mm3 (0.1-0.90); Monocytes Percent Manual 5 % (3-9); Neutrophils Absolute Manual 10.32 K/mm3 (1.7-7.2); Neutrophils Percent Manual 87 % (46-73); Platelet Estimate Decreased (Adequate); Total Cells Counted 100
[2023-06-29 04:33] LABS: Anisocytosis 1+ (NORMAL); Schistocytes Rare (NORMAL)
[2023-06-29 04:45] LABS: Alveolar/Arterial O2 Gradient 103.7 mmHg; Base Excess ABG -4.8 mEq/l (+/-2.0); Carboxyhemoglobin 0.3 % THb (0-2.0); Fractional Inspired Oxygen 30 %; HCO3 ABG 21.3 mEq/l (22.0-26.0); Methemoglobin ABG 0.6 %THb (0-1.5); Oxygen Content ABG 9.5 %vol (16.0-22.0); PCO2 ABG 44.3 mmHg (35.0-45.0); PO2 ABG 58.2 mmHg (80.0-100.0); PO2 FiO2 Ratio Arterial Blood 1.94 %; Reduced Hemoglobin 13.3 %THb (0-5.0)
[2023-06-29 04:47] LABS: Oxygen Saturation ABG 87.4 % (95.0-100.0)
[2023-06-29 04:49] LABS: Oxyhemoglobin 85.8 % THb (90.0-100.0); Total Hemoglobin 7.8 g/dL (12.0-18.0)
[2023-06-29 04:50] LABS: Arterial Blood Gas Vent Mode CMV; Arterial Blood Gas Ventilator rate 16 /MIN; Device VENTILATOR; Site Drawn RIGHT BRACHIAL
[2023-06-29 04:51] LABS: Arterial Blood Gas PEEP 5 cmH2O; Arterial Blood Gas Tidal Volume 400 ml
--- NOTE | 2023-06-29 04:51 | ECG_ITS ---
Measurements Intervals [place] Rate: 73 P: MI: 0 QRS: 44 QRSD: 112 T: 178 QT: 376 QTc: 415 Interpretive Statements SINUS OR ECTOPIC ATRIAL RHYTHM INTRAVENTRICULAR CONDUCTION DELAY ST-T WAVE ABNORMALITY IN DIFFUSE LEADS- CONSIDER ISCHEMIA BASELINE WANDER- I, II, III, AVL, AVF, V1-V6 ABNORMAL ECG COMPARED TO ECG 06/25/2023 12:02:37 NO SIGNIFICANT CHANGES Electronically Signed On 06-29-2023 13:13:51 CDT by Abdulaziz Anderson D.O.
[2023-06-29] MEDS: ALBUTEROL SULFATE NEB 2.5 MG/3 ML INH INHALATION ×4 (05:41→20:16)
[2023-06-29] MEDS: CENTRAL LINE FLUSH 10 ML IV PUSH ×4 (06:07→20:20)
[2023-06-29] MEDS: LEVOTHYROXINE SODIUM 112 MCG TABLET PO (06:08)
[2023-06-29] MEDS: LEVOTHYROXINE SODIUM 25 MCG TABLET PO (06:08)
[2023-06-29 06:40] LABS: Glucose Point of Care 137 mg/dl (65-105)
[2023-06-29] MEDS: IPRATROPIUM BR 0.02% INH SOLN 0.5 MG/2.5 ML VIAL INHALATION ×3 (08:05→20:16)
[2023-06-29] MEDS: SODIUM CHLORIDE 0.9% IV 250 ML 30 ML IV CONT (08:34)
[2023-06-29] MEDS: MINERAL OIL/WHITE PETROLATUM OINTMENT 1 APPLIC EACH EYE ×2 (08:35→20:20)
[2023-06-29] MEDS: MEROPENEM 500 MG in SODIUM CHLORIDE 0.9% IV 100 ML 200 ML IVPB (09:40)
--- NOTE | 2023-06-29 09:40 | P.PNNP_ITS ---
Progress Note: A&P Assessment and Plan (1) MOHAN (acute kidney injury): Code(s): N17.9 - Acute kidney failure, unspecified Status: Acute Assessment and Plan: * some improvement noted * suspect ATN with multifactorial etiology * hemodynamic instability/shock * rhabdomyolysis * infection/sepsis * prerenal factors * evaluation to date noted: * CT scan shows no obstruction * urine electrolytes are pre renal * urinalysis is bland * CK is moderately high but decreasing * follow trend of repeat labs and UOP (2) Hyponatremia: Code(s): E87.1 - Hypo-osmolality and hyponatremia Status: Acute Assessment and Plan: * acute on chronic * baseline sodium runs 124 - 130mmol/L since 2019 * risk factors for low sodium: * history of CHF * history of liver disease * thyroid disease * COPD * SSRI use (lexapro) * suspect MOHAN/ARF in conjunction with volume overload to blame for acute decline in sodium * evalution to date: * cortisol level okay (but already on stress dose steroids) * TSH level is a little high but the free T4 is a little high as well * sodium level sue a little bit too quickly (on 06/27/23) so DDAVP and fluid were given to bring it down -- sodium is at a good level * getting lasix plus salt tablets to get rid of the fluid but keep the sodium from dropping * follow trend of sodium (3) Septic shock: Code(s): A41.9 - Sepsis, unspecified organism; R65.21 - Severe sepsis with septic shock Status: Acute Assessment and Plan: * source not clear * follow culture data * empiric antibiotics * pressors being weaned * stress dose steroids (4) Acute respiratory failure: Code(s): J96.00 - Acute respiratory failure, unspecified whether with hypoxia or hypercapnia Status: Acute Assessment and Plan: * due to altered mental status, low blood sugar, septic shock, and pulmonary edema * intubated and on mechanical ventilation * continue diuresis as tolerated * continue supportive care (5) Metabolic acidosis: Code(s): E87.20 - Acidosis, unspecified Status: Acute Assessment and Plan: * secondary to septic shock and acute kidney injury * improvement noted (6) Congestive heart failure: Code(s): I50.9 - Heart failure, unspecified Status: Acute Assessment and Plan: * limiting IVFs as tolerated * BNP as well as imaging c/w this/volume overload * Echo results noted * on IV diuretics (7) Rhabdomyolysis: Code(s): M62.82 - Rhabdomyolysis Status: Acute Assessment and Plan: * possibly contributing to MOHAN/ARF * follow trend of CPK levels Will continue to follow. Subjective Date/time seen: 06/29/23 09:40 Interval history: Follow-up for acute kidney injury/acute renal failure and acute on chronic hyponatremia. Remains intubated/sedated and on mechanical ventilation; off vasopressin therapy but on low dose levophed; low urine output noted in-spite of diuretic therapy and improving creatinine; no other issues/events overnight or earlier this AM. Exam Narrative: General: WD/WN female intubated and on mechanical ventilation Heart: normal S1 and S2; no rub Lungs: coarse breath sounds Abdomen: soft, nontender, nondistended, decreased bowel sounds Extremities: no cyanosis or clubbing; 1+ edema Skin: warm and dry Objective Data Vital Signs Vital Signs:
--- NOTE | 2023-06-29 09:40 | PM.PNNEP ---
Progress Note: A&P Assessment and Plan (1) MOHAN (acute kidney injury): Code(s): N17.9 - Acute kidney failure, unspecified Status: Acute Assessment and Plan: some improvement noted suspect ATN with multifactorial etiology hemodynamic instability/shock rhabdomyolysis infection/sepsis prerenal factors evaluation to date noted: CT scan shows no obstruction urine electrolytes are pre renal urinalysis is bland CK is moderately high but decreasing follow trend of repeat labs and UOP (2) Hyponatremia: Code(s): E87.1 - Hypo-osmolality and hyponatremia Status: Acute Assessment and Plan: acute on chronic baseline sodium runs 124 - 130mmol/L since 2019 risk factors for low sodium: history of CHF history of liver disease thyroid disease COPD SSRI use (lexapro) suspect MOHAN/ARF in conjunction with volume overload to blame for acute decline in sodium evalution to date: cortisol level okay (but already on stress dose steroids) TSH level is a little high but the free T4 is a little high as well sodium level sue a little bit too quickly (on 06/27/23) so DDAVP and fluid were given to bring it down -- sodium is at a good level getting lasix plus salt tablets to get rid of the fluid but keep the sodium from dropping follow trend of sodium (3) Septic shock: Code(s): A41.9 - Sepsis, unspecified organism; R65.21 - Severe sepsis with septic shock Status: Acute Assessment and Plan: source not clear follow culture data empiric antibiotics pressors being weaned stress dose steroids (4) Acute respiratory failure: Code(s): J96.00 - Acute respiratory failure, unspecified whether with hypoxia or hypercapnia Status: Acute Assessment and Plan: due to altered mental status, low blood sugar, septic shock, and pulmonary edema intubated and on mechanical ventilation continue diuresis as tolerated continue supportive care (5) Metabolic acidosis: Code(s): E87.20 - Acidosis, unspecified Status: Acute Assessment and Plan: secondary to septic shock and acute kidney injury improvement noted (6) Congestive heart failure: Code(s): I50.9 - Heart failure, unspecified Status: Acute Assessment and Plan: limiting IVFs as tolerated BNP as well as imaging c/w this/volume overload Echo results noted on IV diuretics (7) Rhabdomyolysis: Code(s): M62.82 - Rhabdomyolysis Status: Acute Assessment and Plan: possibly contributing to MOHAN/ARF follow trend of CPK levels Will continue to follow. Subjective Date/time seen: 06/29/23 09:40 Interval history: Follow-up for acute kidney injury/acute renal failure and acute on chronic hyponatremia. Remains intubated/sedated and on mechanical ventilation; off vasopressin therapy but on low dose levophed; low urine output noted in-spite of diuretic therapy and improving creatinine; no other issues/events overnight or earlier this AM. Exam Narrative: General: WD/WN female intubated and on mechanical ventilation Heart: normal S1 and S2; no rub Lungs: coarse breath sounds Abdomen: soft, nontender, nondistended, decreased bowel sounds Extremities: no cyanosis or clubbing; 1+ edema Skin: warm and dry Objective Data Vital Signs Vital Signs: Vital Signs Temp Pulse Resp BP Pulse Ox O2 Del Method FiO2 06/29/23 09:40 72 06/29/23 08:46 97.0 F L 73 16 97/69 L 94 06/29/23 08:33 74 16 06/29/23 08:26 97.0 F L 73 16 94/64 L 94 06/29/23 08:19 75 16 06/29/23 08:12 75 94 Mechanical Ventilation 30 06/29/23 08:05 76 16 06/29/23 07:53 96.9 F L 74 16 89/63 L 92 06/29/23 06:06 73 16 06/29/23 06:00 97.0 F L 72 16 93/61 L 94 06/29/23 06:00 72 06/29/23 06:01 76 16 06/29/23 05:45 75 16 06/29/23 04:00 74 0
[2023-06-29] MEDS: CHOLECALCIFEROL 1,000 UNITS TABLET 2000 UNITS PO (09:41)
[2023-06-29] MEDS: POTASSIUM CHLORIDE 20 MEQ PACKET (FOR LIQUID) 40 MEQ FEED TUBE (09:41)
[2023-06-29] MEDS: THIAMINE HCL 200 MG/2 ML VIAL 100 MG IV PUSH (09:41)
[2023-06-29] MEDS: AMIODARONE HCL 200 MG TABLET PO (09:41)
[2023-06-29] MEDS: SODIUM CHLORIDE 1 GM TABLET PO ×2 (09:41→17:11)
[2023-06-29] MEDS: PANTOPRAZOLE SODIUM IV 40 MG VIAL IV PUSH ×2 (09:41→20:19)
[2023-06-29] MEDS: FUROSEMIDE INJ 40 MG/4 ML VIAL IV PUSH ×2 (09:42→17:11)
[2023-06-29] MEDS: FOLIC ACID 1 MG/0.2 ML INJ IV PUSH (09:42)
--- NOTE | 2023-06-29 10:59 | WPDINTPN ---
Progress Note: A&P Assessment and Plan (1) Acute respiratory failure: Code(s): J96.00 - Acute respiratory failure, unspecified whether with hypoxia or hypercapnia Status: Acute Assessment and Plan: Acute Respiratory failure secondary to encephalopathy hypoglycemia sepsis shock pneumonia and pulmonary edema Continue full mechanical ventilation support to prevent hypoxemia/hypercarbia and end organ damage. ABG and PCXR reviewed Currently on 5 of PEEP and 30 % FiO2. 06/28 patient could only tolerate pressure support of 12/5 with adequate RSBI which he did for many are 06/29 Will perform sedation holiday and evaluate for PSV again today Lasix IV x1 today Low tidal volume ventilation strategy to prevent volutrauma Bronchodilators (2) Severe sepsis: Code(s): A41.9 - Sepsis, unspecified organism; R65.20 - Severe sepsis without septic shock Status: Acute Assessment and Plan: She is now afebrile. WBC improved UA not suggestive of UTI CT scan does show patchy airspace disease which could be edema pneumonia or combination Continue meropenem as patient has a history of ESBL E coli in her urine DC vancomycin procalcitonin elevated at 5.4 (3) Shock: Code(s): R57.9 - Shock, unspecified Status: Acute Assessment and Plan: Multifactorial shock due to sepsis and cardiogenic Continue Levophed but off of vasopressin infusion Of stress dose hydrocortisone Patient has received adequate amount IV fluids and appears to be volume overloaded now hence IV fluids have been decreased Will hold further 25% albumin dosing Echo - see below (4) Hyponatremia: Code(s): E87.1 - Hypo-osmolality and hyponatremia Status: Acute Assessment and Plan: Patient has history of chronic hyponatremia with highest level 128 seen in March. Presented with sodium level of 114 Improved to 128 this morning. Nephrology following. Sodium is improving and is close to patient's baseline will now Hold further IV fluids Further workup and management as per Nephrology Nephrology (5) MOHAN (acute kidney injury): Code(s): N17.9 - Acute kidney failure, unspecified Status: Acute Assessment and Plan: Presented with acute kidney injury which is likely multifactorial secondary to shock and rhabdomyolysis CT scan does not show any obstruction or hydronephrosis Nephrology consulted and following Creatinine improved to 1.8 today Monitor CK level which is improving (6) Rhabdomyolysis: Code(s): M62.82 - Rhabdomyolysis Status: Acute Assessment and Plan: CK level elevated at 2809 Patient initially received IV fluids Limited IV fluids as patient is overall volume overloaded Monitor CK level which is improved (7) Metabolic acidosis: Code(s): E87.20 - Acidosis, unspecified Status: Acute Assessment and Plan: Secondary to sepsis and acute kidney injury Improved with iV fluids with bicarb and acidosis improving Monitor (8) Hypoglycemia: Code(s): E16.2 - Hypoglycemia, unspecified Status: Acute Assessment and Plan: Improved. Off dextrose infusion now. Continue tube feeds (9) Electrolyte abnormality: Code(s): E87.8 - Other disorders of electrolyte and fluid balance, not elsewhere classified Status: Acute Assessment and Plan: Potassium replacement ordered (10) Congestive heart failure: Code(s): I50.9 - Heart failure, unspecified Status: Acute Assessment and Plan: Patient has BNP of more than 30,000. CT scan suggest congestive heart failure Patient has been in shock IV fluids have been discontinue Will give Lasix Echo 06/26 Summary ? 1. Mild LV enlargement with mildly depressed systolic function ejection fraction 40-45%. ? 2. RV enlargement with RV systolic dysfunction. ? 3. Moderate biatrial enlargement. ? 4. Mild mitral and tricuspid valve regurgitation. (11) Anemia: Qualifiers: Anemia
--- NOTE | 2023-06-29 12:44 | PCFNICU ---
ICU Rounding Note: Pt current nutrition is Vital 1.2 @ 20 ml/h trickle feed. Nutrition recommendation: Advance toward goal of 45 ml/h. Last recorded weight is 68.3 kg. Bowel Motility: +1 BM today 06/29/23 Labs Reviewed: Hgb 6.7, Hct 12.8, Na 128, GFR 29, BUN 34, Cre 1.8, Glu 137 Meds Noted: Fentanyl, versed, folic acid, thiamine, novolog, reglan, novolog, protonix Skin: WNL Additional Notes: Having residuals 150-300 overnight so tube feeding was decreased to 20 ml/h trickle feed. Reglan on board now. Goal is 45 ml/h. Can advance toward goal. Hold parameter is >500 ml residuals, pt had a bowel movement, lactate is normal. Levophed is off. Following daily in ICU rounds. Will reassess every Thursday and Thursday. .
[2023-06-29 12:48] LABS: Glucose Point of Care 165 mg/dl (65-105)
[2023-06-29] MEDS: METOCLOPRAMIDE HCL 10 MG/10 ML SOLN UDC PO ×2 (13:23→17:12)
--- NOTE | 2023-06-29 14:22 | PM.IMPN ---
Progress Note: A&P Assessment and Plan (1) Severe sepsis: Code(s): A41.9 - Sepsis, unspecified organism; R65.20 - Severe sepsis without septic shock Status: Acute Assessment and Plan: Patient found down at home with severe hypoglycemia. Patient initially had improvement with correction of her hypoglycemia but acutely decompensated in the ED requiring intubation. CT concerning for patchy airspace opacity to the right upper lobe, consistent with mild pulmonary edema versus pneumonia. Cardiomegaly. Mild wall thickening of gallbladder, unclear significance. UA not consistent with UTI. Elevated white count to 12.3 and lactate to 11.4 -Currently intubated due to decompensation in ED; on sedation. Trend ABGs -Hypotensive in ED so NE and ANIMAL CYTOLOGIST started; Pressors weaned off. Solu-Cortef weaned off as well Antibiotic started 06/25; continue vancomycin, meropenem -BCx 06/25 Staph haemolytics (1of2) with methicillin resistant felt to be contaminant -MRSA screening negative Continue IV abx. Discussed with office administration instructor (2) Acute respiratory failure: Code(s): J96.00 - Acute respiratory failure, unspecified whether with hypoxia or hypercapnia Status: Acute Assessment and Plan: As above. ABG on admisison 7.10/03/436 on MV. Mostly metabolic acidosis. Related to being down for prolonged period. Total CK elevated so has rhabdomyolysis. Continue mechanical ventilation support. Monitor mental status. Weaned off Levophed but resumed today. Discussed with office administration instructor. (3) Shock: Code(s): R57.9 - Shock, unspecified Status: Acute Assessment and Plan: As above. Follow (4) Acute hyponatremia: Code(s): E87.1 - Hypo-osmolality and hyponatremia Status: Acute Assessment and Plan: Baseline hyponatremia 128 on 03/2023. Initial sodium was 114. Treated with IV fluids. 3% given with improvement. TSH 0.36 with elevated FT4. Cortisol >123 but was on Solu-Cortef. Sodium has climbed slowly to 128 Monitor sodium closely with serial sodium checks. Nephrology following and appreciate their input. Plan to repeat TSH and Cortisol once off steroids and more stable. (5) Hypoglycemia: Code(s): E16.2 - Hypoglycemia, unspecified Status: Acute Assessment and Plan: Patient found to have glucose of less than 20 in the field felt to be rleated to PNA. She was treated appropriately. Glucose improved with some initial improvement of her mental status. Continue serial glucose checks. Hypoglycemia protocol in place (6) Pneumonia: Code(s): J18.9 - Pneumonia, unspecified organism Status: Acute Assessment and Plan: CT as mentioned above. Cultures have been collected. Continue IV antibiotics. (7) MOHAN (acute kidney injury): Code(s): N17.9 - Acute kidney failure, unspecified Status: Acute Assessment and Plan: Most recent Cr baseline 0.8 - 1.0. Creatinine 2.4. Possibly related to rhabdomyolysis. Nephrology consulted. Urine eos negative. Urine studies prerenal. Creatinine better today at 1.8 Continue to monitor (8) Elevated liver function tests: Code(s): R79.89 - Other specified abnormal findings of blood chemistry Status: Acute Assessment and Plan: AST and ALT markedly elevated. Baseline variable. She does have underlying cirrhosis. Related to shock liver and rhabdomyolysis. Levels trending down Follow. (9) Rhabdomyolysis: Code(s): M62.82 - Rhabdomyolysis Status: Acute Assessment and Plan: Related to being down and also on statin. TCK trending down. Trend TCK As above (10) Metabolic acidosis: Code(s): E87.20 - Acidosis, unspecified Status: Acute Assessment and Plan: Related to lactic acid. Acidosis better and AG closed As above (11) Alcohol dependence: Code(s): F10.20 - Alcohol dependence, uncomplicated Status: Acute
[2023-06-29 15:25] LABS: Hematocrit 22.8 % (37.0-47.0); Hemoglobin 7.7 g/dL (12.0-15.0)
[2023-06-29 18:39] LABS: Glucose Point of Care 171 mg/dl (65-105)
[2023-06-29] MEDS: MEROPENEM 1 GM/NS 100 ML 1 GM/100 ML BAG IVPB (20:19)
[2023-06-29 22:22] LABS: Iron 64 ug/dL (37-170)
[2023-06-29 22:32] LABS: Percent Iron Saturation 49 % (20-50)
[2023-06-30] VITALS (63 sets, daily range): BP systolic 78–111; BP diastolic 50–73; PULSE 70–84; RESP 16–19; TEMP 36.8–37.3; O2SAT 90–100
[2023-06-30] MEDS: IPRATROPIUM BR 0.02% INH SOLN 0.5 MG/2.5 ML VIAL INHALATION ×4 (01:13→19:27)
[2023-06-30] MEDS: ALBUTEROL SULFATE NEB 2.5 MG/3 ML INH INHALATION ×4 (01:13→19:27)
[2023-06-30] MEDS: METOCLOPRAMIDE HCL 10 MG/10 ML SOLN UDC PO ×5 (02:21→23:46)
[2023-06-30 02:32] LABS: Glucose Point of Care 143 mg/dl (65-105)
[2023-06-30 05:21] LABS: Basophils Percent Auto 0.4 % (0.2-1.2); Hemoglobin 7.5 g/dL (12.0-15.0); Immature Granulocyte Absolute 0.12 K/mm3 (0.00-0.031); Immature Granulocyte Percent A 1.7 % (0-0.5); Immature Platelet Fraction Pct 10.7 % (0.9-11.2); Lymphocytes Absolute Auto 0.54 K/mm3 (0.9-3.2); Lymphocytes Percent Auto 7.7 % (18.3-44.2); Mean Corpuscular HGB Conc 34.1 g/dl (32-36); Mean Corpuscular Hemoglobin 32.9 pg (26-34); Mean Corpuscular Volume 96.5 fl (80-100); Mean Platelet Volume 11.6 fl (7.4-10.4); Monocytes Absolute Auto 0.8 K/mm3 (0.1-0.6); Monocytes Percent Auto 11.6 % (2.6-8.5); Neutrophils Absolute Auto 5.5 K/mm3 (1.3-6.7); Neutrophils Percent Auto 78.6 % (45.5-73.1); Nucleated Red Blood Cells Absolute Auto 0.1 K/mm3 (0.0-0.012); Nucleated Red Blood Cells Perc 1.9 % (0.0-0.2); Platelet Count Result 41 k/mm3 (150-375); Red Blood Count 2.28 M/mm3 (4.2-5.4)
[2023-06-30 05:30] LABS: Alanine Aminotransferase 66 U/L (6-35); Alkaline Phosphatase 102 U/L (38-126); Anion Gap 9 mmol/L (8-16); Aspartate Amino Transferase 89 U/L (14-36); Bilirubin,Total 2.4 mg/dL (0.2-1.3); Blood Urea Nitrogen 40 mg/dL (7-17); Calcium 8.6 mg/dL (8.4-10.2); Carbon Dioxide 28 mmol/L (22-30); Chloride 97 mmol/L (98-107); Creatine Kinase 205 U/L (30-135); Estimated CRCL calculation 31 ml/min; Estimated Glomerular Filt Rate 33; Glucose 134 mg/dL (65-110); Magnesium 1.9 mg/dL (1.6-2.3); Phosphorus 1.2 mg/dL (2.5-4.5); Potassium 2.6 mmol/L (3.4-5.0); Sodium 134 mmol/L (137-145)
[2023-06-30] MEDS: NOREPINEPHRINE 8 MG/D5W 250 ML 8 MG/250 ML BAG 7.5 MG IV CONT (05:45)
[2023-06-30] MEDS: LEVOTHYROXINE SODIUM 112 MCG TABLET PO (05:55)
[2023-06-30] MEDS: LEVOTHYROXINE SODIUM 25 MCG TABLET PO (05:55)
[2023-06-30 05:58] LABS: Alveolar/Arterial O2 Gradient 104.2 mmHg; Base Excess ABG 1.2 mEq/l (+/-2.0); Carboxyhemoglobin 0.3 % THb (0-2.0); Fractional Inspired Oxygen 30 %; HCO3 ABG 25.7 mEq/l (22.0-26.0); Methemoglobin ABG 0.3 %THb (0-1.5); Oxygen Content ABG 10.8 %vol (16.0-22.0); Oxygen Saturation ABG 92.2 % (95.0-100.0); Oxyhemoglobin 90.1 % THb (90.0-100.0); PCO2 ABG 40.6 mmHg (35.0-45.0); PO2 FiO2 Ratio Arterial Blood 2.07 %; Reduced Hemoglobin 9.3 %THb (0-5.0); Total Hemoglobin 8.5 g/dL (12.0-18.0)
[2023-06-30 05:59] LABS: Device VENTILATOR; Site Drawn RIGHT BRACHIAL
[2023-06-30 06:00] LABS: Arterial Blood Gas PEEP 5 cmH2O; Arterial Blood Gas Tidal Volume 400 ml; Arterial Blood Gas Vent Mode CMV; Arterial Blood Gas Ventilator rate 16 /MIN
[2023-06-30] MEDS: POTASSIUM BICARBONATE 25 MEQ TABEF 50 MEQ PO (07:06)
[2023-06-30] MEDS: CENTRAL LINE FLUSH 10 ML IV PUSH ×3 (07:06→22:50)
[2023-06-30] MEDS: KCL 40 MEQ/WATER 100 ML 100 ML 25 ML IVPB (07:47)
[2023-06-30] MEDS: AMIODARONE HCL 200 MG TABLET PO (08:03)
[2023-06-30] MEDS: CHOLECALCIFEROL 1,000 UNITS TABLET 2000 UNITS PO (08:03)
[2023-06-30] MEDS: FUROSEMIDE INJ 40 MG/4 ML VIAL IV PUSH ×2 (08:04→17:13)
[2023-06-30] MEDS: THIAMINE HCL 200 MG/2 ML VIAL 100 MG IV PUSH (08:04)
[2023-06-30] MEDS: PANTOPRAZOLE SODIUM IV 40 MG VIAL IV PUSH ×2 (08:04→19:56)
[2023-06-30] MEDS: FOLIC ACID 1 MG/0.2 ML INJ IV PUSH (08:04)
[2023-06-30] MEDS: MINERAL OIL/WHITE PETROLATUM OINTMENT 1 APPLIC EACH EYE ×2 (08:05→19:56)
[2023-06-30] MEDS: SODIUM CHLORIDE 1 GM TABLET PO ×2 (08:05→17:09)
[2023-06-30] MEDS: DORNASE ALFA INH SOLN 1 MG/ML 2.5 ML AMP 2.5 MG INHALATION ×2 (08:59→19:27)
--- NOTE | 2023-06-30 09:30 | PM.PNNEP ---
Progress Note: A&P Assessment and Plan (1) MOHAN (acute kidney injury): Code(s): N17.9 - Acute kidney failure, unspecified Status: Acute Assessment and Plan: slowimprovement noted suspect ATN with multifactorial etiology hemodynamic instability/shock rhabdomyolysis infection/sepsis prerenal factors evaluation to date noted: CT scan shows no obstruction urine electrolytes are pre renal urinalysis is bland CK is moderately high but decreasing follow trend of repeat labs and UOP (2) Hyponatremia: Code(s): E87.1 - Hypo-osmolality and hyponatremia Status: Acute Assessment and Plan: acute on chronic baseline sodium runs 124 - 130mmol/L since 2019 risk factors for low sodium: history of CHF history of liver disease thyroid disease COPD SSRI use (lexapro) suspect MOHAN/ARF in conjunction with volume overload to blame for acute decline in sodium evalution to date: cortisol level okay (but already on stress dose steroids) TSH level is a little high but the free T4 is a little high as well sodium level sue a little bit too quickly (on 06/27/23) so DDAVP and D5W getting lasix plus salt tablets to get rid of the fluid but keep the sodium from dropping also on normal saline tube flushes as well depending on trend of sodium, can d/c normal saline flushes and possible salt tabs as well follow trend of sodium (3) Septic shock: Code(s): A41.9 - Sepsis, unspecified organism; R65.21 - Severe sepsis with septic shock Status: Acute Assessment and Plan: source not entirely clear follow culture data - blood culture with Staph haemolytics on antibiotics pressors being weaned stress dose steroids (4) Acute respiratory failure: Code(s): J96.00 - Acute respiratory failure, unspecified whether with hypoxia or hypercapnia Status: Acute Assessment and Plan: due to altered mental status, low blood sugar, septic shock, and pulmonary edema intubated and on mechanical ventilation continue diuresis as tolerated continue supportive care (5) Metabolic acidosis: Code(s): E87.20 - Acidosis, unspecified Status: Acute Assessment and Plan: secondary to septic shock and acute kidney injury improvement noted (6) Congestive heart failure: Code(s): I50.9 - Heart failure, unspecified Status: Acute Assessment and Plan: limiting IVFs as tolerated BNP as well as imaging c/w this/volume overload Echo results noted on IV diuretics (7) Rhabdomyolysis: Code(s): M62.82 - Rhabdomyolysis Status: Acute Assessment and Plan: possibly contributing to MOHAN/ARF follow trend of CPK levels Discussed with Dr. Morrow. Will continue to follow. Subjective Date/time seen: 06/30/23 09:30 Interval history: Follow-up for acute kidney injury/acute renal failure and acute on chronic hyponatremia. Reasonable urine output in response to IV lasix; remains intubated/sedated and on mechanical ventilation; sodium stable if not improving with current interventions; remains on low dose levophed at this time; no acute issues/events overnight or this AM. Exam Narrative: General: WD/WN female intubated and on mechanical ventilation Heart: normal S1 and S2; no rub Lungs: coarse breath sounds Abdomen: soft, nontender, nondistended, decreased bowel sounds Extremities: no cyanosis or clubbing; 1+ edema Skin: warm and itact Objective Data Vital Signs Vital Signs: Vital Signs Temp Pulse Resp BP Pulse Ox O2 Del Method FiO2 06/30/23 08:00 30 06/30/23 08:00 73 06/30/23 08:48 79 17 94 Mechanical Ventilation 30 06/30/23 08:42 79 18 06/30/23 07:42 73 16 06/30/23 07:42 73 100 Mechanical Ventilation 40 06/30/23 07:42 73 16 100 Mechanical Ventilation 40 06/30/23 08:00 72 16 06/30/23 08:00 75 8
--- NOTE | 2023-06-30 09:30 | P.PNNP_ITS ---
Progress Note: A&P Assessment and Plan (1) MOHAN (acute kidney injury): Code(s): N17.9 - Acute kidney failure, unspecified Status: Acute Assessment and Plan: * slowimprovement noted * suspect ATN with multifactorial etiology * hemodynamic instability/shock * rhabdomyolysis * infection/sepsis * prerenal factors * evaluation to date noted: * CT scan shows no obstruction * urine electrolytes are pre renal * urinalysis is bland * CK is moderately high but decreasing * follow trend of repeat labs and UOP (2) Hyponatremia: Code(s): E87.1 - Hypo-osmolality and hyponatremia Status: Acute Assessment and Plan: * acute on chronic * baseline sodium runs 124 - 130mmol/L since 2019 * risk factors for low sodium: * history of CHF * history of liver disease * thyroid disease * COPD * SSRI use (lexapro) * suspect MOHAN/ARF in conjunction with volume overload to blame for acute decline in sodium * evalution to date: * cortisol level okay (but already on stress dose steroids) * TSH level is a little high but the free T4 is a little high as well * sodium level sue a little bit too quickly (on 06/27/23) so DDAVP and D5W * getting lasix plus salt tablets to get rid of the fluid but keep the sodium from dropping * also on normal saline tube flushes as well * depending on trend of sodium, can d/c normal saline flushes and possible salt tabs as well * follow trend of sodium (3) Septic shock: Code(s): A41.9 - Sepsis, unspecified organism; R65.21 - Severe sepsis with septic shock Status: Acute Assessment and Plan: * source not entirely clear * follow culture data - blood culture with Staph haemolytics * on antibiotics * pressors being weaned * stress dose steroids (4) Acute respiratory failure: Code(s): J96.00 - Acute respiratory failure, unspecified whether with hypoxia or hypercapnia Status: Acute Assessment and Plan: * due to altered mental status, low blood sugar, septic shock, and pulmonary edema * intubated and on mechanical ventilation * continue diuresis as tolerated * continue supportive care (5) Metabolic acidosis: Code(s): E87.20 - Acidosis, unspecified Status: Acute Assessment and Plan: * secondary to septic shock and acute kidney injury * improvement noted (6) Congestive heart failure: Code(s): I50.9 - Heart failure, unspecified Status: Acute Assessment and Plan: * limiting IVFs as tolerated * BNP as well as imaging c/w this/volume overload * Echo results noted * on IV diuretics (7) Rhabdomyolysis: Code(s): M62.82 - Rhabdomyolysis Status: Acute Assessment and Plan: * possibly contributing to MOHAN/ARF * follow trend of CPK levels Discussed with Dr. Morrow. Will continue to follow. Subjective Date/time seen: 06/30/23 09:30 Interval history: Follow-up for acute kidney injury/acute renal failure and acute on chronic hyponatremia. Reasonable urine output in response to IV lasix; remains intubated/sedated and on mechanical ventilation; sodium stable if not improving with current interventions; remains on low dose levophed at this time; no acute issues/events overnight or this AM. Exam Narrative: General: WD/WN female intubated and on mechanical ventilation Heart: normal S1 and S2; no rub Lungs: coarse breath sounds Abdomen: soft, nontender,
[2023-06-30 09:34] LABS: Magnesium 1.8 mg/dL (1.6-2.3)
[2023-06-30 10:02] LABS: INR > 20.0; Prothrombin Time > 120.0 Seconds (11.1-14.7)
[2023-06-30 10:03] LABS: D Dimer 7.75 ug/mL (<0.48); Fibrinogen < 60 mg/dl (215-510); Partial Thromboplastin Time > 200.0 SECONDS (22.3-36.8)
[2023-06-30 10:15] LABS: Immature Platelet Fraction Pct 12.7 % (0.9-11.2); Mean Platelet Volume 12.2 fl (7.4-10.4); Platelet Count Result 40 k/mm3 (150-375)
--- NOTE | 2023-06-30 11:36 | WPDINTPN ---
Progress Note: A&P Assessment and Plan (1) Acute respiratory failure: Code(s): J96.00 - Acute respiratory failure, unspecified whether with hypoxia or hypercapnia Status: Acute Assessment and Plan: Acute Respiratory failure secondary to encephalopathy hypoglycemia sepsis shock pneumonia and pulmonary edema -06/25/2023: Intubated Continue full mechanical ventilation support to prevent hypoxemia/hypercarbia and end organ damage. Chest x-ray this morning: Moderate presumed pulmonary edema pattern with small bilateral pleural effusions. Correlate clinically for pneumonia. ABGs reviewed Currently on 5 of PEEP and 30 % FiO2. 06/28 patient could only tolerate pressure support of 12/5 with adequate RSBI which he did for many are 06/29 Will perform sedation holiday and evaluate for PSV again today Continue diuresis Low tidal volume ventilation strategy to prevent volutrauma Bronchodilators -sedated with fentanyl infusion (2) Severe sepsis: Code(s): A41.9 - Sepsis, unspecified organism; R65.20 - Severe sepsis without septic shock Status: Acute Assessment and Plan: She is now afebrile. WBC improved UA not suggestive of UTI CT scan does show patchy airspace disease which could be edema, pneumonia or combination 06/30: Switch meropenem to Zosyn as patient has a history of ESBL E coli in her urine 06/29 vancomycin discontinued procalcitonin elevated at 5.4 (3) Shock: Code(s): R57.9 - Shock, unspecified Status: Acute Assessment and Plan: Multifactorial shock due to sepsis and cardiogenic Continue Levophed but off of vasopressin infusion Off stress dose steroids Patient has received adequate amount IV fluids and appears to be volume overloaded now hence IV fluids have been decreased DC all fluids Echo - see below (4) Hyponatremia: Code(s): E87.1 - Hypo-osmolality and hyponatremia Status: Acute Assessment and Plan: Patient has history of chronic hyponatremia with highest level 128 seen in March. Presented with sodium level of 114 Improving. Nephrology following. Sodium is improving and is close to patient's baseline will now -patient on normal saline for NG tube flushes Hold further IV fluids Discussed with Nephrology (5) MOHAN (acute kidney injury): Code(s): N17.9 - Acute kidney failure, unspecified Status: Acute Assessment and Plan: Presented with acute kidney injury which is likely multifactorial secondary to shock and rhabdomyolysis. Creatinine 2.[address] scan does not show any obstruction or hydronephrosis Appreciate nephrology following the patient Creatinine improved to 1.60 today with adequate urine output CK levels trending down Continue to monitor renal function, electrolytes and urine output (6) Rhabdomyolysis: Code(s): M62.82 - Rhabdomyolysis Status: Acute Assessment and Plan: CK level elevated at 2809 on admission, Patient initially received IV fluids Limited IV fluids as patient is overall volume overloaded CK levels trending down, continue to monitor (7) Metabolic acidosis: Code(s): E87.20 - Acidosis, unspecified Status: Acute Assessment and Plan: Secondary to sepsis and acute kidney injury Improved with iV fluids with bicarb and acidosis improving Resolved (8) Hypoglycemia: Code(s): E16.2 - Hypoglycemia, unspecified Status: Acute Assessment and Plan: Improved. Off dextrose infusion now. Continue tube feeds (9) Electrolyte abnormality: Code(s): E87.8 - Other disorders of electrolyte and fluid balance, not elsewhere classified Status: Acute Assessment and Plan: Potassium and phosphorus replacement ordered (10) Congestive heart failure: Qualifiers: Heart failure type: systolic Code(s): I50.9 - Heart failure, unspecified Status: Acute Assessment and Plan: Patient has BNP of more than 30,000. CT scan rene
--- NOTE | 2023-06-30 11:41 | PCFNICU ---
ICU Rounding Note: Pt current nutrition is Vital AF 1.2 at 65 ml/hr. Last recorded weight is 69.8 kg, up from 64.2 kg on admission. Bowel Motility:FMS Labs Reviewed:Glu 134, BUN 40, Cr 1.6,K 2.6,Hct 22.0,Hgb 7.5 Meds Noted:Reglan, Vit D, Folic Acid, Thiamine Skin: WNL Additional Notes: Patient remains on Vital AF 1.2 currently at 45 ml/hr with plans for advancing to 65 ml/hr. Prosource discontinued. Tube feedings at goal rate providing 1716 kcals/107 gms protein/1160 ml water. Meeting 100% kcal needs at 25 kcal/kg and 100% protein needs at 1.4-1.6 gm/kg. Flush 30 ml q 4 hours. Agree with diet orders. Following daily in ICU rounds. Will reassess every Thursday and Thursday.
[2023-06-30] MEDS: PHYTONADIONE ADULT INJ 10 MG in DEXTROSE 5% IN WATER 50 ML 68 MG IVPB (11:53)
[2023-06-30] MEDS: PIPERACILLN/TAZ 3.375GM/NS50ML 3.375 GM/50 ML BAG IVPB ×3 (12:02→23:47)
[2023-06-30] MEDS: SODIUM CHLORIDE 0.9% IV 250 ML 30 ML IV CONT (12:20)
[2023-06-30 13:12] LABS: Glucose Point of Care 142 mg/dl (65-105)
--- NOTE | 2023-06-30 13:44 | PM.IMPN ---
Progress Note: A&P Assessment and Plan (1) Severe sepsis: Code(s): A41.9 - Sepsis, unspecified organism; R65.20 - Severe sepsis without septic shock Status: Acute Assessment and Plan: Patient found down at home with severe hypoglycemia. Patient initially had improvement with correction of her hypoglycemia but acutely decompensated in the ED requiring intubation. CT concerning for patchy airspace opacity to the right upper lobe, consistent with mild pulmonary edema versus pneumonia. Cardiomegaly. Mild wall thickening of gallbladder, unclear significance. UA not consistent with UTI. Elevated white count to 12.3 and lactate to 11.4 -Currently intubated due to decompensation in ED; on sedation. -Hypotensive in ED so NE and DOUGHMAKER started; Pressors were weaned off. Solu-Cortef weaned off as well Antibiotic started 06/25 -BCx 06/25 Staph haemolytics (1of2) with methicillin resistant felt to be contaminant -MRSA screening negative -Levophed added back IV abx adjusted. Discussed with floor coverer apprentice (2) Acute respiratory failure: Code(s): J96.00 - Acute respiratory failure, unspecified whether with hypoxia or hypercapnia Status: Acute Assessment and Plan: As above. ABG on admisison 7.10/03/436 on MV. Mostly metabolic acidosis. Related to being down for prolonged period. Total CK elevated so has rhabdomyolysis. Continue mechanical ventilation support. Monitor mental status. Weaned off Levophed but resumed yesterday. Discussed with floor coverer apprentice. (3) DIC (disseminated intravascular coagulation): Code(s): D65 - Disseminated intravascular coagulation [defibrination syndrome] Status: Acute Assessment and Plan: Platelet count normal on admission but has dropped to 41K. Not on heparin products. PTT>200 and PT>120 with INR>20. Fibrinogen <60 and DDimer 7.75. FFP and cryoprecipitate ordered. Follow levels. (4) Shock: Code(s): R57.9 - Shock, unspecified Status: Acute Assessment and Plan: As above. Follow (5) Acute hyponatremia: Code(s): E87.1 - Hypo-osmolality and hyponatremia Status: Acute Assessment and Plan: Baseline hyponatremia 128 on 03/2023. Initial sodium was 114. Treated with IV fluids. 3% given with improvement. TSH 0.36 with elevated FT4. Cortisol >123 but was on Solu-Cortef. Sodium has climbed slowly to 134 Monitor sodium closely with serial sodium checks. Nephrology following and appreciate their input. Plan to repeat TSH and Cortisol once off steroids and more stable. (6) Hypoglycemia: Code(s): E16.2 - Hypoglycemia, unspecified Status: Acute Assessment and Plan: Patient found to have glucose of less than 20 in the field felt to be rleated to PNA. She was treated appropriately. Glucose improved with some initial improvement of her mental status. Continue serial glucose checks. Hypoglycemia protocol in place (7) Pneumonia: Code(s): J18.9 - Pneumonia, unspecified organism Status: Acute Assessment and Plan: CT as mentioned above. Cultures have been collected. Continue IV antibiotics. (8) MOHAN (acute kidney injury): Code(s): N17.9 - Acute kidney failure, unspecified Status: Acute Assessment and Plan: Most recent Cr baseline 0.8 - 1.0. Creatinine 2.4. Possibly related to rhabdomyolysis. Nephrology consulted. Urine eos negative. Urine studies prerenal. Creatinine better today at 1.6 Continue to monitor (9) Elevated liver function tests: Code(s): R79.89 - Other specified abnormal findings of blood chemistry Status: Acute Assessment and Plan: AST and ALT markedly elevated. Baseline variable. She does have underlying cirrhosis. Related to shock liver and rhabdomyolysis. Levels trending down Follow. (10) Rhabdomyolysis: Code(s): M62.82 - Rhabdomyolysis Status: Acute Assessment and Plan: Related to be
[2023-06-30 17:19] LABS: IFOB Positive Control Positive; Immunochemical Fecal Occult Bl Negative (N)
[2023-06-30 18:02] LABS: Anion Gap 11 mmol/L (8-16); Blood Urea Nitrogen 42 mg/dL (7-17); Calcium 8.6 mg/dL (8.4-10.2); Carbon Dioxide 28 mmol/L (22-30); Chloride 100 mmol/L (98-107); Estimated CRCL calculation 33 ml/min; Estimated Glomerular Filt Rate 35; Glucose 127 mg/dL (65-110); Potassium 3.1 mmol/L (3.4-5.0); Sodium 139 mmol/L (137-145)
[2023-06-30 18:02] LABS: Glucose Point of Care 136 mg/dl (65-105)
[2023-06-30 18:51] LABS: Phosphorus < 1.0 mg/dL (2.5-4.5)
--- NOTE | 2023-06-30 19:06 | PDONCCN ---
[facility] - Date of Consult Date/Time: 06/30/23 19:06 Requesting Physician: Shawn Quintana MD Primary Care Provider: Rai Hillman MD - Consult Narrative Reason for consult: Thrombocytopenia and anemia Narrative: Marialuisa Huggins is a 62 year old female with history of alcohol abuse, congestive heart failure, liver cirrhosis, atrial fibrillation, COPD, hypertension and hyperlipidemia brought in by the [facility] with respiratory failure patient presented with mental status changes and found to be poorly responsive at home. On admission hemoglobin was 11.6 dropped down to 6.7. Platelet count was [id number] now down to 40,000. There is no signs of gross bleeding. INR was 2.4 with pT2 of 42.1 and fibrinogen was 192. D-dimer was elevated at 7.75. She was diagnosed with septic shock and UTI. She was started on meropenem and vancomycin. Currently she is on Zosyn. She was also started on Levophed due to hypotension. Review of Systems - Review of Systems All systems reviewed & are unremarkable except as noted in [facility] and [facility] Medical History: Medical History (Last Reviewed 06/26/23 @ 11:06 by Jimmie Lawson MD) Acute congestive heart failure Acute on chronic blood loss anemia Alcohol abuse Alcohol use Anemia Anxiety Agoraphobia, rarely leaves the house. Depression and PTSD. Atrial fibrillation Cirrhosis, alcoholic Closed fracture of neck of right femur Colon cancer screening COPD (chronic obstructive pulmonary disease) Essential hypertension Hip fracture History of CHF (congestive heart failure) Hx of falling Hyperlipidemia Hyponatremia Hypothyroidism Irritation of right eye Nerve plexus disorder Right-sided Other emphysema Paroxysmal atrial fibrillation Respiratory failure Admitted 2013 with respiratory failure, DTs, and acute renal failure requiring dialysis and tracheostomy. Surgical History: Surgical History (Last Reviewed 06/26/23 @ 11:06 by Jimmie Lawson MD) H/O tubal ligation H/O: hysterectomy History of hip replacement History of tracheostomy 2013, for respiratory failure Hx of appendectomy Family History: Family History (Last Reviewed 06/26/23 @ 11:06 by Jimmie Lawson MD) Mother Patient killed Alcoholic Son No problems noted. Father Family estrangement Sibling No problems noted. Other Hypertension - Social History Social History: Social History (Last Reviewed 06/26/23 @ 11:06 by Jimmie Lawson MD) Gender Identity: Gender identity (if verbalized by the patient): Female Sexual Orientation: Sexual Orientation (if Verbalized by the Patient): Straight or Heterosexual Alcohol Use: Alcohol intake: current Drinks per week: 56 Substance Use: Substance use: never Substance use type: does not use Others: Spiritual care concerns: No Living Arrangements: Living arrangements: with family Oppucation/Education: Occupation/Education: retired Smoking Status: Smoking status: Current every day smoker Tobacco type: e-cigarettes/vaping Second hand tobacco smoke exposure: Yes Smoking Pack-years: Smoking packs per day: 2 Smoking cigarettes per day: 40.0 Years smoked: 51 Smoking pack-years: 76.50 Comments: Additional smoking assessment comments: Quit smoking cigarettes in 2012. Now uses an e-cigarette Social Determinants of Health: Has the Lack of Transportation Kept You From Medical Appointments or From Getting Medications?: No Within the Past 12 Months, Were You Worried Whether Your Food Would Run Out Before You Got Money to Buy More?: Sometimes True What is Your Housing Situation Today?: I Have Housing Are You Worried That in the Next 2 Months, You May Not Have Your Own Housing to Live In?: No Do You Have Trouble Paying Your Heating Or Electricity Bill?: No Do You Have Trouble Paying For Medicines?: No Are You Currently Unemployed and Lookin
[2023-06-30] MEDS: FENTANYL 2,500MCG/NS250ML(*CRX 2,500 MCG/250 ML BAG IV CONT (19:55)
[2023-06-30 20:12] LABS: Lactate Dehydrogenase 186 U/L (120-246)
[2023-06-30 23:56] LABS: Glucose Point of Care 125 mg/dl (65-105)
[2023-07-01] VITALS (101 sets, daily range): BP systolic 84–128; BP diastolic 55–98; PULSE 65–127; RESP 15–24; TEMP 36.8–37.4; O2SAT 86–100
[2023-07-01] MEDS: IPRATROPIUM BR 0.02% INH SOLN 0.5 MG/2.5 ML VIAL INHALATION ×4 (01:54→20:07)
[2023-07-01] MEDS: ALBUTEROL SULFATE NEB 2.5 MG/3 ML INH INHALATION ×4 (01:54→20:07)
[2023-07-01] MEDS: KCL 40 MEQ/WATER 100 ML 100 ML 25 ML IVPB ×2 (04:06)
[2023-07-01 05:16] LABS: Alveolar/Arterial O2 Gradient 93.4 mmHg; Base Excess ABG 3.1 mEq/l (+/-2.0); Carboxyhemoglobin 0.2 % THb (0-2.0); Fractional Inspired Oxygen 30 %; HCO3 ABG 27.8 mEq/l (22.0-26.0); Methemoglobin ABG 0.3 %THb (0-1.5); Oxygen Saturation ABG 94.5 % (95.0-100.0); Oxyhemoglobin 92.9 % THb (90.0-100.0); PCO2 ABG 42.9 mmHg (35.0-45.0); PO2 ABG 70.1 mmHg (80.0-100.0); PO2 FiO2 Ratio Arterial Blood 2.34 %; Reduced Hemoglobin 6.6 %THb (0-5.0); Total Hemoglobin 9.1 g/dL (12.0-18.0); pH ABG 7.429 (7.350-7.450)
[2023-07-01] MEDS: LEVOTHYROXINE SODIUM 25 MCG TABLET PO (05:44)
[2023-07-01] MEDS: METOCLOPRAMIDE HCL 10 MG/10 ML SOLN UDC PO (05:44)
[2023-07-01] MEDS: LEVOTHYROXINE SODIUM 112 MCG TABLET PO (05:44)
[2023-07-01] MEDS: PIPERACILLN/TAZ 3.375GM/NS50ML 3.375 GM/50 ML BAG IVPB ×4 (05:45→23:22)
[2023-07-01] MEDS: CENTRAL LINE FLUSH 10 ML IV PUSH ×4 (05:45→20:09)
[2023-07-01 06:06] LABS: Glucose Point of Care 122 mg/dl (65-105)
[2023-07-01] MEDS: DORNASE ALFA INH SOLN 1 MG/ML 2.5 ML AMP 2.5 MG INHALATION ×2 (07:42→20:07)
[2023-07-01] MEDS: SODIUM CHLORIDE 1 GM TABLET PO (08:42)
[2023-07-01] MEDS: CHOLECALCIFEROL 1,000 UNITS TABLET 2000 UNITS PO (08:42)
[2023-07-01] MEDS: AMIODARONE HCL 200 MG TABLET PO (08:43)
[2023-07-01] MEDS: MINERAL OIL/WHITE PETROLATUM OINTMENT 1 APPLIC EACH EYE ×2 (08:43→20:09)
[2023-07-01] MEDS: THIAMINE HCL 200 MG/2 ML VIAL 100 MG IV PUSH (08:43)
[2023-07-01] MEDS: FUROSEMIDE INJ 40 MG/4 ML VIAL IV PUSH ×2 (08:43→16:53)
[2023-07-01] MEDS: PANTOPRAZOLE SODIUM IV 40 MG VIAL IV PUSH ×2 (08:43→20:09)
[2023-07-01] MEDS: FOLIC ACID 1 MG/0.2 ML INJ IV PUSH (08:44)
[2023-07-01] MEDS: NOREPINEPHRINE 8 MG/D5W 250 ML 8 MG/250 ML BAG 11.25 MG IV CONT (08:59)
[2023-07-01 09:10] LABS: Basophils Percent Auto 0.6 % (0.2-1.2); Eosinophils Percent Auto 0.3 % (0-4.4); Hematocrit 23.6 % (37.0-47.0); Hemoglobin 7.7 g/dL (12.0-15.0); Immature Granulocyte Absolute 0.12 K/mm3 (0.00-0.031); Immature Granulocyte Percent A 1.7 % (0-0.5); Immature Platelet Fraction Pct 10.1 % (0.9-11.2); Lymphocytes Absolute Auto 0.62 K/mm3 (0.9-3.2); Lymphocytes Percent Auto 8.9 % (18.3-44.2); Mean Corpuscular HGB Conc 32.6 g/dl (32-36); Mean Corpuscular Volume 101.3 fl (80-100); Mean Platelet Volume 11.5 fl (7.4-10.4); Monocytes Absolute Auto 1.2 K/mm3 (0.1-0.6); Monocytes Percent Auto 16.6 % (2.6-8.5); Neutrophils Percent Auto 71.9 % (45.5-73.1); Nucleated Red Blood Cells Absolute Auto 0.1 K/mm3 (0.0-0.012); Platelet Count Result 59 k/mm3 (150-375); Red Blood Count 2.33 M/mm3 (4.2-5.4); Red Cell Distribution Width 18.1 % (11.5-14.5); White Blood Count 6.9 K/mm3 (4.5-10.0)
[2023-07-01 09:18] LABS: INR 3.4; Prothrombin Time 37.1 Seconds (11.1-14.7)
[2023-07-01 09:19] LABS: Partial Thromboplastin Time 59.3 SECONDS (22.3-36.8)
[2023-07-01 09:32] LABS: Alanine Aminotransferase 52 U/L (6-35); Albumin Level 3.7 g/dL (3.5-5.1); Alkaline Phosphatase 113 U/L (38-126); Anion Gap 5 mmol/L (8-16); Aspartate Amino Transferase 66 U/L (14-36); Bilirubin,Total 2.3 mg/dL (0.2-1.3); Blood Urea Nitrogen 43 mg/dL (7-17); Calcium 8.1 mg/dL (8.4-10.2); Carbon Dioxide 34 mmol/L (22-30); Chloride 104 mmol/L (98-107); Creatine Kinase 133 U/L (30-135); Estimated CRCL calculation 38 ml/min; Estimated Glomerular Filt Rate 42; Glucose 131 mg/dL (65-110); Lactic Acid Reflex 0.9 mmol/L (0.7-2.0); Magnesium 1.6 mg/dL (1.6-2.3); Phosphorus 2.7 mg/dL (2.5-4.5); Potassium 4.9 mmol/L (3.4-5.0); Sodium 143 mmol/L (137-145)
--- NOTE | 2023-07-01 09:38 | WPDINTPN ---
Progress Note: A&P Assessment and Plan (1) Acute respiratory failure: Code(s): J96.00 - Acute respiratory failure, unspecified whether with hypoxia or hypercapnia Status: Acute Assessment and Plan: Acute Respiratory failure secondary to encephalopathy hypoglycemia sepsis shock pneumonia and pulmonary edema -06/25/2023: Intubated Continue full mechanical ventilation support to prevent hypoxemia/hypercarbia and end organ damage. Chest x-ray this morning: Endotracheal tube approximately 4.7 cm above the dariusz. Diffuse lung disease, consistent with pulmonary edema versus pneumonia.. Small pleural effusions ABGs reviewed Currently on 5 of PEEP and 30 % FiO2. Continue diuresis Low tidal volume ventilation strategy to prevent volutrauma Bronchodilators Pulmozyme for thick ETT secretions -sedated with fentanyl infusion, maintain RASS of 0 to -2 (2) Severe sepsis: Code(s): A41.9 - Sepsis, unspecified organism; R65.20 - Severe sepsis without septic shock Status: Acute Assessment and Plan: She is now afebrile. WBC improved UA not suggestive of UTI CT scan does show patchy airspace disease which could be edema, pneumonia or combination 06/30: Switch meropenem to Zosyn as patient has a history of ESBL E coli in her urine 06/29 vancomycin discontinued procalcitonin elevated at 5.4 (3) Shock: Code(s): R57.9 - Shock, unspecified Status: Acute Assessment and Plan: Multifactorial shock due to sepsis and cardiogenic Continue Levophed but off is vasopressin infusion Off stress dose steroids Patient has received adequate amount IV fluids and appears to be volume overloaded now hence IV fluids have been decreased -DC all fluids 06/29 Echo - see below (4) Hyponatremia: Code(s): E87.1 - Hypo-osmolality and hyponatremia Status: Acute Assessment and Plan: Patient has history of chronic hyponatremia with highest level 128 seen in March. Presented with sodium level of 114 Improving. Nephrology following. Sodium is improving and is close to patient's baseline will now -patient on normal saline for NG tube flushes -sodium levels 143 on 07/01, switch NG tube flushes to free water insulin of normal saline Hold further IV fluids Discussed with Nephrology (5) MOHAN (acute kidney injury): Code(s): N17.9 - Acute kidney failure, unspecified Status: Acute Assessment and Plan: Presented with acute kidney injury which is likely multifactorial secondary to shock and rhabdomyolysis. Creatinine 2.[address] scan does not show any obstruction or hydronephrosis Appreciate nephrology following the patient Creatinine improved to 1.30 today with good urine output in response to diuresis CK levels trending down Continue to monitor renal function, electrolytes and urine output (6) Rhabdomyolysis: Code(s): M62.82 - Rhabdomyolysis Status: Acute Assessment and Plan: CK level elevated at 2809 on admission, Patient initially received IV fluids Limited IV fluids as patient is overall volume overloaded CK levels have normalized (7) Metabolic acidosis: Code(s): E87.20 - Acidosis, unspecified Status: Acute Assessment and Plan: Secondary to sepsis and acute kidney injury Improved with iV fluids with bicarb and acidosis improving Resolved (8) Hypoglycemia: Code(s): E16.2 - Hypoglycemia, unspecified Status: Acute Assessment and Plan: Improved. Off dextrose infusion now. Continue tube feeds (9) Electrolyte abnormality: Code(s): E87.8 - Other disorders of electrolyte and fluid balance, not elsewhere classified Status: Acute Assessment and Plan: Potassium and phosphorus normalized -will replace magnesium (10) Congestive heart failure: Qualifiers: Heart failure type: systolic Code(s): I50.9 - Heart failure, unspecified Status: Acute Assessment and Plan: Ann-Marie
[2023-07-01 09:44] LABS: Platelet Estimate Decreased (Adequate)
[2023-07-01 09:45] LABS: Anisocytosis 1+ (NORMAL); Schistocytes None Seen (NORMAL); Target Cells 1+ (NORMAL)
--- NOTE | 2023-07-01 11:59 | PCFNICU ---
ICU Rounding Note: Pt current nutrition is Vital AF 1.2 at 65 ml/hr Last recorded weight is 66.8 kg, up from 64.2 kg on admit. Bowel Motility:FMS- orders for Banatrol Plus TF BID. Labs Reviewed:Glu 131, Cr 1.3,BUN 43, GFR 42 Meds Noted:Reglan, Zosyn, Versed, Fentanyl, Folic Acid, Thiamine, Vit D,Synthroid. Skin: WNL Additional Notes: Patient remains on mechanical vent and tube feedings of Vital AF 1.2 at 65 ml/hr. Residuals elevated at 300 ml today. Plans to restart tube feedings. orders for Banatrol Plus TF BID for stool bulking. Flush 30 ml q 4 hours. Following daily in ICU rounds. Will reassess every Thursday and Thursday.
--- NOTE | 2023-07-01 12:44 | P.PNNP_ITS ---
Progress Note: A&P Assessment and Plan (1) MOHAN (acute kidney injury): Code(s): N17.9 - Acute kidney failure, unspecified Status: Acute Assessment and Plan: * slow improvement noted * suspect ATN with multifactorial etiology * hemodynamic instability/shock * rhabdomyolysis * infection/sepsis * prerenal factors * evaluation to date noted: * CT scan shows no obstruction * urine electrolytes are pre renal * urinalysis is bland * CK is moderately high but decreasing * follow trend of repeat labs and UOP (2) Hyponatremia: Code(s): E87.1 - Hypo-osmolality and hyponatremia Status: Acute Assessment and Plan: * improving (and better than baseline) * acute on chronic * baseline sodium runs 124 - 130mmol/L since 2019 * risk factors for low sodium: * history of CHF * history of liver disease * thyroid disease * COPD * SSRI use (lexapro) * suspect MOHAN/ARF in conjunction with volume overload to blame for acute decline in sodium * evalution to date: * cortisol level okay (but already on stress dose steroids) * TSH level is a little high but the free T4 is a little high as well * sodium level sue a little bit too quickly (on 06/27/23) so DDAVP and D5W given * will d/c salt tablets * tube flushes changed to free water * follow trend of sodium (3) Septic shock: Code(s): A41.9 - Sepsis, unspecified organism; R65.21 - Severe sepsis with septic shock Status: Acute Assessment and Plan: * source not entirely clear * follow culture data - blood culture with Staph haemolytics * on antibiotics * pressors being weaned * stress dose steroids (4) Acute respiratory failure: Code(s): J96.00 - Acute respiratory failure, unspecified whether with hypoxia or hypercapnia Status: Acute Assessment and Plan: * due to altered mental status, low blood sugar, septic shock, and pulmonary edema * intubated and on mechanical ventilation * continue diuresis as tolerated * continue supportive care (5) Congestive heart failure: Qualifiers: Heart failure type: systolic Code(s): I50.9 - Heart failure, unspecified Status: Acute Assessment and Plan: * limiting IVFs as tolerated * BNP as well as imaging c/w this/volume overload * Echo results noted * on IV diuretics (6) Rhabdomyolysis: Code(s): M62.82 - Rhabdomyolysis Status: Acute Assessment and Plan: * possibly contributing to MOHAN/ARF * follow trend of CPK levels Will continue to follow. Subjective Date/time seen: 07/01/23 12:44 Interval history: Follow-up for acute kidney injury/acute renal failure and acute on chronic hyponatremia. Remain intubated/sedated and on mechanical ventilation; good urine output in r esponse to IV diuretics, renal function as well as sodium level improving/stabilizing; remains on levophed gtt at this time; no other issues/events overnight. Exam Narrative: General: WD/WN female intubated and on mechanical ventilation Heart: normal S1 and S2; no rub Lungs: coarse breath sounds Abdomen: soft, nontender, nondistended, decreased bowel sounds Extremities: no cyanosis or clubbing; 1+ edema Skin: no rash Objective Data Vital Signs Vital Signs: Vital Signs Temp Pulse Resp BP Pulse Ox O2 Del Met
--- NOTE | 2023-07-01 12:44 | PM.PNNEP ---
Progress Note: A&P Assessment and Plan (1) MOHAN (acute kidney injury): Code(s): N17.9 - Acute kidney failure, unspecified Status: Acute Assessment and Plan: slow improvement noted suspect ATN with multifactorial etiology hemodynamic instability/shock rhabdomyolysis infection/sepsis prerenal factors evaluation to date noted: CT scan shows no obstruction urine electrolytes are pre renal urinalysis is bland CK is moderately high but decreasing follow trend of repeat labs and UOP (2) Hyponatremia: Code(s): E87.1 - Hypo-osmolality and hyponatremia Status: Acute Assessment and Plan: improving (and better than baseline) acute on chronic baseline sodium runs 124 - 130mmol/L since 2019 risk factors for low sodium: history of CHF history of liver disease thyroid disease COPD SSRI use (lexapro) suspect MOHAN/ARF in conjunction with volume overload to blame for acute decline in sodium evalution to date: cortisol level okay (but already on stress dose steroids) TSH level is a little high but the free T4 is a little high as well sodium level sue a little bit too quickly (on 06/27/23) so DDAVP and D5W given will d/c salt tablets tube flushes changed to free water follow trend of sodium (3) Septic shock: Code(s): A41.9 - Sepsis, unspecified organism; R65.21 - Severe sepsis with septic shock Status: Acute Assessment and Plan: source not entirely clear follow culture data - blood culture with Staph haemolytics on antibiotics pressors being weaned stress dose steroids (4) Acute respiratory failure: Code(s): J96.00 - Acute respiratory failure, unspecified whether with hypoxia or hypercapnia Status: Acute Assessment and Plan: due to altered mental status, low blood sugar, septic shock, and pulmonary edema intubated and on mechanical ventilation continue diuresis as tolerated continue supportive care (5) Congestive heart failure: Qualifiers: Heart failure type: systolic Code(s): I50.9 - Heart failure, unspecified Status: Acute Assessment and Plan: limiting IVFs as tolerated BNP as well as imaging c/w this/volume overload Echo results noted on IV diuretics (6) Rhabdomyolysis: Code(s): M62.82 - Rhabdomyolysis Status: Acute Assessment and Plan: possibly contributing to MOHAN/ARF follow trend of CPK levels Will continue to follow. Subjective Date/time seen: 07/01/23 12:44 Interval history: Follow-up for acute kidney injury/acute renal failure and acute on chronic hyponatremia. Remain intubated/sedated and on mechanical ventilation; good urine output in response to IV diuretics, renal function as well as sodium level improving/stabilizing; remains on levophed gtt at this time; no other issues/events overnight. Exam Narrative: General: WD/WN female intubated and on mechanical ventilation Heart: normal S1 and S2; no rub Lungs: coarse breath sounds Abdomen: soft, nontender, nondistended, decreased bowel sounds Extremities: no cyanosis or clubbing; 1+ edema Skin: no rash Objective Data Vital Signs Vital Signs: Vital Signs Temp Pulse Resp BP Pulse Ox O2 Del Method FiO2 07/01/23 12:35 99.1 F 72 16 97 07/01/23 12:00 97/71 L 07/01/23 12:17 99.1 F 73 16 96 07/01/23 12:09 99.1 F 71 16 97 07/01/23 11:36 99.0 F 78 21 H 95 07/01/23 11:21 99.0 F 78 16 97 07/01/23 11:06 98.9 F 77 16 97 07/01/23 11:02 98.9 F 79 20 105/75 96 07/01/23 12:00 30 07/01/23 11:18 77 97 Mechanical Ventilation 30 07/01/23 10:33 98.8 F 74 16 96 07/01/23 10:16 98.9 F 75 16 99/67 L 96 07/01/23 10:07 98.9 F 77 18 95 07/01/23 09:49 98.9 F 76 17 97 07/01/23 09:46 98.8 F 74 17 100/68 96 07/01/23 09:35 98.8 F 77 18 96 07/01
[2023-07-01] MEDS: MAGNESIUM SULF 2 GM/WATER 50ML 2 GM/50 ML BAG IVPB (12:59)
--- NOTE | 2023-07-01 13:06 | P.CDI_ITS ---
CDI Query Clarification Request Documented history of CHF. CHF noted on the assessment and plan. Elevated BNP on 06/26/23 lab work. Patient receiving Lasix. Pulmonary edema noted on patients chest xray. Please specify type and acuity of heart failure if known. * Acute * Chronic * Acute on Chronic * Unknown * Systolic * Diastolic * Combined Systolic and Diastolic * Unknown
[2023-07-01 23:25] LABS: Glucose Point of Care 139 mg/dl (65-105)
[2023-07-02] VITALS (18 sets, daily range): BP systolic 54–115; BP diastolic 38–70; PULSE 66–112; RESP 16–34; TEMP 37.2–37.7; O2SAT 60–99
[2023-07-02] MEDS: ALBUTEROL SULFATE NEB 2.5 MG/3 ML INH INHALATION ×2 (01:51→08:26)
[2023-07-02] MEDS: IPRATROPIUM BR 0.02% INH SOLN 0.5 MG/2.5 ML VIAL INHALATION ×2 (01:51→08:26)
[2023-07-02] MEDS: PIPERACILLN/TAZ 3.375GM/NS50ML 3.375 GM/50 ML BAG IVPB (05:04)
[2023-07-02] MEDS: LEVOTHYROXINE SODIUM 112 MCG TABLET PO (05:22)
[2023-07-02] MEDS: LEVOTHYROXINE SODIUM 25 MCG TABLET PO (05:23)
[2023-07-02] MEDS: NOREPINEPHRINE 8 MG/D5W 250 ML 8 MG/250 ML BAG 13.13 MG IV CONT (05:23)
[2023-07-02] MEDS: FENTANYL 2,500MCG/NS250ML(*CRX 2,500 MCG/250 ML BAG 7.5 MCG IV CONT (05:24)
[2023-07-02 05:26] LABS: Creatine Kinase 75 U/L (30-135); Lactic Acid Reflex 1.3 mmol/L (0.7-2.0)
[2023-07-02] MEDS: CENTRAL LINE FLUSH 10 ML IV PUSH (05:26)
[2023-07-02 06:11] LABS: Glucose Point of Care 135 mg/dl (65-105)
[2023-07-02 06:31] LABS: Hematocrit 27.5 % (37.0-47.0); Hemoglobin 8.9 g/dL (12.0-15.0); Immature Platelet Fraction Pct 9.2 % (0.9-11.2); Mean Corpuscular HGB Conc 32.4 g/dl (32-36); Mean Corpuscular Volume 101.9 fl (80-100); Mean Platelet Volume 11.2 fl (7.4-10.4); Platelet Count Result 90 k/mm3 (150-375); Red Cell Distribution Width 18.9 % (11.5-14.5); White Blood Count 7.8 K/mm3 (4.5-10.0)
[2023-07-02 06:36] LABS: Alanine Aminotransferase 46 U/L (6-35); Albumin Level 3.9 g/dL (3.5-5.1); Alkaline Phosphatase 148 U/L (38-126); Anion Gap 7 mmol/L (8-16); Aspartate Amino Transferase 56 U/L (14-36); Bilirubin,Total 2.4 mg/dL (0.2-1.3); Blood Urea Nitrogen 42 mg/dL (7-17); Calcium 8.5 mg/dL (8.4-10.2); Carbon Dioxide 37 mmol/L (22-30); Chloride 102 mmol/L (98-107); Estimated CRCL calculation 41 ml/min; Estimated Glomerular Filt Rate 46; Glucose 136 mg/dL (65-110); Potassium 3.5 mmol/L (3.4-5.0); Sodium 146 mmol/L (137-145)
[2023-07-02 07:08] LABS: INR 1.3; Partial Thromboplastin Time 31.3 SECONDS (22.3-36.8); Prothrombin Time 16.8 Seconds (11.1-14.7)
[2023-07-02] MEDS: DORNASE ALFA INH SOLN 1 MG/ML 2.5 ML AMP 2.5 MG INHALATION (08:26)
[2023-07-02 08:43] LABS: Device VENTILATOR; Modified Allen's Test Pass; Site Drawn RIGHT RADIAL
[2023-07-02 08:44] LABS: Arterial Blood Gas PEEP 5 cmH2O; Arterial Blood Gas Tidal Volume 400 ml; Arterial Blood Gas Vent Mode CMV; Arterial Blood Gas Ventilator rate 16 /MIN
[2023-07-02] MEDS: LORazepam INJ (*CRX) 2 MG/ML VIAL IV PUSH ×4 (09:40→23:34)
[2023-07-02] MEDS: MORPHINE SULFATE INJ (*CRX) 10 MG/ML AMP 5 MG IV PUSH (09:40)
--- NOTE | 2023-07-02 09:41 | WPDINTPN ---
Progress Note: A&P Assessment and Plan (1) Acute respiratory failure: Code(s): J96.00 - Acute respiratory failure, unspecified whether with hypoxia or hypercapnia Status: Acute Assessment and Plan: Acute Respiratory failure secondary to encephalopathy hypoglycemia sepsis shock pneumonia and pulmonary edema -06/25/2023: Intubated Continue full mechanical ventilation support to prevent hypoxemia/hypercarbia and end organ damage. Chest x-ray this morning: Small bilateral pleural effusions with moderate pulmonary edema. Correlate clinically for infection ABGs reviewed Currently on 5 of PEEP and 30 % FiO2. Continue diuresis Low tidal volume ventilation strategy to prevent volutrauma Bronchodilators Pulmozyme for thick ETT secretions -sedated with fentanyl infusion, maintain RASS of 0 to -2 and sisters have decided to withdraw support and make her comfort measures. (2) Severe sepsis: Code(s): A41.9 - Sepsis, unspecified organism; R65.20 - Severe sepsis without septic shock Status: Acute Assessment and Plan: She is now afebrile. WBC improved UA not suggestive of UTI CT scan does show patchy airspace disease which could be edema, pneumonia or combination 06/30: Switch meropenem to Zosyn as patient has a history of ESBL E coli in her urine 06/29 vancomycin discontinued procalcitonin elevated at 5.4 (3) Shock: Code(s): R57.9 - Shock, unspecified Status: Acute Assessment and Plan: Multifactorial shock due to sepsis and cardiogenic Continue Levophed but off is vasopressin infusion Off stress dose steroids Patient has received adequate amount IV fluids and appears to be volume overloaded now hence IV fluids have been decreased -DC all fluids 06/29 Echo - see below (4) Hyponatremia: Code(s): E87.1 - Hypo-osmolality and hyponatremia Status: Acute Assessment and Plan: Patient has history of chronic hyponatremia with highest level 128 seen in March. Presented with sodium level of 114 Improving. Nephrology following. Sodium is improving and is close to patient's baseline will now -patient on normal saline for NG tube flushes -sodium levels 143 on 07/01, switch NG tube flushes to free water insulin of normal saline Hold further IV fluids Discussed with Nephrology (5) MOHAN (acute kidney injury): Code(s): N17.9 - Acute kidney failure, unspecified Status: Acute Assessment and Plan: Presented with acute kidney injury which is likely multifactorial secondary to shock and rhabdomyolysis. Creatinine 2.[address] scan does not show any obstruction or hydronephrosis Appreciate nephrology following the patient Creatinine improved to 1.30 today with good urine output in response to diuresis CK levels trending down Continue to monitor renal function, electrolytes and urine output (6) Rhabdomyolysis: Code(s): M62.82 - Rhabdomyolysis Status: Acute Assessment and Plan: CK level elevated at 2809 on admission, Patient initially received IV fluids Limited IV fluids as patient is overall volume overloaded CK levels have normalized (7) Metabolic acidosis: Code(s): E87.20 - Acidosis, unspecified Status: Acute Assessment and Plan: Secondary to sepsis and acute kidney injury Improved with iV fluids with bicarb and acidosis improving Resolved (8) Hypoglycemia: Code(s): E16.2 - Hypoglycemia, unspecified Status: Acute Assessment and Plan: Improved. Off dextrose infusion now. Continue tube feeds (9) Electrolyte abnormality: Code(s): E87.8 - Other disorders of electrolyte and fluid balance, not elsewhere classified Status: Acute Assessment and Plan: Potassium and phosphorus normalized -will replace magnesium (10) Congestive heart failure: Qualifiers: Heart failure type: systolic Code(s): I50.9 - Heart failure, unspecified Status: Acute
[2023-07-02] MEDS: MORPHINE SULFATE (*CRX) 2 MG/ML INJ IV PUSH ×4 (11:26→23:33)
--- NOTE | 2023-07-02 13:37 | PCDIET ---
Patient has been extubated. Withdraw of care/comfort measures. No further nutritional interventions needed.
[2023-07-03] MEDS: LORazepam INJ (*CRX) 2 MG/ML VIAL IV PUSH ×4 (02:42→18:51)
[2023-07-03] MEDS: MORPHINE SULFATE (*CRX) 2 MG/ML INJ IV PUSH ×6 (02:42→18:14)
[2023-07-03 07:18] VITALS: PULSE 87; RESP 29; O2SAT 62
[2023-07-03 07:40] VITALS: BP 69/44; PULSE 87; RESP 30; TEMP 37.1; O2SAT 54
--- NOTE | 2023-07-03 09:15 | P.PNIM_ITS ---
Progress Note: A&P Assessment and Plan (1) Acute respiratory failure: Code(s): J96.00 - Acute respiratory failure, unspecified whether with hypoxia or hypercapnia Status: Acute Assessment and Plan: Acute Respiratory failure secondary to encephalopathy hypoglycemia sepsis shock pneumonia and pulmonary edema -06/25/2023: Intubated Continue full mechanical ventilation support to prevent hypoxemia/hypercarbia and end organ damage. Chest x-ray this morning: Small bilateral pleural effusions with moderate pulmonary edema. Correlate clinically for infection ABGs reviewed Currently on 5 of PEEP and 30 % FiO2. Continue diuresis Low tidal volume ventilation strategy to prevent volutrauma Bronchodilators Pulmozyme for thick ETT secretions -sedated with fentanyl infusion, maintain RASS of 0 to -2 and sisters have decided to withdraw support and make her comfort measures. (2) Severe sepsis: Code(s): A41.9 - Sepsis, unspecified organism; R65.20 - Severe sepsis without septic shock Status: Acute Assessment and Plan: She is now afebrile. WBC improved UA not suggestive of UTI CT scan does show patchy airspace disease which could be edema, pneumonia or combination 06/30: Switch meropenem to Zosyn as patient has a history of ESBL E coli in her urine 06/29 vancomycin discontinued procalcitonin elevated at 5.4 (3) Shock: Code(s): R57.9 - Shock, unspecified Status: Acute Assessment and Plan: Multifactorial shock due to sepsis and cardiogenic Continue Levophed but off is vasopressin infusion Off stress dose steroids Patient has received adequate amount IV fluids and appears to be volume overloaded now hence IV fluids have been decreased -DC all fluids 06/29 Echo - see below (4) Hyponatremia: Code(s): E87.1 - Hypo-osmolality and hyponatremia Status: Acute Assessment and Plan: Patient has history of chronic hyponatremia with highest level 128 seen in March. Presented with sodium level of 114 Improving. Nephrology following. Sodium is improving and is close to patient's baseline will now -patient on normal saline for NG tube flushes -sodium levels 143 on 07/01, switch NG tube flushes to free water insulin of normal saline Hold further IV fluids Discussed with Nephrology (5) MOHAN (acute kidney injury): Code(s): N17.9 - Acute kidney failure, unspecified Status: Acute Assessment and Plan: Presented with acute kidney injury which is likely multifactorial secondary to shock and rhabdomyolysis. Creatinine 2.[address] scan does not show any obstruction or hydronephrosis Appreciate nephrology following the patient Creatinine improved to 1.30 today with good urine output in response to diuresis CK levels trending down Continue to monitor renal function, electrolytes and urine output (6) Rhabdomyolysis: Code(s): M62.82 - Rhabdomyolysis Status: Acute Assessment and Plan: CK level elevated at 2809 on admission, Patient initially received IV fluids Limited IV fluids as patient is overall volume overloaded CK levels have normalized (7) Metabolic acidosis: Code(s): E87.20 - Acidosis, unspecified Status: Acute Assessment and Plan: Secondary to sepsis and acute kidney injury Improved with iV fluids with bicarb and acidosis improving Resolved (8) Hypoglycemia: Code(s): E16.2 - Hypoglycemia, unspecified Status: Acute Assessment an
--- NOTE | 2023-07-03 10:58 | PC.NURSE ---
Patient transferred to room 311 from ICU-9 at 1055. Family aware and updated of room change. Report given to MARYLU Spivey.
--- NOTE | 2023-07-03 11:00 | PC.NURSE ---
This patient, Marialuisa Huggins, was received from ICU-9 on 07/03/23 at 1100. Patient/family oriented to unit policies and routines
[2023-07-03 11:17] VITALS: BP 74/50; PULSE 89; RESP 20; TEMP 36.1; O2SAT 54
--- NOTE | 2023-07-03 12:57 | PC.NURSE ---
This patient, Marialuisa Huggins, was received from ICU-9 on 07/03/23 at 1100 . Patient/family oriented to unit policies and routines
[2023-07-03 20:00] VITALS: PULSE 89; RESP 20; O2SAT 54
[2023-07-03 23:18] VITALS: BP 75/45; PULSE 94; RESP 32; TEMP 36; O2SAT 48
[2023-07-04 07:45] VITALS: PULSE 102; RESP 30; O2SAT 76
[2023-07-04 08:00] VITALS: BP 87/54; PULSE 101; RESP 28; TEMP 37.4; O2SAT 76
[2023-07-04] MEDS: LORazepam INJ (*CRX) 2 MG/ML VIAL IV PUSH (11:31)
[2023-07-04] MEDS: MORPHINE SULFATE (*CRX) 2 MG/ML INJ IV PUSH (11:43)
[2023-07-04 13:58] VITALS: PULSE 102; RESP 30
[2023-07-04] MEDS: MORPHINE 50 MG/NS 100ML (*CRX) 50 MG/100 ML BAG IV CONT (13:58)
[2023-07-04 17:39] VITALS: PULSE 0; RESP 0
[2023-07-07 05:33] LABS: Haptoglobin 103 mg/dL (43-212)
--- NOTE | 2023-07-13 10:41 | PM.DDS ---
Discharge Summary Date and Time Date of : 07/04/23 Time of : 17:39 Provider Pronounced By: Lesley Gilliam, RN, Concepcion Scruggs, RN Probable Cause of Probable Cause of : Respiratory failure secondary to heart failure Summary Hospital Course: 62yo female with CHF, alcoholism, COPD, AFib, and cirrhosis here for being found unresponsive with hypoglycemia at home, hyponatremia with sodium of 114 06/25/2023:? Intubated in the ER 07/02/2023:? Patient seen and examined the ICU, remains intubated on CMV mode of ventilation, peep of 5, 30% FiO2.? Sedated with fentanyl infusion, patient does open her eyes, follows simple commands in all extremities.? Urine output has been good response to diuresis, creatinine trending down.? Patient also has a lot of stool in her FMS.? Remains on Levophed at 7 mcg/min. Lactic acid is 1.3.? 07/03: extubated, resting comfortably, minimally responsive, comfort care measures enacted, discussed with family at bedside. Acute Respiratory failure secondary to encephalopathy hypoglycemia sepsis shock pneumonia and pulmonary edema -06/25/2023: Intubated Continue full mechanical ventilation support to prevent hypoxemia/hypercarbia and end organ damage. Chest x-ray this morning:?Small bilateral pleural effusions with moderate pulmonary edema. Correlate clinically for infection ABGs reviewed Currently on 5 of PEEP and 30 % FiO2. Continue diuresis Low tidal volume ventilation strategy to prevent volutrauma Bronchodilators Pulmozyme for thick ETT secretions -sedated with fentanyl infusion, maintain RASS of 0 to -2 and sisters have decided to withdraw support and make her comfort measures. Please see above and med rec for details. Additional Data Confirmation of as documented by pronouncing clinician: Pupillary Reflex, Palpable Pulses, Response to Stimuli, Heart Tones and Breath Sounds Name of Provider Notified: Dr. Johnson Time Provider Notified: 17:41 Provider Requests Autopsy: No Family Requests Autopsy: No Bilingual Interpreter Notified: Yes Date [facility] Notified of : 07/04/23 Time [facility] Notified of : 19:01
== END 2023-07-04 17:39 | disposition expired | DRG 870 ==
LOC: ANHED 12:21 → ANHICU 17:21 → ANH3MEDSUR 07-03 10:55
PROVIDERS: Internal Medicine; Internal Medicine Hematology & Oncology; Internal Medicine Nephrology; Student in an Organized Health Care Education/Training Program; Admitting Provider Hospitalist; Emergency Provider Emergency Medicine; PCP Family Medicine; Visit Provider Student in an Organized Health Care Education/Training Program
DX: A41.9 Sepsis, unspecified organism (principal); R65.21 Severe sepsis with septic shock; D65 Disseminated intravascular coagulation [defibrination syndrome]; J96.02 Acute respiratory failure with hypercapnia; J18.9 Pneumonia, unspecified organism; I50.23 Acute on chronic systolic (congestive) heart failure; N17.0 Acute kidney failure with tubular necrosis; K72.00 Acute and subacute hepatic failure without coma; E87.1 Hypo-osmolality and hyponatremia; M62.82 Rhabdomyolysis; E87.21 Acute metabolic acidosis; D61.818 Other pancytopenia; R57.0 Cardiogenic shock; B95.7 Other staphylococcus as the cause of diseases classified elsewhere; E87.8 Other disorders of electrolyte and fluid balance, not elsewhere classified; D63.8 Anemia in other chronic diseases classified elsewhere; J44.9 Chronic obstructive pulmonary disease, unspecified; F10.20 Alcohol dependence, uncomplicated; E16.2 Hypoglycemia, unspecified; F43.10 Post-traumatic stress disorder, unspecified; F32.A Depression, unspecified; F41.9 Anxiety disorder, unspecified; E78.5 Hyperlipidemia, unspecified; E03.9 Hypothyroidism, unspecified; I48.0 Paroxysmal atrial fibrillation; K74.60 Unspecified cirrhosis of liver; Z96.649 Presence of unspecified artificial hip joint; Z90.710 Acquired absence of both cervix and uterus; Z90.49 Acquired absence of other specified parts of digestive tract; F17.290 Nicotine dependence, other tobacco product, uncomplicated; Z51.5 Encounter for palliative care; Z66 Do not resuscitate
CPT/HCPCS: 31500; 36415; 36430; 36556; 36600; 70450; 71045; 71250; 74018; 74019; 74176; 80048; 80053; 80202; 80307; 81001; 82140; 82274; 82375; 82533; 82550; 82570; 82607; 82728; 82746; 82805; 82948; 83010; 83050; 83540; 83550; 83605; 83615; 83735; 83880; 84100; 84145; 84295; 84300; 84439; 84443; 84484; 85014; 85018; 85025; 85027; 85049; 85055; 85380; 85384; 85610; 85730; 85999; 86850; 86860; 86870; 86880; 86900; 86901; 86922; 86923; 86971; 87040; 87077; 87081; 87186; 93005; 94002; 94003; 94640; 96365; 96366; 96367; 96368; 96375; 96376; 99291; A9270; C1751; C8929; C9113; G0378; J0330; J0613; J0692; J0696; J1720; J1815; J1940; J2060; J2185; J2250; J2270; J2543; J2597; J2997; J3010; J3370; J3411; J3430; J3475; J3480; J7030; J7042; J7050; J7070; J7131; P9012; P9016; P9017; P9041; P9047; Q9957